=== PATIENT | male | born 1955 | race American Indian/Alaskan Native ===

== ENCOUNTER 2018-10-04 12:24 | Emergency (ER) | payer OTHER, MEDICARE, SELFPAY ==
[2018-10-04 12:30] VITALS: BP 149/91; PULSE 79; RESP 23; TEMP 37.1; O2SAT 98; BMI 22.1
--- NOTE | 2018-10-04 12:32 | DI.RAD.S_ITS ---
PROCEDURE: XR CHEST 1V INDICATIONS: chest pain TECHNIQUE: One view of the chest was acquired. COMPARISON: None. FINDINGS: Surgical changes and devices: None. Lungs and pleura: Increased pulmonary vascularity is present. Areas of somewhat nodular opacity are noted within the upper lobes bilaterally, left greater than right. Mediastinum: Mediastinal contours appear normal. Heart size is normal. Bones and chest wall: No suspicious bony lesions. Overlying soft tissues appear unremarkable. IMPRESSION: Increased vascular suggestive of edema. Somewhat appearance of nodular opacities in the upper lobes could represent focal edema or potentially small areas of superimposed airspace disease. Recommend interval followup to document resolution and exclude presence of underlying mass lesion. Dictated by: Inez Torres M.D. on 10/04/2018 at 13:19 Approved by: Inez Torres M.D. on 10/04/2018 at 13:24
[2018-10-04 12:50] LABS: Add Manual Diff / Slide Review NO; Basophils Absolute Auto 100 /uL (0-100); Basophils Percent Auto 0.8 % (0-2); Eosinophils Absolute Auto 200 /uL (0-450); Eosinophils Percent Auto 2.5 % (2-4); Hematocrit 32.9 % (41-53); Hemoglobin 11.3 g/dL (13.5-17.5); Lymphocytes Absolute Auto 2700 /uL (1100-4500); Lymphocytes Percent Auto 30.3 % (25-40); Mean Corpuscular HGB Conc 34.5 % (30-36); Monocytes Absolute Auto 600 /uL (0-900); Monocytes Percent Auto 6.4 % (3-14); Neutrophils Absolute Auto 5400 /uL (1500-7000); Platelet Count 360 X10^3/uL (150-400); Red Blood Cell Count 3.66 X10^6/uL (4.5-5.9); Red Cell Distribution Width 15.5 % (11.6-14.8)
[2018-10-04 12:59] LABS: INR 1.1 (0.9-1.3); Prothrombin Time 12.5 SECONDS (10.1-12.7)
[2018-10-04 13:00] VITALS: BP 126/85; PULSE 82; RESP 17; O2SAT 99
[2018-10-04 13:01] LABS: PTT Partial Thromboplastin Tim 35 SECONDS (26.4-36.2)
[2018-10-04 13:02] LABS: Alanine Aminotransferase 8 IU/L (21-72); Albumin 3.6 g/dL (3.5-5.0); Albumin Globulin Ratio 0.9 (1.0-2.8); Alkaline Phosphatase 79 U/L (38-126); Aspartate Aminotransferase 23 IU/L (17-59); BUN Creatinine Ratio 11.4 (6-22); Bilirubin Total 0.4 mg/dL (0.2-1.3); Blood Urea Nitrogen 8 mg/dL (9-20); Calcium 8.1 mg/dL (8.4-10.2); Carbon Dioxide 26 mmol/L (22-32); Chloride 104 mmol/L (98-107); Creatine Kinase 79 U/L (55-170); Estimated Glomerular Filt Rate > 60.0 mL/min (>60); Globulin 4.2 g/dL (1.7-4.1); Glucose 115 mg/dL (80-110); HEMOLYSIS < 15 (0-50); Lipase 83 U/L (23-300); Potassium 3.7 mmol/L (3.4-5.1); Sodium 137 mmol/L (137-145); Total Protein 7.8 g/dL (6.3-8.2)
--- NOTE | 2018-10-04 13:04 | ED.CHESTPAIN ---
HPI - Chest Pain General Chief Complaint: Chest Pain Stated Complaint: SOB Time Seen by Provider: 10/04/18 12:54 Source: patient Mode of arrival: ambulatory Limitations: no limitations History of Present Illness HPI narrative: Patient is a 63-year-old male who shortness of breath. He complains of shortness of breath with exertion he says it has been getting worse for the last 6 months. He used to be able walk a mile without any problem now he can only walk half a mi. He says he has noticed increasing shortness of breath with minimal exertion. He has also had some left-sided chest discomfort ongoing for about 4 days. He thought he just slept on it wrong. It does not seem to be worse with movement he has no pain now. He feels that he can get enough air now. He has no prior history of coronary artery disease or COPD. He does state that he smokes marijuana daily but no other medications. MD complaint: chest pain Duration: now resolved Related Data Previous Rx's Medication Instructions Recorded albuterol sulfate 1 puff INHALATION Q4-6H PRN #8.5 10/04/18 gram Allergies Allergy/AdvReac Type Severity Reaction Status Date / Time No Known Drug Allergies Allergy Verified 10/04/18 12:32 Review of Systems Review of Systems ROS Unobtainable: All systems reviewed & are unremarkable except as noted in HPI and below Constitutional Denies chills, Denies fever(s), Denies lethargy and Denies weakness Eyes Denies change in vision, Denies eye discharge, Denies irritation and Denies loss of vision ENT Ears, Nose, Mouth, and Throat: Denies change in voice, Denies neck pain and Denies sore throat Cardiovascular Reports chest pain and Reports dyspnea on exertion Respiratory Reports dyspnea on exertion Gastrointestinal Gastrointestinal: Denies abdominal pain, Denies change in bowel habits, Denies diarrhea, Denies nausea and Denies vomiting Musculoskeletal Denies neck pain Integumentary/Breasts Denies pruritus, Denies erythema, Denies rash and Denies wounds Neurologic Denies confusion, Denies loss of vision and Denies weakness Psychiatric Denies anxiety, Denies confusion, Denies depression, Denies homicidal ideation and Denies suicidal ideation [facility] Medical History Patient denies significant medical history (Acute) Social History Smoking Status: Unknown if ever smoked Social History Smoking Status: Unknown if ever smoked Exam Initial Vital Signs Initial Vital Signs: Vital Signs Temperature 98.7 F 10/04/18 12:30 Pulse Rate 79 10/04/18 12:30 Respiratory Rate 23 10/04/18 12:30 Blood Pressure 149/91 H 10/04/18 12:30 Pulse Oximetry 98 10/04/18 12:30 Scores HEART Score Heart Score history: Slightly Suspicious Heart Score EKG: Normal Heart Score Age: > or = 65 years old Heart Score risk factors: No known risk factors Heart Score troponin: < or = to normal limit Heart Score Total: 2 Course Orders Ordered: ED Orders 10/04/18 12:32 XR chest 1V Stat 10/04/18 12:35 EKG-12 Lead Stat 10/04/18 12:40 B Type Natriuretic Peptide Stat Complete Blood Count AUTO DIFF Stat Comprehensive Metabolic Panel Stat D Dimer Stat Lipase Stat Partial Thromboplastin Time Stat Prothrombin Time INR Stat Troponin & CK Cardiac Panel Stat 10/04/18 15:02 CT angio chest PE protocol Stat Discontinued Medications Albuterol/Ipratropium (Duoneb) 3 ml INH NOW ONE Stop: 10/04/18 13:12 Last Admin: 10/04/18 13:15 Dose: 3 ml Vital Signs - 8 hr 10/04/18 12:30 10/04/18 13:00 10/04/18 13:20 Temperature 98.7 F Pulse Rate 79 82 78 Respiratory Rate 23 17 Blood Pressure 149/91 H Blood Pressure [Right Arm] 126/85 Pulse Oximetry 98 99 98 10/04/18 13:30 10/04/18 16:27 Temperature 98.7 F Pulse Rate 75 64 Respiratory Rate 25 H 18 Blood Pressure Blood Pressure [Right Arm] 134/86 138/76 Pulse Oximetry 99 100 MDM - Chest Pain Lab Data Attestation: I reviewed the patient's lab results. Result diagrams: 10/04/18 12:40 10/04/18 12:40 Lab Results 10/04/18 10/04/18 10/04/18 Range/Units 12:40 12:40 12:40 WBC 9.0 (4.5-11.0) X10^3/uL RBC 3.66 L (4.5-5.9) X10^6/uL Hgb 11.3 L (13.5-17.5) g/dL Hct 32.9 L (41-53) % MCV 90.0 (80-100) fL MCH 31.0 (26-34) PG MCHC 34.5 (30-36) % RDW 15.5 H (11.6-14.8) % Plt Count 360 (150-400) X10^3/uL Neut % (Auto) 60.0 (50-75) % Lymph % (Auto) 30.3 (25-40) % [place] % (Auto) 6.4 (3-14) % Eos % (Auto) 2.5 (2-4) % Baso % (Auto) 0.8 (0-2) % Neut # (Auto) 5400 (6680-1982) /uL Lymph # (Auto) 2700 (9189-2485) /uL [place] # (Auto) 600 (0-900) /uL Eos # (Auto) 200 (0-450) /uL Baso # (Auto) 100 (0-100) /uL PT 12.5 (10.1-12.7) SECONDS INR 1.1 (0.9-1.3) APTT 35 (26.4-36.2) SECONDS D-Dimer (<230) ng/mL Sodium 137 (137-145) mmol/L Potassium 3.7 (3.4-5.1) mmol/L Chloride 104 (98-107) mmol/L Carbon Dioxide 26 (22-32) mmol/L BUN 8 L (9-20) mg/dL Creatinine 0.70 (0.66-1.25) mg/dL Estimated GFR > 60.0 (>60) mL/min BUN/Creatinine Ratio 11.4 (6-22) Glucose 115 H (80-110) mg/dL Calcium 8.1 L (8.4-10.2) mg/dL Total Bilirubin 0.4 (0.2-1.3) mg/dL AST 23 (17-59) IU/L ALT 8 L (21-72) IU/L Alkaline Phosphatase 79 (38-126) U/L Total Creatine Kinase 79 (55-170) U/L CK-MB (CK-2) TNP CK-MB (CK-2) Rel Index TNP Troponin I < 0.012 (0.01-0.034) ng/mL B-Natriuretic Peptide (<100) Total Protein 7.8 (6.3-8.2) g/dL Albumin 3.6 (3.5-5.0) g/dL Globulin 4.2 H (1.7-4.1) g/dL Albumin/Globulin Ratio 0.9 L (1.0-2.8) Lipase 83 (23-300) U/L 10/04/18 10/04/18 Range/Units 12:40 12:40 WBC (4.5-11.0) X10^3/uL RBC (4.5-5.9) X10^6/uL Hgb (13.5-17.5) g/dL Hct (41-53) % MCV (80-100) fL MCH (26-34) PG MCHC (30-36) % RDW (11.6-14.8) % Plt Count (150-400) X10^3/uL Neut % (Auto) (50-75) % Lymph % (Auto) (25-40) % [place] % (Auto) (3-14) % Eos % (Auto) (2-4) % Baso % (Auto) (0-2) % Neut # (Auto) (4076-4789) /uL Lymph # (Auto) (9911-8141) /uL [place] # (Auto) (0-900) /uL Eos # (Auto) (0-450) /uL Baso # (Auto) (0-100) /uL PT (10.1-12.7) SECONDS INR (0.9-1.3) APTT (26.4-36.2) SECONDS D-Dimer 449 H (<230) ng/mL Sodium (137-145) mmol/L Potassium (3.4-5.1) mmol/L Chloride (98-107) mmol/L Carbon Dioxide (22-32) mmol/L BUN (9-20) mg/dL Creatinine (0.66-1.25) mg/dL Estimated GFR (>60) mL/min BUN/Creatinine Ratio (6-22) Glucose (80-110) mg/dL Calcium (8.4-10.2) mg/dL Total Bilirubin (0.2-1.3) mg/dL AST (17-59) IU/L ALT (21-72) IU/L Alkaline Phosphatase (38-126) U/L Total Creatine Kinase (55-170) U/L CK-MB (CK-2) CK-MB (CK-2) Rel Index Troponin I (0.01-0.034) ng/mL B-Natriuretic Peptide < 100 (<100) Total Protein (6.3-8.2) g/dL Albumin (3.5-5.0) g/dL Globulin (1.7-4.1) g/dL Albumin/Globulin Ratio (1.0-2.8) Lipase (23-300) U/L Imaging Data Chest x-ray: Radiologist's impression: PROCEDURE: XR CHEST 1V INDICATIONS: chest pain TECHNIQUE: One view of the chest was acquired. COMPARISON: None. FINDINGS: Surgical changes and devices: None. Lungs and pleura: Increased pulmonary vascularity is present. Areas of somewhat nodular opacity are noted within the upper lobes bilaterally, left greater than right. Mediastinum: Mediastinal contours appear normal. Heart size is normal. Bones and chest wall: No suspicious bony lesions. Overlying soft tissues appear unremarkable. IMPRESSION: Increased vascular suggestive of edema. Somewhat appearance of nodular opacities in the upper lobes could represent focal edema or potentially small areas of superimposed airspace disease. Recommend interval followup to document resolution and exclude presence of underlying mass lesion. Dictated by: Inez Torres M.D. on 10/04/2018 at 13:19 Approved by: Inez Torres M.D. on 10/04/2018 at 13:24 CT scan - chest: Radiologist's impression: PROCEDURE: CT ANGIO CHEST PE PROTOCOL INDICATIONS: short of breath +dimer TECHNIQUE: After the administration of intravenous contrast, 2 mm thick sections acquired from the pulmonary apices to the posterior costophrenic angles. 3-dimensional maximum intensity projection (MIP) coronal and sagittal reformats were then acquired through the thorax. For radiation dose reduction, the following was used: automated exposure control, adjustment of mA and/or kV according to patient size. COMPARISON: None. FINDINGS: Image quality: Excellent. Pulmonary arteries: Pulmonary arteries are normal in size, and demonstrate no intraluminal filling defects to suggest central pulmonary embolism. Lungs and pleura: There are extensive changes of pulmonary fibrosis with a bibasilar predominance and extensive honeycombing. There is extensive predominantly bibasilar groundglass opacity consistent with acute inflammation. No air space consolidation. No pleural effusions or pneumothorax. Central and peripheral airways are patent. Mediastinum: Heart size is normal, without pericardial effusion. Extensive relatively symmetric mediastinal and bilateral shotty adenopathy. No individual lymph nodes are present which are suspicious by size criteria. However, there are numerous lymph nodes present. Thoracic aorta is normal in caliber and enhancement. Esophagus is normal in caliber, without hiatal hernia. Bones and chest wall: No suspicious bony lesions. Ribs and thoracic spine appear intact throughout. Thyroid gland is unremarkable. No axillary or supraclavicular adenopathy. Abdomen: Visualized upper abdominal solid organs appear normal in the early arterial phase of enhancement. IMPRESSION: 1. No pulmonary emboli. 2. Symmetric extensive shotty mediastinal adenopathy. 3. Extensive pulmonary fibrosis with a bibasilar predominance. There is also diffuse groundglass opacity consistent with active inflammation. Comment: The pattern of pulmonary fibrosis would be atypical for sarcoid, which typically has a biapical predominance. However, sarcoid is not excluded. Dictated by: Vicente Pittman M.D. on 10/04/2018 at 15:19 ECG Data Attestation: I personally reviewed and interpreted this ECG as follows: Prior ECG tracings: not available for review Interpretation: Normal sinus rhythm at 75 year interval [address] changes no T-wave inversion MDM Narrative Medical decision making narrative: Patient significant improvement after albuterol. He states that he was around fiberglass a lot in his life. He feels like that may be catching up to him. No pneumonia or PE on CT. He is taught how to use an inhaler and spacer overall feels much better. I did discuss with him he should have further cardiac testing such as a stress test. Discharge Plan Departure Patient Disposition: Home Clinical Impression: RAD (reactive airway disease) Qualifiers: Asthma severity: mild Asthma persistence: intermittent Asthma complication type: uncomplicated Qualified Code(s): J45.20 - Mild intermittent asthma, uncomplicated Instructions: DI for Reactive Airway Disease-Adult Activity Restrictions/Additional Instructions: *You have been diagnosed with reactive airway *What to do: Shortness of breath is likely due to her exposure to fiberglass. You may also require further cardiac testing please discuss this with your PCP. He would need things like a stress test and echocardiogram. *Continue to take medications as directed Albuterol inhaler 1-2 puffs every 4 hours if needed for shortness of breath. Recommend using 30 minutes prior to your daily walk *Follow up with your primary care provider in 2-3 days *Return to ER if you should have increasing shortness of breath, chest or any new, worsening or concerning symptoms Prescriptions: New albuterol sulfate 90 mcg/actuation HFA aerosol inhaler 1 puff INHALATION Q4-6H PRN (Reason: shortness of breath or wheezing) Qty: 8.5 RF: 0 Referrals: [facility] [Outside] Yahaira Walsh MD [Non-Staff] -
[2018-10-04 13:14] LABS: Troponin I < 0.012 ng/mL (0.01-0.034)
[2018-10-04] MEDS: ALBUTEROL/IPRATROPIUM 3 ML AMPUL INH (13:15)
[2018-10-04 13:20] VITALS: PULSE 78; O2SAT 98
[2018-10-04 13:30] VITALS: BP 134/86; PULSE 75; RESP 25; O2SAT 99
[2018-10-04 13:32] LABS: D Dimer 449 ng/mL (<230)
[2018-10-04 14:04] LABS: B Type Natriuretic Peptide < 100 (<100)
--- NOTE | 2018-10-04 15:02 | DI.CT.S_ITS ---
PROCEDURE: CT ANGIO CHEST PE PROTOCOL INDICATIONS: short of breath +dimer TECHNIQUE: After the administration of intravenous contrast, 2 mm thick sections acquired from the pulmonary apices to the posterior costophrenic angles. 3-dimensional maximum intensity projection (MIP) coronal and sagittal reformats were then acquired through the thorax. For radiation dose reduction, the following was used: automated exposure control, adjustment of mA and/or kV according to patient size. COMPARISON: None. FINDINGS: Image quality: Excellent. Pulmonary arteries: Pulmonary arteries are normal in size, and demonstrate no intraluminal filling defects to suggest central pulmonary embolism. Lungs and pleura: There are extensive changes of pulmonary fibrosis with a bibasilar predominance and extensive honeycombing. There is extensive predominantly bibasilar groundglass opacity consistent with acute inflammation. No air space consolidation. No pleural effusions or pneumothorax. Central and peripheral airways are patent. Mediastinum: Heart size is normal, without pericardial effusion. Extensive relatively symmetric mediastinal and bilateral shotty adenopathy. No individual lymph nodes are present which are suspicious by size criteria. However, there are numerous lymph nodes present. Thoracic aorta is normal in caliber and enhancement. Esophagus is normal in caliber, without hiatal hernia. Bones and chest wall: No suspicious bony lesions. Ribs and thoracic spine appear intact throughout. Thyroid gland is unremarkable. No axillary or supraclavicular adenopathy. Abdomen: Visualized upper abdominal solid organs appear normal in the early arterial phase of enhancement. IMPRESSION: 1. No pulmonary emboli. 2. Symmetric extensive shotty mediastinal adenopathy. 3. Extensive pulmonary fibrosis with a bibasilar predominance. There is also diffuse groundglass opacity consistent with active inflammation. Comment: The pattern of pulmonary fibrosis would be atypical for sarcoid, which typically has a biapical predominance. However, sarcoid is not excluded. Dictated by: Vicente Pittman M.D. on 10/04/2018 at 15:19 Approved by: Vicente Pittman M.D. on 10/04/2018 at 15:35
[2018-10-04 16:27] VITALS: BP 138/76; PULSE 64; RESP 18; TEMP 37.1; O2SAT 100
== END 2018-10-04 16:40 | disposition home or self-care (01) ==
PROVIDERS: Emergency Provider Emergency Medicine
DX: J45.909 Unspecified asthma, uncomplicated (principal); J45.20 Mild intermittent asthma, uncomplicated; R07.9 Chest pain, unspecified
CPT/HCPCS: 36591; 71045; 71275; 80053; 82550; 83690; 83880; 84484; 85025; 85379; 85610; 85730; 93005; 93010; 94640; 99283; 99285; Q9967

== ENCOUNTER → 2019-04-20 11:56 | Outpatient (CLI) | payer MEDICARE, OTHER, SELFPAY ==
--- NOTE | 2019-04-20 | DI.RAD.S_ITS ---
PROCEDURE: XR CHEST 2V INDICATIONS: SOB TECHNIQUE: 2 views of the chest were acquired. COMPARISON: [facility], CR, XR CHEST 1V, 10/04/2018, 12:52. FINDINGS: Surgical changes and devices: None. Lungs and pleura: Ill-defined air space opacity throughout bilateral lung lanier are seen particularly in bilateral lower lobes. Chronic increased interstitial lung markings also seen bilaterally. No pleural effusions or pneumothorax. Mediastinum: Mediastinal contours are normal. Heart size is normal. Bones and chest wall: No suspicious bony abnormalities. Soft tissues appear unremarkable. IMPRESSION: Findings suggestive of patchy bilateral lower lobe infiltrates superimposed on chronic interstitial lung disease. No gross pneumothorax. Dictated by: Juan Cast M.D. on 04/20/2019 at 13:25 Approved by: Juan Cast M.D. on 04/20/2019 at 13:26
[2019-04-20 14:08] LABS: Procalcitonin < 0.05 ng/mL (<0.5)
== END ==
PROVIDERS: Visit Provider Physician Assistant
DX: R06.02 Shortness of breath (principal)
CPT/HCPCS: 36415; 71046; 84145

== ENCOUNTER → 2019-06-13 12:18 | Outpatient (CLI) | payer MEDICARE, OTHER, SELFPAY ==
--- NOTE | 2019-06-13 | DI.RAD.S_ITS ---
PROCEDURE: XR CHEST 2V INDICATIONS: SOB/ LAB TECHNIQUE: 2 views of the chest were acquired. COMPARISON: [facility], CT, CT ANGIO CHEST PE PROTOCOL, 10/04/2018, 14:53. [facility], CR, XR CHEST 2V, 04/20/2019, 12:41. [facility], CR, XR CHEST 1V, 10/04/2018, 12:52. FINDINGS: Surgical changes and devices: None. Lungs and pleura: Lungs are abnormal with a chronic interstitial prominence, and pulmonary hyperexpansion to the degree that COPD is presumed. No focal pneumonia seen. Pleural calcifications are noted on the right, and also documented by prior chest CT scanning 10/04/18, mild in severity. No pleural effusions or pneumothorax. Mediastinum: Mediastinal contours are normal. Heart size is normal. Bones and chest wall: No suspicious bony abnormalities. Soft tissues appear unremarkable. IMPRESSION: COPD, chronic interstitial prominence, no pneumonia found are underlying mass lesion identified. 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 Dictated by: Chintan Ortega M.D. on 06/13/2019 at 12:42 Approved by: Chintan Ortega M.D. on 06/13/2019 at 12:46
[2019-06-13 13:08] LABS: Add Manual Diff / Slide Review NO; Basophils Absolute Auto 0 /uL (0-100); Basophils Percent Auto 0.2 % (0-2); Eosinophils Absolute Auto 0 /uL (0-450); Hematocrit 33.6 % (41-53); Hemoglobin 11.2 g/dL (13.5-17.5); Lymphocytes Absolute Auto 900 /uL (1100-4500); Lymphocytes Percent Auto 11.8 % (25-40); Mean Corpuscular HGB Conc 33.4 % (30-36); Mean Corpuscular Hemoglobin 29.2 PG (26-34); Mean Corpuscular Volume 87.5 fL (80-100); Monocytes Absolute Auto 100 /uL (0-900); Monocytes Percent Auto 0.8 % (3-14); Neutrophils Absolute Auto 6600 /uL (1500-7000); Neutrophils Percent Auto 87.2 % (50-75); Platelet Count 442 X10^3/uL (150-400); Red Blood Cell Count 3.84 X10^6/uL (4.5-5.9); Red Cell Distribution Width 15.4 % (11.6-14.8); White Blood Cell Count 7.6 X10^3/uL (4.5-11.0)
[2019-06-13 15:01] LABS: Alanine Aminotransferase 15 IU/L (<50); Albumin 3.8 g/dL (3.5-5.0); Albumin Globulin Ratio 0.7 (1.0-2.8); Alkaline Phosphatase 99 U/L (38-126); Aspartate Aminotransferase 43 IU/L (17-59); Bilirubin Total 0.2 mg/dL (0.2-1.3); Blood Urea Nitrogen 9 mg/dL (9-20); Calcium 8.8 mg/dL (8.4-10.2); Carbon Dioxide 24 mmol/L (22-32); Chloride 103 mmol/L (98-107); Estimated Glomerular Filt Rate > 60.0 mL/min (>60); Globulin 5.1 g/dL (1.7-4.1); Glucose 135 mg/dL (80-110); HEMOLYSIS < 15 (0-50); Potassium 4.2 mmol/L (3.4-5.1); Sodium 137 mmol/L (137-145); Total Protein 8.9 g/dL (6.3-8.2)
[2019-06-13 15:10] LABS: NT-proBNP (BNP-Adult 18+) 366 pg/mL (<125)
== END ==
PROVIDERS: Referring Provider Physician Assistant; Visit Provider Physician Assistant
DX: R06.02 Shortness of breath (principal)
CPT/HCPCS: 36415; 71046; 80053; 83880; 85025

== ENCOUNTER → 2019-06-16 08:28 | Outpatient (CLI) | payer MEDICARE, OTHER, SELFPAY ==
--- NOTE | 2019-06-16 | DI.RAD.S_ITS ---
PROCEDURE: XR LUMBAR SPINE 2-3V INDICATIONS: LOW BACK PAIN TECHNIQUE: 3 views of the lumbar spine were acquired. COMPARISON: None. FINDINGS: Bones: 5 [id number] vertebrae are present. There is normal bony alignment. No vertebral body compression fractures. Mild degenerative endplate changes a mid to lower lumbar spine is seen. No suspicious bony lesions. There is prior fixation of right acetabulum. Soft tissues: Overlying bowel gas pattern is normal. No suspicious soft tissue calcifications. IMPRESSION: Mild degenerative disc disease in lower lumbar spine. No acute fracture or dislocation. Prior fixation of right acetabulum. Dictated by: Juan Cast M.D. on 06/16/2019 at 10:02 Approved by: Juan Cast M.D. on 06/16/2019 at 10:03
[2019-06-16 09:36] LABS: Basophils Absolute Auto 100 /uL (0-100); Basophils Percent Auto 0.7 % (0-2); Eosinophils Absolute Auto 200 /uL (0-450); Eosinophils Percent Auto 1.3 % (2-4); Hematocrit 33.7 % (41-53); Hemoglobin 11.2 g/dL (13.5-17.5); Lymphocytes Absolute Auto 2100 /uL (1100-4500); Lymphocytes Percent Auto 17.6 % (25-40); Mean Corpuscular HGB Conc 33.3 % (30-36); Mean Corpuscular Hemoglobin 29.2 PG (26-34); Mean Corpuscular Volume 87.7 fL (80-100); Monocytes Absolute Auto 800 /uL (0-900); Monocytes Percent Auto 6.3 % (3-14); Neutrophils Absolute Auto 8900 /uL (1500-7000); Neutrophils Percent Auto 74.1 % (50-75); Platelet Count 431 X10^3/uL (150-400); Red Blood Cell Count 3.84 X10^6/uL (4.5-5.9); Red Cell Distribution Width 15.5 % (11.6-14.8)
[2019-06-16 09:45] LABS: Add Manual Diff / Slide Review SLIDE REVIEW
[2019-06-16 09:48] LABS: Hemoglobin A1C% w Est Avg Glu 5.5 % (4.0-6.0)
[2019-06-16 10:07] LABS: RBC Morphology Normal Morphology
[2019-06-16 11:11] LABS: HEMOLYSIS < 15 (0-50); Iron 33 ug/dL (49-181)
[2019-06-16 11:22] LABS: Percent Iron Saturation 14 % (20-50); Total Iron Binding Capacity 239 ug/dL (261-462); Transferrin 178 mg/dL (206-381)
[2019-06-16 15:38] LABS: Ferritin 13 ng/mL (18-464)
[2019-06-18 20:15] LABS: Albumin 2.9 g/dL (3.8-4.8); Alpha 1 Globulin 0.3 g/dL (0.2-0.3); Alpha 2 Globulin 0.8 g/dL (0.5-0.9); Beta 1 Globulin 0.5 g/dL (0.4-0.6); Gamma Globulin 2.3 g/dL (0.8-1.7); Protein, Total 7.2 g/dL (6.1-8.1)
== END ==
PROVIDERS: Referring Provider Physician Assistant; Visit Provider Physician Assistant
DX: Z13.1 Encounter for screening for diabetes mellitus (principal); M54.5 Low back pain; R77.1 Abnormality of globulin; D64.89 Other specified anemias; J84.10 Pulmonary fibrosis, unspecified
CPT/HCPCS: 36415; 72100; 82728; 83036; 83540; 83550; 84155; 84165; 85025

== ENCOUNTER → 2019-06-22 08:56 | Outpatient (CLI) | payer MEDICARE, OTHER, SELFPAY ==
--- NOTE | 2019-06-28 08:26 | PM.PFT.1 ---
Pulmonary Function Test Referral & Results Date Patient Seen: 06/22/19 Requesting provider: Az Salazar Results: The spirometry demonstrates an FVC of 3.28 L which is 74% of predicted. The FEV1 was measured at 2.77 L which is 84% of predicted. The FEV1/FVC ratio was 85 which is 113% of predicted. Following the administration of bronchodilator there was no appreciable change. Lung volumes show an SVC of 3.62 L which is 80% of predicted. The diffusing capacity was measured at 9.65 which is 31% of predicted. No hemoglobin value was provided, so no correction for potential anemia could be made, if appropriate. The maximum voluntary ventilation was normal Interpretation: This study demonstrates probably normal spirometry although there may be very mild obstructive and restrictive lung disease present based on slight reductions in FEV1 and SVC There is much more significant reduction in diffusing capacity suggesting significant disease at the capillary alveolar level, to the point where patient may well be hypoxic at times on room air Clinical correlation suggested
== END ==
PROVIDERS: PCP Physician Assistant; Referring Provider Physician Assistant; Visit Provider Physician Assistant
DX: R06.02 Shortness of breath (principal)
CPT/HCPCS: 94060; 94726; 94729

== ENCOUNTER → 2019-07-20 14:36 | Outpatient (CLI) | payer MEDICARE, OTHER, SELFPAY ==
--- NOTE | 2019-07-20 | DI.ECHO.S_ITS ---
[place] [facility]---------+ [facility] +---------+ : : [address] : : : : [id number] : : : : Phone: [phone]+ Echocardiogram Report + + :Name: SHON GLASER Study Date: 07/20/2019 Height: 69 in : :[facility] Weight: 142 lb : : Gender: Male BSA: 1.8 m2 : :: 1955 Age: 64 yrs BP: 130/80 mmHg: :Reason For Study: SOB : : Performed By: Cheko Jo : :Referring: SHON TERRAZAS : + + Interpretation Summary Normal sinus rhythm. Normal LV size, wall thickness, wall motion and LV systolic function. EF is 55-60%. Mild biatrial enlargement; otherwise normal chamber sizes. No significant valvular abnormalities. No prior study available for ocmparison. Procedure: A two-dimensional transthoracic echocardiogram with color flow and Doppler was performed. The study quality was technically good. There is no prior echocardiogram noted for this patient. The patient was in normal sinus rhythm during the exam. Left Ventricle: The left ventricle is normal in size. There is normal left ventricular wall thickness. The ejection fraction is estimated to be 55-60%. There are no focal wall motion abnormalities. Right Ventricle: The right ventricle is normal in size and function. Atria: Both atria are mildly dilated. The interatrial septum is intact with no evidence for an atrial septal defect. Mitral Valve: The mitral valve is normal in structure and function. There is trace mitral regurgitation. Aortic Valve: The aortic valve is trileaflet. The aortic valve opens well. No aortic regurgitation is present. Tricuspid Valve: The tricuspid valve is normal in structure and function. There is trace tricuspid regurgitation. The right ventricular systolic pressure is estimated to be at least 29 mmHg based on an estimated right atrial pressure of 8 mm Hg. Pulmonic Valve: The pulmonic valve is normal in structure and function. There is no pulmonic valvular regurgitation. Great Vessels: The aortic root is normal size. The ascending aorta is mildly enlarged. The pulmonary artery is normal size. The IVC is of normal diameter and collapses less than 50% with a sniff. This suggests a right atrial pressure of 8 mm Hg. Pericardium/ Pleura There is no pericardial effusion. There is no pleural effusion. MMode/2D Measurements & Calculations LVIDd: 5.1 cm LVOT diam: 2.3 cm LVIDs: 3.7 cm asc Aorta Diam: 3.9 cm FS: 27.6 % Ao Arch Diam (Prox Trans): 2.6 cm EPSS: 0.22 cm IVSd: 0.83 cm LVPWd: 0.79 cm LV murillo. diameter/BSA (cm/m^2): 2.8 LV sys. diameter/BSA (cm/m^2): 2.1 LA dimension: 3.2 cm RA long axis: 5.0 cm LA A2 area: 20.6 cm2 RA area: 19.5 cm2 LA A4 area: 20.3 cm2 RA vol: 64.3 ml LA length (vol): 5.2 cm RA : 36.0 ml/m2 LA vol: 68.5 ml IVC diam: 1.5 cm LA vol index: 38.4 ml/m2 RVD1 (basal): 3.7 cm RVD2 (mid): 4.4 cm TAPSE: 2.5 cm Doppler Measurements & Calculations Ao V2 max: 151.8 cm/sec LVOT Max Dariusz: 103.9 cm/sec Ao V2 mean: 113.9 cm/sec LV V1 max P.3 mmHg Ao max P.2 mmHg LV V1 VTI: 22.4 cm Ao mean P.6 mmHg THAO(I,D): 3.0 cm2 Ao V2 VTI: 31.6 cm THAO(V,D): 2.9 cm2 sev ratio: 0.71 THAO indexed to BSA (cm^2/m^2): 1.7 MV E max dariusz: 48.5 cm/sec TR max dariusz: 231.0 cm/sec MV A max dariusz: 78.9 cm/sec TR max P.3 mmHg MV E/A: 0.61 PA V2 max: 80.1 cm/sec Med Peak E' Dariusz: 5.3 cm/sec PA V2 mean: 58.0 cm/sec E/E' med: 9.2 PA mean P.5 mmHg Lat Peak E' Dariusz: 8.3 cm/sec PA pr(Accel): 43.0 mmHg E/E' lat: 5.8 E/e' average: 7.5 MV dec time: 0.21 sec SV(LVOT): 93.4 ml Electronically signed by: Haylee Vallejo M.D. on Reading Physician:07/21/2019 08:12 AM
== END ==
PROVIDERS: PCP Physician Assistant; Referring Provider Physician Assistant; Visit Provider Physician Assistant
DX: R06.02 Shortness of breath (principal); I77.89 Other specified disorders of arteries and arterioles
CPT/HCPCS: 93306

== ENCOUNTER 2019-10-22 10:22 | Emergency (ER) | payer MEDICARE, OTHER, SELFPAY ==
[2019-10-22] VITALS (14 sets, daily range): BP systolic 146–173; BP diastolic 90–101; PULSE 79–96; RESP 16–38; TEMP 36.5; O2SAT 95–97; BMI 23.6
--- NOTE | 2019-10-22 11:21 | PC.NURSE ---
Reports diagnosis of pulmonary fibrosis in April, followed by pneumonia. Was tapered off of steroids 2 weeks ago and breathing has worsened since.
--- NOTE | 2019-10-22 12:42 | DI.RAD.S_ITS ---
PROCEDURE: XR CHEST 1V INDICATIONS: shortness of breath TECHNIQUE: One view of the chest was acquired. COMPARISON: [facility], CT, CT ANGIO CHEST PE PROTOCOL, 10/04/2018, 14:5 the previous exam3. [facility], CR, XR CHEST 2V, 06/13/2019, 12:20. FINDINGS: Surgical changes and devices: None. Lungs and pleura: Interstitial prominence is identified within the bilateral lung bases, which is similar to the previous examination. No new area of consolidation is appreciated. There is no definite effusion or pneumothorax. Calcification at the right diaphragm is noted. Mediastinum: Mediastinal contours appear normal. Heart size is normal. There is aortic atherosclerosis. Bones and chest wall: No suspicious bony lesions. Overlying soft tissues appear unremarkable. IMPRESSION: Extensive chronic interstitial changes are identified within the lungs, similar to the prior study. Superimposed pneumonia or edema is difficult to exclude. Dictated by: Walker Ny M.D. on 10/22/2019 at 12:15 Approved by: Walker Ny M.D. on 10/22/2019 at 12:23
[2019-10-22] MEDS: ALBUTEROL HFA 60 PUFF/8 GM INH INH (12:51)
[2019-10-22 12:53] LABS: Prothrombin Time 11.8 SECONDS (10.1-12.7)
[2019-10-22 12:56] LABS: Add Manual Diff / Slide Review NO; Basophils Absolute Auto 100 /uL (0-100); Basophils Percent Auto 0.7 % (0-2); Eosinophils Absolute Auto 700 /uL (0-450); Eosinophils Percent Auto 6.3 % (2-4); Hematocrit 32.2 % (41-53); Hemoglobin 10.6 g/dL (13.5-17.5); Lymphocytes Absolute Auto 2300 /uL (1100-4500); Lymphocytes Percent Auto 21.6 % (25-40); Mean Corpuscular HGB Conc 32.8 % (30-36); Mean Corpuscular Hemoglobin 29.6 PG (26-34); Mean Corpuscular Volume 90.1 fL (80-100); Monocytes Absolute Auto 500 /uL (0-900); Monocytes Percent Auto 4.5 % (3-14); Neutrophils Absolute Auto 7200 /uL (1500-7000); Neutrophils Percent Auto 66.9 % (50-75); PTT Partial Thromboplastin Tim 33 SECONDS (26.4-36.2); Platelet Count 483 X10^3/uL (150-400); Red Blood Cell Count 3.58 X10^6/uL (4.5-5.9); Red Cell Distribution Width 17.9 % (11.6-14.8); White Blood Cell Count 10.8 X10^3/uL (4.5-11.0)
[2019-10-22 13:03] LABS: Lactate (Lactic Acid) 0.8 mmol/L (0.7-2.1)
[2019-10-22 13:06] LABS: Alanine Aminotransferase 16 IU/L (<50); Albumin 3.4 g/dL (3.5-5.0); Albumin Globulin Ratio 0.9 (1.0-2.8); Alkaline Phosphatase 94 U/L (38-126); Aspartate Aminotransferase 49 IU/L (17-59); BUN Creatinine Ratio 17.6 (6-22); Bilirubin Total 0.4 mg/dL (0.2-1.3); Blood Urea Nitrogen 12 mg/dL (9-20); Calcium 8.7 mg/dL (8.4-10.2); Carbon Dioxide 27 mmol/L (22-32); Chloride 108 mmol/L (98-107); Creatine Kinase 45 U/L (55-170); Estimated Glomerular Filt Rate > 60.0 mL/min (>60); Globulin 3.9 g/dL (1.7-4.1); Glucose 116 mg/dL (80-110); HEMOLYSIS < 15 (0-50); Magnesium 1.9 mg/dL (1.6-2.3); Potassium 3.9 mmol/L (3.4-5.1); Sodium 138 mmol/L (137-145); Total Protein 7.3 g/dL (6.3-8.2)
[2019-10-22 13:16] LABS: NT-proBNP (BNP-Adult 18+) 736 pg/mL (<125); Troponin I < 0.012 ng/mL (0.01-0.034)
[2019-10-22 13:19] LABS: D Dimer 558 ng/mL (<230); Procalcitonin < 0.05 ng/mL (<0.5)
[2019-10-22 14:39] LABS: Creatine Kinase 42 U/L (55-170)
[2019-10-22 14:50] LABS: Troponin I < 0.012 ng/mL (0.01-0.034)
[2019-10-22] MEDS: predniSONE 20 MG TABLET 40 MG PO (15:07)
--- NOTE | 2019-10-22 19:11 | ED_ITS ---
HPI - SOB/Dyspnea <NELLY Esqueda - Last Filed: 10/22/19 19:16> General Chief Complaint: Shortness of Breath/Dyspnea Stated Complaint: pulmonary fibrosis,shortness of breath Time Seen by Provider: 10/22/19 12:17 Source: patient Mode of arrival: Ambulatory Limitations: no limitations History of Present Illness HPI Narrative: The patient is a 64-year-old male nonsmoker with history of pulmonary fibrosis who presents with a chief complaint of shortness of breath. He states he was recent diagnosed with pulmonary fibrosis after a bout of pneumonia. He denies any fevers, chest pain or productive cough. He states he has an occasional dry cough. He states that he felt much worse after running out of his steroids a few weeks ago. He denies any swelling of his lower extremities. He denies any fevers. He has not taken anything to feel better. He does not use any inhalers at home. Related Data Previous Rx's Medication Instructions Recorded albuterol sulfate 1 puff INHALATION Q4-6H PRN #8.5 10/04/18 gram prednisone 40 mg PO DAILY 5 Days #10 tab 10/22/19 Allergies Allergy/AdvReac Type Severity Reaction Status Date / Time No Known Drug Allergies Allergy Verified 10/04/18 12:32 Review of Systems <NELLY Esqueda - Last Filed: 10/22/19 19:16> Review of Systems Narrative: GENERAL: Denies chills, fatigue, malaise, fever, sweats. HEENT: Denies sinus pain, ear pain, sore throat, difficulty swallowing, dizziness. RESPIRATORY: See HPI CARDIOVASCULAR: Denies chest pain, palpitations, orthopnea, edema, GASTROINTESTINAL: Denies nausea, vomiting, abdominal pain, diarrhea, constipation, melena. : Denies dysuria, frequency, incontinence, hematuria, urinary retention. MUSCULOSKELETAL: denies weakness, joint pain, or bony pain SKIN: Denies rash, skin lesions, or other NEUROLOGIC: Denies weakness, headache, numbness, change in speech, confusion, seizures, incoordination. PSYCHIATRIC: No concerning psychosocial issues. 12 point review of systems is negative except for those stated above Patient History <NELLY Esqueda - Last Filed: 10/22/19 19:16> Medical History Patient denies significant medical history (Acute) Social History Smoking Status: Unknown if ever smoked Smoking Status: Unknown if ever smoked alcohol intake frequency: holidays/special occasions only Substance Use Type: marijuana Exam <NELLY Esqueda - Last Filed: 10/22/19 19:16> Narrative Exam Narrative: GENERAL: This is a well-nourished, well-developed patient, elderly male in no acute distress HEAD: Atraumatic. Normocephalic. No temporal or scalp tenderness. EYES: Pupils equal round and reactive. Extraocular motions intact. No scleral icterus. No injection or drainage. ENT: Nose without bleeding, purulent drainage or septal hematoma.. Airway patent. NECK: Trachea midline. No JVD or lymphadenopathy. Supple, nontender, no meningeal signs. CARDIOVASCULAR: Regular rate and rhythm RESPIRATORY: Coarse bilaterally to auscultation. Breath sounds equal bilaterally. No wheezes, rales, or rhonchi. No cough on exam. GASTROINTESTINAL: Abdomen soft, non-tender, nondistended. No hepato- splenomegaly, or palpable masses. No guarding. EXTREMITIES: No clubbing, cyanosis, or edema. No joint tenderness, effusion, or edema noted. BACK: Nontender without deformity or crepitance. No flank tenderness. NEURO: AOx3. SKIN: No rash or erythema on visible skin Initial Vital Signs Initial Vital Signs: Vital Signs Temperature 97.7 F 10/22/19 10:30 Pulse Rate 96 H 10/22/19 10:30 Respiratory Rate 26 H 10/22/19 10:30 Blood Pressure 169/97 H 10/22/19 10:30 Pulse Oximetry 96 10/22/19 10:30 <Janey Russell DO - Last Filed: 10/26/19 07:03> Initial Vital Signs Initial Vital Signs: Vital Signs Temperature 97.7 F 10/22/19 10:30 Pulse Rate 96 H 10/22/19 10:30 Respiratory Rate 26 H 10/22/19 10:30 Blood Pressure 169/97 H 10/22/19 10:30 Pulse Oximetry 96 10/22/19 10:30 Scores <NELLY Esqueda - Last Filed: 10/22/19 19:16> GCS Erickson coma scale eye opening: Spontaneous Erickson coma scale verbal response: Orientated [place] coma scale motor response: Obey commands [place] coma scale total score: 15 Course <NELLY Esqueda - Last Filed: 10/22/19 19:16> Orders Ordered: Discontinued Medications Albuterol (Ventolin Hfa) 4 puff INH NOW ONE Stop: 10/22/19 12:49 Last Admin: 10/22/19 12:51 Dose: 4 puff Documented by: KARLA Prednisone (Deltasone) 40 mg PO NOW ONE Stop: 10/22/19 14:13 Last Admin: 10/22/19 15:07 Dose: 40 mg Documented by: YORDY Vital Signs Vital signs: Vital Signs - 8 hr 10/22/19 11:30 10/22/19 12:00 10/22/19 12:30 Pulse Rate 91 H 85 Respiratory Rate 27 H 21 Blood Pressure 149/91 H 147/101 H 173/97 H Pulse Oximetry 96 96 10/22/19 12:51 10/22/19 13:00 10/22/19 13:30 Pulse Rate 85 85 83 Respiratory Rate 20 24 22 Blood Pressure 162/90 H 155/95 H Pulse Oximetry 97 96 97 10/22/19 14:00 10/22/19 14:30 10/22/19 15:00 Pulse Rate 89 81 89 Respiratory Rate 24 26 H 19 Blood Pressure 158/94 H 147/95 H Pulse Oximetry 96 97 97 10/22/19 15:30 10/22/19 15:31 10/22/19 16:00 Pulse Rate 79 81 84 Respiratory Rate 31 H 38 H 33 H Blood Pressure 168/99 H 167/90 H Pulse Oximetry 97 95 96 <Janey Russell DO - Last Filed: 10/26/19 07:03> Orders Ordered: Discontinued Medications Albuterol (Ventolin Hfa) 4 puff INH NOW ONE Stop: 10/22/19 12:49 Last Admin: 10/22/19 12:51 Dose: 4 puff Documented by: KARLA Prednisone (Deltasone) 40 mg PO NOW ONE Stop: 10/22/19 14:13 Last Admin: 10/22/19 15:07 Dose: 40 mg Documented by: YORDY Vital Signs Vital signs: Vital Signs - 8 hr 10/22/19 11:30 10/22/19 12:00 10/22/19 12:30 Pulse Rate 91 H 85 Respiratory Rate 27 H 21 Blood Pressure 149/91 H 147/101 H 173/97 H Pulse Oximetry 96 96 10/22/19 12:51 10/22/19 13:00 10/22/19 13:30 Pulse Rate 85 85 83 Respiratory Rate 20 24 22 Blood Pressure 162/90 H 155/95 H Pulse Oximetry 97 96 97 10/22/19 14:00 10/22/19 14:30 10/22/19 15:00 Pulse Rate 89 81 89 Respiratory Rate 24 26 H 19 Blood Pressure 158/94 H 147/95 H Pulse Oximetry 96 97 97 10/22/19 15:30 10/22/19 15:31 10/22/19 16:00 Pulse Rate 79 81 84 Respiratory Rate 31 H 38 H 33 H Blood Pressure 168/99 H 167/90 H Pulse Oximetry 97 95 96 MDM - SOB/Dyspnea <TOYA Esqueda-BC - Last Filed: 10/22/19 19:16> Lab Data Result diagrams: 10/22/19 11:45 10/22/19 11:45 Labs: Lab Results 10/22/19 10/22/19 10/22/19 Range/Units 11:45 11:45 11:45 WBC 10.8 (4.5-11.0) X10^3/uL RBC 3.58 L (4.5-5.9) X10^6/uL Hgb 10.6 L (13.5-17.5) g/dL Hct 32.2 L (41-53) % MCV 90.1 (80-100) fL MCH 29.6 (26-34) PG MCHC 32.8 (30-36) % RDW 17.9 H (11.6-14.8) % Plt Count 483 H (150-400) X10^3/uL Neut % (Auto) 66.9 (50-75) % Lymph % (Auto) 21.6 L (25-40) % [place] % (Auto) 4.5 (3-14) % Eos % (Auto) 6.3 H (2-4) % Baso % (Auto) 0.7 (0-2) % Neut # (Auto) 7200 H (1413-1755) /uL Lymph # (Auto) 2300 (7857-2147) /uL [place] # (Auto) 500 (0-900) /uL Eos # (Auto) 700 H (0-450) /uL Baso # (Auto) 100 (0-100) /uL PT 11.8 (10.1-12.7) SECONDS INR 1.0 (0.9-1.3) APTT 33 D (26.4-36.2) SECONDS D-Dimer 558 H (<230) ng/mL Sodium 138 (137-145) mmol/L Potassium 3.9 (3.4-5.1) mmol/L Chloride 108 H (98-107) mmol/L Carbon Dioxide 27 (22-32) mmol/L BUN 12 (9-20) mg/dL Creatinine 0.68 (0.66-1.25) mg/dL Estimated GFR > 60.0 (>60) mL/min BUN/Creatinine Ratio 17.6 (6-22) Glucose 116 H (80-110) mg/dL Lactate (0.7-2.1) mmol/L Calcium 8.7 (8.4-10.2) mg/dL Magnesium 1.9 (1.6-2.3) mg/dL Total Bilirubin 0.4 (0.2-1.3) mg/dL AST 49 (17-59) IU/L ALT 16 (<50) IU/L Alkaline Phosphatase 94 (38-126) U/L Total Creatine Kinase 45 L (55-170) U/L CK-MB (CK-2) TNP CK-MB (CK-2) Rel Index TNP Troponin I < 0.012 (0.01-0.034) ng/mL NT-Pro-B Natriuret Pep 736 H (<125) pg/mL Total Protein 7.3 (6.3-8.2) g/dL Albumin 3.4 L (3.5-5.0) g/dL Globulin 3.9 (1.7-4.1) g/dL Albumin/Globulin Ratio 0.9 L (1.0-2.8) Procalcitonin (<0.5) ng/mL COVID-19 PCR (Not Detected) 10/22/19 10/22/19 10/22/19 Range/Units 11:45 11:45 12:30 WBC (4.5-11.0) X10^3/uL RBC (4.5-5.9) X10^6/uL Hgb (13.5-17.5) g/dL Hct (41-53) % MCV (80-100) fL MCH (26-34) PG MCHC (30-36) % RDW (11.6-14.8) % Plt Count (150-400) X10^3/uL Neut % (Auto) (50-75) % Lymph % (Auto) (25-40) % [place] % (Auto) (3-14) % Eos % (Auto) (2-4) % Baso % (Auto) (0-2) % Neut # (Auto) (2826-1614) /uL Lymph # (Auto) (5892-3384) /uL [place] # (Auto) (0-900) /uL Eos # (Auto) (0-450) /uL Baso # (Auto) (0-100) /uL PT (10.1-12.7) SECONDS INR (0.9-1.3) APTT (26.4-36.2) SECONDS D-Dimer (<230) ng/mL Sodium (137-145) mmol/L Potassium (3.4-5.1) mmol/L Chloride (98-107) mmol/L Carbon Dioxide (22-32) mmol/L BUN (9-20) mg/dL Creatinine (0.66-1.25) mg/dL Estimated GFR (>60) mL/min BUN/Creatinine Ratio (6-22) Glucose (80-110) mg/dL Lactate 0.8 (0.7-2.1) mmol/L Calcium (8.4-10.2) mg/dL Magnesium (1.6-2.3) mg/dL Total Bilirubin (0.2-1.3) mg/dL AST (17-59) IU/L ALT (<50) IU/L Alkaline Phosphatase (38-126) U/L Total Creatine Kinase (55-170) U/L CK-MB (CK-2) CK-MB (CK-2) Rel Index Troponin I (0.01-0.034) ng/mL NT-Pro-B Natriuret Pep (<125) pg/mL Total Protein (6.3-8.2) g/dL Albumin (3.5-5.0) g/dL Globulin (1.7-4.1) g/dL Albumin/Globulin Ratio (1.0-2.8) Procalcitonin < 0.05 (<0.5) ng/mL COVID-19 PCR Not detected (Not Detected) 10/22/19 Range/Units 14:22 WBC (4.5-11.0) X10^3/uL RBC (4.5-5.9) X10^6/uL Hgb (13.5-17.5) g/dL Hct (41-53) % MCV (80-100) fL MCH (26-34) PG MCHC (30-36) % RDW (11.6-14.8) % Plt Count (150-400) X10^3/uL Neut % (Auto) (50-75) % Lymph % (Auto) (25-40) % [place] % (Auto) (3-14) % Eos % (Auto) (2-4) % Baso % (Auto) (0-2) % Neut # (Auto) (1170-8076) /uL Lymph # (Auto) (8295-2609) /uL [place] # (Auto) (0-900) /uL Eos # (Auto) (0-450) /uL Baso # (Auto) (0-100) /uL PT (10.1-12.7) SECONDS INR (0.9-1.3) APTT (26.4-36.2) SECONDS D-Dimer (<230) ng/mL Sodium (137-145) mmol/L Potassium (3.4-5.1) mmol/L Chloride (98-107) mmol/L Carbon Dioxide (22-32) mmol/L BUN (9-20) mg/dL Creatinine (0.66-1.25) mg/dL Estimated GFR (>60) mL/min BUN/Creatinine Ratio (6-22) Glucose (80-110) mg/dL Lactate (0.7-2.1) mmol/L Calcium (8.4-10.2) mg/dL Magnesium (1.6-2.3) mg/dL Total Bilirubin (0.2-1.3) mg/dL AST (17-59) IU/L ALT (<50) IU/L Alkaline Phosphatase (38-126) U/L Total Creatine Kinase 42 L (55-170) U/L CK-MB (CK-2) TNP CK-MB (CK-2) Rel Index TNP Troponin I < 0.012 (0.01-0.034) ng/mL NT-Pro-B Natriuret Pep (<125) pg/mL Total Protein (6.3-8.2) g/dL Albumin (3.5-5.0) g/dL Globulin (1.7-4.1) g/dL Albumin/Globulin Ratio (1.0-2.8) Procalcitonin (<0.5) ng/mL COVID-19 PCR (Not Detected) Urine Dip Bedside Urine Glucose Negative Urine Specific [place] 1.015 Bedside Urine Occult Blood - Negative Bedside Urine pH 7.0 Bedside Urine Protein +/- 15 Bedside Urine Urobilinogen - Negative Bedside Urine Nitrite - Negative Bedside Urine Leukocytes - Negative Esterase Imaging Data Chest x-ray: Radiologist's Impression: [address] [place] [id number] XRay Report Signed Patient: Az Bowden RMR#: [id number] : [id number]:[id number] Age/Sex: 64 / MDate of Service: 10/22/19 Loc: ED Accession Number: [id number] Procedure: XR chest 1V Ordering Provider: Maureen KabaP- PROCEDURE: XR CHEST 1V INDICATIONS: shortness of breath TECHNIQUE: One view of the chest was acquired. COMPARISON: [facility], CT, CT ANGIO CHEST PE PROTOCOL, 10/04/2018, 14:5 the previous exam3. [facility], CR, XR CHEST 2V, 06/13/2019, 12:20. FINDINGS: Surgical changes and devices: None. Lungs and pleura: Interstitial prominence is identified within the bilateral lung bases, which is similar to the previous examination. No new area of consolidation is appreciated. There is no definite effusion or pneumothorax. Calcification at the right diaphragm is noted. Mediastinum: Mediastinal contours appear normal. Heart size is normal. There is aortic atherosclerosis. Bones and chest wall: No suspicious bony lesions. Overlying soft tissues appear unremarkable. IMPRESSION: Extensive chronic interstitial changes are identified within the lungs, similar to the prior study. Superimposed pneumonia or edema is difficult to exclude. Dictated by: Walker Ny M.D. on 10/22/2019 at 12:15 Approved by: Walker Ny M.D. on 10/22/2019 at 12:23 ECG Data Attestation: I personally reviewed and interpreted this ECG as follows: Interpretation: Sinus rhythm. Ventricular rate 92. P.r. interval 141. QRS 91.viewed by Dr Russell MDM Narrative Medical decision making narrative: The patient is a 64-year-old male who presents with a chief complaint of shortness of breath. He has a history of pulmonary fibrosis. Patient is hemodynamically stable throughout his stay in the emergency department. Given his symptoms, he was swabbed for coronavirus. His initial troponin was negative. She has 3 hour repeat troponin was negative. Is 558, which is negative when corrected for age. The patient has a negative procalcitonin, help rule out any acute bacterial infection. His lactate is negative. The patient feels much improved after a respiratory therapy evaluat ion and inhaler. I did place him on a short burst of steroids. Encouraged follow-up with primary care provider in the next few days. Patient has no questions or concerns upon discharge and states understanding of return precautions as well as follow-up care. <Janey Russell, DO - Last Filed: 10/26/19 07:03> Lab Data Labs: Lab Results 10/22/19 10/22/19 10/22/19 Range/Units 11:45 11:45 11:45 WBC 10.8 (4.5-11.0) X10^3/uL RBC 3.58 L (4.5-5.9) X10^6/uL Hgb 10.6 L (13.5-17.5) g/dL Hct 32.2 L (41-53) % MCV 90.1 (80-100) fL MCH 29.6 (26-34) PG MCHC 32.8 (30-36) % RDW 17.9 H (11.6-14.8) % Plt Count 483 H (150-400) X10^3/uL Neut % (Auto) 66.9 (50-75) % Lymph % (Auto) 21.6 L (25-40) % [place] % (Auto) 4.5 (3-14) % Eos % (Auto) 6.3 H (2-4) % Baso % (Auto) 0.7 (0-2) % Neut # (Auto) 7200 H (1918-8005) /uL Lymph # (Auto) 2300 (4248-2238) /uL [place] # (Auto) 500 (0-900) /uL Eos # (Auto) 700 H (0-450) /uL Baso # (Auto) 100 (0-100) /uL PT 11.8 (10.1-12.7) SECONDS INR 1.0 (0.9-1.3) APTT 33 D (26.4-36.2) SECONDS D-Dimer 558 H (<230) ng/mL Sodium 138 (137-145) mmol/L Potassium 3.9 (3.4-5.1) mmol/L Chloride 108 H (98-107) mmol/L Carbon Dioxide 27 (22-32) mmol/L BUN 12 (9-20) mg/dL Creatinine 0.68 (0.66-1.25) mg/dL Estimated GFR > 60.0 (>60) mL/min BUN/Creatinine Ratio 17.6 (6-22) Glucose 116 H (80-110) mg/dL Lactate (0.7-2.1) mmol/L Calcium 8.7 (8.4-10.2) mg/dL Magnesium 1.9 (1.6-2.3) mg/dL Total Bilirubin 0.4 (0.2-1.3) mg/dL AST 49 (17-59) IU/L ALT 16 (<50) IU/L Alkaline Phosphatase 94 (38-126) U/L Total Creatine Kinase 45 L (55-170) U/L CK-MB (CK-2) TNP CK-MB (CK-2) Rel Index TNP Troponin I < 0.012 (0.01-0.034) ng/mL NT-Pro-B Natriuret Pep 736 H (<125) pg/mL Total Protein 7.3 (6.3-8.2) g/dL Albumin 3.4 L (3.5-5.0) g/dL Globulin 3.9 (1.7-4.1) g/dL Albumin/Globulin Ratio 0.9 L (1.0-2.8) Procalcitonin (<0.5) ng/mL COVID-19 PCR (Not Detected) 10/22/19 10/22/19 10/22/19 Range/Units 11:45 11:45 12:30 WBC (4.5-11.0) X10^3/uL RBC (4.5-5.9) X10^6/uL Hgb (13.5-17.5) g/dL Hct (41-53) % MCV (80-100) fL MCH (26-34) PG MCHC (30-36) % RDW (11.6-14.8) % Plt Count (150-400) X10^3/uL Neut % (Auto) (50-75) % Lymph % (Auto) (25-40) % [place] % (Auto) (3-14) % Eos % (Auto) (2-4) % Baso % (Auto) (0-2) % Neut # (Auto) (5921-6630) /uL Lymph # (Auto) (2422-5614) /uL [place] # (Auto) (0-900) /uL Eos # (Auto) (0-450) /uL Baso # (Auto) (0-100) /uL PT (10.1-12.7) SECONDS INR (0.9-1.3) APTT (26.4-36.2) SECONDS D-Dimer (<230) ng/mL Sodium (137-145) mmol/L Potassium (3.4-5.1) mmol/L Chloride (98-107) mmol/L Carbon Dioxide (22-32) mmol/L BUN (9-20) mg/dL Creatinine (0.66-1.25) mg/dL Estimated GFR (>60) mL/min BUN/Creatinine Ratio (6-22) Glucose (80-110) mg/dL Lactate 0.8 (0.7-2.1) mmol/L Calcium (8.4-10.2) mg/dL Magnesium (1.6-2.3) mg/dL Total Bilirubin (0.2-1.3) mg/dL AST (17-59) IU/L ALT (<50) IU/L Alkaline Phosphatase (38-126) U/L Total Creatine Kinase (55-170) U/L CK-MB (CK-2) CK-MB (CK-2) Rel Index Troponin I (0.01-0.034) ng/mL NT-Pro-B Natriuret Pep (<125) pg/mL Total Protein (6.3-8.2) g/dL Albumin (3.5-5.0) g/dL Globulin (1.7-4.1) g/dL Albumin/Globulin Ratio (1.0-2.8) Procalcitonin < 0.05 (<0.5) ng/mL COVID-19 PCR Not detected (Not Detected) 10/22/19 Range/Units 14:22 WBC (4.5-11.0) X10^3/uL RBC (4.5-5.9) X10^6/uL Hgb (13.5-17.5) g/dL Hct (41-53) % MCV (80-100) fL MCH (26-34) PG MCHC (30-36) % RDW (11.6-14.8) % Plt Count (150-400) X10^3/uL Neut % (Auto) (50-75) % Lymph % (Auto) (25-40) % [place] % (Auto) (3-14) % Eos % (Auto) (2-4) % Baso % (Auto) (0-2) % Neut # (Auto) (8454-0429) /uL Lymph # (Auto) (8112-1922) /uL [place] # (Auto) (0-900) /uL Eos # (Auto) (0-450) /uL Baso # (Auto) (0-100) /uL PT (10.1-12.7) SECONDS INR (0.9-1.3) APTT (26.4-36.2) SECONDS D-Dimer (<230) ng/mL Sodium (137-145) mmol/L Potassium (3.4-5.1) mmol/L Chloride (98-107) mmol/L Carbon Dioxide (22-32) mmol/L BUN (9-20) mg/dL Creatinine (0.66-1.25) mg/dL Estimated GFR (>60) mL/min BUN/Creatinine Ratio (6-22) Glucose (80-110) mg/dL Lactate (0.7-2.1) mmol/L Calcium (8.4-10.2) mg/dL Magnesium (1.6-2.3) mg/dL Total Bilirubin (0.2-1.3) mg/dL AST (17-59) IU/L ALT (<50) IU/L Alkaline Phosphatase (38-126) U/L Total Creatine Kinase 42 L (55-170) U/L CK-MB (CK-2) TNP CK-MB (CK-2) Rel Index TNP Troponin I < 0.012 (0.01-0.034) ng/mL NT-Pro-B Natriuret Pep (<125) pg/mL Total Protein (6.3-8.2) g/dL Albumin (3.5-5.0) g/dL Globulin (1.7-4.1) g/dL Albumin/Globulin Ratio (1.0-2.8) Procalcitonin (<0.5) ng/mL COVID-19 PCR (Not Detected) Urine Dip Bedside Urine Glucose Negative Urine Specific [place] 1.015 Bedside Urine Occult Blood - Negative Bedside Urine pH 7.0 Bedside Urine Protein +/- 15 Bedside Urine Urobilinogen - Negative Bedside Urine Nitrite - Negative Bedside Urine Leukocytes - Negative Esterase Discharge Plan Departure Patient Disposition: Home Clinical Impression: Shortness of Breath, Pulmonary fibrosis Discharge Date/Time: 10/22/19 16:12 Instructions: How to Use a Metered-Dose Inhaler, DI for Shortness of Breath, DI for COVID-19 (Suspected or Confirmed ) Activity Restrictions/Additional Instructions: Thank you for trusting us with your care today. As I discussed, please follow-up with primary care provider in the next few days. Please come back to the emergency department for any acute concerns such as chest pain, shortness of breath etcetera I sent a prescription of prednisone to [facility]. Please start this tomorrow as we gave you your 1st dose today. We also gave you an inhaler to take home. We will call you in 24-48 hours as the covid 19 test results whether it is positive or negative In the meantime, please stay home and self quarantine. Act as though you are sick. Please come back to emergency department for any acute concerns Please follow-up with primary care provider in the next Prescriptions: New prednisone 20 mg tablet 40 mg PO DAILY 5 Days Qty: 10 RF: 0 No Action albuterol sulfate 90 mcg/actuation HFA aerosol inhaler 1 puff INHALATION Q4-6H PRN (Reason: shortness of breath or wheezing) Qty: 8.5 RF: 0 Referrals: Az Saalzar PA-C [Primary Care Provider] - <Janey Russell DO - Last Filed: 10/26/19 07:03> Cosign ED Attending [employer] Attestation: I was immediately available in the department for consultation. Documentation has been reviewed. I agree with assessment and plan.
[2019-10-25 12:36] LABS: COVID19 Sendout Not Detected (Not Detected)
== END 2019-10-22 16:12 | disposition home or self-care (01) ==
PROVIDERS: Emergency Provider Nurse Practitioner Family; PCP Physician Assistant
DX: R06.02 Shortness of breath (principal); J84.10 Pulmonary fibrosis, unspecified; Z03.818 Encounter for observation for suspected exposure to other biological agents ruled out
CPT/HCPCS: 36415; 71045; 80053; 81003; 82550; 83605; 83735; 83880; 84145; 84484; 85025; 85379; 85610; 85730; 87635; 93005; 93010; 94640; 99284

== ENCOUNTER → 2020-05-05 09:30 | Outpatient (CLI) | payer MEDICARE, OTHER, SELFPAY ==
[2020-05-05 10:51] LABS: COVID19 -Nasal RAPID Negative (Negative)
== END ==
PROVIDERS: PCP Physician Assistant; Visit Provider Physician Assistant
DX: Z20.822 Contact with and (suspected) exposure to COVID-19 (principal)
CPT/HCPCS: 87635; C9803

== ENCOUNTER 2020-05-07 09:05 | Day surgery (SDC) | payer MEDICARE, OTHER, SELFPAY ==
--- NOTE | 2020-05-06 17:08 | PM.PREOP ---
Pre-operative Note COVID-19 COVID-19 status: Negative Interval Note History & Physical reviewed/Exam performed by Physician: Yes Changes to H&P: No H&P completed within 30 days and has changed as indicated here:: Breath sounds reduced but lungs clear.
--- NOTE | 2020-05-07 07:33 | P.OP_ITS ---
Procedure & Clinicians Procedure: Preoperative diagnoses: 1. Left complex surgery with use of capsular dye, synechalysis, Maluygin ring and MiLoop. 2. Mature or advanced nuclear sclerotic and cortical cataract with poor visibility of the anterior capsule increasing surgical risks of complications. 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 5. Pulmonary fibrosis on chronic oral prednisone of 20 mg Postoperative diagnoses: 1. Left complex surgery with use of capsular dye, synechalysis , MiLoop , Maluygin ring 2. Placement of a posterior chamber intraocular lens implant. Surgeon: Thu Martinez MD Complications: none Specimen: None Implant: ZCBOO+19.0 Blood loss: None Anesthesia: Retrobulbar with monitored standby. Description of procedure: Dictated by: Thu Martinez MD Copy to: [facility] Post operative diagnoses: 1. Left complex cataract removed with use of capsular dye,synechialysis,Malygin ring and MiLoop with placement of a posterior chamber intraocular lens. Procedure: Phacoemulsification with posterior chamber intraocular lens implant Surgeon: Thu Martinez MD Blood loss: None Anesthesia: Retrobulbar with monitored standby Description of procedure: Patient has presented with decreased vision due to mature cataract which is affecting activities of daily living. 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 This has caused iris adhesions as well as mature cataract. His vision is reduced distance and near. He takes a chronic oral dose of 20 mg of prednisone daily for his pulmonary fibrosis. We will have him take 30 mg orally today. The patient wants surgery to improve vision. He understands the extra risk of surgery during the COVID-19 epidemic and desires to proceed. He has tested negative prior to surgery. The patient was taken to the operating room and given IV sedation. A retrobulbar block consisting of 6 cc of 2% xylocaine without epinephrine mixed half and half with 0.5% Marcaine with 1 cc of hyaluronidase added is placed between the medial and lateral 1/3 of the inferior orbital rim. The eye is manually massaged for 30 sec, prepped using Betadine solution, and draped in the usual sterile fashion. He has restless leg syndrome throughout the procedure. Temporal approach was made, a 1 mm side-port incision was performed 90 degrees from the planned corneal wound. Phenylephrine 1.5% mixed with 1% xylocaine 0.2 cc was placed into the anterior chamber. The pupil had peripheral adhesions and dense arcus senilis. An air bubble was placed and Visudyne dye was placed to improve visibility of the anterior capsule. The dye was irrigated out to reduce bubbles. Viscoat followed by Healon was then placed. A 2.6 mm clear incision with a 2.6 mm blade was placed. A 7.0 Maluygin ring was inspected, open into the anterior chamber and sequentially hooked on each quadrant of the iris. This broke the corneal adhesions and allowed for a 7 mm pupil. A 360 degree capsulorrhexis style capsulotomy was then performed with a cystitome needle on a Healon greatly aided by the capsular dye. Hydrodelineation and hydrodissection were performed. The phacoemulsification unit is introduced, and sculpting used to groove the central lens. A MiLoop was inspected, closed, entered into the anterior chamber with the loop to the right placing it underneath the capsulorrhexis. It was then swept in full open position past midline and then close to hydro dissect the nucleus. It is removed from the eye and the lens him a nuclear I then further emulsified. The nucleus is then removed in chopping mode. Epi nucleus is removed with epinuclear mode and irrigation aspiration was used to remove the peripheral cortex. The posterior capsule is polished. The intraocular lens is selected, inspected, power confirmed, and placed in the posterior chamber. The residual cortex is removed completely removed using the intra-ocular lens as a scaffold. Viscoelastic then again inserted and the Maluygin ring disinserted from each quadrant of the iris. It is then placed back into the folder and removed from the eye. The pupil is left dilated due to his history of uveitis. The wound was stromally hydrated and tested for leaks, there was none and was left sutureless. Vigamox 0.1 cc was placed into the anterior chamber. Kenalog 0.2 cc was placed in the superior subconjunctival space. A drop of antibiotic and was placed and the eye was patched and sh ielded. The patient was stable and returned to the recovery room in excellent condition. Dictated by: Thu Martinez MD Copy to: [facility] Same procedure as scheduled: Yes
[2020-05-07] MEDS: PROPARACAINE 0.5% OPHTH SOL 2 DROPS EYE-OP (09:22)
[2020-05-07 09:23] VITALS: BP 141/88; PULSE 87; RESP 20; TEMP 36.7; O2SAT 98; BMI 24.3
[2020-05-07] MEDS: CATARACT EYE COMPOUND (10 DROPS/SYRINGE) 3 DROPS EYE-OP (09:35)
[2020-05-07] MEDS: LIDOCAINE 2% 4 ML, BUPIVACAINE 0.5% (PF) 4 ML, HYALURONIDASE 150 UNIT INJ (10:03)
[2020-05-07] MEDS: CHONDROIDTIN/SOD HYALURONATE 1.05 ML SYRINGE INTRAOCULA (10:17)
[2020-05-07] MEDS: ERYTHROMYCIN OPHTH 1 GM OINT 1 APPLIC EYE-LEFT (10:17)
[2020-05-07] MEDS: MOXIFLOXACIN INJ 5 MG/ML VIAL EYE-OP (10:18)
[2020-05-07] MEDS: PHENYLEPHRINE/LIDOCAINE VIAL (OR) 0.2 ML EYE-OP (10:18)
[2020-05-07] MEDS: HYALURONATE SODIUM 10 MG/ML SYRINGE INJ (10:18)
[2020-05-07] MEDS: TRYPAN BLUE 0.5 ML SYRINGE INJ (10:19)
[2020-05-07] MEDS: TRIAMCINOLONE 50 MG/5 ML VIAL INJ (10:19)
[2020-05-07] MEDS: BALANCED SALT IRRIG SOLN NO.2 500 ML, EPINEPHrine 1 MG IRR (10:19)
[2020-05-07 11:10] VITALS: BP 153/92; PULSE 77; RESP 12; TEMP 36.3; O2SAT 96
== END 2020-05-07 11:15 | disposition home or self-care (01) ==
LOC: OR 09:09
PROVIDERS: PCP Physician Assistant; Referring Provider Ophthalmology; Visit Provider Ophthalmology
PROC: (CPT 66982; principal; 2020-05-07 09:45)
DX: H25.812 Combined forms of age-related cataract, left eye (principal); H04.123 Dry eye syndrome of bilateral lacrimal glands; J84.10 Pulmonary fibrosis, unspecified; Z79.52 Long term (current) use of systemic steroids; M02.30 Reiter's disease, unspecified site
CPT/HCPCS: 66982; J0171; J3010; J3301; J3470

== ENCOUNTER 2020-06-25 10:17 | Day surgery (SDC) | payer MEDICARE, OTHER, SELFPAY ==
--- NOTE | 2020-06-24 18:31 | PM.PREOP ---
Pre-operative Note COVID-19 COVID-19 status: Negative Interval Note History & Physical reviewed/Exam performed by Physician: Yes Changes to H&P: No
--- NOTE | 2020-06-25 08:15 | PM.OP.1 ---
Operative Date/Time/Diagnoses Date of procedure: 06/25/20 Time of procedure: 11:45 Procedure & Clinicians Procedure: Preoperative diagnoses: 1. Right complex surgery with use of capsular dye and synechialysis. Use of Malyugin ring. 2. Mature or advanced nuclear sclerotic and cortical cataract with poor visibility of the anterior capsule increasing surgical risks of complications. 3. 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 4. History of Yony's syndrome. 5. Long-term prednisone use 20 mg a day for pulmonary fibrosis. Postoperative diagnoses: 1. Complex surgery with use of capsular dye, 2. Placement of a posterior chamber intraocular lens implant. Surgeon: Thu Martinez MD Complications: none Specimen: None Implant: ZCBOO+20.0 Blood loss: None Anesthesia: Retrobulbar with monitored standby. Description of procedure: Dictated by: Thu Martinez MD Post operative diagnoses: 1. Complex Right cataract removed with use of capsular dye, Maluygin ring, synechialysis . 2. Placement of a posterior chamber intraocular lens. Procedure: Phacoemulsification with posterior chamber intraocular lens implant Surgeon: Thu Martinez MD Blood loss: None Anesthesia: Retrobulbar with monitored standby Description of procedure: Patient has presented with decreased vision due to cataract which is affecting activities of daily living. Due to a history of Yony syndrome he has had multiple episodes of anterior uveitis currently quiescent. This is due to his and now chronic 20 mg a day prednisone use for pulmonary fibrosis. This however has caused rapid progression of cataract which is affecting both his distance and near vision. 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 He is successfully pass cataract surgery in his left eye. He has been vaccinated for COVID-19 is tested negative prior to surgery. The patient wants surgery to improve vision. The patient was taken to the operating room and given IV sedation. Due to his prednisone depending and the fact he has not yet taken today 100 milligrams of solumedrol was given IV. A retrobulbar block consisting of 6 cc of 2% xylocaine without epinephrine mixed half and half with 0.5% Marcaine with 1 cc of hyaluronidase added is placed between the medial and lateral 1/3 of the inferior orbital rim. The eye is manually massaged for 30 sec, prepped using Betadine solution, and draped in the usual sterile fashion. He has restless leg syndrome. Temporal approach was made, a 1 mm side-port incision was performed 90 degrees from the planned corneal wound. There was no red reflex. Phenylephrine 1.5% mixed with 1% xylocaine 0.2 cc was placed into the anterior chamber. An air bubble was placed and Visudyne dye was placed to improve visibility of the anterior capsule. The dye was irrigated out to reduce bubbles. Viscoat followed by Healon was then placed. A 2.6 mm clear incision with a 2.6 mm blade was placed. A blunt spatula was use to break synechaie of the pupil. A 7.0 mm Maluygin ring is inspected and then open into the anterior chamber. Is sequentially head on the iris and further synechialysis is performed. A 360 degree capsulorrhexis style capsulotomy was then performed with a cystitome needle on a Healon added by a Utrada forcep. Hydrodelineation and hydrodissection were performed. The phacoemulsification unit is introduced, and sculpting used to groove the central lens. It is then removed in chopping mode. Epi nucleus is removed with epinuclear mode and irrigation aspiration was used to remove the peripheral cortex. The posterior capsule is not polished but is clear. The intraocular lens is selected, inspected, power confirmed, and placed in the posterior chamber.Residual subincisional vortex is removed.The Maluygin ring was disinserted from the iris on all quadrants and remove in its inserting device.The viscoelastic was then removed. The wound was stromally hydrated and tested for leaks, there was none and was left sutureless. Vigamox 0.1 cc was placed into the anterior chamber. Kenalog 0.2 cc was placed in the superior subconjunctival space. A drop of antibiotic and was placed and the eye was patched and shielded. The patient was stable and returned to the recovery room in excellent condition. Dictated by: Thu Martinez MD Copy to: [facility] Same procedure as scheduled: Yes
[2020-06-25 10:56] VITALS: BP 143/95; PULSE 96; RESP 28; TEMP 36.3; O2SAT 97; BMI 22.9
[2020-06-25] MEDS: PROPARACAINE 0.5% OPHTH SOL 2 DROPS EYE-OP (11:12)
[2020-06-25 11:15] LABS: COVID19 -Nasal RAPID Negative (Negative)
[2020-06-25] MEDS: CATARACT EYE COMPOUND (10 DROPS/SYRINGE) 3 DROPS EYE-OP (11:16)
[2020-06-25] MEDS: BALANCED SALT IRRIG SOLN NO.2 500 ML, EPINEPHrine 1 MG IRR (12:21)
[2020-06-25] MEDS: TRIAMCINOLONE 50 MG/5 ML VIAL INJ (12:22)
[2020-06-25] MEDS: TRYPAN BLUE 0.5 ML SYRINGE INJ (12:22)
[2020-06-25] MEDS: CHONDROIDTIN/SOD HYALURONATE 1.05 ML SYRINGE INTRAOCULA (12:22)
[2020-06-25] MEDS: MOXIFLOXACIN INJ 5 MG/ML VIAL EYE-OP (12:23)
[2020-06-25] MEDS: ERYTHROMYCIN OPHTH 1 GM OINT 1 APPLIC EYE-RIGHT (12:23)
[2020-06-25] MEDS: HYALURONATE SODIUM 10 MG/ML SYRINGE INJ ×2 (12:23→12:37)
[2020-06-25] MEDS: LIDOCAINE 2% 4 ML, BUPIVACAINE 0.5% (PF) 4 ML, HYALURONIDASE 150 UNIT INJ (12:25)
[2020-06-25] MEDS: PHENYLEPHRINE/LIDOCAINE VIAL (OR) 0.2 ML EYE-OP (12:25)
[2020-06-25 13:05] VITALS: BP 149/98; PULSE 86; RESP 16; TEMP 36.4; O2SAT 99
== END 2020-06-25 13:17 | disposition home or self-care (01) ==
LOC: OR 10:21
PROVIDERS: PCP Physician Assistant; Referring Provider Ophthalmology; Visit Provider Ophthalmology
PROC: (CPT 66982; principal; 2020-06-25 11:45)
DX: H25.811 Combined forms of age-related cataract, right eye (principal); Z20.822 Contact with and (suspected) exposure to COVID-19; J84.10 Pulmonary fibrosis, unspecified
CPT/HCPCS: 66982; 87635; J0171; J2250; J2704; J3010; J3301; J3470

== ENCOUNTER 2020-09-26 13:50 | Emergency (ER) | payer MEDICARE, OTHER, SELFPAY ==
[2020-09-26] VITALS (8 sets, daily range): BP systolic 131–153; BP diastolic 92–94; PULSE 91–132; RESP 18–24; TEMP 37.1; O2SAT 97–99; BMI 25.1
--- NOTE | 2020-09-26 13:50 | ED_ITS ---
HPI - SOB/Dyspnea General Chief Complaint: Shortness of Breath/Dyspnea Stated Complaint: shortness of breath, now resolved. Time Seen by Provider: 09/26/20 13:50 Source: patient and EMS Mode of arrival: EMS Limitations: no limitations History of Present Illness HPI Narrative: This is a 65-year-old male comes emergency department with complaint of shortness of breath which is now. Patient states this morning at about 5-530 a.m. he was taking a shower which seem to trigger his episode of shortness of breath. He states the last about 5 minutes. He used inhaler which improved his symptoms. Patient states he has noted that had increasing exertional dyspnea. He states he had been walking across living or will make him feel short of breath. He denies any fevers or chills. He states that he has not had any chest pain or pressure. He did note a week ago he had some mid back pain which lasted several days and was difficult to get out of bed. He used some topical CBD which was helpful and resolved those symptoms. Patient has not appreciated any cough. Patient denies any nausea or vomiting. He denies any diaphoresis. He denies any issues with urination such as frequency, dysuria or difficulty urinating. He did note he had for a bowel movements today although he states they were regular, soft and normal colored. Patient denies any blood or melena. He also denies any swelling in his extremities. He states he uses an albuterol inhaler, he takes prednisone daily they have been weaning him down initially from 60 mg he states he is currently at 30 mg. He states he has been taking this for close to a year. He states he does have a history of pulmonary fibrosis. He has also been told he has lupus. He has also been told that he had multiple spots on his stomach and liver on a prior CT scan about 2 weeks ago. Patient states he also had his blood drawn and he may have had a low hemoglobin as well. He denies any hypertension, dyslipidemia cardiac disease. He denies any chronic kidney disease. Related Data Home Medications Medication Instructions Recorded Confirmed [id number]-FA-vit K 1 tab PO DAILY 09/27/20 09/27/20 [Adults Multivitamin] prednisone 10 mg PO DAILY 09/27/20 09/27/20 Previous Rx's Medication Instructions Recorded albuterol sulfate 1 puff INHALATION Q4-6H PRN #8.5 10/04/18 gram Allergies Allergy/AdvReac Type Severity Reaction Status Date / Time No Known Drug Allergies Allergy Verified 09/27/20 09:04 Review of Systems Review of Systems ROS Unobtainable: All systems reviewed & are unremarkable except as noted in HPI and below Patient History Medical History (Updated 09/27/20 @ 12:23 by Flaquita Caceres RN) Anemia CHF (congestive heart failure) Chronic interstitial lung disease Compression fracture Lupus Surgical History (Updated 09/27/20 @ 11:21 by Alonzo Barnes MD) H/O pelvic surgery Family History (Updated 09/27/20 @ 11:21 by Alonzo Barnes MD) Father Alcohol abuse Mother Alcohol abuse Social History household members: spouse Smoking Status: Never smoker alcohol intake: never Smoking Status: Never smoker alcohol intake frequency: holidays/special occasions only Substance Use Type: marijuana Exam Narrative Exam Narrative: GEN: well nourished male, alert and oriented x 3, patient appears to be in mild distress. HEENT: Atraumatic, pupils are equal round reactive to light, extraocular movements are intact, nares are clear, there is no conjunctival pallor. Throat is clear without any exudates, erythema, tonsillar enlargement or uvular deviation HEART: Regular rate and rhythm without murmur, clicks, rubs. Pulses are equal in upper extremities. No JVD bilaterally. No swelling bilateral lower extremities. LUNGS:Lungs clear to auscultation, no wheezes, rales, crackles, chest moves symmetrically, patient is mildly tachypneic when he sits forward to remove his shirt. ABD:bowel sounds normal, soft, non-tender, no guarding, rebound, rigidity, no masses noted, no hepatosplenomegaly, non-distended. :No CVA tenderness MSCL: Non-tender, no muscle atrophy, full range of motion NEURO:CN 2-12 intact, sensation normal SKIN: Rash, erythema skin changes noted Initial Vital Signs Initial Vital Signs: Vital Signs Temperature 98.7 F 09/26/20 14:20 Pulse Rate 100 H 09/26/20 14:20 Respiratory Rate 18 09/26/20 14:20 Blood Pressure 152/92 H 09/26/20 14:20 Pulse Oximetry 99 09/26/20 14:20 Course Orders Ordered: Discontinued Medications Albuterol/Ipratropium (Albuterol/Ipratropium 3 Ml Ampul) 3 ml INH NOW ONE Stop: 09/26/20 14:02 Doxycycline Hyclate (Doxycycline Hyclate 100 Mg Tablet) 100 mg PO NOW ONE Stop: 09/26/20 16:52 Last Admin: 09/26/20 17:04 Dose: 100 mg Documented by: CVANCE Furosemide (Furosemide 40 Mg/4 Ml Vial) 40 mg IV NOW ONE Stop: 09/26/20 15:02 Last Admin: 09/26/20 15:35 Dose: 40 mg Documented by: CVANCE Methylprednisolone (Methylprednisolone 125 Mg/2 Ml Vial) 125 mg IV NOW ONE Stop: 09/26/20 14:02 Last Admin: 09/26/20 14:51 Dose: 125 mg Documented by: CVANCE Vital Signs Vital signs: Vital Signs - 8 hr 09/26/20 14:20 09/26/20 15:03 09/26/20 15:29 Temperature 98.7 F Pulse Rate 100 H 93 H 101 H Respiratory Rate 18 Blood Pressure 152/92 H 147/94 H 151/94 H Pulse Oximetry 99 99 98 09/26/20 15:30 09/26/20 15:44 09/26/20 16:00 Temperature Pulse Rate 96 H 91 H 95 H Respiratory Rate 22 Blood Pressure 153/93 H 153/93 H 151/92 H Pulse Oximetry 99 99 99 09/26/20 16:17 Temperature Pulse Rate 132 H Respiratory Rate 24 Blood Pressure Pulse Oximetry 97 MDM - SOB/Dyspnea Lab Data Attestation: I reviewed the patient's lab results. Result diagrams: 09/26/20 14:03 09/26/20 14:03 Labs: Lab Results 09/26/20 09/26/20 09/26/20 Range/Units 14:03 14:03 14:03 WBC 13.6 H (4.5-11.0) X10^3/uL RBC 4.35 L (4.5-5.9) X10^6/uL Hgb 10.0 L (13.5-17.5) g/dL Hct 33.6 L (41-53) % MCV 77.3 L (80-100) fL MCH 23.0 L (26-34) PG MCHC 29.8 L (30-36) % RDW 18.4 H (11.6-14.8) % Plt Count 803 H (150-400) X10^3/uL Neut % (Auto) Not Reportable Lymph % (Auto) Not Reportable [place] % (Auto) Not Reportable Eos % (Auto) Not Reportable Baso % (Auto) Not Reportable Lymph # (Auto) Not Reportable [place] # (Auto) Not Reportable Baso # (Auto) Not Reportable Total Counted 100 Seg Neutrophils % 71.0 H (38-70) % Lymphocytes % (Manual) 23.0 L (25-45) % Monocytes % (Manual) 4.0 (2-11) % Eosinophils % (Manual) 1.0 L (2-4) % Basophils % (Manual) 1.0 (0-1) % Neutrophils # (Manual) 9656 H (8946-6215) /uL RBC Morphology Not Reportable Anisocytosis 1+ H D-Dimer (<230) ng/mL Sodium 136 L (137-145) mmol/L Potassium 3.7 (3.4-5.1) mmol/L Chloride 105 (98-107) mmol/L Carbon Dioxide 24 (22-32) mmol/L BUN 12 (9-20) mg/dL Creatinine 0.84 (0.66-1.25) mg/dL Estimated GFR > 60.0 (>60) mL/min BUN/Creatinine Ratio 14.3 (6-22) Glucose 120 H (80-110) mg/dL Lactate 1.7 (0.7-2.1) mmol/L Calcium 9.0 (8.4-10.2) mg/dL Magnesium 2.1 (1.6-2.3) mg/dL Total Bilirubin 0.4 (0.2-1.3) mg/dL AST 32 (17-59) IU/L ALT 16 (<50) IU/L Alkaline Phosphatase 93 (38-126) U/L Total Creatine Kinase 25 L (55-170) U/L CK-MB (CK-2) TNP CK-MB (CK-2) Rel Index TNP Troponin I < 0.012 (0.01-0.034) ng/mL NT-Pro-B Natriuret Pep 7610 H (<125) pg/mL Total Protein 7.8 (6.3-8.2) g/dL Albumin 4.1 (3.5-5.0) g/dL Globulin 3.7 (1.7-4.1) g/dL Albumin/Globulin Ratio 1.1 (1.0-2.8) Procalcitonin 0.08 (<0.5) ng/mL SARS-CoV-2 (PCR) (Negative) 09/26/20 09/26/20 Range/Units 14:16 14:27 WBC (4.5-11.0) X10^3/uL RBC (4.5-5.9) X10^6/uL Hgb (13.5-17.5) g/dL Hct (41-53) % MCV (80-100) fL MCH (26-34) PG MCHC (30-36) % RDW (11.6-14.8) % Plt Count (150-400) X10^3/uL Neut % (Auto) Lymph % (Auto) [place] % (Auto) Eos % (Auto) Baso % (Auto) Lymph # (Auto) [place] # (Auto) Baso # (Auto) Total Counted Seg Neutrophils % (38-70) % Lymphocytes % (Manual) (25-45) % Monocytes % (Manual) (2-11) % Eosinophils % (Manual) (2-4) % Basophils % (Manual) (0-1) % Neutrophils # (Manual) (5545-5295) /uL RBC Morphology Anisocytosis D-Dimer 435 H (<230) ng/mL Sodium (137-145) mmol/L Potassium (3.4-5.1) mmol/L Chloride (98-107) mmol/L Carbon Dioxide (22-32) mmol/L BUN (9-20) mg/dL Creatinine (0.66-1.25) mg/dL Estimated GFR (>60) mL/min BUN/Creatinine Ratio (6-22) Glucose (80-110) mg/dL Lactate (0.7-2.1) mmol/L Calcium (8.4-10.2) mg/dL Magnesium (1.6-2.3) mg/dL Total Bilirubin (0.2-1.3) mg/dL AST (17-59) IU/L ALT (<50) IU/L Alkaline Phosphatase (38-126) U/L Total Creatine Kinase (55-170) U/L CK-MB (CK-2) CK-MB (CK-2) Rel Index Troponin I (0.01-0.034) ng/mL NT-Pro-B Natriuret Pep (<125) pg/mL Total Protein (6.3-8.2) g/dL Albumin (3.5-5.0) g/dL Globulin (1.7-4.1) g/dL Albumin/Globulin Ratio (1.0-2.8) Procalcitonin (<0.5) ng/mL SARS-CoV-2 (PCR) Negative (Negative) Imaging Data Chest x-ray: Radiologist's Impression: Az Bowden 65 M [address] [id number] ReportSigned Patient: Az Bowden RMR#: [id number]: 1955cct:[id number]/Sex: 65 / MDate of Service: 09/26/20Loc: EDAccession Number: [id number] Procedure: XR chest 1V Ordering Provider: Maureen Monsivais D.O. PROCEDURE: XR CHEST 1V INDICATIONS: sob, hx pulm fibrosis, sob w/ exertion, new TECHNIQUE: One view of the chest was acquired. COMPARISON: [facility], CR, XR CHEST 1V, 10/22/2019, 12:55. [facility], CR, XR CHEST 2V, 06/13/2019, 12:20. FINDINGS: Surgical changes and devices: None. Lungs and pleura: Lungs are mildly abnormal with a small degree of chronic interstitial prominence. No pleural effusions or pneumothorax. Mediastinum: Mediastinal contours appear normal. Heart size is normal. Bones and chest wall: No suspicious bony lesions. Overlying soft tissues appear unremarkable. IMPRESSION: Mild chronic interstitial prominence may reflect a prior smoking history. No definite acute disease is found in the heart size is not enlarged. Dictated by: Chintan Ortega M.D. on 09/26/2020 at 14:59 Approved by: Chintan Ortega M.D. on 09/26/2020 at 14:59 ECG Data Attestation: I personally reviewed and interpreted this ECG as follows: Prior ECG tracings: available for review Interpretation: Rate of 102, pr of 146, qrs 84, qtc 440, No acute ST elevation or depression. Appears similar to prior EKG from 10/22/19. MDM Narrative Medical decision making narrative: Male with a history of pulmonary from physis, possibly lupus and has been on prednisone continuously for at least several months. Patient had an echo 07/20/19 which showed EF 50%, PFT that shows possible interstitial changes. Patient also notes he had spots on his stomach and liver on recent CT at outside facility. Patient's does have a mild leukocytosis with elevated neutrophil count, he also has chronic anemia which appears to be at baseline as well as a continuing elevation in his platelets. Unclear if this is secondary infectious process, myeloproliferative or other process. Patient's creatinine and electrolytes appear stable. His troponin is negative but his BNP is significantly elevated and his procalcitonin is 0.08 making respiratory bacterial infection or alternative bacterial infection unlikely. Patient was not wheezing initially on exam but his family states he was not had albuterol or nebulizer treatment prior to being seen. Was given a dose of steroids here in the department. Patient has been tachycardic, he was also mildly tachypneic even with minimal exertion. His O2 sats have been appropriate on room air. Patient's D-dimer is elevated today this could be secondary to age but is outside age adjusted range. CT angiography is negative but shows significant interstitial changes possibility of an atypical pneumonia patient also has lymphadenopathy which are concerning for metastatic disease. Patient has already had a CT of his abdomen including the spots on his liver and is currently in process of having this worked up. On re-evaluation Lasix. He is still tachycardic and becomes tachypneic with ambulation the heart rate up to 130. Patient was offered observation but defers and like to return home. Again a prescription for Lasix, my suspicion is more CHF but with his possible atypical pneumonia changes was also given a prescription for antibiotics. Patient is on daily prednisone this was not increased. Questions were answered. Discharge Plan Departure Patient Disposition: Home Clinical Impression: Chronic interstitial lung disease, CHF (congestive heart failure) Instructions: Interstitial Lung Disease Activity Restrictions/Additional Instructions: Follow up with your physician. As you have decided not to be kept for observation please return if you are feeling worse. I would recommend referral to a psych tech or lung specialist for your lung disease. Your imaging and labs today reflect interstitial fibrosis of your lungs which is a chronic condition, follow-up with your physician about options to help manage this disease. you also appear to have some extra fluid and this is likely also in conjunction with her chronic lung issues making it harder for you to breath. Take lasix once daily until gone. Continue your albuterol as needed along with your prednisone. My suspicion for infection is not as high today but I would recommend taking oral antibiotics. Prescriptions to [facility]. Prescriptions: No Action albuterol sulfate 90 mcg/actuation HFA aerosol inhaler 1 puff INHALATION Q4-6H PRN (Reason: shortness of breath or wheezing) Qty: 8.5 RF: 0 prednisone 10 mg Tablet 10 mg PO DAILY RF: 0 Adults Multivitamin 18 mg iron-400 mcg-25 mcg Tablet 1 tab PO DAILY RF: 0 Referrals: Az Salazar PA-C [Primary Care Provider] - Luis Jarvis MD [Non-Staff] -
--- NOTE | 2020-09-26 14:02 | DI.RAD.S_ITS ---
PROCEDURE: XR CHEST 1V INDICATIONS: sob, hx pulm fibrosis, sob w/ exertion, new TECHNIQUE: One view of the chest was acquired. COMPARISON: [facility], CR, XR CHEST 1V, 10/22/2019, 12:55. [facility], CR, XR CHEST 2V, 06/13/2019, 12:20. FINDINGS: Surgical changes and devices: None. Lungs and pleura: Lungs are mildly abnormal with a small degree of chronic interstitial prominence. No pleural effusions or pneumothorax. Mediastinum: Mediastinal contours appear normal. Heart size is normal. Bones and chest wall: No suspicious bony lesions. Overlying soft tissues appear unremarkable. IMPRESSION: Mild chronic interstitial prominence may reflect a prior smoking history. No definite acute disease is found in the heart size is not enlarged. Dictated by: Chintan Ortega M.D. on 09/26/2020 at 14:59 Approved by: Chintan Ortega M.D. on 09/26/2020 at 14:59
[2020-09-26 14:16] LABS: Add Manual Diff / Slide Review YES; Hematocrit 33.6 % (41-53); Mean Corpuscular HGB Conc 29.8 % (30-36); Mean Corpuscular Volume 77.3 fL (80-100); Platelet Count 803 X10^3/uL (150-400); Red Blood Cell Count 4.35 X10^6/uL (4.5-5.9); Red Cell Distribution Width 18.4 % (11.6-14.8); White Blood Cell Count 13.6 X10^3/uL (4.5-11.0)
[2020-09-26 14:30] LABS: Neutrophils Absolute Manual 9656 /uL (3000-5900); Total Cells Counted 100
[2020-09-26 14:31] LABS: Anisocytosis 1+
[2020-09-26 14:34] LABS: Alanine Aminotransferase 16 IU/L (<50); Albumin 4.1 g/dL (3.5-5.0); Albumin Globulin Ratio 1.1 (1.0-2.8); Alkaline Phosphatase 93 U/L (38-126); Aspartate Aminotransferase 32 IU/L (17-59); BUN Creatinine Ratio 14.3 (6-22); Bilirubin Total 0.4 mg/dL (0.2-1.3); Blood Urea Nitrogen 12 mg/dL (9-20); Carbon Dioxide 24 mmol/L (22-32); Chloride 105 mmol/L (98-107); Creatine Kinase 25 U/L (55-170); Estimated Glomerular Filt Rate > 60.0 mL/min (>60); Globulin 3.7 g/dL (1.7-4.1); Glucose 120 mg/dL (80-110); HEMOLYSIS 19 (0-50); Lactate (Lactic Acid) 1.7 mmol/L (0.7-2.1); Magnesium 2.1 mg/dL (1.6-2.3); Potassium 3.7 mmol/L (3.4-5.1); Sodium 136 mmol/L (137-145); Total Protein 7.8 g/dL (6.3-8.2)
[2020-09-26 14:46] LABS: NT-proBNP (BNP-Adult 18+) 7610 pg/mL (<125); Troponin I < 0.012 ng/mL (0.01-0.034)
[2020-09-26 14:50] LABS: Procalcitonin 0.08 ng/mL (<0.5)
[2020-09-26] MEDS: methylPREDNISolone 125 MG/2 ML VIAL IV (14:51)
[2020-09-26 14:53] LABS: D Dimer 435 ng/mL (<230)
--- NOTE | 2020-09-26 15:10 | DI.CT.S_ITS ---
PROCEDURE: CT ANGIO CHEST PE PROTOCOL INDICATIONS: sob, ? pulm fibrosis, spots on liver/stomach TECHNIQUE: After the administration of intravenous contrast, 2 mm thick sections acquired from the pulmonary apices to the posterior costophrenic angles. 3-dimensional maximum intensity projection (MIP) coronal and sagittal reformats were then acquired through the thorax. For radiation dose reduction, the following was used: automated exposure control, adjustment of mA and/or kV according to patient size. COMPARISON: [facility], CT, CT ABDOMEN WITH CONTRAST, 10/04/2019, 14:59. [facility], CT, CT ANGIO CHEST PE PROTOCOL, 10/04/2018, 14:53. FINDINGS: Image quality: Excellent. Pulmonary arteries: Pulmonary arteries demonstrate no intraluminal filling defects to suggest central pulmonary embolism. There is enlargement of the pulmonary arteries suggestive of pulmonary arterial hypertension. Lungs and pleura: There are new clustered peribronchial irregular ground-glass opacities within the right upper lobe. Findings are suggestive of an infectious or inflammatory process. Chronic interstitial lung disease is also redemonstrated with septal thickening, traction bronchiectasis, and honeycombing. There is no clear basilar predominance. There is also a suspected component of emphysematous changes. In the left lingula, there is a small peripheral 0.7 cm nodule on series 5, image 205 which appears decreased in size from the 10/04/2018 study. A subpleural nodule posteriorly in the left lower lobe measuring up to 0.4 cm on series 5, image 214 is new compared to the prior studies. No pleural effusions or pneumothorax. There are calcified pleural plaques along the right hemidiaphragm. The trachea and central airways are patent. Mediastinum: Heart size is normal, without pericardial effusion. There is mild coronary arterial vascular calcification. Thoracic aorta is normal in caliber and enhancement. Multiple enlarged mediastinal lymph nodes are slightly increased in size from the prior study including a registration representative right paratracheal node measuring up to 1.7 cm on series 4 image 54, increased in size from 1.3 cm on the prior CT. There is interval decrease in size of enlarged hilar lymph nodes identified on the prior study. Esophagus is normal in caliber, with a small hiatal hernia. Bones and chest wall: No suspicious bony lesions. Ribs and thoracic spine appear intact throughout. Thyroid gland demonstrates no discrete nodules. No axillary or supraclavicular adenopathy. Abdomen: Visualized upper abdomen demonstrates multiple hypoattenuating masses within the visualized liver which appear new compared to the prior studies. These include a mass lesion segment 4A of the left hepatic lobe measuring 3.0 x 2.9 cm on series 4, image 128. In segment 2, there is a ill-defined lesion measuring 2.8 x 2.6 cm on series 4, image 126. Posteriorly within segment 7, there is a 2.9 x 2.8 cm mass on image 128. The findings are incompletely characterized on the current arterial phase study. The visualized stomach demonstrates no discrete mass. IMPRESSION: 1. No evidence of pulmonary embolism. 2. Clustered irregular peribronchial ground-glass opacities in the right upper lobe are suggestive of an infectious or inflammatory process such as atypical pneumonia. 3. Chronic interstitial lung disease redemonstrated with mild traction bronchiectasis, honeycombing, and mild septal thickening. The findings are not typical of a typical UIP pattern and may reflect an NSIP pattern. There are decreased ground-glass opacities compared to the prior studies. 4. New left lower lobe 0.4 cm nodule. Recommend short-term follow-up to demonstrate resolution or stability. 5. Multiple new hypoattenuating mass lesions within the visualized liver. The findings are nonspecific and are incompletely characterized on the current study. However, the differential includes metastatic disease. Recommend correlation clinically and dedicated imaging of the abdomen if indicated. 6. Increase in size of enlarged mediastinal lymph nodes with decrease in size of previously visualized enlarged hilar nodes. The findings are also nonspecific and the differential includes metastatic disease as well as infectious or inflammatory processes. Dictated by: Chente Espitia M.D. on 09/26/2020 at 15:36 Approved by: Chente Espitia M.D. on 09/26/2020 at 16:07
[2020-09-26] MEDS: FUROSEMIDE 40 MG/4 ML VIAL IV (15:35)
[2020-09-26 16:03] LABS: COVID19 - ADMIT (NP swab/PCR) Negative (Negative)
[2020-09-26] MEDS: DOXYCYCLINE HYCLATE 100 MG TABLET PO (17:04)
== END 2020-09-26 17:16 | disposition home or self-care (01) ==
PROVIDERS: Emergency Provider Emergency Medicine; PCP Physician Assistant
DX: J84.9 Interstitial pulmonary disease, unspecified (principal); I50.9 Heart failure, unspecified; Z20.822 Contact with and (suspected) exposure to COVID-19
CPT/HCPCS: 71045; 71275; 80053; 82550; 83605; 83735; 83880; 84145; 84484; 85007; 85025; 85379; 87635; 93005; 96374; 96375; 99284; C9803; J1940; J2930; Q9967

== ENCOUNTER 2020-09-27 08:39 | Inpatient (IN) | payer MEDICARE, OTHER, SELFPAY ==
[2020-09-27] VITALS (9 sets, daily range): BP systolic 118–140; BP diastolic 77–94; PULSE 79–102; RESP 13–29; TEMP 36.4–36.9; O2SAT 96–100; BMI 23.8
--- NOTE | 2020-09-27 08:44 | ED_ITS ---
HPI - General Adult General Chief complaint: Shortness of Breath/Dyspnea Stated complaint: congestive heart failure, back from yesterday. Time Seen by Provider: 09/27/20 08:40 History of Present Illness HPI narrative: 65-year-old gentleman with a history of steroid dependent pulmonary fibrosis currently on 30 mg of prednisone, congestive heart failure is seen for the 2nd time in 24 hours with complaints of exertional dyspnea. Patient started he had 5 minutes of acute shortness of breath this morning in the shower and has had more exertional dyspnea over the course of the day. Work up yesterday a suggested congestive heart failure with an elevated BNP no evidence of COVID or active infection with negative troponins. Chest x-ray with significant only for mild chronic interstitial prominence. Notes that he felt better after the Lasix, steroids and nebulizer that was used yesterday but over the evening returned to the same level of dyspnea and it persists this morning. He reports bandlike pain across his mid back/lower lung lanier bilaterally. No anterior chest pain no palpitations. He does not have complaints of orthopnea, confusion, mild global weakness but no localizing neurologic complaints. No vomiting, abdominal pain, diarrhea or constipation. He has been voiding normally without complaints. He notes he did take Lasix this morning and has not yet voided Related Data Home Medications Medication Instructions Recorded Confirmed ferrous sulfate 325 mg PO DAILY 05/07/20 06/25/20 pantoprazole 40 mg PO DAILY 05/07/20 06/25/20 prednisone 40 mg PO DAILY 05/07/20 06/25/20 Previous Rx's Medication Instructions Recorded albuterol sulfate 1 puff INHALATION Q4-6H PRN #8.5 10/04/18 gram doxycycline hyclate 100 mg PO BID #20 tab 09/26/20 furosemide [Lasix] 40 mg PO DAILY #5 tab 09/26/20 Allergies Allergy/AdvReac Type Severity Reaction Status Date / Time No Known Drug Allergies Allergy Verified 09/27/20 09:04 Review of Systems Review of Systems Narrative: Remainder of complete review of systems is otherwise unremarkable except for that included in the HPI. Patient History Medical History CHF (congestive heart failure) Chronic interstitial lung disease Lupus Social History household members: spouse Smoking Status: Never smoker alcohol intake: never Smoking Status: Never smoker alcohol intake frequency: holidays/special occasions only Substance Use Type: marijuana Exam Narrative Exam Narrative: General: Healthy appearing, in no acute distress. Able to give a complete and coherent history. Well-nourished well-developed HEENT: Moist mucous membranes, normal sclera with reactive pupils, Neck: No JVD, supple Respiratory: Lungs with bibasilar crackles but no specific rhonchi. Minimal wheezing is appreciated. Full and symmetrical air movement, able to speak in complete sentences Cardiac: Regular rate and rhythm no murmurs no bruits Abdomen: Soft, nontender, good bowel tones, no flank pain Skin: Warm and dry, no rashes Neurologic: Grossly neurologically intact with no obvious asymmetries or abnormalities Extremities: No trauma, well perfused, no lower extremity edema Psych: Cooperative, appropriate insight and affect Initial Vital Signs Initial Vital Signs: Vital Signs Temperature 98.3 F 09/27/20 09:05 Pulse Rate 93 H 09/27/20 09:05 Respiratory Rate 18 09/27/20 09:05 Blood Pressure 140/90 09/27/20 09:05 Pulse Oximetry 98 09/27/20 09:05 Course Orders Ordered: ED Orders 09/27/20 08:47 EKG-12 Lead Stat Measure peak expiratory flow ONCE RT Consult Eval and Treat Now 09/27/20 09:04 CT angio chest PE protocol Stat Urinalysis and Microscopic Stat 09/27/20 09:10 Complete Blood Count AUTO DIFF Stat Comprehensive Metabolic Panel Stat Lactate (Lactic Acid) Stat Procalcitonin Stat Troponin I Stat 09/27/20 09:40 Blood Culture Stat 09/27/20 09:54 Respiratory Panel (Film Array) Stat 09/27/20 10:13 Legionella pneumo Antigen Stat Sodium Chloride (Normal Saline 0.9%) 1,000 mls @ 100 mls/hr IV BOLUS ONE Stop: 09/27/20 20:37 Last Admin: 09/27/20 10:42 Dose: 100 mls/hr Documented by: Discontinued Medications Albuterol/Ipratropium (Albuterol/Ipratropium 3 Ml Ampul) 3 ml INH NOW ONE Stop: 09/27/20 09:21 Hydrocortisone (Hydrocortisone 100 Mg/2 Ml Vial) 100 mg IV NOW ONE Stop: 09/27/20 10:14 Last Admin: 09/27/20 10:36 Dose: 100 mg Documented by: Ceftriaxone Sodium 2,000 mg/ (Sodium Chloride) 100 mls @ 200 mls/hr IV NOW ONE Stop: 09/27/20 10:14 Last Admin: 09/27/20 10:36 Dose: 200 mls/hr Documented by: Azithromycin 500 mg/ Dextrose 250 mls @ 250 mls/hr IV NOW ONE Stop: 09/27/20 10:14 Methylprednisolone (Methylprednisolone 125 Mg/2 Ml Vial) 60 mg IV NOW ONE Stop: 09/27/20 10:14 Last Admin: 09/27/20 10:36 Dose: 60 mg Documented by: Vancomycin HCl (Vancomycin Per Pharmacy) 1 request MISC NOW ONE Stop: 09/27/20 10:14 Vital Signs Vital signs: Vital Signs - 8 hr 09/27/20 09:05 09/27/20 09:56 Temperature 98.3 F Pulse Rate 93 H 93 H Respiratory Rate 18 29 H Blood Pressure 140/90 133/78 Pulse Oximetry 98 100 Medical Decision Making Medical Records Medical records reviewed: Yes I reviewed the patient's medical records. Medical records narrative: Most recent echocardiogram was July of 2019 with an ejection fraction at 55-60% with mild biatrial enlargement. Lab Data Result diagrams: 09/27/20 09:10 09/27/20 09:10 Labs: Lab Results 09/27/20 09/27/20 09/27/20 Range/Units 09:10 09:10 09:10 WBC 15.7 H (4.5-11.0) X10^3/uL RBC 4.19 L (4.5-5.9) X10^6/uL Hgb 9.7 L (13.5-17.5) g/dL Hct 32.3 L (41-53) % MCV 77.0 L (80-100) fL MCH 23.2 L (26-34) PG MCHC 30.1 (30-36) % RDW 18.6 H (11.6-14.8) % Plt Count 753 H (150-400) X10^3/uL Neut % (Auto) 82.2 H (50-75) % Lymph % (Auto) 11.2 L (25-40) % [place] % (Auto) 6.2 (3-14) % Eos % (Auto) 0.0 L (2-4) % Baso % (Auto) 0.4 (0-2) % Neut # (Auto) 49124 H (2443-6182) /uL Lymph # (Auto) 1800 (6745-5310) /uL [place] # (Auto) 1000 H (0-900) /uL Eos # (Auto) 0 (0-450) /uL Baso # (Auto) 100 (0-100) /uL Nucleated RBCs Cancelled Hypersegmented Neuts Cancelled Hypogranular Neuts Cancelled Reactive Lymphocytes Cancelled Smudge Cells Cancelled Other Cell Type Cancelled Toxic Granulation Cancelled Toxic Vacuolation Cancelled Dohle Bodies Cancelled Ria Rods Cancelled WBC Morphology Comment Cancelled Platelet Estimate Cancelled Clumped Platelets Cancelled Plt Morphology Comment Cancelled RBC Morphology Cancelled Dimorphic RBCs Cancelled Polychromasia Cancelled Hypochromasia Cancelled Poikilocytosis Cancelled Basophilic Stippling Cancelled Anisocytosis Cancelled Microcytosis Cancelled Macrocytosis Cancelled Spherocytes Cancelled Pappenheimer Bodies Cancelled Sickle Cells Cancelled Target Cells Cancelled Tear Drop Cells Cancelled Ovalocytes Cancelled Stomatocytes Cancelled Helmet Cells Cancelled [place] Bodies Cancelled [place] Rings Cancelled [place] Cells Cancelled Acanthocytes (Spur) Cancelled Rouleaux Cancelled Schistocytes Cancelled Sodium 136 L (137-145) mmol/L Potassium 3.6 (3.4-5.1) mmol/L Chloride 103 (98-107) mmol/L Carbon Dioxide 23 (22-32) mmol/L BUN 16 (9-20) mg/dL Creatinine 1.09 (0.66-1.25) mg/dL Estimated GFR > 60.0 (>60) mL/min BUN/Creatinine Ratio 14.7 (6-22) Glucose 152 H (80-110) mg/dL Lactate 1.5 (0.7-2.1) mmol/L Calcium 9.3 (8.4-10.2) mg/dL Total Bilirubin 0.4 (0.2-1.3) mg/dL AST 31 (17-59) IU/L ALT 16 (<50) IU/L Alkaline Phosphatase 90 (38-126) U/L Troponin I < 0.012 (0.01-0.034) ng/mL Total Protein 7.6 (6.3-8.2) g/dL Albumin 4.1 (3.5-5.0) g/dL Globulin 3.5 (1.7-4.1) g/dL Albumin/Globulin Ratio 1.2 (1.0-2.8) Procalcitonin (<0.5) ng/mL 09/27/20 Range/Units 09:10 WBC (4.5-11.0) X10^3/uL RBC (4.5-5.9) X10^6/uL Hgb (13.5-17.5) g/dL Hct (41-53) % MCV (80-100) fL MCH (26-34) PG MCHC (30-36) % RDW (11.6-14.8) % Plt Count (150-400) X10^3/uL Neut % (Auto) (50-75) % Lymph % (Auto) (25-40) % [place] % (Auto) (3-14) % Eos % (Auto) (2-4) % Baso % (Auto) (0-2) % Neut # (Auto) (8525-8611) /uL Lymph # (Auto) (4810-2596) /uL [place] # (Auto) (0-900) /uL Eos # (Auto) (0-450) /uL Baso # (Auto) (0-100) /uL Nucleated RBCs Hypersegmented Neuts Hypogranular Neuts Reactive Lymphocytes Smudge Cells Other Cell Type Toxic Granulation Toxic Vacuolation Dohle Bodies Ria Rods WBC Morphology Comment Platelet Estimate Clumped Platelets Plt Morphology Comment RBC Morphology Dimorphic RBCs Polychromasia Hypochromasia Poikilocytosis Basophilic Stippling Anisocytosis Microcytosis Macrocytosis Spherocytes Pappenheimer Bodies Sickle Cells Target Cells Tear Drop Cells Ovalocytes Stomatocytes Helmet Cells [place] Bodies [place] Rings Stefanie Cells Acanthocytes (Spur) Rouleaux Schistocytes Sodium (137-145) mmol/L Potassium (3.4-5.1) mmol/L Chloride (98-107) mmol/L Carbon Dioxide (22-32) mmol/L BUN (9-20) mg/dL Creatinine (0.66-1.25) mg/dL Estimated GFR (>60) mL/min BUN/Creatinine Ratio (6-22) Glucose (80-110) mg/dL Lactate (0.7-2.1) mmol/L Calcium (8.4-10.2) mg/dL Total Bilirubin (0.2-1.3) mg/dL AST (17-59) IU/L ALT (<50) IU/L Alkaline Phosphatase (38-126) U/L Troponin I (0.01-0.034) ng/mL Total Protein (6.3-8.2) g/dL Albumin (3.5-5.0) g/dL Globulin (1.7-4.1) g/dL Albumin/Globulin Ratio (1.0-2.8) Procalcitonin 0.09 (<0.5) ng/mL Imaging Data CT scan chest: Radiologist's Impression: FINDINGS: Image quality: Excellent. Pulmonary arteries: Pulmonary arteries are normal in size, and demonstrate no intraluminal filling defects to suggest central pulmonary embolism. Lungs and pleura: Diffuse changes of pulmonary fibrosis are again noted, with septal thickening and traction bronchiectasis and honeycombing. When comparing to 2019, ground-glass opacities have significantly improved. Focal patchy density in the posterior segment of the right upper lobe is again noted, as was present on yesterday's study. This has the appearance of a probable acute superimposed infectious or inflammatory process. Consider atypical pneumonia. Mediastinum: Heart size is normal, without pericardial effusion. Again noted is a prominent right paratracheal lymph which measures 2.3 x 1.7 cm on image 52/4.4 to Thoracic aorta is normal in caliber and enhancement. Esophagus is normal in caliber, without hiatal hernia. Bones and chest wall: Mild chronic T8 compression fracture. No suspicious bony lesions. Ribs and thoracic spine appear intact throughout. Thyroid gland is unrema rkable as visualized. No axillary or supraclavicular adenopathy. Abdomen: There are 2 low-density left lobe liver lesions, measuring 3.2 cm and 2.5 cm respectively in diameter. Reference image 125/4. These were not present the previous CT abdomen and pelvis dated 10/04/2019. They are suspicious for metastatic disease. IMPRESSION: 1. No evidence of acute pulmonary emboli. 2. Chronic interstitial pulmonary fibrosis. 3. Focal process in the posterior segment of right upper lobe may represent a superimposed infectious or inflammatory process. Consider atypical pneumonia. Findings are unchanged from yesterday's study. 4. Prominent right paratracheal lymph node. 5. Findings highly suspicious for hepatic metastatic disease. Dictated by: Vicente Pittman M.D. on 09/27/2020 at 8:29 ECG Data Attestation: I personally reviewed and interpreted this ECG as follows: Interpretation: Sinus rhythm at a rate of 99 Normal axis, normal interval No acute ischemic changes MDM Narrative Medical decision making narrative: 65-year-old gentleman with multiple chronic pulmonary issues with increased dyspnea acutely yesterday. Treated for congestive heart failure and started on doxycycline but symptoms are worse toda y. Slightly elevated D-dimer yesterday and in light of multiple questions regarding his pulmonary status a CT scan to rule out pulmonary embolism and more fully evaluate pulmonary lanier is ordered today. Will expand workup to include respiratory virus panel and will again look for acute coronary syndrome as well as congestive heart failure findings. On clinical exam with no S3, lower extremity, orthopnea and no jugular venous distension he is not having clinical findings of significant heart failure today. Labs do not suggest acute coronary syndrome or sepsis. His white blood cell count has increased slightly with an increase in neutrophils as well this may be related to infection may also be related to steroids given yesterday. As he is chronically immunocompromised with oral steroids will add stress dose hydrocortisone as well as continuing 60 mg of Solu-Medrol. CT scan continues to suggest possible infectious etiology in posterior lung base. Regarding the pain that he is having across his upper back the chronic T8 compression fracture could certainly be an explanation for this the lesions appreciated in his liver representing possible metastatic disease could be causing this but less likely. Yesterday with his trial of outpatient care including steroids doxycycline and inhalers has failed, will expand antibiotic coverage for the possibility of developing atypical pneumonia to include ceftriaxone, azithromycin and vancomycin. Will recommend hospitalization for additional workup. Will need further evaluation given the possibility of metastatic lesions appreciated in the liver. At this time, there is no concern for pulmonary embolism, pneumothorax, acute coronary syndrome and IA continued to believe that congestive heart failure as far less likely. Care is reviewed with patient who agrees with hospital admission. Reviewed with Admitting hospitalist, Dr. Barnes, care is excepted. Discharge Plan Departure Patient Disposition: Admitted as Observation Clinical Impression: Atypical pneumonia, Lupus, Chronic interstitial lung disease, Acute dyspnea, Lesion of liver greater than 1 cm in diameter
--- NOTE | 2020-09-27 09:04 | DI.CT.S_ITS ---
PROCEDURE: CT ANGIO CHEST PE PROTOCOL INDICATIONS: worsening dyspnea TECHNIQUE: After the administration of intravenous contrast, 2 mm thick sections acquired from the pulmonary apices to the posterior costophrenic angles. 3-dimensional maximum intensity projection (MIP) coronal and sagittal reformats were then acquired through the thorax. For radiation dose reduction, the following was used: automated exposure control, adjustment of mA and/or kV according to patient size. COMPARISON: [facility], CT, CT ANGIO CHEST PE PROTOCOL, 10/04/2018, 14:53. [facility], CT, CT ABDOMEN WITH CONTRAST, 10/04/2019, 14:59. [facility], CT, CT ANGIO CHEST PE PROTOCOL, 09/26/2020, 15:26. FINDINGS: Image quality: Excellent. Pulmonary arteries: Pulmonary arteries are normal in size, and demonstrate no intraluminal filling defects to suggest central pulmonary embolism. Lungs and pleura: Diffuse changes of pulmonary fibrosis are again noted, with septal thickening and traction bronchiectasis and honeycombing. When comparing to 2019, ground-glass opacities have significantly improved. Focal patchy density in the posterior segment of the right upper lobe is again noted, as was present on yesterday's study. This has the appearance of a probable acute superimposed infectious or inflammatory process. Consider atypical pneumonia. Mediastinum: Heart size is normal, without pericardial effusion. Again noted is a prominent right paratracheal lymph which measures 2.3 x 1.7 cm on image 52/4.4 to Thoracic aorta is normal in caliber and enhancement. Esophagus is normal in caliber, without hiatal hernia. Bones and chest wall: Mild chronic T8 compression fracture. No suspicious bony lesions. Ribs and thoracic spine appear intact throughout. Thyroid gland is unremarkable as visualized. No axillary or supraclavicular adenopathy. Abdomen: There are 2 low-density left lobe liver lesions, measuring 3.2 cm and 2.5 cm respectively in diameter. Reference image 125/4. These were not present the previous CT abdomen and pelvis dated 10/04/2019. They are suspicious for metastatic disease. IMPRESSION: 1. No evidence of acute pulmonary emboli. 2. Chronic interstitial pulmonary fibrosis. 3. Focal process in the posterior segment of right upper lobe may represent a superimposed infectious or inflammatory process. Consider atypical pneumonia. Findings are unchanged from yesterday's study. 4. Prominent right paratracheal lymph node. 5. Findings highly suspicious for hepatic metastatic disease. Dictated by: Vicente Pittman M.D. on 09/27/2020 at 8:29 Approved by: Vicente Pittman M.D. on 09/27/2020 at 8:42
[2020-09-27 09:21] LABS: Add Manual Diff / Slide Review NO; Basophils Absolute Auto 100 /uL (0-100); Basophils Percent Auto 0.4 % (0-2); Eosinophils Absolute Auto 0 /uL (0-450); Hematocrit 32.3 % (41-53); Hemoglobin 9.7 g/dL (13.5-17.5); Lymphocytes Absolute Auto 1800 /uL (1100-4500); Lymphocytes Percent Auto 11.2 % (25-40); Mean Corpuscular HGB Conc 30.1 % (30-36); Mean Corpuscular Hemoglobin 23.2 PG (26-34); Monocytes Absolute Auto 1000 /uL (0-900); Monocytes Percent Auto 6.2 % (3-14); Neutrophils Absolute Auto 12900 /uL (1500-7000); Neutrophils Percent Auto 82.2 % (50-75); Platelet Count 753 X10^3/uL (150-400); Red Blood Cell Count 4.19 X10^6/uL (4.5-5.9); Red Cell Distribution Width 18.6 % (11.6-14.8); White Blood Cell Count 15.7 X10^3/uL (4.5-11.0)
[2020-09-27 09:32] LABS: Lactate (Lactic Acid) 1.5 mmol/L (0.7-2.1)
[2020-09-27 09:33] LABS: Alanine Aminotransferase 16 IU/L (<50); Albumin 4.1 g/dL (3.5-5.0); Albumin Globulin Ratio 1.2 (1.0-2.8); Alkaline Phosphatase 90 U/L (38-126); Aspartate Aminotransferase 31 IU/L (17-59); BUN Creatinine Ratio 14.7 (6-22); Bilirubin Total 0.4 mg/dL (0.2-1.3); Blood Urea Nitrogen 16 mg/dL (9-20); Calcium 9.3 mg/dL (8.4-10.2); Carbon Dioxide 23 mmol/L (22-32); Chloride 103 mmol/L (98-107); Estimated Glomerular Filt Rate > 60.0 mL/min (>60); Globulin 3.5 g/dL (1.7-4.1); Glucose 152 mg/dL (80-110); HEMOLYSIS < 15 (0-50); Potassium 3.6 mmol/L (3.4-5.1); Sodium 136 mmol/L (137-145); Total Protein 7.6 g/dL (6.3-8.2)
[2020-09-27 09:44] LABS: Troponin I < 0.012 ng/mL (0.01-0.034)
[2020-09-27 09:49] LABS: Procalcitonin 0.09 ng/mL (<0.5)
[2020-09-27] MEDS: HYDROCORTISONE 100 MG/2 ML VIAL IV (10:36)
[2020-09-27] MEDS: methylPREDNISolone 125 MG/2 ML VIAL 60 MG IV (10:36)
[2020-09-27] MEDS: cefTRIAXone 2,000 MG in SODIUM CHLORIDE 0.9% 100 ML 200 ML IV (10:36)
[2020-09-27] MEDS: SODIUM CHLORIDE 0.9% 1,000 ML 100 ML IV (10:42)
[2020-09-27 11:09] LABS: Adenovirus Not Detected (Not Detect); Coronavirus 229E Not Detected (Not Detect); Coronavirus HKU1 Not Detected (Not Detect); Coronavirus NL 63 Not Detected (Not Detect); Coronavirus OC43 Not Detected (Not Detect); Human Metapneumovirus Not Detected (Not Detect); Human Rhinovirus/Enterovirus Not Detected (Not Detect); Influenza A Not Detected (Not Detect); Influenza B Not Detected (Not Detect); Parainfluenza Virus 1 Not Detected (Not Detect); Parainfluenza Virus 2 Not Detected (Not Detect); Parainfluenza Virus 3 Not Detected (Not Detect); Parainfluenza Virus 4 Not Detected (Not Detect); Respiratory Syncytial Virus Not Detected (Not Detect); SARS- CoV-2 Not Detected (Not Detecte)
[2020-09-27 11:10] LABS: B. parapertussis Not Detected (Not Detecte); Bordetella pertussis Not Detected (Not Detecte); Chlamydophila pneumoniae Not Detected (Not Detect); Mycoplasma pneumoniae Not Detected (Not Detect)
[2020-09-27] MEDS: AZITHROMYCIN 500 MG in DEXTROSE 5% IN WATER 250 ML IV (11:17)
--- NOTE | 2020-09-27 11:20 | P.HP_ITS ---
History of Present Illness History of Present Illness Date Patient Seen: 09/27/20 Time Patient Seen: 11:29 Chief complaint: congestive heart failure, back from yesterday. Narrative: This is a 65-year-old male with anemia, interstitial lung disease and congestive heart failure who presents with 2 days of shortness of breath. He had been on 60 mg of prednisone since his ILD diagnosis last year, which has been weaned down to 20 mg. He follows with Dr. Moore a senior data scientist from [facility]. Yesterday he presented to the emergency department with increasing shortnes of breath. His chest CT showed a right upper lobe posterior infiltrate. He had no fevers, coughing, chills, sweats or chest pain but his white blood count is elevated at 15.7 (up from 13.6 yesterday) with a hemoglobin of 9.7(down from 10.0 yesterday). The BNP was 7610 and the D-dimer was 435. He declined hospitalization and went home feeling better. Today while in the shower he became acutely dyspneic and so came back to the emergency department where the chest CT was repeated and again showed the posterior pneumonia. He will be treated with ceftriaxone, vancomycin and Azithromycin along with a steroid stress dose. Incidentally found on the CT scan are 2 liver lesions(highly chris picious for metastases), a mediastinal lymph node and a T8 compression fracture, all of which are new to him. He does have a history of anemia without clear etiology and has been on iron. 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 He has never smoked cigarettes. Patient History Medical History (Updated 09/27/20 @ 12:23 by Flaquita Caceres RN) Anemia CHF (congestive heart failure) Chronic interstitial lung disease Compression fracture Lupus Surgical History (Updated 09/27/20 @ 11:21 by Alonzo Barnes MD) H/O pelvic surgery Family & Social History Family History (Updated 09/27/20 @ 11:21 by Alonzo Barnes MD) Father Alcohol abuse Mother Alcohol abuse Social History: household members spouse Safety & Behavioral: Feels Safe in Current Yes Environment Been Physically Hurt or No Threatened By a Person Tobacco & Substance use: Smoking Status Never smoker alcohol intake never alcohol intake frequency holiday/special occasion Substance Use Type marijuana Comment: His backup decision maker is his Nia Bowden. His senior data scientist is Dr. Moore at [facility]. Meds Home Medications and Allergies Home Medications Medication Instructions Recorded Confirmed Type albuterol sulfate 1 puff INHALATION Q4-6H PRN #8.5 10/04/18 09/27/20 Rx gram [id number]-vit K 1 tab PO DAILY 09/27/20 09/27/20 History [Adults Multivitamin] prednisone 10 mg PO DAILY 09/27/20 09/27/20 History Allergies Allergy/AdvReac Type Severity Reaction Status Date / Time No Known Drug Allergies Allergy Verified 09/27/20 09:04 Review of Systems Review of Systems Narrative: Positive for shortness of breath Negative for fevers, chills, sweats, chest pain, nausea, vomiting, diarrhea, bleeding, rashes, seizures, difficulty talking, new allergies. ROS: Yes All systems reviewed with the patient and are negative except as otherwise documented Exam Vital Signs (past 8 hours): - 09/27/20 09:05 09/27/20 09:56 09/27/20 10:00 Temperature 98.3 F Pulse Rate 93 H 93 H 102 H Respiratory Rate 18 29 H 13 Blood Pressure 140/90 133/78 123/78 Pulse Oximetry 98 100 100 09/27/20 10:30 Temperature Pulse Rate 99 H Respiratory Rate Blood Pressure 125/82 Pulse Oximetry 99 Oxygen Delivery Method Room Air Narrative Exam Narrative: He is alert and oriented x3. He is in no apparent distress. His is sitting quietly by the bed participating in the interaction appropriately. Pupils are equally round and reactive to light and accommodation. Extraocular muscles are intact. Sclerae are pink and nonicteric. No lymph nodes are felt head, neck, supraclavicular area. Lungs are clear to auscultation bilaterally. Heart is regular rate and rhythm without murmur. Abdomen is soft, bowel sounds positive, nontender, no organomegaly. Extremities have no ankle edema. Neurological exam. Cranial nerves 2-12 test intact. Motor function is 5/5 throughout. Deep tender reflexes are symmetric and normal. There is no tremor Skin exam is normal without jaundice or rashes. Objective Labs Result Diagrams: 09/27/20 09:10 09/27/20 09:10 Labs: Laboratory Results - last 24 hr 09/27/20 09/27/20 09/27/20 09:10 09:10 09:10 WBC 15.7 H RBC 4.19 L Hgb 9.7 L Hct 32.3 L MCV 77.0 L MCH 23.2 L MCHC 30.1 RDW 18.6 H Plt Count 753 H Neut % (Auto) 82.2 H Lymph % (Auto) 11.2 L [place] % (Auto) 6.2 Eos % (Auto) 0.0 L Baso % (Auto) 0.4 Neut # (Auto) 27828 H Lymph # (Auto) 1800 [place] # (Auto) 1000 H Eos # (Auto) 0 Baso # (Auto) 100 Nucleated RBCs Cancelled Hypersegmented Neuts Cancelled Hypogranular Neuts Cancelled Reactive Lymphocytes Cancelled Smudge Cells Cancelled Other Cell Type Cancelled Toxic Granulation Cancelled Toxic Vacuolation Cancelled Dohle Bodies Cancelled Ria Rods Cancelled WBC Morphology Comment Cancelled Platelet Estimate Cancelled Clumped Platelets Cancelled Plt Morphology Comment Cancelled RBC Morphology Cancelled Dimorphic RBCs Cancelled Polychromasia Cancelled Hypochromasia Cancelled Poikilocytosis Cancelled Basophilic Stippling Cancelled Anisocytosis Cancelled Microcytosis Cancelled Macrocytosis Cancelled Spherocytes Cancelled Pappenheimer Bodies Cancelled Sickle Cells Cancelled Target Cells Cancelled Tear Drop Cells Cancelled Ovalocytes Cancelled Stomatocytes Cancelled Helmet Cells Cancelled [place] Bodies Cancelled [place] Rings Cancelled [place] Cells Cancelled Acanthocytes (Spur) Cancelled Rouleaux Cancelled Schistocytes Cancelled Sodium 136 L Potassium 3.6 Chloride 103 Carbon Dioxide 23 BUN 16 Creatinine 1.09 Estimated GFR > 60.0 BUN/Creatinine Ratio 14.7 Glucose 152 H Lactate 1.5 Calcium 9.3 Total Bilirubin 0.4 AST 31 ALT 16 Alkaline Phosphatase 90 Troponin I < 0.012 Total Protein 7.6 Albumin 4.1 Globulin 3.5 Albumin/Globulin Ratio 1.2 Procalcitonin Chlamy pneumoniae PCR Adenovirus (PCR) B. pertussis DNA (PCR) B.parapertussis DNA PCR Coronavirus OC43 (PCR) Coronavirus HKU1 (PCR) Coronavirus 229E (PCR) SARS-CoV-2 (PCR) Coronavirus NL63 (PCR) Human Metapneumovir PCR Influenza Type A (PCR) Influenza Type B (PCR) M. pneumoniae (PCR) Parainfluenza 1 (PCR) Parainfluenza 2 (PCR) Parainfluenza 3 (PCR) Parainfluenza 4 (PCR) RSV (PCR) Entero/Rhino (PCR) 09/27/20 09/27/20 09:10 09:54 WBC RBC Hgb Hct MCV MCH MCHC RDW Plt Count Neut % (Auto) Lymph % (Auto) [place] % (Auto) Eos % (Auto) Baso % (Auto) Neut # (Auto) Lymph # (Auto) [place] # (Auto) Eos # (Auto) Baso # (Auto) Nucleated RBCs Hypersegmented Neuts Hypogranular Neuts Reactive Lymphocytes Smudge Cells Other Cell Type Toxic Granulation Toxic Vacuolation Dohle Bodies Ria Rods WBC Morphology Comment Platelet Estimate Clumped Platelets Plt Morphology Comment RBC Morphology Dimorphic RBCs Polychromasia Hypochromasia Poikilocytosis Basophilic Stippling Anisocytosis Microcytosis Macrocytosis Spherocytes Pappenheimer Bodies Sickle Cells Target Cells Tear Drop Cells Ovalocytes Stomatocytes Helmet Cells [place] Bodies [place] Rings Stefanie Cells Acanthocytes (Spur) Rouleaux Schistocytes Sodium Potassium Chloride Carbon Dioxide BUN Creatinine Estimated GFR BUN/Creatinine Ratio Glucose Lactate Calcium Total Bilirubin AST ALT Alkaline Phosphatase Troponin I Total Protein Albumin Globulin Albumin/Globulin Ratio Procalcitonin 0.09 Chlamy pneumoniae PCR Not detected Adenovirus (PCR) Not detected B. pertussis DNA (PCR) Not detected B.parapertussis DNA PCR Not detected Coronavirus OC43 (PCR) Not detected Coronavirus HKU1 (PCR) Not detected Coronavirus 229E (PCR) Not detected SARS-CoV-2 (PCR) Not detected Coronavirus NL63 (PCR) Not detected Human Metapneumovir PCR Not detected Influenza Type A (PCR) Not detected Influenza Type B (PCR) Not detected M. pneumoniae (PCR) Not detected Parainfluenza 1 (PCR) Not detected Parainfluenza 2 (PCR) Not detected Parainfluenza 3 (PCR) Not detected Parainfluenza 4 (PCR) Not detected RSV (PCR) Not detected Entero/Rhino (PCR) Not detected Assessment & Plan Assessment & Plan narrative: This is a 65-year-old male with anemia, interstitial lung disease and congestive heart failure who presents with 2 days of shortness of breath. His lung CT reveals a right sided posterior infiltrate. Pneumonia, present on admission. Active. -Focal process in the posterior segment of right upper lobe may represent a superimposed infectious or inflammatory process. Consider atypical pneumonia. Findings are unchanged from yesterday's study. -Azithromycin, Ceftriaxone and Vancomycin IV Interstitial lung disease, steroid dependent, present on admission. Active. -Managed by pulmonology - Dr. Moore -Continue Prednisone 20 mg daily Normocytic anemia, present on admission. Active. -likely related to unknown primary neoplastic process (Liver mets noted on CT) -Rec. outpatient GI referral for EGD and Colonoscopy -Continue Iron daily and recheck CBC on 09/28 Liver Metastatic Lesions, present on admission. Active. -Abdominal CT elsewhere 2 weeks ago found this abnormality -[facility] physicians are apparently working on this -Consider Liver CT biopsy and/or Oncology referral Congestive heart failure, present on admission. Active. -55-60% EF on previous Echo from 07/29/20 -BNP 7610 on 09/26, repeat 09/28 and consider repeat Echo
[2020-09-27 12:08] LABS: Bacteria Urine None Seen
[2020-09-27 12:09] LABS: Appearance Urine UA CLEAR; Bilirubin Urine UA NEGATIVE (NEGATIVE); Color Urine UA YELLOW; Glucose Urine UA NEGATIVE (Negative); Ketones Urine UA NEGATIVE (NEGATIVE); Leukocyte Esterase Urine UA NEGATIVE (NEGATIVE); Nitrite Urine UA NEGATIVE (Negative); Occult Blood Urine UA NEGATIVE (Negative); Protein Urine UA NEGATIVE (Negative); Urobilinogen Urine UA 0.2 E.U./dL (0.2)
[2020-09-27 12:21] LABS: Culture Indicated Urine Cult Not Indicated; Hyaline Casts Urine 0-1/LPF; Mucus Urine 1+ (Negative); RBC Urine 0-1/HPF (0-5/HPF); WBC Urine 1-5/HPF (0-5/HPF)
[2020-09-27] MEDS: DEXTROSE 5%-0.9% NS 1,000 ML 60 ML IV (12:22)
[2020-09-27] MEDS: ONDANSETRON 4 MG ODT PO (12:27)
[2020-09-27] MEDS: VANCOMYCIN 1,250 MG/250 ML PIGGYBACK 250 MG IV ×2 (12:44→22:24)
--- NOTE | 2020-09-27 13:19 | PC.NURSE ---
Patient transferred to Acute Care on stretcher. IV antibiotics infusing, patient A/O x 3. bedside. Patient able to stand and go to bed independently. Denies chest pain, endorses SOB with activity and increased WOB. Patient on RA, 100%, lungs clear, diminished in R base. C/O intermittent dry cough that started a month ago. Pulses equal, VSS. Call light in reach. Explained to patient to call before getting OOB. Patient verbalized understanding.
[2020-09-28] VITALS (7 sets, daily range): BP systolic 110–147; BP diastolic 72–92; PULSE 63–92; RESP 14–24; TEMP 36.3–36.9; O2SAT 96–99
[2020-09-28] MEDS: ONDANSETRON 4 MG/2 ML INJ IV (00:14)
--- NOTE | 2020-09-28 00:29 | DI.RAD.S_ITS ---
PROCEDURE: XR CHEST 1V INDICATIONS: Aspiration risk TECHNIQUE: One view of the chest was acquired. COMPARISON: [facility], CT, CT ANGIO CHEST PE PROTOCOL, 10/04/2018, 14:53. [facility], CR, XR CHEST 1V, 10/04/2018, 12:52. [facility], CR, XR CHEST 1V, 09/26/2020, 14:32. FINDINGS: Surgical changes and devices: None. Lungs and pleura: Again noted is chronic interstitial pulmonary fibrosis. Findings are grossly unchanged over time. No pleural effusions or pneumothorax. Mediastinum: Mediastinal contours appear normal. Heart size is normal. Bones and chest wall: No suspicious bony lesions. Overlying soft tissues appear unremarkable. IMPRESSION: 1. There are changes of chronic interstitial pulmonary fibrosis. Findings are grossly unchanged. If there is clinical suspicion of focal pneumonia, consider noncontrast CT of the chest, which could then be directly compared to previous chest CT. Comment: Final report is concordant with preliminary interpretation provided by [facility]. Dictated by: Vicente Pittman M.D. on 09/28/2020 at 6:19 Approved by: Vicente Pittman M.D. on 09/28/2020 at 6:22
[2020-09-28 00:33] LABS: Hematocrit 29.8 % (41-53)
--- NOTE | 2020-09-28 00:46 | PC.NURSE ---
@[id number] pt alerted staff to acute onset of dizziness w/ n/v and sweating perfusely. [employer] writing this called RN immediately. Pt VS at 00:01 were BP of 147/92, HR 92, 96% on RA, RR 22-26, temp not taken until 00:35 orally 97.5 and axillary 96.8. Pt vomited in emesis bag approximately 100mL, but was found with soiled gown, presumably vomit on chest. No obvious blood in emesis. Pt also requested use of bedpan after nausea and dizziness improved for a BM, bedpan used without any problems and hemo-occult performed which was negative. No obvious blood seen in stool.
--- NOTE | 2020-09-28 01:00 | PC.NURSE ---
0000 ASHLEY Gray called me to the room. Checked patient he C/O dizziness, diaphoretic & vomiting. Checked CBG 151, denies any chest pain, no C/O dyspnea RA SPO2 95-98%. Medicated with 4 mg. of Zofran IVP & instructed patient to stay in bed & use his urinal. CXR X1 view & stat H&H done. Will cont. POC & monitor.
--- NOTE | 2020-09-28 05:16 | PC.NURSE ---
Pt. slept for few hours, roused easily. Denies any dizziness , pain or discomfort. No C/O nausea states I feel better this morning. Will continue POC & monitor.
--- NOTE | 2020-09-28 07:41 | P.PN_ITS ---
Subjective Subjective Date Patient Seen: 09/28/20 Interval history: He is seen today to follow-up his pneumonia. He vomited once overnight so had a chest x-ray done which showed his interstitial pulmonary disease and was negative for worsening pneumonia. He says that he feels much better today. He clarifies for me that it was his rectifying attendant, Dr. Moore who was referring him to for the liver evaluation. His hemoglobin has dropped from 9.7 to 9.0 and then to 8.2 today and his white blood count has improved from 15.7 down to 13.9 today. The platelets have also dropped from 753 down to 617. The glucose was high at 152 yesterday and is 109 today. The A1c was only 5.9. Exam Vital Signs (past 8 hours): - 09/28/20 00:00 09/28/20 00:35 09/28/20 05:24 Temperature 97.5 F L 97.5 F L Pulse Rate 92 H 63 69 Respiratory Rate 24 22 14 Blood Pressure 147/92 H 141/72 H 130/79 Pulse Oximetry 96 98 99 Oxygen Delivery Method Room Air Oxygen Flow Rate 0 Narrative Exam Narrative: He is alert and oriented x3. He is in no apparent distress Heart is regular rate and rhythm without murmur Lungs are clear to auscultation bilaterally Extremities have no ankle edema Objective Labs Result Diagrams: 09/28/20 08:00 09/28/20 08:00 Labs: Laboratory Results - last 24 hr 09/27/20 09/27/20 09/27/20 09:10 09:10 09:10 WBC 15.7 H RBC 4.19 L Hgb 9.7 L Hct 32.3 L MCV 77.0 L MCH 23.2 L MCHC 30.1 RDW 18.6 H Plt Count 753 H Neut % (Auto) 82.2 H Lymph % (Auto) 11.2 L [place] % (Auto) 6.2 Eos % (Auto) 0.0 L Baso % (Auto) 0.4 Neut # (Auto) 97964 H Lymph # (Auto) 1800 [place] # (Auto) 1000 H Eos # (Auto) 0 Baso # (Auto) 100 Nucleated RBCs Cancelled Hypersegmented Neuts Cancelled Hypogranular Neuts Cancelled Reactive Lymphocytes Cancelled Smudge Cells Cancelled Other Cell Type Cancelled Toxic Granulation Cancelled Toxic Vacuolation Cancelled Dohle Bodies Cancelled Ria Rods Cancelled WBC Morphology Comment Cancelled Platelet Estimate Cancelled Clumped Platelets Cancelled Plt Morphology Comment Cancelled RBC Morphology Cancelled Dimorphic RBCs Cancelled Polychromasia Cancelled Hypochromasia Cancelled Poikilocytosis Cancelled Basophilic Stippling Cancelled Anisocytosis Cancelled Microcytosis Cancelled Macrocytosis Cancelled Spherocytes Cancelled Pappenheimer Bodies Cancelled Sickle Cells Cancelled Target Cells Cancelled Tear Drop Cells Cancelled Ovalocytes Cancelled Stomatocytes Cancelled Helmet Cells Cancelled [place] Bodies Cancelled [place] Rings Cancelled Stefanie Cells Cancelled Acanthocytes (Spur) Cancelled Rouleaux Cancelled Schistocytes Cancelled Sodium 136 L Potassium 3.6 Chloride 103 Carbon Dioxide 23 BUN 16 Creatinine 1.09 Estimated GFR > 60.0 BUN/Creatinine Ratio 14.7 Glucose 152 H Lactate 1.5 Calcium 9.3 Total Bilirubin 0.4 AST 31 ALT 16 Alkaline Phosphatase 90 Troponin I < 0.012 Total Protein 7.6 Albumin 4.1 Globulin 3.5 Albumin/Globulin Ratio 1.2 Procalcitonin Urine Color Urine Appearance Urine pH Ur Specific [place] Urine Protein Urine Glucose (UA) Urine Ketones Urine Occult Blood Urine Nitrate Urine Bilirubin Urine Urobilinogen Ur Leukocyte Esterase Urine RBC Urine WBC Urine Bacteria Hyaline Casts Urine Mucus Ur Culture Indicated? Chlamy pneumoniae PCR Adenovirus (PCR) B. pertussis DNA (PCR) B.parapertussis DNA PCR Coronavirus OC43 (PCR) Coronavirus HKU1 (PCR) Coronavirus 229E (PCR) SARS-CoV-2 (PCR) Coronavirus NL63 (PCR) Human Metapneumovir PCR Influenza Type A (PCR) Influenza Type B (PCR) M. pneumoniae (PCR) Parainfluenza 1 (PCR) Parainfluenza 2 (PCR) Parainfluenza 3 (PCR) Parainfluenza 4 (PCR) RSV (PCR) Entero/Rhino (PCR) 09/27/20 09/27/20 09/27/20 09:10 09:54 12:05 WBC RBC Hgb Hct MCV MCH MCHC RDW Plt Count Neut % (Auto) Lymph % (Auto) [place] % (Auto) Eos % (Auto) Baso % (Auto) Neut # (Auto) Lymph # (Auto) [place] # (Auto) Eos # (Auto) Baso # (Auto) Nucleated RBCs Hypersegmented Neuts Hypogranular Neuts Reactive Lymphocytes Smudge Cells Other Cell Type Toxic Granulation Toxic Vacuolation Dohle Bodies Ria Rods WBC Morphology Comment Platelet Estimate Clumped Platelets Plt Morphology Comment RBC Morphology Dimorphic RBCs Polychromasia Hypochromasia Poikilocytosis Basophilic Stippling Anisocytosis Microcytosis Macrocytosis Spherocytes Pappenheimer Bodies Sickle Cells Target Cells Tear Drop Cells Ovalocytes Stomatocytes Helmet Cells [place] Bodies [place] Rings [employer] Cells Acanthocytes (Spur) Rouleaux Schistocytes Sodium Potassium Chloride Carbon Dioxide BUN Creatinine Estimated GFR BUN/Creatinine Ratio Glucose Lactate Calcium Total Bilirubin AST ALT Alkaline Phosphatase Troponin I Total Protein Albumin Globulin Albumin/Globulin Ratio Procalcitonin 0.09 Urine Color Yellow Urine Appearance Clear Urine pH 5.0 Ur Specific [place] 1.010 Urine Protein Negative Urine Glucose (UA) Negative Urine Ketones Negative Urine Occult Blood Negative Urine Nitrate Negative Urine Bilirubin Negative Urine Urobilinogen 0.2 Ur Leukocyte Esterase Negative Urine RBC 0-1/hpf Urine WBC 1-5/hpf Urine Bacteria None seen Hyaline Casts 0-1/lpf Urine Mucus 1+ H Ur Culture Indicated? Cult not indicated Chlamy pneumoniae PCR Not detected Adenovirus (PCR) Not detected B. pertussis DNA (PCR) Not detected B.parapertussis DNA PCR Not detected Coronavirus OC43 (PCR) Not detected Coronavirus HKU1 (PCR) Not detected Coronavirus 229E (PCR) Not detected SARS-CoV-2 (PCR) Not detected Coronavirus NL63 (PCR) Not detected Human Metapneumovir PCR Not detected Influenza Type A (PCR) Not detected Influenza Type B (PCR) Not detected M. pneumoniae (PCR) Not detected Parainfluenza 1 (PCR) Not detected Parainfluenza 2 (PCR) Not detected Parainfluenza 3 (PCR) Not detected Parainfluenza 4 (PCR) Not detected RSV (PCR) Not detected Entero/Rhino (PCR) Not detected 09/28/20 00:25 WBC RBC Hgb 9.0 L Hct 29.8 L MCV MCH MCHC RDW Plt Count Neut % (Auto) Lymph % (Auto) [place] % (Auto) Eos % (Auto) Baso % (Auto) Neut # (Auto) Lymph # (Auto) [place] # (Auto) Eos # (Auto) Baso # (Auto) Nucleated RBCs Hypersegmented Neuts Hypogranular Neuts Reactive Lymphocytes Smudge Cells Other Cell Type Toxic Granulation Toxic Vacuolation Dohle Bodies Ria Rods WBC Morphology Comment Platelet Estimate Clumped Platelets Plt Morphology Comment RBC Morphology Dimorphic RBCs Polychromasia Hypochromasia Poikilocytosis Basophilic Stippling Anisocytosis Microcytosis Macrocytosis Spherocytes Pappenheimer Bodies Sickle Cells Target Cells Tear Drop Cells Ovalocytes Stomatocytes Helmet Cells [place] Bodies [place] Rings Stefanie Cells Acanthocytes (Spur) Rouleaux Schistocytes Sodium Potassium Chloride Carbon Dioxide BUN Creatinine Estimated GFR BUN/Creatinine Ratio Glucose Lactate Calcium Total Bilirubin AST ALT Alkaline Phosphatase Troponin I Total Protein Albumin Globulin Albumin/Globulin Ratio Procalcitonin Urine Color Urine Appearance Urine pH Ur Specific [place] Urine Protein Urine Glucose (UA) Urine Ketones Urine Occult Blood Urine Nitrate Urine Bilirubin Urine Urobilinogen Ur Leukocyte Esterase Urine RBC Urine WBC Urine Bacteria Hyaline Casts Urine Mucus Ur Culture Indicated? Chlamy pneumoniae PCR Adenovirus (PCR) B. pertussis DNA (PCR) B.parapertussis DNA PCR Coronavirus OC43 (PCR) Coronavirus HKU1 (PCR) Coronavirus 229E (PCR) SARS-CoV-2 (PCR) Coronavirus NL63 (PCR) Human Metapneumovir PCR Influenza Type A (PCR) Influenza Type B (PCR) M. pneumoniae (PCR) Parainfluenza 1 (PCR) Parainfluenza 2 (PCR) Parainfluenza 3 (PCR) Parainfluenza 4 (PCR) RSV (PCR) Entero/Rhino (PCR) [facility] Medical History (Updated 09/27/20 @ 12:23 by Flaquita Caceres RN) Anemia CHF (congestive heart failure) Chronic interstitial lung disease Compression fracture Lupus Surgical History (Updated 09/27/20 @ 11:21 by Alonzo Barnes MD) H/O pelvic surgery Family History (Updated 09/27/20 @ 11:21 by Alonzo Barnes MD) Father Alcohol abuse Mother Alcohol abuse Social History household members: spouse Smoking Status: Never smoker alcohol intake: never Assessment & Plan Assessment & Plan narrative: This is a 65-year-old male with anemia, interstitial lung disease and congestive heart failure who presents with 2 days of shortness of breath. His lung CT reveals a right sided posterior infiltrate. Pneumonia, present on admission. Active. -Focal process in the posterior segment of right upper lobe may represent a superimposed infectious or inflammatory process. Consider atypical pneumonia. Findings are unchanged from yesterday's study. -not visible on CXR -WBC 15.7 on admission, down to 13.9 on 09/28 -continue Azithromycin, Ceftriaxone and Vancomycin IV Interstitial lung disease, steroid dependent, present on admission. Active. -Managed by pulmonology - Dr. Moore -Continue Prednisone 20 mg daily Normocytic anemia, present on admission. Active. -likely related to his unknown primary neoplastic process (Liver mets noted on CT) -pending outpatient GI referral (being arranged by pulmonology - Dr. Moore) for EGD and Colonoscopy -Continue Iron daily and recheck CBC on 09/29 Thrombocytosis, present on admission. Active. -platelets of 753 on admission, dropping to 617, continue to follow, likely a reactive process. Liver Metastatic Lesions, present on admission. Active. -Abdominal CT elsewhere 2 weeks ago found this abnormality -[employer] Dr. Moore is apparently working on this referral to GI -Consider Liver CT biopsy and/or Oncology referral Congestive heart failure, present on admission. Active. -55-60% EF on previous Echo from 07/29/20 -BNP 7610 on 09/26, repeat 09/28 and consider repeat Echo Quality VTE Deep Vein Thrombosis/Pulmonary Embolism Present on Admission: No
[2020-09-28 08:15] LABS: Add Manual Diff / Slide Review NO; Basophils Absolute Auto 100 /uL (0-100); Basophils Percent Auto 0.5 % (0-2); Eosinophils Absolute Auto 0 /uL (0-450); Hematocrit 27.3 % (41-53); Hemoglobin 8.2 g/dL (13.5-17.5); Lymphocytes Absolute Auto 2000 /uL (1100-4500); Lymphocytes Percent Auto 14.1 % (25-40); Mean Corpuscular HGB Conc 30.1 % (30-36); Mean Corpuscular Hemoglobin 23.4 PG (26-34); Mean Corpuscular Volume 77.7 fL (80-100); Monocytes Absolute Auto 600 /uL (0-900); Monocytes Percent Auto 4.6 % (3-14); Neutrophils Absolute Auto 11200 /uL (1500-7000); Neutrophils Percent Auto 80.8 % (50-75); Platelet Count 617 X10^3/uL (150-400); Red Blood Cell Count 3.52 X10^6/uL (4.5-5.9); Red Cell Distribution Width 18.6 % (11.6-14.8); White Blood Cell Count 13.9 X10^3/uL (4.5-11.0)
[2020-09-28 08:25] LABS: BUN Creatinine Ratio 21.6 (6-22); Blood Urea Nitrogen 16 mg/dL (9-20); Calcium 8.2 mg/dL (8.4-10.2); Carbon Dioxide 27 mmol/L (22-32); Chloride 105 mmol/L (98-107); Estimated Glomerular Filt Rate > 60.0 mL/min (>60); Glucose 109 mg/dL (80-110); HEMOLYSIS < 15 (0-50); Potassium 3.6 mmol/L (3.4-5.1); Sodium 135 mmol/L (137-145)
[2020-09-28 08:29] LABS: Hemoglobin A1C% w Est Avg Glu 5.9 % (4.0-6.0)
[2020-09-28] MEDS: ENOXAPARIN 40 MG/0.4 ML SYRINGE SUBCUT (09:40)
[2020-09-28] MEDS: predniSONE 20 MG TABLET 40 MG PO (09:40)
[2020-09-28] MEDS: PANTOPRAZOLE DR 40 MG TABLET PO (09:40)
[2020-09-28] MEDS: FERROUS SULFATE 325 MG TABLET PO (09:40)
[2020-09-28] MEDS: VANCOMYCIN 1,250 MG/250 ML PIGGYBACK 250 MG IV ×2 (10:47→23:55)
[2020-09-28] MEDS: AZITHROMYCIN 500 MG in DEXTROSE 5% IN WATER 250 ML IV (12:24)
[2020-09-28 13:57] LABS: NT-proBNP (BNP-Adult 18+) 3290 pg/mL (<125)
[2020-09-28] MEDS: cefTRIAXone 1,000 MG in SODIUM CHLORIDE 0.9% 100 ML 200 ML IV (14:29)
--- NOTE | 2020-09-28 14:57 | CM.DANOTE ---
Patient is a 65 year old male who was admitted on 09/27/20 for CHF. Pt has [facility] and [facility] for insurance and his PCP is Dr. Az Salazar. EMR was reviewed. Per MD, pt with hx of interstitial lung disease and CHF and previous imaging showed 2 lesions on his liver and compression fx that will be followed outpt. Pt admitted with pneumonia and given IV-Abx. Per MD, pt likely will be stable for d/c by tomorrow. SW met briefly bedside with pt as he was doing own hygiene care at the sink and standing independently and he confirms that he lives at home with his spouse in [facility] and is active and independent at baseline. Pt has a facility maintenance manager at [facility] Dr. Moore who is following with him for the liver lesions as outpt and may be malignant but unknown at this time. Pt does not anticipate any needs at d/c and states his family can provide transport at d/c. Pt's spouse is his informal DPOA and he denies any hx of SNF or HH. Plan: SW to follow for likely plan of d/c home with spouse and outpt follow up and any further identified needs. JUAN DIEGO Cardoso Discharge Planning/Care Management CM Discharge Assessment Start: 09/28/20 14:55 Freq: Status: Active Protocol: Document 09/28/20 14:55 BF (Rec: 09/28/20 14:57 BF [id number]) Discharge Planning Assessment Assigned Coverstitch Binder JUAN DIEGO Sesay DPOA/Assigned Designee Name informally spouse Nia Contact Information [phone] Advance Directives? No Advance Directives on File No History Provided By Patient,Medical Record Has Patient been admitted in last 30 No days? Prior Living Arrangements House Household Members spouse Type of transporation used prior to Drives own vehicle admit Independent with ADL's Yes Is patient alert and oriented? Yes Caregiver for Another No Barriers to Discharge No Discharge Plan Home Transportation Arrangement family to transport Referrals Initiated None needed Whiteboard Updated in Patient Room with Yes name and ext. # of Coverstitch Binder Review Status In Process Please Provide Date Initial DC 09/29/20 Assessment Was Performed Next Review Type Continued Stay Review
[2020-09-28 23:20] LABS: Vancomycin Trough 12.4 ug/mL (10-20)
[2020-09-29] VITALS: BP 129/90; PULSE 67; RESP 16; TEMP 36.4; O2SAT 93
[2020-09-29 04:00] VITALS: BP 126/90; PULSE 71; RESP 16; TEMP 36.7; O2SAT 98
[2020-09-29 04:36] LABS: Add Manual Diff / Slide Review NO; Basophils Absolute Auto 0 /uL (0-100); Basophils Percent Auto 0.2 % (0-2); Eosinophils Absolute Auto 0 /uL (0-450); Eosinophils Percent Auto 0.2 % (2-4); Hematocrit 27.3 % (41-53); Hemoglobin 8.3 g/dL (13.5-17.5); Lymphocytes Absolute Auto 3400 /uL (1100-4500); Lymphocytes Percent Auto 31.7 % (25-40); Mean Corpuscular HGB Conc 30.5 % (30-36); Mean Corpuscular Hemoglobin 23.6 PG (26-34); Mean Corpuscular Volume 77.4 fL (80-100); Monocytes Absolute Auto 700 /uL (0-900); Monocytes Percent Auto 6.3 % (3-14); Neutrophils Absolute Auto 6600 /uL (1500-7000); Neutrophils Percent Auto 61.6 % (50-75); Platelet Count 609 X10^3/uL (150-400); Red Blood Cell Count 3.53 X10^6/uL (4.5-5.9); Red Cell Distribution Width 18.1 % (11.6-14.8); White Blood Cell Count 10.7 X10^3/uL (4.5-11.0)
[2020-09-29 04:45] LABS: BUN Creatinine Ratio 19.1 (6-22); Blood Urea Nitrogen 13 mg/dL (9-20); Calcium 7.8 mg/dL (8.4-10.2); Carbon Dioxide 27 mmol/L (22-32); Chloride 105 mmol/L (98-107); Estimated Glomerular Filt Rate > 60.0 mL/min (>60); Glucose 87 mg/dL (80-110); HEMOLYSIS < 15 (0-50); Potassium 3.6 mmol/L (3.4-5.1); Sodium 135 mmol/L (137-145)
[2020-09-29 07:55] VITALS: BP 145/83; PULSE 71; RESP 18; TEMP 36.6; O2SAT 96
[2020-09-29] MEDS: PANTOPRAZOLE DR 40 MG TABLET PO (09:44)
[2020-09-29] MEDS: predniSONE 20 MG TABLET 40 MG PO (09:44)
[2020-09-29] MEDS: SODIUM CHLORIDE 0.9% FLUSH 10 ML IV (09:44)
[2020-09-29] MEDS: ENOXAPARIN 40 MG/0.4 ML SYRINGE SUBCUT (09:44)
[2020-09-29] MEDS: FERROUS SULFATE 325 MG TABLET PO (09:44)
[2020-09-29] MEDS: ACETAMINOPHEN 325 MG TABLET 650 MG PO (09:54)
[2020-09-29 10:52] VITALS: PULSE 82; RESP 18
--- NOTE | 2020-09-29 11:27 | PM.DS.1 ---
History of Present Illness History of Present Illness Date Patient Seen: 09/29/20 Chief complaint: congestive heart failure, back from yesterday. Narrative: This is a 65-year-old male with anemia, interstitial lung disease and congestive heart failure who presents with 2 days of shortness of breath. He had been on 60 mg of prednisone since his ILD diagnosis last year, which has been weaned down to 20 mg. He follows with Dr. Moore a repairing calibrator from [facility]. Yesterday he presented to the emergency department with increasing shortnes of breath. His chest CT showed a right upper lobe posterior infiltrate. He had no fevers, coughing, chills, sweats or chest pain but his white blood count is elevated at 15.7 (up from 13.6 yesterday) with a hemoglobin of 9.7(down from 10.0 yesterday). The BNP was 7610 and the D-dimer was 435. He declined hospitalization and went home feeling better. Today while in the shower he became acutely dyspneic and so came back to the emergency department where the chest CT was repeated and again showed the posterior pneumonia. He will be treated with ceftriaxone, vancomycin and Azithromycin along with a steroid stress dose. Incidentally found on the CT scan are 2 liver lesions(highly suspicious for metastases), a mediastinal lymph node and a T8 compression fracture, all of which are new to him. He does have a history of anemia without clear etiology and has been on iron. 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 He has never smoked cigarettes. Discharge Providers Provider Date of admission: 09/27/20 11:34 Discharge Date: 09/29/20 Primary care physician: Az Salazar PA-C Consults: 09/27/20 12:34 Consult to Dietitian, Adult Routine Comment: Reason For Exam: Bed bound and >6lb weightloss in the last 3 months Discharge provider: Jill Nguyen MD Summary Hospital Course Discharge Diagnosis: 1. Right upper lobe pneumonia, suspect community-acquired, doubt Gram-negative, 2. Interstitial lung disease 3. Normocytic anemia 4. Liver mets, currently undergoing workup as an outpatient 5. Congestive heart failure with preserved ejection fraction Hospital Course: Patient was admitted to the hospital for abrupt onset shortness of breath. He was placed on antibiotics to include ceftriaxone vancomycin and azithromycin. The patient was afebrile, had no hypoxemia, and had improvement of his shortness of breath. Patient was continued on his usual prednisone at 20 mg per day. Patient's breathing improved significantly. He had no fever. Was not hypoxic. Patient was felt to be back to his baseline. Deemed appropriate for discharge and arrangements were made for him to discharge home. Status at Discharge Cognitive/behavioral status at discharge: oriented Functional status at discharge: independent ambulation Overall status at discharge: patient is back to baseline Time Spent with Patient Time spent: Less than 30 minutes Exam Vital Signs (past 8 hours): - 09/29/20 04:00 09/29/20 07:55 09/29/20 10:52 Temperature 98.0 F 97.9 F Pulse Rate 71 71 82 Respiratory Rate 16 18 18 Blood Pressure 126/90 145/83 H Pulse Oximetry 98 96 Oxygen Delivery Method Room Air Oxygen Flow Rate 0 Narrative Exam Narrative: Pleasant gentleman lying in bed in no obvious distress Lungs: Decreased breath sounds with scattered rhonchi at the bases bilaterally Cardiac exam: Regular rate and rhythm normal S1-S2 with a 2/6 systolic ejection murmur Abdomen: Soft nontender nondistended Extremities: No edema Objective Labs Result Diagrams: 09/29/20 04:10 09/29/20 04:10 Labs: Laboratory Results - last 24 hr 09/28/20 09/28/20 09/29/20 08:00 22:40 04:10 WBC 10.7 RBC 3.53 L Hgb 8.3 L Hct 27.3 L MCV 77.4 L MCH 23.6 L MCHC 30.5 RDW 18.1 H Plt Count 609 H Neut % (Auto) 61.6 Lymph % (Auto) 31.7 [place] % (Auto) 6.3 Eos % (Auto) 0.2 L Baso % (Auto) 0.2 Neut # (Auto) 6600 Lymph # (Auto) 3400 [place] # (Auto) 700 Eos # (Auto) 0 Baso # (Auto) 0 Sodium Potassium Chloride Carbon Dioxide BUN Creatinine Estimated GFR BUN/Creatinine Ratio Glucose Calcium NT-Pro-B Natriuret Pep 3290 H Vancomycin Trough 12.4 09/29/20 04:10 WBC RBC Hgb Hct MCV MCH MCHC RDW Plt Count Neut % (Auto) Lymph % (Auto) [place] % (Auto) Eos % (Auto) Baso % (Auto) Neut # (Auto) Lymph # (Auto) [place] # (Auto) Eos # (Auto) Baso # (Auto) Sodium 135 L Potassium 3.6 Chloride 105 Carbon Dioxide 27 BUN 13 Creatinine 0.68 Estimated GFR > 60.0 BUN/Creatinine Ratio 19.1 Glucose 87 Calcium 7.8 L NT-Pro-B Natriuret Pep Vancomycin Trough PFSH Medical History (Updated 09/27/20 @ 12:23 by Flaquita Caceres RN) Anemia CHF (congestive heart failure) Chronic interstitial lung disease Compression fracture Lupus Surgical History (Updated 09/27/20 @ 11:21 by Alonzo Barnes MD) H/O pelvic surgery Family History (Updated 09/27/20 @ 11:21 by Alonzo Barnes MD) Father Alcohol abuse Mother Alcohol abuse Social History household members: spouse Smoking Status: Never smoker alcohol intake: never Discharge Assessment & Plan Assessment and Plan Assessment: 1. Community-acquired pneumonia 2. Interstitial lung disease 3. Normocytic anemia 4. liver Mets 5. Congestive heart failure with preserved ejection fraction Plan of Treatment: Discharge home today on oral antibiotics Follow-up with the [facility] in [place] for referral to GI and continued workup Discharge Plan Discharge Plan Patient Disposition: Home Discharge orders & Medications Prescriptions: New pantoprazole 40 mg Tablet,Delayed Release (Dr/Ec) 40 mg PO DAILY Qty: 30 RF: 0 ferrous sulfate 325 mg (65 mg iron) Tablet 325 mg PO DAILY Qty: 30 RF: 0 doxycycline hyclate 100 mg capsule 100 mg PO BID Qty: 10 RF: 0 prednisone 20 mg tablet 40 mg PO DAILY 3 Days Qty: 6 RF: 0 Continued albuterol sulfate 90 mcg/actuation HFA aerosol inhaler 1 puff INHALATION Q4-6H PRN (Reason: shortness of breath or wheezing) Qty: 8.5 RF: 0 Adults Multivitamin 18 mg iron-400 mcg-25 mcg Tablet 1 tab PO DAILY RF: 0 Discontinued prednisone 10 mg Tablet 10 mg PO DAILY RF: 0 Follow up/Referrals: Az Salazar PA-C [Primary Care Provider] - Discharge Health Status Multidrug resistant organism: No MDRO Diet/Activity/Treatments Diet: Diet as Tolerated Skin/Wound/Dressing Care Report to your healthcare provider any signs of infection, such as:: chills, fever Discharge Data Primary Care Provider: Az Salazar Quality VTE Deep Vein Thrombosis/Pulmonary Embolism Present on Admission: No
--- NOTE | 2020-09-29 14:13 | PC.NURSE ---
Discharge order received, patient states he is feeling better than he has in a long time. Up in room without difficulty. Denies shortness of breath or other complaint. Tolerating diet and fluids, voiding without difficulty. Follow up appointment scheduled with Martin at [facility] for Tuesday10/06/20 at 10am. IV dc'd intact. Patient escorted out via wheelchair to home with his .
--- NOTE | 2020-09-29 15:54 | CM.DPC ---
DCP Discharge Home SW met bedside with pt, spouse, RN, MD during rounds and pt medically stable now to d/c home on oral abx and outpt follow up with [facility] referral for colonoscopy and liver lesions. Pt is hopeful to get his Surgeon needs done here at [facility] and will talk to his referring physician in [place] requesting [facility] outpt services. Pt and spouse are agreeable with d/c home today and no concerns at this time. Spouse to provide transport. JUAN DIEGO Cardoso
[2020-09-30 13:44] LABS: Legionella pneumo Antigen Negative (Negative)
== END 2020-09-29 13:15 | disposition home or self-care (01) | DRG 194 ==
LOC: ED 10:29 → AC 09-28 08:15
PROVIDERS: Nurse Practitioner Family; Admitting Provider Family Medicine; Emergency Provider Emergency Medicine; PCP Physician Assistant; Referring Provider Emergency Medicine; Visit Provider Family Medicine
DX: J18.9 Pneumonia, unspecified organism (principal); C78.7 Secondary malignant neoplasm of liver and intrahepatic bile duct; J84.9 Interstitial pulmonary disease, unspecified; I50.32 Chronic diastolic (congestive) heart failure; C80.1 Malignant (primary) neoplasm, unspecified; Z77.090 Contact with and (suspected) exposure to asbestos; D63.0 Anemia in neoplastic disease; Z20.822 Contact with and (suspected) exposure to COVID-19; I50.9 Heart failure, unspecified
CPT/HCPCS: 36415; 71045; 71275; 80048; 80053; 80202; 81001; 82550; 82962; 83036; 83605; 83735; 83880; 84145; 84484; 85007; 85014; 85018; 85025; 85379; 87040; 87449; 87633; 87635; 93005; 96365; 96367; 96374; 96375; 99284; C9803; J0696; J1650; J1720; J1940; J2405; J2930; Q9967

== ENCOUNTER 2020-12-02 01:03 | Inpatient (IN) | payer MEDICARE, OTHER, SELFPAY ==
[2020-09-27 12:19] VITALS: BMI 23.8
[2020-12-02] VITALS (13 sets, daily range): BP systolic 128–150; BP diastolic 77–88; PULSE 80–109; RESP 13–26; TEMP 36.7–37.1; O2SAT 95–100; BMI 24.5; BMI 23.6
--- NOTE | 2020-12-02 | DI.MRI.S_ITS ---
PROCEDURE: MR ANGIO HEAD WO CON INDICATIONS: CVA TECHNIQUE: Noncontrast axial 3-D [id number] MR angiogram, with 3-dimensional maximum intensity projection (MIP) reformats of the internal carotid arteries and posterior circulation then performed. COMPARISON: None. FINDINGS: Image quality: Excellent. Anterior circulation: Intracranial internal carotid arteries demonstrate normal size and intraluminal flow signal. The flow within the paired anterior cerebral arteries is normal and symmetric. The flow within the middle cerebral arteries is normal and symmetric. The anterior communicating artery is seen. No stenoses, occlusions, or aneurysms. Posterior circulation: Visualized portions of the vertebral arteries demonstrate normal caliber, and join to form a normal appearing basilar artery. The flow within the posterior cerebral arteries is normal and symmetric. No stenoses, occlusions, or aneurysms. IMPRESSION: No intracranial focal stenosis or occlusion. Dictated by: Velasquez Caballero M.D. on 12/02/2020 at 9:22 Approved by: Velasquez Caballero M.D. on 12/02/2020 at 9:24
--- NOTE | 2020-12-02 01:02 | DI.CT.S_ITS ---
CORRECTION Corrected on: 12/02/2020; PROCEDURE: CT ANGIO HEAD AND NECK INDICATIONS: stroke, weakness TECHNIQUE: After the administration of intravenous contrast, 1 mm thick sections acquired from the aortic arch through the [place]. Post-contrast 4.5 mm thick sections then re-acquired from the foramen magnum to the vertex. 3-dimensional [id number]-bvwkyehnhh (MIP) and/or volume rendering reformats were acquired of the central intracranial vasculature and neck separately. COMPARISON: [facility], CT, CT STROKE, 12/02/2020, 1:07. FINDINGS: Image quality: Excellent. BRAIN: CSF spaces: Ventricles are normal in size and shape. Basal cisterns are patent. No extra-axial fluid collections. Brain: No midline shift. No intracranial bleeds or masses. Prince-white matter interface appears intact. Chronic right cerebellar hemisphere infarct is stable compared to prior exams. Skull and face: Calvarium and facial bones appear intact, without suspicious lesions. Orbits appear normal. Sinuses: Sinuses and mastoids are clear. HEAD CT ANGIOGRAPHY: Anterior circulation: Intracranial internal carotid arteries are normal in flow. Atherosclerotic calcifications noted in the cavernous and clinoid segments of the internal carotid arteries bilaterally which causes mild stenosis of the vessels. The flow within the paired anterior cerebral arteries is normal and symmetric. The flow within the middle cerebral arteries is normal and symmetric. The anterior communicating artery is seen. No aneurysms are seen. Posterior circulation: Visualized portions of the vertebral arteries demonstrate normal caliber, and join to form a normal appearing basilar artery. Flow within the posterior cerebral arteries is normal and symmetric. No aneurysms are seen. Dural sinuses demonstrate normal postcontrast enhancement. NECK CT ANGIOGRAPHY: Carotid system: The great vessels demonstrate a conventional anatomy as they arise from the aortic arch. The origins of the common carotid arteries appear patent. The common carotid arteries demonstrate normal caliber and courses. Mild atherosclerotic plaque noted in the origins of the internal carotid arteries bilaterally which causes less than 50% stenosis of the vessels. Posterior circulation: The origins of the vertebral arteries both appear widely patent. The more superior extracranial portions of both vertebral arteries also demonstrate normal courses and calibers. They join to form a normal appearing basilar artery. Soft tissues: Visualized neck soft tissues demonstrate no suspicious abnormalities. 1.1 and 1.5 centimeter right paratracheal mediastinal lymphadenopathy. Scattered interstitial thickening noted in the peripheral lungs bilaterally suggesting UIP. Bones: No suspicious bony lesions. Spine degenerative disc disease and facet arthropathy. Visualized cervical spine appears normally aligned. IMPRESSION: 1. No acute intracranial disease process. 2. No large vessel occlusion, hemodynamically significant vascular stenosis, vascular dissection or aneurysm. 3. Mediastinal lymphadenopathy which could be reactive or neoplastic. Any quantitative measurements of stenosis were performed using NASCET criteria. Dictated by: Justyna Becerril MD, PhD on 12/02/2020 at 8:16 Approved by: Justyna Becerril MD, PhD on 12/02/2020 at 8:23 We strive to produce accurate, complete, and clear reports of imaging services. To assist us in improving patient care, this report was composed using standard report templates and voice recognition software. Therefore, it may contain abnormal punctuation, misrecognitions, insertions and/or omissions. Occasional wrong-word or sound-alike substitutions may occur. Though we review the report and make efforts to correct it, we do recommend that the report be read carefully in proper context to recognize any text inaccuracies. Dictated by: Justyna Becerril MD, PhD on 12/02/2020 at 8:56 Approved by: Justyna Becerril MD, PhD on 12/02/2020 at 8:56
--- NOTE | 2020-12-02 01:02 | DI.CT.S_ITS ---
PROCEDURE: CT STROKE INDICATIONS: weakness, stroke TECHNIQUE: Noncontrast 4.5 mm thick angled axial sections acquired from the foramen magnum to the vertex, with coronal reformats. For radiation dose reduction, the following was used: automated exposure control, adjustment of mA and/or kV according to patient size. COMPARISON: None. FINDINGS: Image quality: Excellent. CSF spaces: Basal cisterns are patent. No extra-axial fluid collections. The ventricles are symmetric in size and shape. Brain: No intracranial bleeds or masses. Small chronic right cerebellar hemisphere infarct. There is cerebral volume loss for age, with resultant ventricular and sulcal prominence. There are periventricular and deep white matter chronic small vessel ischemic changes. There is intracranial internal carotid artery and vertebral artery atherosclerosis. Skull and face: Chronic right lamina papyracea fracture noted. Calvarium appears intact, without suspicious lesions. Sinuses: Small mucous retention cyst noted in the visualized maxillary sinuses. The mastoids are clear. IMPRESSION: No acute intracranial disease process. This study fulfills neurological imaging criteria for inclusion or exclusion of acute stroke therapies based on available published neurological guidelines. Dictated by: Justyna Becerril MD, PhD on 12/02/2020 at 7:32 Approved by: Justyna Becerril MD, PhD on 12/02/2020 at 7:35
[2020-12-02 01:20] LABS: INR 1.1 (0.9-1.3); Prothrombin Time 11.8 SECONDS (10.1-12.7)
--- NOTE | 2020-12-02 01:24 | ED_ITS ---
HPI - Neuro Symptoms/Deficit General Chief Complaint: Neuro Symptoms/Deficit Stated Complaint: stroke Time Seen by Provider: 12/02/20 01:10 History of Present Illness HPI Narrative: Patient brought here from home for stroke symptoms. Complains of left-sided weakness slurred speech and facial droop. Last well known a 15 tonight going to bed. Per patient and . Awoke around midnight to go the bathroom and got out of bed but immediately fell down. Has flaccid left arm with slurred speech and left facial droop and numbness to the left leg. Has history of stomach cancer with metastatic disease to the liver. None to the brain. Recent had chemotherapy 5 days ago. On no blood thinners. Code stroke at 1:05 a.m.. Related Data Home Medications Medication Instructions Recorded Confirmed multivit with minerals-iron 18 1 tab PO DAILY 09/27/20 12/02/20 mg-folic ac 400 mcg-vit K 25 mcg tablet (Adults Multivitamin) prednisone 10 mg tablet 10 mg PO DAILY 12/02/20 12/02/20 Previous Rx's Medication Instructions Recorded albuterol sulfate 90 mcg/actuation 1 puff INHALATION Q4-6H PRN #8.5 10/04/18 aerosol inhaler gram ferrous sulfate 325 mg (65 mg 325 mg PO DAILY #30 tab 09/29/20 iron) tablet Allergies Allergy/AdvReac Type Severity Reaction Status Date / Time No Known Drug Allergies Allergy Verified 09/27/20 09:04 Review of Systems Review of Systems Narrative: GENERAL: Denies chills, fatigue, malaise, fever, sweats. HEENT: Denies sinus pain, ear pain, sore throat RESPIRATORY: Denies dyspnea, cough CARDIOVASCULAR: Denies chest pain, palpitations GASTROINTESTINAL: Denies nausea, vomiting, abdominal pain : Denies dysuria, frequency, hematuria MUSCULOSKELETAL: denies muscle or bony pain SKIN: Denies rash, skin lesions NEUROLOGIC: Complains of weakness, numbness ROS Unobtainable: All systems reviewed & are unremarkable except as noted in HPI and below Patient History Medical History Anemia CHF (congestive heart failure) Chronic interstitial lung disease Compression fracture Essential hypertension History of stroke involving cerebellum Lupus Pelvic fracture Surgical History H/O pelvic surgery Family History Father Alcohol abuse Mother Alcohol abuse Brother CVA (cerebral vascular accident) Social History household members: spouse Smoking Status: Never smoker alcohol intake: former Smoking Status: Never smoker alcohol intake frequency: holidays/special occasions only Substance Use Type: marijuana Exam Narrative Exam Narrative: GENERAL: in no distress, not toxic not dyspneic HEAD: Normocephalic. EYES: Pupils equal round No scleral icterus. No injection no discharge ENT: Mucous membranes moist. NECK: Trachea midline. CARDIOVASCULAR: Regular rate and rhythm without murmurs RESPIRATORY: Clear to auscultation. Breath sounds equal bilaterally. No wheezes, rales, or rhonchi. GASTROINTESTINAL: Abdomen soft, non-tender EXTREMITIES: No gross deformities. BACK: No flank tenderness. NEURO: AOx4. There is left facial droop with slurred speech. Flaccid left arm without any active movement. Patient states cannot feel light touch on the left arm and hand and left leg. Strong bilateral leg elevations. SKIN: Warm and dry PSYCH: Not anxious, is cooperative Initial Vital Signs Initial Vital Signs: Vital Signs Temperature 98.1 F 12/02/20 01:21 Pulse Rate 106 H 12/02/20 01:21 Respiratory Rate 25 H 12/02/20 01:21 Blood Pressure 150/85 H 12/02/20 01:21 Pulse Oximetry 97 12/02/20 01:21 Scores NIH Stroke Scale Level of Conciousness: Alert, keenly responsive Ask month/age: Answers both questions correctly. Open/close eyes, close hand: Performs both tasks correctly Best gaze horizontal: Normal Visual lanier: No visual loss Facial palsy: Complete paralysis, absence of movement in the upper and lower face Left arm drift: No movement Right arm drift: No drift for full 10 sec Left leg drift: No drift for full 5 sec Right leg drift: No drift for full 5 sec Limb ataxia: Present in one limb Sensory on face/arms/legs: Mild to moderate sensory loss, can tell touch Best language: Mild to moderate, slurs some words Dysarthria: Mild to mod,some slurring Extinction or inattention: Visual, tactile, auditory, spacial or personal inattention to stimuli Total NIH Stroke scale score: 12 Course Course Course Narrative: 1:[address] head results from Radiology, CT head without contrast no acute process Orders Ordered: ED Orders 12/02/20 01:00 Complete Blood Count AUTO DIFF Stat Comprehensive Metabolic Panel Stat Prothrombin Time INR Stat Troponin & CK Cardiac Panel Stat 12/02/20 01:[address] angio head and neck Stat 12/02/20 01:35 COVID19 -Nasal swab/Pre-Proc Stat Acetaminophen (Acetaminophen 325 Mg Tablet) 650 mg PO Q6HR PRN PRN Reason: Fever/Mild Pain (1-3) Atorvastatin Calcium (Atorvastatin 20 Mg Tablet) 80 mg PO BEDTIME NIK Labetalol HCl (Labetalol 20 Mg/4 Ml Syringe) 5 mg IV Q4HR PRN PRN Reason: Hypertensive Emergency Levothyroxine Sodium (Levothyroxine 25 Mcg Tablet) 25 mcg PO DAILY@0600 NIK Naloxone HCl (Naloxone 0.4 Mg/Ml Vial) 0.2 mg IV Q2MIN PRN PRN Reason: Opiate Reversal Ondansetron HCl (Ondansetron 4 Mg/2 Ml Inj) 4 mg IV Q8HR PRN PRN Reason: Nausea And Vomiting Discontinued Medications Aspirin (Aspirin 300 Mg Supp) 300 mg KS NOW ONE Stop: 12/02/20 01:47 Last Admin: 12/02/20 02:15 Dose: 300 mg Documented by: ELLIOTT Aspirin (Aspirin Ec 81 Mg Tablet) 81 mg PO DAILY [facility] Clopidogrel Bisulfate (Clopidogrel 75 Mg Tablet) 75 mg PO DAILY [facility] Enoxaparin Sodium (Enoxaparin 40 Mg/0.4 Ml Syringe) 40 mg SUBCUT DAILY [facility] Sodium Chloride (Normal Saline 0.9%) 500 mls @ 1,000 mls/hr IV BOLUS ONE Stop: 12/02/20 01:52 Last Infusion: 12/02/20 03:02 Dose: 0 mls/hr Documented by: Admin: 12/02/20 02:15 Dose: 1,000 mls/hr Documented by: ELLIOTT Reevaluation(s) Reevaluation #1: Updated patient and results. They understand patient is beyond the window for tPA. However will keep here for balance a workup for stroke Time: 02:37 Consultations Consultation #1: Spoke with tele stroke, Dr Noguera, patient is not candidate for tPA as last well-known 8:00 p.m.. Arrive 5 hours later. Give rectal aspirin. She will review the CT angiogram. And will call back Time: 01:57 Consultation #2: Spoke with hospitalist, Jessica, will admit patient Time: 03:02 Vital Signs Vital signs: Vital Signs - 8 hr 12/02/20 01:21 12/02/20 01:30 12/02/20 02:00 Temperature 98.1 F Pulse Rate 106 H 103 H 103 H Respiratory Rate 25 H 20 17 Blood Pressure 150/85 H 128/79 140/85 Pulse Oximetry 97 95 96 12/02/20 02:30 12/02/20 03:00 Temperature Pulse Rate 101 H 109 H Respiratory Rate 17 26 H Blood Pressure 132/84 145/85 H Pulse Oximetry 97 100 MDM - Neuro Symptoms/Deficit Differential Diagnosis Differential diagnosis: Likely cerebrovascular accident and transient cerebral ischemia Lab Data Result diagrams: 12/02/20 04:45 12/02/20 04:45 Labs: Lab Results 12/02/20 12/02/20 12/02/20 Range/Units 01:00 01:00 01:00 WBC 6.6 (4.5-11.0) X10^3/uL RBC 3.75 L (4.5-5.9) X10^6/uL Hgb 8.9 L (13.5-17.5) g/dL Hct 29.6 L (41-53) % MCV 79.0 L (80-100) fL MCH 23.7 L (26-34) PG MCHC 30.0 (30-36) % RDW 19.6 H (11.6-14.8) % Plt Count 315 (150-400) X10^3/uL Neut % (Auto) 41.8 L (50-75) % Lymph % (Auto) 50.8 H (25-40) % Rooks % (Auto) 4.8 (3-14) % Eos % (Auto) 2.0 (2-4) % Baso % (Auto) 0.6 (0-2) % Neut # (Auto) 2800 (5156-8763) /uL Lymph # (Auto) 3400 (4718-3459) /uL Rooks # (Auto) 300 (0-900) /uL Eos # (Auto) 100 (0-450) /uL Baso # (Auto) 0 (0-100) /uL PT 11.8 (10.1-12.7) SECONDS INR 1.1 (0.9-1.3) Sodium 139 (137-145) mmol/L Potassium 3.7 (3.4-5.1) mmol/L Chloride 109 H (98-107) mmol/L Carbon Dioxide 24 (22-32) mmol/L BUN 8 L (9-20) mg/dL Creatinine 0.62 L (0.66-1.25) mg/dL Estimated GFR > 60.0 (>60) mL/min BUN/Creatinine Ratio 12.9 (6-22) Glucose 88 (80-110) mg/dL Hemoglobin A1c (4.0-6.0) % Calcium 7.9 L (8.4-10.2) mg/dL Total Bilirubin 0.2 (0.2-1.3) mg/dL AST 30 (17-59) IU/L ALT 16 (<50) IU/L Alkaline Phosphatase 58 (38-126) U/L Total Creatine Kinase 29 L (55-170) U/L CK-MB (CK-2) TNP CK-MB (CK-2) Rel Index TNP Troponin I 0.012 (0.01-0.034) ng/mL Total Protein 5.9 L (6.3-8.2) g/dL Albumin 3.3 L (3.5-5.0) g/dL Globulin 2.6 (1.7-4.1) g/dL Albumin/Globulin Ratio 1.3 (1.0-2.8) TSH (0.47-4.68) uIU/mL SARS-CoV-2 (PCR) (Negative) 12/02/20 12/02/20 12/02/20 Range/Units 01:00 01:00 01:35 WBC (4.5-11.0) X10^3/uL RBC (4.5-5.9) X10^6/uL Hgb (13.5-17.5) g/dL Hct (41-53) % MCV (80-100) fL MCH (26-34) PG MCHC (30-36) % RDW (11.6-14.8) % Plt Count (150-400) X10^3/uL Neut % (Auto) (50-75) % Lymph % (Auto) (25-40) % Rooks % (Auto) (3-14) % Eos % (Auto) (2-4) % Baso % (Auto) (0-2) % Neut # (Auto) (4450-8904) /uL Lymph # (Auto) (0968-0309) /uL Rooks # (Auto) (0-900) /uL Eos # (Auto) (0-450) /uL Baso # (Auto) (0-100) /uL PT (10.1-12.7) SECONDS INR (0.9-1.3) Sodium (137-145) mmol/L Potassium (3.4-5.1) mmol/L Chloride (98-107) mmol/L Carbon Dioxide (22-32) mmol/L BUN (9-20) mg/dL Creatinine (0.66-1.25) mg/dL Estimated GFR (>60) mL/min BUN/Creatinine Ratio (6-22) Glucose (80-110) mg/dL Hemoglobin A1c 5.4 (4.0-6.0) % Calcium (8.4-10.2) mg/dL Total Bilirubin (0.2-1.3) mg/dL AST (17-59) IU/L ALT (<50) IU/L Alkaline Phosphatase (38-126) U/L Total Creatine Kinase (55-170) U/L CK-MB (CK-2) CK-MB (CK-2) Rel Index Troponin I (0.01-0.034) ng/mL Total Protein (6.3-8.2) g/dL Albumin (3.5-5.0) g/dL Globulin (1.7-4.1) g/dL Albumin/Globulin Ratio (1.0-2.8) TSH 17.6 H (0.47-4.68) uIU/mL SARS-CoV-2 (PCR) Negative (Negative) Point of Care Testing Glucose POC [address] scan - head: Radiologist's Impression: No acute process CTA - brain/neck: Radiologist's Impression: No large vessel occlusion. No stenosis and no dissection ECG Data Interpretation: Sinus tachycardia rate [address] elevation or depression MDM Narrative Medical decision making narrative: Appropriate for admission for balance of stroke workup. Patient is beyond tPA window. and patient understands. I did review with tele stroke, Dr. Noguera Stroke Core Measures Exclusion Criteria TPA in CVA: Symptom Onset >3 or 4.5 Hours Discharge Plan Departure Patient Disposition: Admitted as Observation Clinical Impression: Acute stroke due to ischemia Admit Date/Time: 12/02/20 03:05 Admit Provider: Tesha Caballero
[2020-12-02 01:25] LABS: Alanine Aminotransferase 16 IU/L (<50); Albumin 3.3 g/dL (3.5-5.0); Albumin Globulin Ratio 1.3 (1.0-2.8); Alkaline Phosphatase 58 U/L (38-126); Aspartate Aminotransferase 30 IU/L (17-59); BUN Creatinine Ratio 12.9 (6-22); Bilirubin Total 0.2 mg/dL (0.2-1.3); Blood Urea Nitrogen 8 mg/dL (9-20); Calcium 7.9 mg/dL (8.4-10.2); Carbon Dioxide 24 mmol/L (22-32); Chloride 109 mmol/L (98-107); Creatine Kinase 29 U/L (55-170); Estimated Glomerular Filt Rate > 60.0 mL/min (>60); Globulin 2.6 g/dL (1.7-4.1); Glucose 88 mg/dL (80-110); HEMOLYSIS 20 (0-50); Potassium 3.7 mmol/L (3.4-5.1); Sodium 139 mmol/L (137-145); Total Protein 5.9 g/dL (6.3-8.2)
[2020-12-02 01:29] LABS: Add Manual Diff / Slide Review NO; Basophils Absolute Auto 0 /uL (0-100); Basophils Percent Auto 0.6 % (0-2); Eosinophils Absolute Auto 100 /uL (0-450); Hematocrit 29.6 % (41-53); Hemoglobin 8.9 g/dL (13.5-17.5); Lymphocytes Absolute Auto 3400 /uL (1100-4500); Lymphocytes Percent Auto 50.8 % (25-40); Mean Corpuscular Hemoglobin 23.7 PG (26-34); Monocytes Absolute Auto 300 /uL (0-900); Monocytes Percent Auto 4.8 % (3-14); Neutrophils Absolute Auto 2800 /uL (1500-7000); Neutrophils Percent Auto 41.8 % (50-75); Platelet Count 315 X10^3/uL (150-400); Red Blood Cell Count 3.75 X10^6/uL (4.5-5.9); Red Cell Distribution Width 19.6 % (11.6-14.8); White Blood Cell Count 6.6 X10^3/uL (4.5-11.0)
[2020-12-02 01:37] LABS: Troponin I 0.012 ng/mL (0.01-0.034)
[2020-12-02 01:52] LABS: COVID19 -Nasal RAPID Negative (Negative)
[2020-12-02] MEDS: ASPIRIN 300 MG SUPP PR (02:15)
[2020-12-02] MEDS: SODIUM CHLORIDE 0.9% 500 ML 1000 ML IV (02:15)
--- NOTE | 2020-12-02 03:18 | DI.MRI.S_ITS ---
PROCEDURE: MR HEAD/BRAIN WO CON INDICATIONS: CVA TECHNIQUE: Non-contrast axial T2 weighted, FLAIR, T1 weighted, sagittal FLAIR, coronal T2 weighted pulse sequences were obtained through the brain however the remainder of the examination including diffusion-weighted pulse sequences were not obtained as the patient developed shortness of breath during the study COMPARISON: None. FINDINGS: Image quality: Suboptimal secondary to incomplete protocol. There is motion artifact, severe. CSF spaces: Ventricles appear symmetric in size and shape. Basal cisterns are patent. No extra-axial fluid collections. Brain: No intracranial bleeds or mass effects. There is prominent right frontal parenchymal signal changes, with extension to the cortex and loss of the normal brown-white differentiation suggestive of acute ischemia however this cannot be confirmed given the absence of diffusion weighted pulse sequences. Posteromedial right cerebellar hemisphere signal changes also present and which are indeterminate although could represent acute ischemia. There is cerebral volume loss for age. There are periventricular and deep white matter chronic small vessel ischemic changes. Brainstem appears normal. Normal intravascular flow voids are present. Skull and face: Calvarial bone marrow is normal in signal. Orbits are normal. Sinuses: Sinuses and mastoids are clear. IMPRESSION: Prominent right frontal (and right posterior cerebellar hemisphere) signal changes suspicious for acute ischemia as above however limited assessment given incomplete exam protocol. Specifically, no diffusion weighted imaging was obtained. Dictated by: Velasquez Caballero M.D. on 12/02/2020 at 9:15 Approved by: Velasquez Caballero M.D. on 12/02/2020 at 9:21
--- NOTE | 2020-12-02 03:27 | DI.ECHO.S_ITS ---
[facility] +---------+ [facility] +---------+ : : [address] : : : : [id number] : : : : Phone: [phone]+ Echocardiogram Report + + :Name: SHON GLASER Study Date: 12/02/2020 Height: 69 in : :[facility] ReadingLocation: Weight: 166 lb : : Gender: Male BSA: 1.9 m2 : :: 1955 Age: 65 yrs BP: 139/88 mmHg: :Reason For Study: CVA : :Ordering Physician: Velasquez HOWEformed By: Shilpa Loya : :Referring: ASIYA HOWE : + + Interpretation Summary The left ventricle is moderate-severely dilated. The ejection fraction is estimated to be 25-30%. Grade III diastolic dysfunction. The right ventricle is moderately dilated with preserved systolic function. Mild biatrial enlargement. There is mild mitral regurgitation. Unable to estimate PASP. Injection of contrast documented no interatrial shunt. Compared to the prior study dated 07/20/2019, the LV has dilated and EF decreased. Procedure: A two-dimensional transthoracic echocardiogram with color flow and Doppler was performed. The study quality was technically adequate. The injection was performed through an intravenous line in the right arm. A saline contrast injection was performed to assess for cardiac shunting. Comparison is made with the echocardiogram of 07/20/2019. The heart rate ranged between 73- 119 bpm during the study. Left Ventricle: The estimated left ventricular end diastolic volume is 192 ml. The left ventricle is moderate-severely dilated. The ejection fraction is estimated to be 25-30%. There is severe global hypokinesis of the left ventricle. Diastolic parameters suggest a restrictive filling pattern consistent with probable significantly elevated filling pressures. Right Ventricle: The right ventricle is moderately dilated. The right ventricular systolic function is normal. Atria: The left atrium is mildly dilated. The right atrium is mildly dilated. There is no Doppler evidence for an interatrial shunt. Injection of contrast documented no interatrial shunt. Mitral Valve: The mitral valve leaflets appear mildly thickened, but open well. There is mild mitral annular calcification. There is mild mitral regurgitation. Aortic Valve: The aortic valve is trileaflet. The aortic valve opens well. There is no aortic valve stenosis. No aortic regurgitation is present. Tricuspid Valve: The tricuspid valve is normal in structure and function. There is trace tricuspid regurgitation. Pulmonary artery pressures cannot be estimated because of the lack of a measurable TR jet velocity but the IVC suggests a CVP of around 3 mmHg. Pulmonic Valve: The pulmonic valve leaflets are thin and pliable; valve motion is normal. There is trace pulmonic regurgitation. Great Vessels: The aortic root is normal size. The ascending aorta is mildly enlarged. The IVC is of normal diameter and collapses greater than 50% with a sniff. This suggests a low right atrial pressure of 3 mm Hg. Pericardium/ Pleura There is no pericardial effusion. There is no pleural effusion. MMode/2D Measurements & Calculations LVIDd: 6.5 cm LVOT diam: 2.2 cm LVIDs: 5.5 cm Ao root diam: 3.7 cm FS: 15.6 % asc Aorta Diam: 3.8 cm IVSd: 1.1 cm LVPWd: 0.63 cm LV murillo. diameter/BSA (cm/m^2): 3.4 LV sys. diameter/BSA (cm/m^2): 2.9 LA A2 area: 25.8 cm2 RA long axis: 6.5 cm LA A4 area: 19.0 cm2 RA area: 19.4 cm2 LA length (vol): 5.6 cm RA vol: 49.6 ml LA vol: 74.2 ml RA : 26.0 ml/m2 LA vol index: 38.9 ml/m2 IVC diam: 1.3 cm RVD1 (basal): 4.9 cm TAPSE: 2.1 cm Doppler Measurements & Calculations Ao V2 max: 146.7 cm/sec LVOT Max Dariusz: 88.0 cm/sec Ao V2 mean: 102.8 cm/sec LV V1 max P.1 mmHg Ao max P.6 mmHg LV V1 VTI: 17.2 cm Ao mean P.8 mmHg THAO(I,D): 2.5 cm2 Ao V2 VTI: 26.1 cm THAO(V,D): 2.3 cm2 sev ratio: 0.66 THAO indexed to BSA (cm^2/m^2): 1.3 MV E max dariusz: 132.9 cm/sec PA V2 max: 109.5 cm/sec MV A max dariusz: 20.1 cm/sec PA V2 mean: 73.2 cm/sec MV E/A: 6.6 PA mean P.5 mmHg Med Peak E' Dariusz: 9.9 cm/sec PA pr(Accel): 60.2 mmHg E/E' med: 13.4 Lat Peak E' Dariusz: 18.4 cm/sec E/E' lat: 7.2 E/e' average: 10.3 MV dec time: 0.14 sec SV([facility]): 65.2 ml Reading Physician:09:51 AM
[2020-12-02 04:18] LABS: Hemoglobin A1C% w Est Avg Glu 5.4 % (4.0-6.0)
--- NOTE | 2020-12-02 04:21 | P.HP_ITS ---
History of Present Illness History of Present Illness Date Patient Seen: 12/02/20 Time Patient Seen: 04:21 Chief complaint: stroke Narrative: Az Bowden is a very pleasant 65-year-old gentleman who got up in the middle of night to go to the bathroom, fell down and was unable to get. He states that he fell twice once in the bedroom and once in the bathroom and could not use his left arm. He denies chest pain, headaches, nausea or vomiting, abdominal pain, does state he has slow urination which has been getting worse over time, he did have diarrhea yesterday from the chemotherapy treatments he has been taking for stomach cancer, he currently endorses inability to use his left arm and weakness in his left leg. He states that he had a stroke prior to and I am not sure that he was treated here or presented at a different facility. During his last admission for congestive heart failure he was noted to have metastatic lesions in his liver. Further workup identified the primary cancer is coming from his stomach. He states he has completed 2 chemotherapy treatments and that he believes they are working. He sees Dr. Figueroa, oncologist at [facility]. In the ED the head CT and the CTA were negative for an acute process. There was indication of an old right cerebellar hemispheres infarct. The ED NIH score was 12. Patient is afebrile, blood pressure 138/88, heart rate 105, respiratory rate 18, oxygen saturation of 99% on room air, he weighs 72.5 kg with a BMI of 23.6. Patient's WBC is normal, RBC 3.53, hemoglobin 8.5, hematocrit 27.4, platelet count 302, he is lymphopenic, chloride is 109, BUN 7, creatinine 0.51, with a GFR of greater than 60, calcium 7.8, magnesium 2.0, liver enzymes are within normal limits, albumin is 3.1, cholesterol is 121, LDL 42, HDL 53, and TSH is markedly elevated 17.6, and COVID-19 PCR is negative. Patient History Medical History Anemia CHF (congestive heart failure) Chronic interstitial lung disease Compression fracture Essential hypertension History of stroke involving cerebellum Lupus Pelvic fracture Surgical History H/O pelvic surgery Family & Social History Family History Father Alcohol abuse Mother Alcohol abuse Brother CVA (cerebral vascular accident) Social History: household members spouse Prior Living Arrangements House Safety & Behavioral: Feels Safe in Current Yes Environment Been Physically Hurt or No Threatened By a Person Suicidal Ideation Description None Tobacco & Substance use: Smoking Status Never smoker alcohol intake former alcohol intake frequency holiday/special occasion Substance Use Type marijuana Meds Home Medications and Allergies Home Medications Medication Instructions Recorded Confirmed Type albuterol sulfate 90 mcg/actuation 1 puff INHALATION Q4-6H PRN #8.5 10/04/18 12/02/20 Rx aerosol inhaler gram multivit with minerals-iron 18 1 tab PO DAILY 09/27/20 12/02/20 History mg-folic ac 400 mcg-vit K 25 mcg tablet (Adults Multivitamin) ferrous sulfate 325 mg (65 mg 325 mg PO DAILY #30 tab 09/29/20 12/02/20 Rx iron) tablet prednisone 10 mg tablet 10 mg PO DAILY 12/02/20 12/02/20 History Allergies Allergy/AdvReac Type Severity Reaction Status Date / Time No Known Drug Allergies Allergy Verified 09/27/20 09:04 Review of Systems Review of Systems ROS: Yes All systems reviewed with the patient and are negative except as otherwise documented Exam Vital Signs (past 8 hours): - 12/02/20 01:21 12/02/20 01:30 12/02/20 02:00 Temperature 98.1 F Pulse Rate 106 H 103 H 103 H Respiratory Rate 25 H 20 17 Blood Pressure 150/85 H 128/79 140/85 Pulse Oximetry 97 95 96 12/02/20 02:30 12/02/20 03:00 12/02/20 03:30 Temperature Pulse Rate 101 H 109 H 104 H Respiratory Rate 17 26 H 13 Blood Pressure 132/84 145/85 H 133/85 Pulse Oximetry 97 100 97 12/02/20 03:45 Temperature 98.4 F Pulse Rate 105 H Respiratory Rate 18 Blood Pressure 139/88 Pulse Oximetry 99 Oxygen Delivery Method Room Air Oxygen Flow Rate 0 Narrative Exam Narrative: Gen: Alert, oriented, well-developed 65 y.o. male, NAD HEENT: normocephalic, atraumatic, conjunctiva clear, sclera non-icteric, oral mucosa pink and moist Neck: supple, full ROM, no JVD, trachea is midline Resp: Lungs CTA, non-labored breathing CV: RRR, no murmur or rubs Abd: soft, non-tender, normoactive BTs Skin: no lesions or rashes, dry and intact Neuro: NIH score: 12 Significant left sided facial assymetry, unable to [place] own secretions Alert and oriented X 4. Speech is mildly garbled and coherant. Extremities: right upper and lower extremities, is not ambulatory currently, negative Kemal?s sign Psyche: normal mood and affect. Objective ECG Impression: Sinus tachycardia Labs Result Diagrams: 12/02/20 04:45 12/02/20 04:45 Labs: Laboratory Results - last 24 hr 12/02/20 12/02/20 12/02/20 01:00 01:00 01:00 WBC 6.6 RBC 3.75 L Hgb 8.9 L Hct 29.6 L MCV 79.0 L MCH 23.7 L MCHC 30.0 RDW 19.6 H Plt Count 315 Neut % (Auto) 41.8 L Lymph % (Auto) 50.8 H Phelps % (Auto) 4.8 Eos % (Auto) 2.0 Baso % (Auto) 0.6 Neut # (Auto) 2800 Lymph # (Auto) 3400 Phelps # (Auto) 300 Eos # (Auto) 100 Baso # (Auto) 0 PT 11.8 INR 1.1 Sodium 139 Potassium 3.7 Chloride 109 H Carbon Dioxide 24 BUN 8 L Creatinine 0.62 L Estimated GFR > 60.0 BUN/Creatinine Ratio 12.9 Glucose 88 Calcium 7.9 L Total Bilirubin 0.2 AST 30 ALT 16 Alkaline Phosphatase 58 Total Creatine Kinase 29 L CK-MB (CK-2) TNP CK-MB (CK-2) Rel Index TNP Troponin I 0.012 Total Protein 5.9 L Albumin 3.3 L Globulin 2.6 Albumin/Globulin Ratio 1.3 SARS-CoV-2 (PCR) 12/02/20 01:35 WBC RBC Hgb Hct MCV MCH MCHC RDW Plt Count Neut % (Auto) Lymph % (Auto) Phelps % (Auto) Eos % (Auto) Baso % (Auto) Neut # (Auto) Lymph # (Auto) Phelps # (Auto) Eos # (Auto) Baso # (Auto) PT INR Sodium Potassium Chloride Carbon Dioxide BUN Creatinine Estimated GFR BUN/Creatinine Ratio Glucose Calcium Total Bilirubin AST ALT Alkaline Phosphatase Total Creatine Kinase CK-MB (CK-2) CK-MB (CK-2) Rel Index Troponin I Total Protein Albumin Globulin Albumin/Globulin Ratio SARS-CoV-2 (PCR) Negative Assessment & Plan Assessment & Plan narrative: Az Bowden is being admitted for further evaluation and management of an acute right-sided CVA. 1. Right-sided CVA, acute, present on admission * Cardiac telemetry * NIH score greater than 5 [X]yes NIH scoring and neuro checks per protocol * Dual antiplatelet therapy: No until after MRI/MRA * MR stroke scheduled for today * Complete Echo with bubble study for today * PT/OT/ST evaluation, he will likely require acute stroke rehab * Hold DVT prophylaxis and dual anti-platelet therapy until after the patient has undergone MRA to rule out any bleeding. 2. Hypertension, acute with an admission bp of 150/85, present on admission * Allow for permissive hypertension of 220/110 HR 60 to allow for brain perfusion * IV labetolol if his systolic exceeds 220 or diastolic greater than 105. * Start beta ninfa 24-48 hours 3. Risk stratification * Fasting lipid panel, pending for 0500 labs * Atorvastatin 40 mg po at bedtime * Fasting lipid panel pending for the morning * A1c is [5.4] % [X] not diabetic VTE Prophylaxis: Wells risk score 2.5 [X] Bilateral SCDs may need to initiate Apixaban 2.5 mg po bid if no risk of bleeding as his malignancy increases his risk Patient is admitted to the inpatient service due to the severity of disease, risks of further disease progression and this stay is expected to exceed 2 midnights. FEN: IV fluids: saline lock, diet: NPO until speech therapy clears him, labs: CBC, C/BMP, liver enzymes, Mag, Consultants: None Dispo: Probable acute rehab Code status: Full code as discussed with the patient who identifies Nia Bowden as his surrogate and POA. I confirmed that the patient's advanced care plan is present, code status is determined, or surrogate decision maker is listed on the patient's medical record. [X] I have utilized all available immediate resources to obtain, update, or review of the patient's current medications [X] The patient has current or prior documentation of the left ventricular ejection fraction (LEVF) less than 40% or moderate or severely depressed left ventricular systolic function. [X] No COVID-19 COVID-19 status: Negative Result date/Date tested (Pos, Neg/Pending): 12/02/20 Scores GCS Erickson coma scale eye opening: Spontaneous [place] coma scale verbal response: Orientated [place] coma scale motor response: Obey commands [place] coma scale total score: 15 NIHSS Level of Conciousness: Alert, keenly responsive Ask month/age: Answers both questions correctly. Open/close eyes, close hand: Performs both tasks correctly Best gaze horizontal: Normal Visual lanier: No visual loss Facial palsy: Partial paralysis, total or near total paralysis of lower face Left arm drift: No movement Right arm drift: No drift for full 10 sec Left leg drift: Some effort against gravity, cannot maintain, drifts down to bed Right leg drift: No drift for full 5 sec Limb ataxia: Present in one limb Sensory on face/arms/legs: Normal, no sensory loss Best language: Mild to moderate, slurs some words Dysarthria: Mild to mod,some slurring Extinction or inattention: Visual, tactile, auditory, spacial or personal inattention to stimuli Total NIH Stroke scale score: 12 CHADS-VASc Congestive heart failure: yes Hypertension: yes Age 75 years or older: no Diabetes mellitus: no Vascular disease: yes Age 65 to 74 years: yes Sex category (female): Male Wells' Criteria for PE Clinical signs and symptoms of DVT: No PE is #1 Dx or equally likely: No Heart rate > 100: Yes Immobilization at least 3 days or surg in previous 4 weeks: No History of PE or DVT: No Hemoptysis: No Malignancy w/Treatment within 6 months or palliative: Yes Wells' PE Score total: 2.5 Quality Stroke Contraindication Not Initiating IV-Tpa: Contraindicated Onset of Symptoms Date: 12/01/20 Onset of Symptoms Time: 04:30 Symptom Onset Unknown: Yes Contraindication Antithromb by Day Two: Contraindicated Rehab Services Assessed: Rehabilitation therapy VTE Deep Vein Thrombosis/Pulmonary Embolism Present on Admission: No
[2020-12-02 04:51] LABS: Thyroid Stimulating Hormone 17.6 uIU/mL (0.47-4.68)
[2020-12-02 05:09] LABS: Add Manual Diff / Slide Review NO; Basophils Absolute Auto 0 /uL (0-100); Basophils Percent Auto 0.3 % (0-2); Eosinophils Absolute Auto 100 /uL (0-450); Eosinophils Percent Auto 2.1 % (2-4); Hematocrit 27.4 % (41-53); Hemoglobin 8.5 g/dL (13.5-17.5); Lymphocytes Absolute Auto 900 /uL (1100-4500); Lymphocytes Percent Auto 19.9 % (25-40); Mean Corpuscular HGB Conc 30.9 % (30-36); Mean Corpuscular Volume 77.6 fL (80-100); Monocytes Absolute Auto 300 /uL (0-900); Monocytes Percent Auto 7.3 % (3-14); Neutrophils Absolute Auto 3300 /uL (1500-7000); Neutrophils Percent Auto 70.4 % (50-75); Platelet Count 302 X10^3/uL (150-400); Red Blood Cell Count 3.53 X10^6/uL (4.5-5.9); Red Cell Distribution Width 19.6 % (11.6-14.8); White Blood Cell Count 4.7 X10^3/uL (4.5-11.0)
[2020-12-02 05:14] LABS: Alanine Aminotransferase 14 IU/L (<50); Albumin 3.1 g/dL (3.5-5.0); Albumin Globulin Ratio 1.2 (1.0-2.8); Alkaline Phosphatase 60 U/L (38-126); Aspartate Aminotransferase 28 IU/L (17-59); Bilirubin Total 0.2 mg/dL (0.2-1.3); Bilirubin Unconjugated 0.1 mg/dL (0.0-1.1); Globulin 2.6 g/dL (1.7-4.1); HEMOLYSIS < 15 (0-50); Total Protein 5.7 g/dL (6.3-8.2)
[2020-12-02 05:15] LABS: BUN Creatinine Ratio 13.7 (6-22); Blood Urea Nitrogen 7 mg/dL (9-20); Calcium 7.8 mg/dL (8.4-10.2); Carbon Dioxide 27 mmol/L (22-32); Chloride 109 mmol/L (98-107); Cholesterol 121 mg/dL (140-199); Estimated Glomerular Filt Rate > 60.0 mL/min (>60); Glucose 99 mg/dL (80-110); HDL Cholesterol 53 mg/dL (40-60); HEMOLYSIS < 15 (0-50); LDL Cholesterol Calculated 42 mg/dL (<100); Potassium 3.5 mmol/L (3.4-5.1); Sodium 137 mmol/L (137-145); Triglycerides 130 mg/dL (35-150)
--- NOTE | 2020-12-02 05:57 | PC.ADMIT ---
Patient admitted to room 226 from ER per stretcher due to CVA. Is alert and oriented but with slurred speech. Has left facial droop and flaccid left arm. Left leg is weak. Is unable to tell touch on left side of body. NIH was 14. Breath sounds CTA with RA sat of 99%. HRR but tachy at 105 and tele[address] reading was ST. Unable to swallow saliva so made NPO until seen by speech. Reports he has stomach cancer with mets to liver. Lluvia cath in left chest not accessed at this time. Denies nausea. BT present and abdomen is soft. Denies dysuria, frequency or urgency with urination; assisting to use urinal. Is able to turn with assistance; will have staff help him to reposition q2h. Gait not assessed at this time. Denies pain. Bilateral calf SCD's applied. Oriented to call light and bed controls. Reports having fallen twice just prior to coming to ER so fall risk score is high and bed alarm is activated. [id number] Admission Note: The patient,Az Bowden,65 y/o, was given written information regarding hospital policies, unit procedures and contact persons. Patient's smoking status: Never smoker. Vital Signs - 8 hr 12/02/20 01:21 12/02/20 01:30 12/02/20 02:00 Temperature 98.1 F Pulse Rate 106 H 103 H 103 H Respiratory Rate 25 H 20 17 Blood Pressure 150/85 H 128/79 140/85 Pulse Oximetry 97 95 96 12/02/20 02:30 12/02/20 03:00 12/02/20 03:30 Temperature Pulse Rate 101 H 109 H 104 H Respiratory Rate 17 26 H 13 Blood Pressure 132/84 145/85 H 133/85 Pulse Oximetry 97 100 97 12/02/20 03:45 Temperature 98.4 F Pulse Rate 105 H Respiratory Rate 18 Blood Pressure 139/88 Pulse Oximetry 99
[2020-12-02 06:30] LABS: Free T4, Direct Thyroxine 0.96 ng/dL (0.78-2.19)
--- NOTE | 2020-12-02 10:11 | DI.RAD.S_ITS ---
PROCEDURE: FL BARIUM SWALLOW W SPEECH INDICATIONS: dysphagia COMPARISON: None. TECHNIQUE: Examination was conducted in conjunction with speech pathology per standard protocol. In the lateral projection, filming was performed of the patient swallowing. AP projection filming may also be performed with patient swallowing. COMPARISON: FINDINGS: Function: The oral preparatory phase appears normal, with proper containment. Both laryngotracheal penetration or aspiration of liquids noted during the study. There is pathologic vallecular pooling which is not cleared with repeat swallows.. Morphology: No cricopharyngeal bar is identified. No cervical esophageal webs. No Zenker's diverticulum. No strictures. IMPRESSION: Abnormal study demonstrating laryngotracheal penetration, laryngotracheal aspiration and pathologic vallecular pooling. Dictated by: Justyna Becerril MD, PhD on 12/02/2020 at 13:38 Approved by: Justyna Becerril MD, PhD on 12/02/2020 at 13:40
--- NOTE | 2020-12-02 10:20 | ST.IPCSEOM ---
Visit Care Team Role Provider Type Az Salazar PA-C Primary Care Provider Non-Staff Specialty: Medical Address: [address] [place] [address], [id number] Email: Az Moran MD Emergency Provider Physician Specialty: Emergency Medicine Address: [address] [place] [address], [id number] Email: [email or web address] Saleh Admit Provider Physician Attending Provider Specialty: Internal Medicine Address: [address] [place] [address], [id number] Email: [email or web address] Diagnoses Cerebral infarction, unspecified (12/02/20) Past Medical History (Last Reviewed 12/02/20 @ 06:09 by RITIKA Saleh) Anemia (Medical) CHF (congestive heart failure) (Medical) Chronic interstitial lung disease (Medical) Compression fracture (Medical) Essential hypertension (Medical) H/O pelvic surgery (Medical) History of stroke involving cerebellum (Medical) Lupus (Medical) Pelvic fracture (Medical) Speech-Language Pathology Swallow Evaluation [employer] Clinical Swallow Evaluation Start: 12/02/20 09:50 Freq: Status: Active Protocol: Document 12/02/20 09:51 LNK (Rec: 12/02/20 10:20 LNK [id number]) Clinical Swallow Evaluation Session Time Visit Start Time 08:45 Visit Stop Time 09:10 Total Visit Minutes 25 Referral Reason for Referral CVA Setting Assessment Location Acute Care Visit Type Note Type Initial evaluation Next Note Type Next Note Type Re-evaluation Patient Information Identification Type Name,Wristband History Az Bowden is a very pleasant 65-year-old gentleman who got up in the middle of night to go to the bathroom, fell down and was unable to get. He states that he fell twice once in the bedroom and once in the bathroom and could not use his left arm. He denies chest pain, headaches, nausea or vomiting, abdominal pain, does state he has slow urination which has been getting worse over time, he did have diarrhea yesterday from the chemotherapy treatments he has been taking for stomach cancer, he currently endorses inability to use his left arm and weakness in his left leg. He states that he had a stroke prior to and I am not sure that he was treated here or presented at a different facility. Current CT was negative for an acute process. Pt went for MRI this morning. Subjective Observations pt is a very pleasant man in bed in his room. Introduced self and purpose. Pt agreed to evaluation. Pt repositioned upright in bed as he initially presented with very wet voicing and frequent throat clearing. Reported by Patient Other Symptoms Coughing,Difficulty swallowing liquids,Difficulty swallowing solids,Drooling Comment Pt reported that he had been having difficulty swallowing prior to this admission. He reported he was eating foods like oatmeal. Current Diet Nothing by mouth Baseline Feeding Method Independent in self-feeding Objective Assessment Mental Status Alert,Responsive,Cooperative Oral Integrity Excessive saliva/Drooling Dentition Missing teeth Lip Function Severe impairment Observation of Lips at Rest Left sided weakness/Drooping Pucker Reduced range of motion, Reduced strength,Left sided weakness/drooping Lip Retraction Reduced range of motion,Left sided weakness/Drooping Alternating Pucker/Lip Retraction Incoordination Tongue Function Mild impairment Tongue Protrusion Deviates to the left Food and Liquid Trials Liquids Trialed Ice chips Administration Type Tea spoon Oral Impairment Moderately impaired Oral Phase Comments Pt presented with significant left facial weakness with droop. Pt unable to handle secretions with drooling observed. Pt has 5 teeth in his mouth, 2 upper and 3 ower teeth. Decreased ROM, strength and coordination noted. Pharyngeal Impairment Moderately impaired Pharyngeal Phase Comments Pt presented with delayed swallow onset >5 seconds. Hyolaryngeal elevation was adequate per palpation. Voicing was very wet with frequent throat clearing. Pt had difficulty with handling secretions. MBSS recommended to determine pt aspiration risk and to guide POC. Findings Swallowing Function Oropharyngeal phase dysphagia Severity of Swallow Impairment Moderately-severely impaired Contributing Factors to Swallow Reduced oral strength/ Impairment coordination/sensation, Impaired velopharyngeal closure/coordination,Delayed swallow initiation,Excessive oral residue,Excessive pharyngeal residue Prognosis Fair Based on Comorbidities Recommendations Instrumental Assessment Yes Swallowing Treatment Yes Frequency Pending MBS results Recommended Solids Nothing by Mouth Recommended Liquids Nothing by Mouth Medication Recommendations Not Recommended by Mouth Education Patient/Caregiver Education Described results of evaluation,Patient expressed understanding of evaluation, Patient expressed agreement with goals & treatment plans
--- NOTE | 2020-12-02 11:24 | PT.IIE ---
Current Diagnoses Cerebral infarction, unspecified (12/02/20) Medical History (Last Reviewed 12/02/20 @ 06:09 by RITIKA Saleh) Anemia CHF (congestive heart failure) Chronic interstitial lung disease Compression fracture Essential hypertension History of stroke involving cerebellum Lupus Pelvic fracture Physical Therapy Inpatient Evaluation/Re-Eval M1 PT/OT-IP Prior Functional Status Start: 12/02/20 09:02 Freq: NEEDED Status: Active Protocol: Document 12/02/20 11:24 AW (Rec: 12/02/20 12:36 AW [id number]) Medical Review Prior Functional Status Medical History Reviewed Yes Communication Pt is able to make his needs known. Mobility and Gait Pt reports independent ambulation up to about 1/2 block. He is limited primarily by SOB with history of interstitial lung disease and CHF. Activities of Daily Living and IADL's Pt reports he is independent for ADL's at baseline. 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 He does not drive. His manages finances and pt' s medications. Prior Functional Level (Other details) Pt reports history of CVA but no records are available related to this event. Pt and his state CVA was earlier this year but pt had no chronic deficits. Pt is undergoing chemotherapy currently for gastric cancer with metastases to liver. Social History Household Members spouse Living Arrangements House Number of Floors (Floors) One Floor Number of Stairs To Enter/Railing? No stairs. 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 He lives with his , Nia, in [place]. 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 M2 PT-IP Current Condition Start: 12/02/20 09:02 Freq: NEEDED Status: Active Protocol: Document 12/02/20 11:24 AW (Rec: 12/02/20 12:36 AW [id number]) Physical Therapy Current Condition Current Condition Evaluation Date 12/02/20 Treatment Diagnosis R frontal and cerebellar CVA; impaired mobility and gait Onset Date 12/01/20 Precautions Other Precautions falls M3 PT-IP Subjective Start: 12/02/20 09:02 Freq: NEEDED Status: Active Protocol: Document 12/02/20 11:24 AW (Rec: 12/02/20 12:36 AW [id number]) Subjective Physical Therapy Visit Type Type Initial Evaluation Visit Start Time 11:04 Visit Stop Time 11:24 Total Visit Minutes 20 Notes Co-eval with OT Number of FIRE PROTECTION ENGINEER Visits 0 Physical Therapy Visit Comments Patient Comments Pt is willing to participate with PT/OT. Patient Goals Improve function to be able to work around the house and to continue chemotherapy. Therapy Pain Assessment Pain When Pain Assessed During Mobility Pain Present Pain Present Denied Pain M4 PT-IP Mobility and Gait Start: 12/02/20 09:02 Freq: NEEDED Status: Active Protocol: Document 12/02/20 11:24 AW (Rec: 12/02/20 12:53 AW [id number]) PT-Bed Mobility Assessment Supine to Sit Supine to Sit Minimal Assistance,Moderate Assistance,2 Person Assistance ,Head of Bed Elevated Scooting Scooting to Edge of Bed Moderate Assistance PT-Transfer Assessment Sit to and From Stand Sit to and from Stand Moderate Assistance,2 Person Assistance,Use of Upper Extremities Equipment Transfer Assistive Device None,Gait Belt Orthotic/Prosthetic Devices or Brace: No Transfers Transfer Destination Wheelchair Transfer Technique Stand Step Pivot Transfer Ability Level of Assist Moderate Assistance,2 Person Assistance,Use of Upper Extremities Comments Mobility Comments Pt was sitting up in bed. He participated in sensation and strength screening in supine. [place] [facility] With HOB ~75 degrees elevated, pt required min-mod 2-person assist to turn toward left EOB. Pt required max cues to attend to and protect LUE during movement. He stood from the bed mod A x 2 with some unsteadiness and transferred [place] [facility] [place] up on his right side with mod 2-person assist. Pt leaned to the right in standing and sitting. He was able to scoot himself back on the chair using right hand on the chair arm an pushing with BLE. Pt was positioned with pillows under left arm. Transport left with pt [place] [facility] Gait Assessment Gait Gait Assistance Required: Moderate Assistance,2 Person Assist Distance (Feet) 2 Assistive Devices Assistive Device None,Gait Belt Orthotic/Prosthetic Devices or Brace: No Gait Deviations General Gait Pattern Ataxic,Lateral Trunk Lean Factors Limiting Gait Function Factors Limiting Gait Function Decreased Sensation,Decreased Strength,Incoordination,Poor Balance Comments Gait Comments Steps taken during transfer only. See mobility comments for details. Stair Climbing Assessment Comments Stair Climbing Comments Not assessed. PT-Balance Assessment Sitting Balance and Reactions Static Sitting Balance Ability Fair Dynamic Sitting Balance Ability Poor Standing Balance and Reactions Static Standing Balance Ability Poor Dynamic Standing Balance Ability Poor Device Used no AD M5 PT-IP Objective Assessments Start: 12/02/20 09:02 Freq: NEEDED Status: Active Protocol: Document 12/02/20 11:24 AW (Rec: 12/02/20 12:53 AW [id number]) Orientation Orientation/Cognition Level of Alertness Alert Orientation Name,Month,Place,Situation Language Function Ability Garbled Speech Comments Unable to assess safety awareness or memory at this encounter. Speech is garbled but content is appropriate and pt is able to communicate his needs. Gross Range of Motion Lower Extremity ROM Assessment Within Functional Limits Strength Lower Extremity Strength Assessment Bilaterally Impaired Hip R 4/5; L 4-/5 Knee R 4/5; L 4-/5 Ankle R 4+/5; L 4-/5 Comments Strength Comments LLE globally 1/2 grade less than RLE except ankle one whole grade less. Coordination Assessment Assessment Coordination Comments Not tested. Deferred to PM session. Sensation Assessment Sensation Gross Sensation Left UE Impaired,Left LE Impaired Light Touch Absent Proprioception (Position) Impaired Sensation Description Numbness Comments Sensation Comments Pt discerns no light touch on his left side. Deep pressure mildly discernable in distal LLE. Temperature sensation not discernable on left side. Other Assessments Other Other Assessments LUE has some activation with AAROM. Not flaccid on evaluation but with extremely low tone. M6 PT-IP Treatment Start: 12/02/20 09:02 Freq: NEEDED Status: Active Protocol: Document 12/02/20 11:24 AW (Rec: 12/02/20 12:53 AW [id number]) Physical Therapy Treatment Education Education Provided Precautions,Safety Other Treatments Other Treatment Performed Educated pt and his on need for attention to LUE in particicular for joint protection. M7 PT-IP Assessment and Plan Start: 12/02/20 09:02 Freq: NEEDED Status: Active Protocol: Document 12/02/20 11:24 AW (Rec: 12/02/20 13:12 AW [id number]) PT Summary Assessment and Plan Potential Rehabilitation Potential Good Status of Condition at Evaluation Evolving Summary Impairments Strength,Balance,Coordination, Sensation,Tone,Bed Mobility, Transfers,Gait,Activity Tolerance Assessment Summary Az is a 65 yo man with history of CHF, interstitial lung disease, and gastric cancer who was seen for PT evaluation under stroke protocol. MRI finds evidence of right fontal lobe and right posterior cerebellar acute ischemia. Pt is independent at baseline but with ambulation limited to ~1/2 block secondary to shortness of breath. On evaluation, pt has left facial droop and no awareness of drooling, is unable to discern light touch on his entire left side, has decreased strength on the left with upper extremity more severely affected than lower extremity. Evaluation was limited as pt needed to be escorted to modified barium swallow but at this time pt appears to be an excellent candidate for acute rehab due to high motivation, good rehab potential, and needing multiple rehab disciplines. If pt is unable to go to acute inpatient rehab, SNF rehab would be indicated to improve pt's mobility independence. Goals Bed Mobility Goal Standby Assistance Transfer Goal Contact Guard Assistance Gait Goal Contact Guard Assistance,[place] Walker Gait Distance 75 Other Goals - improve ambulation to 75 feet with LRAD or no AD Days to Meet Goals 10 Frequency of Treatment Frequency Of Treatment Twice a Day Treatment Plan Physical Therapy Treatment Plan Bed Mobility Training,Transfer Training,Gait Training, Therapeutic Exercise,Balance Retraining,Discharge Planning, Neuromuscular Re-ed, Coordination Retraining Other Recommendations and Next Treatment assess coordination, gait Focus Precautions Other Precautions falls Recommendations To Nursing Amount of Assist Needed 2 Person Assist Discharge Recommendations PT Discharge Recommendations SNF vs Acute Rehab Equipment Needed for Home Before defer to rehab setting Discharge Transportation Needs at Discharge Wheelchair/Cabulance
--- NOTE | 2020-12-02 11:30 | OT.IP.EVAL ---
Current Diagnoses Cerebral infarction, unspecified (12/02/20) Past Medical History (Last Reviewed 12/02/20 @ 06:09 by RITIKA Saleh) Anemia CHF (congestive heart failure) Chronic interstitial lung disease Compression fracture Essential hypertension H/O pelvic surgery History of stroke involving cerebellum Lupus Pelvic fracture Surgical History (Last Reviewed 12/02/20 @ 06:09 by RITIKA Saleh) H/O pelvic surgery Occupational Therapy Inpatient Evaluation/Re-Eval M1 PT/OT-IP Prior Functional Status Start: 12/02/20 09:02 Freq: NEEDED Status: Active Protocol: Document 12/02/20 11:24 AW (Rec: 12/02/20 12:36 AW [id number]) Medical Review Prior Functional Status Medical History Reviewed Yes Communication Pt is able to make his needs known. Mobility and Gait Pt reports independent ambulation up to about 1/2 block. He is limited primarily by SOB with history of interstitial lung disease and CHF. Activities of Daily Living and IADL's Pt reports he is independent for ADL's at baseline. 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 He does not drive. His manages finances and pt' s medications. Prior Functional Level (Other details) Pt reports history of CVA but no records are available related to this event. Pt and his state CVA was earlier this year but pt had no chronic deficits. Pt is undergoing chemotherapy currently for gastric cancer with metastases to liver. Social History Household Members spouse Living Arrangements House Number of Floors (Floors) One Floor Number of Stairs To Enter/Railing? No stairs. 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 He lives with his , Nia, in [place]. 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 M2 OT-IP Current Condition Start: 12/02/20 14:27 Freq: Status: Active Protocol: Document 12/02/20 11:00 [facility] (Rec: 12/02/20 14:49 [facility] [id number]) Occupational Therapy Current Condition Current Condition Evaluation Date 12/02/20 Treatment Diagnosis CVA, decreased mobility and coordination Diagnosis Onset Date 12/02/20 M3 OT- IP Subjective and Pain Start: 12/02/20 14:27 Freq: Status: Active Protocol: Document 12/02/20 11:00 [facility] (Rec: 12/02/20 14:49 [facility] [id number]) OT- Subjective Occupational Therapy Visit Type Type Initial Evaluation Visit Start Time 11:00 Visit Stop Time 11:30 Total Visit Minutes 30 Occupational Therapy Visit Comments Patient Comments Pt's and PT present for OT eval. Pt having to go down for swallow study. Patient/Caregiver Goals To get better. OT Pain Assessment Pain When Pain Assessed At Rest Pain Present Pain Present Denied Pain M4 OT- IP ADL's Start: 12/02/20 14:27 Freq: Status: Active Protocol: Document 12/02/20 11:00 [facility] (Rec: 12/02/20 14:49 [facility] [id number]) OT [id number] Comments OT Self-Feeding Comments Pt is strict NPO at this time. Pt has a left facial droop. OT ADL-Grooming Comments OT Grooming Comments Pt able to wash off his face with left hand. OT ADL-Oral Care Comments Oral Care Comments Not performed, pt is NPO. OT ADL-Dressing General Eval Lower Body Dressing Ability Maximum Assistance Areas Needing Assistance Socks OT ADL-Toileting Comments OT Toileting Comments NOt performed. OT ADL-Bathing Comments OT Bathing Comments Not performed. M5 OT- IP IADL's Start: 12/02/20 14:27 Freq: Status: Active Protocol: Document 12/02/20 11:00 [facility] (Rec: 12/02/20 14:49 [facility] [id number]) OT-Instrumental Activities of Daily Living Home Safety Awareness Home Safety Comments Prior pt was completely independent for needs however due to his CVA and now decreased balance, coordination, and now NPO, pt would benefit from assist from his . M6 OT- IP Functional Cognition Start: 12/02/20 14:27 Freq: Status: Active Protocol: Document 12/02/20 11:00 [facility] (Rec: 12/02/20 14:49 [facility] [id number]) Cognitive Factors Limiting Selfcare Function Cognitive Ability Level of Alertness Alert Patient Orientation Name,Place,Situation Attention Span Ability Capable of Focused Attention, Capable of Sustained Attention Ability to Follow Commands Able to Follow One Step Commands Cognitive Comments Cognitive Assessment Comments Pt able to follow commands appropriately for bed mobility needs. To continue to assess pt's cognitive needs. OT- Vision and Hearing OT- Hearing Assessment OT- Hearing Assessment WFL OT- Vision Assessment Visual Acuity WFL Vision Assessment Comments Not able to formally assess as pt going to get swallow study . M7 OT- IP Mobility and Balance Start: 12/02/20 14:27 Freq: Status: Active Protocol: Document 12/02/20 11:00 [facility] (Rec: 12/02/20 14:49 [facility] [id number]) OT- Bed Mobility Assessment Supine to Sit Supine to Sit Assist Minimal Assistance,Moderate Assistance,Head of Bed Elevated OT-Transfer Assessment Sit to and From Stand Sit to and from Stand Minimal Assistance,Moderate Assistance,2 Person Assistance Transfers Transfer Ability Moderate Assistance,2 Person Assistance Technique Transfer Destination Bed,Chair Transfer Technique Stand Step Pivot Devices Transfer Assistive Devices None,Gait Belt Comments Mobility Comments Assist to help hold his LUE and assist for his balance while transferring to the right . OT- Balance Assessment Sitting Balance and Reactions Static Sitting Balance Ability Fair Dynamic Sitting Balance Ability Poor Standing Balance and Reactions Static Standing Balance Ability Poor Comments Other Balance Tests/Deviations/Treatment Pt tends to lean to the left : during static sitting at the edge of the bed. M8 OT- IP Objective Assessments Start: 12/02/20 14:27 Freq: Status: Active Protocol: Document 12/02/20 11:00 [facility] (Rec: 12/02/20 14:49 [facility] [id number]) OT Gross Range of Motion Upper Extremity Range of Motion Assessment Left Impaired OT Strength Upper Extremity Strength Assessment Left Impaired Shoulder 2- Elbow 2 Forearm 0 Wrist 0 Hand 0 Comments Strength Comments Pt able to move into shoulder elevation and retraction trace movements. Pt able to raise his LUE up into partial scaption. NO movement at forearm and distally. OT- Coordination Assessment Upper Extremity Finger to Nose Test Left UE Impaired OT-Muscle Tone Assessment Muscle Tone WNL No Comments Muscle Tone Comments Hypotonicity in left arm. OT Sensation Assessment Comments Summary Comments NO sensation felt for LUE. M9 OT- IP Assessment and Plan Start: 12/02/20 14:27 Freq: Status: Active Protocol: Document 12/02/20 11:00 [facility] (Rec: 12/02/20 14:49 [facility] [id number]) OT Summary Assessment and Plan Potential Rehabilitation Potential Good Analytic Complexity at Evaluation High Summary OT Impairments Range of Motion,Balance, Coordination,Sensation,Tone, Functional Mobility,Self- Feeding,Grooming,Dressing, Toileting,Bathing,Toilet Transfers,Shower Transfers, Activity Tolerance Progress Towards Goals Slow Progress due to Medical Issues Assessment Summary Pt is high complexity and here for CVA and now decreased functional movement of LUE and decreased sensation for left side of his body including his face and strict NPO at this time. Pt would benefit from acute rehab versus SNF. Pt is very motivated to get better. To see pt twice tomorrow as pt very tired today as just coming into the hospital this morning. Pt was asleep when checking on his for possible PM treat. Nursing just prior placed NG tubing in. Goals Self-Feeding Goal Independent Grooming Goal Independent Dressing Goal Independent Toileting Goal Independent Bathing Goal Independent Toilet Transfer Goal Independent Shower Transfer Goal Independent Days to Meet Goals 30 Frequency of Treatment Frequency Of Treatment Once a Day Treatment Plan OT Treatment Plan ADL Training,Functional Cognition Training,Functional Mobility,Neuromuscular Re- education,Patient/Family Education,Discharge Planning Discharge Recommendations OT Discharge Recommendations SNF vs Acute Rehab Other Discharge Recommendations Acute rehab pending activity tolerance and progress, possible SNF. Transportation Needs at Discharge Private Vehicle,Wheelchair/ Cabulance
--- NOTE | 2020-12-02 13:52 | DI.RAD.S_ITS ---
PROCEDURE: XR CHEST 1V INDICATIONS: verify NG tube placement TECHNIQUE: One view of the chest was acquired. COMPARISON: [facility], , XR CHEST 1V, 09/28/2020, 0:32. FINDINGS: Surgical changes and devices: NG tube projects across the GE junction with distal tip and side port projecting over the proximal stomach. Lungs and pleura: There is interval increased interstitial prominence in the lung bases bilaterally concerning for pulmonary edema versus atypical pneumonia. No pleural effusions or pneumothorax. Mediastinum: Mediastinal contours appear normal. Heart is enlarged.. Bones and chest wall: No suspicious bony lesions. Overlying soft tissues appear unremarkable. IMPRESSION: NG tube projects across the GE junction with tip and side port projecting over the proximal stomach. Dictated by: Justyna Becerril MD, PhD on 12/02/2020 at 14:21 Approved by: Justyna Becerril MD, PhD on 12/02/2020 at 14:22
--- NOTE | 2020-12-02 15:21 | DIET.PN ---
Addendum entered by Fatou Siddiqui 12/02/20 15:42: Recc NG feeding continuous Jevity 1.2 starting at 35mL/h titrating up by 15mL q6h as tolerated until reaching goal rate of 65mL/h. Recc 150mL free water flushes q4h. Original Note: 65y M currently undergoing chemotherapy for stomach cancer c mets to liver admitted after stroke referred to nutrition for enteral nutrition recommendations. Pt has L sided facial droop and L sided upper and lower extremity weakness. Per MBSS and SLT pt not safe for PO intake secondary to laryngotracheal penetration, laryngotracheal aspiration and pathologic vallecular pooling. Pt has NG placed and in good position. Pt was tolerating normal diet up until yesterday with some reported difficulty swallowing resulting in softer texture, yet adequate dietary intake. Pt appears weight stable per chart review with renal and BG labs WNL. Pt has several A1c draws on record indicating non-diabetic. Pt strict NPO with all fluids to be provided via NG tube. NG can remain in place x6w, unclear plan for long-term feeding as pt currently undergoing tx for stomach cancer. Diet 12/02/20 05:43 NPO Diet Diet Modifications: NPO Type: Strict Labs RBC 3.53 X10^6/uL (4.5-5.9) L 12/02/20 04:45 Hgb 8.5 g/dL (13.5-17.5) L 12/02/20 04:45 Hct 27.4 % (41-53) L 12/02/20 04:45 Creatinine 0.51 mg/dL (0.66-1.25) L 12/02/20 04:45 Hemoglobin A1c 5.4 % (4.0-6.0) 12/02/20 01:00 Nutrition Dx: swallowing difficulty r/t acute stroke aeb MBSS showing pt unsafe for PO intake, pt has NG in place awaiting TF reccs. Interventions: 1. Recc NG feeding continuous Jevity 1.2 starting at 35mL/h titrating up by 15mL q6h as tolerated until reaching goal rate of 65mL/h. Recc 150mL free water flushes q4h. Feed plus formula provide 100% kcals, PRO, and fluids. 2. HOB elevated at least 30 degrees at all time to reduce risk of aspiration. 3. Daily weights. EER: 2,200 mL fluids (30mL/kg per average adult), 1800kcals (25kcal/kg per average adult), 85g PRO (1.1g/kg per elder) Monitoring/Evaluations: feed tolerance, rate advancement, daily weights, associated labs. Awaiting POC for long-term feeding secondary to gastric cancer.
--- NOTE | 2020-12-02 17:12 | PT-IP ANOTE ---
Attempted to work with pt twice this PM. First attempt, RN was placing NG tube and needed DI to confirm placement. Second attempt, pt was sleeping soundly. Pt was admitted overnight and this PT decided to allow pt to sleep.
--- NOTE | 2020-12-02 17:18 | ST.SWALLOW ---
Visit Care Team Role Provider Type Az Salazar PA-C Primary Care Provider Non-Staff Specialty: Medical Address: [address] [place] [address], [id number] Email: Az Moran MD Emergency Provider Physician Specialty: Emergency Medicine Address: [address] [place] [address], [id number] Email: [email or web address] Admit Provider Physician Attending Provider Specialty: Internal Medicine Address: [address] [place] [address], [id number] Email: [email or web address] Modified Barium Swallow Study RN LONG TERM CARE Modified Barium Swallow Study Start: 12/02/20 09:50 Freq: Status: Active Protocol: Document 12/02/20 13:21 LNK (Rec: 12/02/20 13:27 LNK [id number]) Modified Barium Swallow Study Total Time Visit Start Time 11:30 Visit Stop Time 12:15 Total Visit Minutes [address] Knapp Reason for Referral CVA Setting Setting Acute Care Patient Information Identification Type Name,Date of Patient History Az Bowden is a very pleasant 65-year-old gentleman who got up in the middle of night to go to the bathroom, fell down and was unable to get. He states that he fell twice once in the bedroom and once in the bathroom and could not use his left arm. He denies chest pain, headaches, nausea or vomiting, abdominal pain, does state he has slow urination which has been getting worse over time, he did have diarrhea yesterday from the chemotherapy treatments he has been taking for stomach cancer, he currently endorses inability to use his left arm and weakness in his left leg. He states that he had a stroke prior to and I am not sure that he was treated here or presented at a different facility. Current CT was negative for an acute process. MRI indicated a Prominent right frontal (and right posterior cerebellar hemisphere) signal changes suspicious for acute ischemia as above however limited assessment given incomplete exam protocol. Specifically, no diffusion weighted imaging was obtained. Subjective Observations Pt was seated upright in the fluoroscopy chair. Procedures and instructions were described to the pt. he indicated he understood and agreed to proceed. Patient Positioning Position View Lateral Imaging Lateral View Textures Administered Trials Presented Thin Liquid via Spoon,Thin Liquid via Cup,Thin Liquid via Straw,[place] Liquid via Spoon ,[place] Liquid via Cup,Pudding Thick Liquid via Spoon Oral Phase Source: MBSIMP (TM) (C) Bolus Specific Scoring Grid Lip Closure Moderate Impairment Tongue Control During Bolus Hold Severe Impairment Bolus Transport/Lingual Motion Severe Impairment A/P Lingual Propulsion Delay Unable to move bolus A-P. For liquids, pt tipped head backwards Oral Residue Severe Impairment Residue Clearing Severe Impairment Nasal Regurgitation No Additional Oral Phase Observations The pt has left side facial droop and diminished strength and sensation. Pt is drooling, unable to handle secretions. Pt unable to control the bolus in the mouth. Lingual and velar asymmetry observed with a reduction in ROM and strength. Pt has 5 teeth. Pt was noted to tip head back in order to move liquids A-P. For the pudding thick liquid trial, the pt was unable to move the bolus, which needed to be removed from his mouth with a cloth and suction. Left side of face was flaccid.Pt's cough was weak and nonproductive. Pharyngeal Phase Source: MBSIMP (TM) (C) Bolus Specific Scoring Grid Delayed Initiation of Pharyngeal Swallow Yes: Pt unable to produce dry swallow Number of Seconds Delayed (seconds) premature spillage to the pyriform sinuses with minimal bolus control Soft Palate Elevation WFL Tongue Base Strength/Range of Motion Moderate Impairment Residue Along the Tongue Base Yes Clearance of Residue Along Tongue Base Moderate Impairment Laryngeal Elevation Mild Impairment Anterior Hyoid Movement Mild Impairment Epiglottic Range of Motion Moderate Impairment Vallecular Residue Yes Clearance of Vallecular Residue Severe Impairment Laryngeal Vestibular Closure Moderate Impairment Pharyngeal Stripping Wave Moderate Impairment Posterior Pharyngeal Wall Residue Yes Clearance of Posterior Pharyngeal Wall Moderate Impairment Residue Upper Esophageal Sphincter Opening Mild Impairment Residue in the Pyriform Sinuses Yes Clearance of Residue in the Pyriform Moderate Impairment Sinuses Esophageal Clearance Upright Position Mild Impairment Pharyngoesophageal Backflow Observed No Additional Pharyngeal Phase Observations Hyolaryngeal elevation was mildly diminished with more restriction of hyoid movement. Base of tongue was weak with limited strength for bolus movement as well as poor control of the bolus into the pharynx. Premature spillage of contrast was noted to flow past an open airway to the pyriform sinuses. The epiglottis did not invert for small teaspoons of contrast or for any attempt at subsequent swallow attempts. For larger bolus sizes epiglottal inversion was observed. However, significant valecullar and pyriform sinus residue remained. The laryngeal seal was weak. Penetration was observed into the laryngeal vestibule x5 with ryan aspiration x1. There was contrast within the larynx observed on the anterior wall of the thyroid cartilage and the arytenoids. This contrast eventually flowed to and below the vocal folds. Pt was unable to produce a volitional swallow when cued, contributing to the pharyngeal pooling. Pt was unable to control pharyngeal pooling. Weak, nonproductive cough response. A/P View Esophageal Observations Esophageal Function Residue was pooled at the UES, suggesting restricted opening of the UES Clinical Impressions Dysphagia Type severe oropharyngeal dysphagia Rehabilitation Potential Good Patient Appropriate for Therapy Yes Recommendations Diet Liquids Order Nothing by Mouth Diet Order NPO/Alternative Means of Nutrition/Hydration Medication Recommendation Not Recommended by Mouth Aspiration Precautions Recommended Precautions Upright at 90 Degrees Treatment Plan Therapy Recommendations Inpatient Speech Therapy Compensatory Strategies Recommendations Reclined Position,Sitting Upright (90 deg) Short Term Goals pt will perform oral motor exercises ti increase strength and ROM Placement Recommendation After Discharge Detention Facility, Inpatient Rehab Facility,Home with Home Health
[2020-12-02] MEDS: METOPROLOL ER 25 MG TABLET 12.5 MG PO (21:00)
[2020-12-02] MEDS: ATORVASTATIN 20 MG TABLET 80 MG PO (21:00)
[2020-12-03 00:44] VITALS: BP 136/82; PULSE 92; RESP 27; TEMP 36.6; O2SAT 97
[2020-12-03 03:42] VITALS: BP 126/80; PULSE 95; RESP 14; TEMP 37.1; O2SAT 97
[2020-12-03 05:06] LABS: Alanine Aminotransferase 13 IU/L (<50); Albumin 3.3 g/dL (3.5-5.0); Albumin Globulin Ratio 1.2 (1.0-2.8); Alkaline Phosphatase 67 U/L (38-126); Aspartate Aminotransferase 29 IU/L (17-59); Bilirubin Total 0.3 mg/dL (0.2-1.3); Bilirubin Unconjugated 0.2 mg/dL (0.0-1.1); Globulin 2.8 g/dL (1.7-4.1); HEMOLYSIS < 15 (0-50); Total Protein 6.1 g/dL (6.3-8.2)
[2020-12-03 05:08] LABS: BUN Creatinine Ratio 15.8 (6-22); Blood Urea Nitrogen 9 mg/dL (9-20); Carbon Dioxide 25 mmol/L (22-32); Chloride 107 mmol/L (98-107); Estimated Glomerular Filt Rate > 60.0 mL/min (>60); Glucose 129 mg/dL (80-110); HEMOLYSIS < 15 (0-50); Potassium 3.9 mmol/L (3.4-5.1); Sodium 137 mmol/L (137-145)
[2020-12-03 05:09] LABS: Add Manual Diff / Slide Review NO; Basophils Absolute Auto 0 /uL (0-100); Basophils Percent Auto 0.2 % (0-2); Eosinophils Absolute Auto 300 /uL (0-450); Eosinophils Percent Auto 3.6 % (2-4); Hematocrit 28.7 % (41-53); Hemoglobin 8.8 g/dL (13.5-17.5); Lymphocytes Absolute Auto 1700 /uL (1100-4500); Lymphocytes Percent Auto 24.6 % (25-40); Mean Corpuscular HGB Conc 30.7 % (30-36); Mean Corpuscular Hemoglobin 23.8 PG (26-34); Mean Corpuscular Volume 77.6 fL (80-100); Monocytes Absolute Auto 500 /uL (0-900); Monocytes Percent Auto 6.7 % (3-14); Neutrophils Absolute Auto 4500 /uL (1500-7000); Neutrophils Percent Auto 64.9 % (50-75); Platelet Count 337 X10^3/uL (150-400); Red Blood Cell Count 3.69 X10^6/uL (4.5-5.9); Red Cell Distribution Width 20.1 % (11.6-14.8)
[2020-12-03] MEDS: LEVOTHYROXINE 25 MCG TABLET PO (05:53)
[2020-12-03 06:01] LABS: Anisocytosis 1+
[2020-12-03 06:03] LABS: Hypochromasia 1+
[2020-12-03 07:00] VITALS: BP 125/79; PULSE 104; RESP 25; TEMP 36.6; O2SAT 97
[2020-12-03] MEDS: lisinopriL 5 MG TABLET PO (08:47)
[2020-12-03] MEDS: carvediloL 3.125 MG TABLET PO ×2 (08:47→20:59)
[2020-12-03] MEDS: ASPIRIN EC 81 MG TABLET PO (08:47)
[2020-12-03] MEDS: SODIUM CHLORIDE 0.9% FLUSH 10 ML IV ×2 (08:49→21:00)
--- NOTE | 2020-12-03 09:20 | OT.IP.TRT ---
Current Diagnoses Cerebral infarction, unspecified (12/02/20) Occupational Therapy Treatment Note M2 OT-IP Current Condition Start: 12/02/20 14:27 Freq: Status: Active Protocol: Document 12/02/20 11:00 [facility] (Rec: 12/02/20 14:49 [facility] [id number]) Occupational Therapy Current Condition Current Condition Evaluation Date 12/02/20 Treatment Diagnosis CVA, decreased mobility and coordination Diagnosis Onset Date 12/02/20 M3 OT- IP Subjective and Pain Start: 12/02/20 14:27 Freq: Status: Active Protocol: Document 12/03/20 13:03 [facility] (Rec: 12/03/20 13:11 [facility] [id number]) OT- Subjective Occupational Therapy Visit Type Type Treatment Note Visit Start Time 09:20 Visit Stop Time 09:35 Occupational Therapy Visit Comments Patient Comments Pt agreed to work with OT. Patient/Caregiver Goals To get better. OT Pain Assessment Pain When Pain Assessed At Rest Pain Present Pain Present Denied Pain M M6 OT- IP Functional Cognition Start: 12/02/20 14:27 Freq: Status: Active Protocol: Document 12/03/20 13:03 [facility] (Rec: 12/03/20 13:11 [facility] [id number]) Cognitive Factors Limiting Selfcare Function Cognitive Ability Level of Alertness Alert Patient Orientation Name,Place,Situation Attention Span Ability Capable of Focused Attention, Capable of Sustained Attention Ability to Follow Commands Able to Follow One Step Commands Cognitive Comments Cognitive Assessment Comments Pt states feels better due to having slept well. Pt able to follow commands and good insight to his needs at this time. M7 OT- IP Mobility and Balance Start: 12/02/20 14:27 Freq: Status: Active Protocol: Document 12/02/20 11:00 [facility] (Rec: 12/02/20 14:49 [facility] [id number]) OT- Bed Mobility Assessment Supine to Sit Supine to Sit Assist Minimal Assistance,Moderate Assistance,Head of Bed Elevated OT-Transfer Assessment Sit to and From Stand Sit to and from Stand Minimal Assistance,Moderate Assistance,2 Person Assistance Transfers Transfer Ability Moderate Assistance,2 Person Assistance Technique Transfer Destination Bed,Chair Transfer Technique Stand Step Pivot Devices Transfer Assistive Devices None,Gait Belt Comments Mobility Comments Assist to help hold his LUE and assist for his balance while transfering to the right . OT- Balance Assessment Sitting Balance and Reactions Static Sitting Balance Ability Fair Dynamic Sitting Balance Ability Poor Standing Balance and Reactions Static Standing Balance Ability Poor Comments Other Balance Tests/Deviations/Treatment Pt tends to lean to the left : during static sitting at the edge of the bed. M8 OT- IP Objective Assessments Start: 12/02/20 14:27 Freq: Status: Active Protocol: Document 12/03/20 13:03 [facility] (Rec: 12/03/20 13:11 [facility] [id number]) OT Gross Range of Motion Upper Extremity Range of Motion Assessment Left Impaired OT Strength Upper Extremity Strength Assessment Left Impaired Shoulder 3- Elbow 2 Forearm 2 Wrist 0 Hand 0 Comments Strength Comments Pt able to move his LUE better today, noted increased movement at elbow and forearm. OT Sensation Assessment Comments Summary Comments Pt able to feel heavy pressure at his left hand and shoulder today. M9 OT- IP Assessment and Plan Start: 12/02/20 14:27 Freq: Status: Active Protocol: Document 12/03/20 13:03 [facility] (Rec: 12/03/20 13:11 [facility] [id number]) OT Summary Assessment and Plan Potential Rehabilitation Potential Good Analytic Complexity at Evaluation High Summary OT Impairments Range of Motion,Balance, Coordination,Sensation,Tone, Functional Mobility,Self- Feeding,Grooming,Dressing, Toileting,Bathing,Toilet Transfers,Shower Transfers, Activity Tolerance Progress Towards Goals Progressing Toward Goals Assessment Summary Pt having increased movement and sensation for LUE. Pt able to do self suctioning on his own after education. Pt would greatly benefit from acute rehab as pt is very motivated and making good gain with LUE needs. Goals Self-Feeding Goal Independent Grooming Goal Independent Dressing Goal Independent Toileting Goal Independent Bathing Goal Independent Toilet Transfer Goal Independent Shower Transfer Goal Independent Days to Meet Goals 15 Frequency of Treatment Frequency Of Treatment Twice a Day Treatment Plan OT Treatment Plan ADL Training,Functional Cognition Training,Functional Mobility,Neuromuscular Re- education,Patient/Family Education,Discharge Planning Discharge Recommendations OT Discharge Recommendations Acute Rehab Transportation Needs at Discharge Private Vehicle
[2020-12-03 11:00] VITALS: BP 120/78; PULSE 91; RESP 28; TEMP 36.6; O2SAT 99
--- NOTE | 2020-12-03 11:28 | PT.IPTN ---
Current Diagnoses Cerebral infarction, unspecified (12/02/20) Physical Therapy Treatment Note M2 PT-IP Current Condition Start: 12/02/20 09:02 Freq: NEEDED Status: Active Protocol: Document 12/02/20 11:24 AW (Rec: 12/02/20 12:36 AW [id number]) Physical Therapy Current Condition Current Condition Evaluation Date 12/02/20 Treatment Diagnosis R frontal and cerebellar CVA; impaired mobility and gait Onset Date 12/01/20 Precautions Other Precautions falls M3 PT-IP Subjective Start: 12/02/20 09:02 Freq: NEEDED Status: Active Protocol: Document 12/03/20 10:54 SP (Rec: 12/03/20 18:45 SP [id number]) Subjective Physical Therapy Visit Type Type Treatment Note Visit Start Time 10:54 Visit Stop Time 11:28 Total Visit Minutes 34 Notes Co-eval with OT Number of DIESEL DINKEY OPERATOR Visits 1 Physical Therapy Visit Comments Patient Comments Pt is willing to participate with PT/OT. Patient Goals Improve mobility to get stronger. Therapy Pain Assessment Pain When Pain Assessed During Mobility Pain Present Pain Present Denied Pain M4 PT-IP Mobility and Gait Start: 12/02/20 09:02 Freq: NEEDED Status: Active Protocol: Document 12/03/20 10:54 SP (Rec: 12/03/20 18:45 SP [id number]) PT-Bed Mobility Assessment Supine to Sit Supine to Sit Minimal Assistance,Moderate Assistance,2 Person Assistance ,Head of Bed Elevated Scooting Scooting to Edge of Bed Minimal Assistance PT-Transfer Assessment Sit to and From Stand Sit to and from Stand Moderate Assistance,2 Person Assistance,Use of Upper Extremities Equipment Transfer Assistive Device Gait Belt,Small Based Quad Cane,[place] Walker Orthotic/Prosthetic Devices or Brace: No Transfers Transfer Destination Chair Transfer Technique Stand Step Pivot Transfer Ability Level of Assist Minimal Assistance,Moderate Assistance,2 Person Assistance Comments Mobility Comments Pt able to lift BLE for removal of pillow under BLE supine in bed and light support LUE. Inclined supine> sit Min- Mod A x2 for trunk righting, self BLE repositions to EOB, RUE on bed then bed handle and OT LUE positioning and support to allow WB to scoot to EOB. Sitting unsupported using BUE as needed, Min A. Sit>stand from EOB Mod A x2 cued to push from bed handle LUE and bed RUE. Standing support of HW RUE Min -Mod A x2, instructed to wt shift side toside, stable then forward step taps alternating BLE, stable. SPT bed to L using HW with max cuing for sequencing Min- Mod A x2 ( trunk and LUE suppport with cues for upright posture). Stand>sit cues for reaching back [place] with LUE, Mod A x2 for slow descent into chair. Seated rest 3 min. Sit>stand Min- Mod A x1-2 for trunk by DIESEL DINKEY OPERATOR and LUE support (OT assisted positioning LUE to allow pt to push from chair), forward gait to door chair follow then sit on R EOB. Sit> stand Mod A x1 from EOB gait using QC max cues for sequencing 3pt gait back to chair Mod A x1 for trunk stability. SPT in front chair w/QC stand>sit with [place] reaching LUE back in chair Mod A. Pt was reclined in chair when done. Pt had chair alarm donned, call light and all needs in reach before left. in room, observed full tx . Gait Assessment Gait Gait Assistance Required: Moderate Assistance,2 Person Assist Distance (Feet) 15 Assistive Devices Assistive Device Gait Belt,Small Based Quad Cane,[place] Walker Orthotic/Prosthetic Devices or Brace: No Factors Limiting Gait Function Factors Limiting Gait Function Decreased Activity Tolerance, Decreased Sensation,Decreased Strength,Incoordination,Poor Balance,Poor Safety Awareness Comments Gait Comments Pt able to progress gait across room 3pt gait max cues for sequencing HW then SBQC Mod A x1 and chair follow for safety. Stair Climbing Assessment Comments Stair Climbing Comments Not assessed. PT-Balance Assessment Sitting Balance and Reactions Static Sitting Balance Ability Fair Dynamic Sitting Balance Ability Poor Standing Balance and Reactions Static Standing Balance Ability Poor Dynamic Standing Balance Ability Poor Device Used HW, SBQC M5 PT-IP Objective Assessments Start: 12/02/20 09:02 Freq: NEEDED Status: Active Protocol: Document 12/02/20 11:24 AW (Rec: 12/02/20 12:53 AW [id number]) Orientation Orientation/Cognition Level of Alertness Alert Orientation Name,Month,Place,Situation Language Function Ability Garbled Speech Comments Unable to assess safety awareness or memory at this encounter. Speech is garbled but content is appropriate and pt is able to communicate his needs. Gross Range of Motion Lower Extremity ROM Assessment Within Functional Limits Strength Lower Extremity Strength Assessment Bilaterally Impaired Hip R 4/5; L 4-/5 Knee R 4/5; L 4-/5 Ankle R 4+/5; L 4-/5 Comments Strength Comments LLE globally 1/2 grade less than RLE except ankle one whole grade less. Coordination Assessment Assessment Coordination Comments Not tested. Deferred to PM session. Sensation Assessment Sensation Gross Sensation Left UE Impaired,Left LE Impaired Light Touch Absent Proprioception (Position) Impaired Sensation Description Numbness Comments Sensation Comments Pt discerns no light touch on his left side. Deep pressure mildly discernable in distal LLE. Temperature sensation not discernable on left side. Other Assessments Other Other Assessments LUE has some activation with AAROM. Not flaccid on evaluation but with extremely low tone. M6 PT-IP Treatment Start: 12/02/20 09:02 Freq: NEEDED Status: Active Protocol: Document 12/03/20 10:54 SP (Rec: 12/03/20 18:45 SP [id number]) Physical Therapy Treatment Exercises Exercises Ankle Pumps,Quad Sets,Heel Slides,Shoulder Flexion Knee ROM Measurement 90 deg BLE knee flexion AROM Education Education Provided Precautions,Safety Other Treatments Other Treatment Performed Educated pt and his on need for attention to LUE in particicular for joint protection. Pt assists LUE with RUE when needed, needs support [place] at times during transfers. Pt has increased feeling sensation to LUE this tx. M7 PT-IP Assessment and Plan Start: 12/02/20 09:02 Freq: NEEDED Status: Active Protocol: Document 12/03/20 10:54 SP (Rec: 12/03/20 18:45 SP [id number]) PT Summary Assessment and Plan Potential Rehabilitation Potential Good Status of Condition at Evaluation Evolving Summary Impairments Strength,Balance,Coordination, Sensation,Tone,Bed Mobility, Transfers,Gait,Activity Tolerance Progress Towards Goals Progressing Toward Goals,Slow Progress due to Medical Issues ,Slow Progress due to Activity Tolerance Assessment Summary Mod A x2 using HW progressed to SBQC for tranfers and assessment short distance gait across room Mod A x1 and chair follow. Pt would be good candidate for acute rehab, very motivated to mobilize. Recommending 2 person transfers only with nursing, will reassess progress pm tx. Goals Bed Mobility Goal Standby Assistance Transfer Goal Contact Guard Assistance Gait Goal Contact Guard Assistance,[place] Walker Gait Distance 75 Other Goals - improve ambulation to 75 feet with LRAD or no AD Days to Meet Goals 10 Frequency of Treatment Frequency Of Treatment Twice a Day Treatment Plan Physical Therapy Treatment Plan Bed Mobility Training,Transfer Training,Gait Training, Therapeutic Exercise,Balance Retraining,Discharge Planning, Neuromuscular Re-ed, Coordination Retraining Other Recommendations and Next Treatment bed mobility, transfers, Focus assess coordination, gait w/ SBQC 3pt gait> 2 pt gait. Precautions Other Precautions falls Recommendations To Nursing Amount of Assist Needed 2 Person Assist Discharge Recommendations PT Discharge Recommendations Acute Rehab,SNF vs Acute Rehab Equipment Needed for Home Before defer to rehab setting Discharge Transportation Needs at Discharge Wheelchair/Cabulance
--- NOTE | 2020-12-03 11:32 | OT.IP.TRT ---
Current Diagnoses Cerebral infarction, unspecified (12/02/20) Occupational Therapy Treatment Note M2 OT-IP Current Condition Start: 12/02/20 14:27 Freq: Status: Active Protocol: Document 12/02/20 11:00 [facility] (Rec: 12/02/20 14:49 [facility] [id number]) Occupational Therapy Current Condition Current Condition Evaluation Date 12/02/20 Treatment Diagnosis CVA, decreased mobility and coordination Diagnosis Onset Date 12/02/20 M3 OT- IP Subjective and Pain Start: 12/02/20 14:27 Freq: Status: Active Protocol: Document 12/03/20 13:13 [facility] (Rec: 12/03/20 13:24 [facility] [id number]) OT- Subjective Occupational Therapy Visit Type Type Treatment Note Visit Start Time 10:53 Visit Stop Time 11:32 Total Visit Minutes 39 Notes Cotxt with LOAD TEST MECHANIC for part of the session. Occupational Therapy Visit Comments Patient Comments Pt agreed to get up. Patient/Caregiver Goals TO get better. OT Pain Assessment Pain When Pain Assessed At Rest Pain Present Pain Present Denied Pain M6 OT- IP Functional Cognition Start: 12/02/20 14:27 Freq: Status: Active Protocol: Document 12/03/20 13:13 [facility] (Rec: 12/03/20 13:24 [facility] [id number]) Cognitive Factors Limiting Selfcare Function Cognitive Comments Cognitive Assessment Comments Pt apprears intact. OT- Vision and Hearing OT- Vision Assessment Visual Attentiveness WFL Occular Pursuits WFL Visual Convergence WFL Visual Morris WFL M7 OT- IP Mobility and Balance Start: 12/02/20 14:27 Freq: Status: Active Protocol: Document 12/03/20 13:13 [facility] (Rec: 12/03/20 13:24 [facility] [id number]) OT- Bed Mobility Assessment Rolling Level of Assistance Head of Bed Elevated Supine to Sit Supine to Sit Assist Minimal Assistance Sit to Supine Sit to Supine Assist Moderate Assistance,1 Person Assistance OT-Transfer Assessment Sit to and From Stand Sit to and from Stand Minimal Assistance,Maximum Assistance,2 Person Assistance Transfers Transfer Ability Minimal Assistance,Moderate Assistance,2 Person Assistance Technique Transfer Destination Bed,Chair Transfer Technique Stand Step Pivot Devices Transfer Assistive Devices Gait Belt,Small Based Quad Cane,[place] Walker Comments Mobility Comments Pt MOD-MAXA to help incorporate his LUE to help keep flat on the bed and stabilize at his elbow so able to assist to push up with LUE . Assist to help hold left hand on the armrest fo the recliner so able to ease himself down symmetrically. OT- Gait Assessment Comments Gait Ability Comments Pt able to walk with [place]-walker with MOD A overall assist to balance and for LUE management. Pt tends to lean over with left shoulder protracted and slightly internal rotation. Pt needing cues to stand upright. Placed along to nursing if transferring pt to help hold his LUE. Next time to try having his hand held in place by gait belt after standing up . Also to modify strapping to help pt hold his LUE up for support versus just hanging down. OT- Balance Assessment Sitting Balance and Reactions Static Sitting Balance Ability Fair Dynamic Sitting Balance Ability Poor Standing Balance and Reactions Static Standing Balance Ability Poor Comments Other Balance Tests/Deviations/Treatment Balance score mindful of : incorporation of LUE for needs . M8 OT- IP Objective Assessments Start: 12/02/20 14:27 Freq: Status: Active Protocol: Document 12/03/20 13:03 [facility] (Rec: 12/03/20 13:11 [facility] [id number]) OT Gross Range of Motion Upper Extremity Range of Motion Assessment Left Impaired OT Strength Upper Extremity Strength Assessment Left Impaired Shoulder 3- Elbow 2 Forearm 2 Wrist 0 Hand 0 Comments Strength Comments Pt able to move his LUE better today, noted increased movement at elbow and forearm. OT Sensation Assessment Comments Summary Comments Pt able to feel heavy pressure at his left hand and shoulder today. M9 OT- IP Assessment and Plan Start: 12/02/20 14:27 Freq: Status: Active Protocol: Document 12/03/20 13:13 [facility] (Rec: 12/03/20 13:24 [facility] [id number]) OT Summary Assessment and Plan Potential Rehabilitation Potential Good Analytic Complexity at Evaluation High Summary OT Impairments Range of Motion,Balance, Coordination,Sensation,Tone, Functional Mobility,Self- Feeding,Grooming,Dressing, Toileting,Bathing,Toilet Transfers,Shower Transfers, Activity Tolerance Progress Towards Goals Progressing Toward Goals Assessment Summary Pt doing well and actively trying to move his LUE for his needs. Pt able to tolerate 2 OT session of OT today and feels that he would be able to tolerate acute rehab at this time to work on regaining his LUE function, swallowing needs, and dynamic balance. Goals Self-Feeding Goal Independent Grooming Goal Independent Dressing Goal Independent Toileting Goal Independent Bathing Goal Independent Toilet Transfer Goal Independent Shower Transfer Goal Independent Days to Meet Goals 28 Frequency of Treatment Frequency Of Treatment Twice a Day Treatment Plan OT Treatment Plan ADL Training,Functional Cognition Training,Functional Mobility,Neuromuscular Re- education,Patient/Family Education,Discharge Planning Other Treatment Recommendations and Next Educated of LUE exercises and Treatment Focus positioning needs. Discharge Recommendations OT Discharge Recommendations Acute Rehab Transportation Needs at Discharge Private Vehicle
--- NOTE | 2020-12-03 14:13 | CM.DPNOTE ---
Faxed referral packet to [facility] per Shama and received fax conf. Fany Irving CM Asst.
--- NOTE | 2020-12-03 14:32 | PM.PN.1 ---
Subjective Subjective Date Patient Seen: 12/03/20 Time Patient Seen: 14:32 Interval history: This is a 65 year old male with PMH of gastric cancer (pending records), anemia, interstitial lung disease and congestive heart failure (EF 25%) who presented with left sided weakness. Admitted with an acute CVA. He does not have any pain. Yesterday was recommended for NPO diet, NG tube was placed and started on tube feedings. Pending records from his outpatient oncologist re: gastric cancer for possible PEG placement. Exam Vital Signs (past 8 hours): - 12/03/20 07:00 12/03/20 11:00 Temperature 97.8 F 97.9 F Pulse Rate 104 H 91 H Respiratory Rate 25 H 28 H Blood Pressure 125/79 120/78 Pulse Oximetry 97 99 Oxygen Delivery Method Room Air Oxygen Flow Rate 0 Narrative Exam Narrative: Gen: Alert, oriented, well-developed 65 y.o. male, NAD HEENT: normocephalic, atraumatic, conjunctiva clear, sclera non-icteric, oral mucosa pink and moist Neck: supple, full ROM, no JVD, trachea is midline Resp: Lungs CTA, non-labored breathing CV: RRR, no murmur or rubs Abd: soft, non-tender, normoactive BTs Skin: no lesions or rashes, dry and intact Neuro:12 Significant left sided facial assymetry, facial numbness, Alert and oriented X 4. Speech is mildly slurred but predominantly coherant. Left upper extremity weakness and numbness, LLE numbness without gross weakness on exam. Extremities: no edema or joint effusions. Psyche: normal mood and affect. Objective Labs Result Diagrams: 12/03/20 04:14 12/03/20 04:14 Labs: Laboratory Results - last 24 hr 12/03/20 12/03/20 12/03/20 04:14 04:14 04:14 WBC 7.0 RBC 3.69 L Hgb 8.8 L Hct 28.7 L MCV 77.6 L MCH 23.8 L MCHC 30.7 RDW 20.1 H Plt Count 337 Neut % (Auto) 64.9 Lymph % (Auto) 24.6 L [place] % (Auto) 6.7 Eos % (Auto) 3.6 Baso % (Auto) 0.2 Neut # (Auto) 4500 Lymph # (Auto) 1700 [place] # (Auto) 500 Eos # (Auto) 300 Baso # (Auto) 0 RBC Morphology See below Hypochromasia 1+ H Anisocytosis 1+ H Sodium 137 Potassium 3.9 Chloride 107 Carbon Dioxide 25 BUN 9 Creatinine 0.57 L Estimated GFR > 60.0 BUN/Creatinine Ratio 15.8 Glucose 129 H Calcium 8.0 L Magnesium 2.0 Total Bilirubin 0.3 Conjugated Bilirubin 0.0 Unconjugated Bilirubin 0.2 AST 29 ALT 13 Alkaline Phosphatase 67 Total Protein 6.1 L Albumin 3.3 L Globulin 2.8 Albumin/Globulin Ratio 1.2 [facility] Medical History Anemia CHF (congestive heart failure) Chronic interstitial lung disease Compression fracture Essential hypertension History of stroke involving cerebellum Lupus Pelvic fracture Surgical History H/O pelvic surgery Family History Father Alcohol abuse Mother Alcohol abuse Brother CVA (cerebral vascular accident) Social History household members: spouse and family Smoking Status: Never smoker alcohol intake: former Assessment & Plan Assessment & Plan narrative: 1. Acute CVA, acute, present on admission continue asa and statin therapy. NIH 12 on admission. Unable to swallow currently safely, NG placed, pending records re: stomach cancer prior to PEG placement. Complete Echo with bubble study showing newly reduced EF of 25% compared to previously known normal EF. No evidence of atrial shunt, no afib on tele thus far. continue PT/OT/speech. continue tele 2. Hypertension, - patient mildly hypertensive on admission. - given EF of 25%, started on tae-i and beta ninfa, low dose. - BP controlled on low dose medications. 3. gastric cancer with metastases to liver. - pending records from oncology ([facility], Dr. Figueroa) - may interfere with need for PEG placement. Surgery requests records prior to consideration of PEG. - has completed 2 rounds of chemotherapy per patient. 4. chronic anemia - seen as an outpatient by heme/onc whom stated mix of anemia of chronic inflammation and iron deficiency anemia. H/h stable thus far here. no signs of active bleeding. 5. Chronic systolic and diastolic heart failure, present on admission - no evidence for volume overload on admission. Prior EF was normal per records, EF this admission showing 25% which is new. Patient has been started on low dose carvedilol and lisinopril. Increase as tolerated during his admission. - continue coreg 3.125 BID, lisinopril 5 mg daily. 6. Interstitial lung disease, chronic - continue home medications, prednisone 10 mg daily and albuterol nebulizers ordered as needed. Code status: Full code as discussed with the patient who identifies Nia Bowden as his surrogate and POA. I confirmed that the patient's advanced care plan is present, code status is determined, or surrogate decision maker is listed on the patient's medical record. I have utilized all available immediate resources to obtain, update, or review of the patient's current medications Quality Stroke Contraindication Not Initiating IV-Tpa: Contraindicated Onset of Symptoms Date: 12/01/20 Onset of Symptoms Time: 04:30 Symptom Onset Unknown: Yes Contraindication Antithromb by Day Two: Contraindicated Rehab Services Assessed: Rehabilitation therapy VTE Deep Vein Thrombosis/Pulmonary Embolism Present on Admission: No
--- NOTE | 2020-12-03 15:08 | CM.DANOTE ---
Patient is a 65 yo male who was admitted on 12/02/20 for Stroke. Pt has [facility] and [facility] for insurance and his PCP is Az Salazar at the [facility] in [facility]. EMR was reviewed. Per MD, pt with possible new heart failure, stomach cancer at baseline and stroke. Per PT/OT/ST, recommending Acute Inpt Rehab. Per ST, pt with NG currently and will be a while that pt will need artificial nutrition as pt cannot swallow at this time and recommendation would be PEG tube due to length of need likely but MD to consult with pt's Oncology Team at [facility] to determine if PEG is possible. SW met bedside with pt, who promptly fell asleep, pt's spouse and pt's Dtr and explained role. They confirm that pt and spouse live in [place] [facility] and pt is typically mostly independent at baseline but has needed some increased assist during cancer tx. SW discussed recommendation of Acute Rehab vs SNF and preference is Acute Inpt Rehab and at [facility] as pt has physician's there already. SW also discussed [facility] and provided the SNF Choice list. Family agreeable to referral to [facility] Acute [facility]. SW called Juliane at [facility] [place] Acute rehab and confirmed that NG or PEG tube would not be a barrier to acceptance and willing to review and JOSIANE Soares kindly faxed referral packet to review. Plan: SW to follow closely for [facility] Acute Rehab review and ongoing discussion with spouse and Dtr regarding discharge planning. Additional referrals may need to be made to [facility] or SNF if [facility] cannot accept. JUAN DIEGO Cardoso Discharge Planning/Care Management CM Discharge Assessment Start: 12/03/20 14:17 Freq: Status: Active Protocol: Document 12/03/20 14:17 BF (Rec: 12/03/20 15:08 [id number]) Discharge Planning Assessment Assigned Account Development Specialist JUAN DIEGO Sesay DPOA/Assigned Designee Name spouse Nia Contact Information [phone] Advance Directives? No Advance Directives on File No History Provided By Patient,Family Member, Significant Other,Medical Record Has Patient been admitted in last 30 No days? Prior Living Arrangements House Household Members spouse,family Type of transporation used prior to Relies on Others admit Independent with ADL's Yes: mostly, cancer tx at baseline Is patient alert and oriented? Yes Needs Assistance With Managing Medications Caregiver for Another No Comment Acute Rehab Barriers to Discharge No Discharge Plan Inpatient Rehab Unit Community Services Physical Therapy,Occupational Therapy Transportation Arrangement family to transport pending progress with PT Referrals Initiated Other Additional Comment Acute Inpt Rehab Whiteboard Updated in Patient Room with Yes name and ext. # of Account Development Specialist Review Status In Process Please Provide Date Initial DC 12/03/20 Assessment Was Performed Next Review Type Continued Stay Review
--- NOTE | 2020-12-03 16:12 | PT.IPTN ---
Current Diagnoses Cerebral infarction, unspecified (12/02/20) Physical Therapy Treatment Note M2 PT-IP Current Condition Start: 12/02/20 09:02 Freq: NEEDED Status: Active Protocol: Document 12/02/20 11:24 AW (Rec: 12/02/20 12:36 AW [id number]) Physical Therapy Current Condition Current Condition Evaluation Date 12/02/20 Treatment Diagnosis R frontal and cerebellar CVA; impaired mobility and gait Onset Date 12/01/20 Precautions Other Precautions falls M3 PT-IP Subjective Start: 12/02/20 09:02 Freq: NEEDED Status: Active Protocol: Document 12/03/20 15:55 SP (Rec: 12/03/20 19:15 SP [id number]) Subjective Physical Therapy Visit Type Type Treatment Note Visit Start Time 15:55 Visit Stop Time 16:12 Total Visit Minutes 17 Notes Vitals taken during tx: post supine>sitting: BP 112/ 77 HR 91 SaO2 98% on RA. sitting in chair post mobility : BP 115/82 Number of RECYCLE DRIVER Visits 2 Physical Therapy Visit Comments Patient Comments Pt is willing to work with RECYCLE DRIVER . Patient Goals Improve mobility to get around better. Therapy Pain Assessment Pain When Pain Assessed At Rest Pain Present Pain Present Denied Pain M4 PT-IP Mobility and Gait Start: 12/02/20 09:02 Freq: NEEDED Status: Active Protocol: Document 12/03/20 15:55 SP (Rec: 12/03/20 19:15 SP [id number]) PT-Bed Mobility Assessment Supine to Sit Supine to Sit Minimal Assistance,Moderate Assistance,1 Person Assistance ,Head of Bed Elevated Scooting Scooting to Edge of Bed Minimal Assistance PT-Transfer Assessment Sit to and From Stand Sit to and from Stand Minimal Assistance,Moderate Assistance,1 Person Assistance ,Use of Upper Extremities Equipment Transfer Assistive Device Gait Belt,Small Based Quad Cane Orthotic/Prosthetic Devices or Brace: No Transfers Transfer Destination Chair Transfer Technique pt ambulated using SBQC Transfer Ability Level of Assist Minimal Assistance,Moderate Assistance,1 Person Assistance ,Use of Upper Extremities Comments Mobility Comments Nursing stopped tube feeding and placed on portable monitor worker for mobility. Elevated supine>sit Min- Mod A x1 with support for trunk righting and VIEJAS assist for stabilizing LUE hand flat on bed for locomotion. Scoot to EOB BUE Min A. RECYCLE DRIVER donned gait belt and OT's LUE sling support to LUE when in standing. Sit>stand Min- Mod A x1 with cues and assist for LUE hand placement flat on bed with improved active push into elbow extension and RUE on bed handle then transition to SBQC once in standing x 5 reps to allow progressed strengthening. Pt able to walk further across room>door> across room to window bench the second lap Min- Mod A for trunk stability and mod- max cuing for sequencing BLE and SBQC 3 pt gait, LUE better supported on sling handle attached to gait belt with noted pressure input during gait. Pt returned to bed after total 60 ft, occasional cues for body and SBQC positioning spacial awareness, VIEJAS assist for reaching back LUE then self RUE Min A for slow descend onto EOB. Sit>supine CGA with cues for centering self and used bed rails for RUE support. Pt had call light and all needs in reach w/ bed alarm armed. RECYCLE DRIVER updated communication board to 1 person able to transfer and short distance gait in room with nursing using SBQC Mod A. Notified nursing and care mgt progress in mobility and able to restart tube feeding and monitor worker off portable. Gait Assessment Gait Gait Assistance Required: Moderate Assistance,1 Person Assist Distance (Feet) 60 Able to Maintain Weight Bearing Status Yes During Gait Assistive Devices Assistive Device Gait Belt,Small Based Quad Cane Orthotic/Prosthetic Devices or Brace: No Gait Deviations General Gait Pattern Antalgic,Decreased Stride Length,Decreased Feet Clearance,Lateral Trunk Lean, Narrow Based Gait,Step-to Gait Factors Limiting Gait Function Factors Limiting Gait Function Decreased Activity Tolerance, Decreased Strength, Incoordination,Poor Balance, Poor Safety Awareness Comments Gait Comments see mobility comments. Stair Climbing Assessment Comments Stair Climbing Comments Not assessed. PT-Balance Assessment Sitting Balance and Reactions Static Sitting Balance Ability Good Dynamic Sitting Balance Ability Fair Standing Balance and Reactions Static Standing Balance Ability Poor Dynamic Standing Balance Ability Poor Device Used SBQC Functional Assessments Functional Tests 5 Times Sit to Stand 5 x STS from EOB Min A M5 PT-IP Objective Assessments Start: 12/02/20 09:02 Freq: NEEDED Status: Active Protocol: Document 12/02/20 11:24 AW (Rec: 12/02/20 12:53 AW [id number]) Orientation Orientation/Cognition Level of Alertness Alert Orientation Name,Month,Place,Situation Language Function Ability Garbled Speech Comments Unable to assess safety awareness or memory at this encounter. Speech is garbled but content is appropriate and pt is able to communicate his needs. Gross Range of Motion Lower Extremity ROM Assessment Within Functional Limits Strength Lower Extremity Strength Assessment Bilaterally Impaired Hip R 4/5; L 4-/5 Knee R 4/5; L 4-/5 Ankle R 4+/5; L 4-/5 Comments Strength Comments LLE globally 1/2 grade less than RLE except ankle one whole grade less. Coordination Assessment Assessment Coordination Comments Not tested. Deferred to PM session. Sensation Assessment Sensation Gross Sensation Left UE Impaired,Left LE Impaired Light Touch Absent Proprioception (Position) Impaired Sensation Description Numbness Comments Sensation Comments Pt discerns no light touch on his left side. Deep pressure mildly discernable in distal LLE. Temperature sensation not discernable on left side. Other Assessments Other Other Assessments LUE has some activation with AAROM. Not flaccid on evaluation but with extremely low tone. M6 PT-IP Treatment Start: 12/02/20 09:02 Freq: NEEDED Status: Active Protocol: Document 12/03/20 15:55 SP (Rec: 12/03/20 19:15 SP [id number]) Physical Therapy Treatment Exercises Exercises Shoulder Flexion Education Education Provided Precautions,Safety Other Treatments Other Treatment Performed Educated pt LUE in particicular for joint protection. Pt assists LUE with RUE when needed, needs support VIEJAS at times during transfers. Pt has increased feeling sensation to LUE this tx and able to lift to approx 45 deg shld flexion. M7 PT-IP Assessment and Plan Start: 12/02/20 09:02 Freq: NEEDED Status: Active Protocol: Document 12/03/20 15:55 SP (Rec: 12/03/20 19:15 SP [id number]) PT Summary Assessment and Plan Potential Rehabilitation Potential Good Status of Condition at Evaluation Evolving Summary Impairments Strength,Balance,Coordination, Sensation,Tone,Bed Mobility, Transfers,Gait,Activity Tolerance Progress Towards Goals Progressing Toward Goals,Slow Progress due to Activity Tolerance Assessment Summary Pt required Min- Mod A x1 using SBQC, small sling handle attached to gait belt for LUE support in standing assist improved upright trunk posture this tx. Gait 60 ft 2 laps in room using sBQC 3 pts gait Mod A x1. Pt improved using LUE to push from seated position with VIEJAS support for hand placement. Pt would be good candidate for acute rehab , very motivated to mobilize. Goals Bed Mobility Goal Standby Assistance Transfer Goal Contact Guard Assistance Gait Goal Contact Guard Assistance,[place] Walker Gait Distance 75 Other Goals - improve ambulation to 75 feet with LRAD or no AD Days to Meet Goals 10 Frequency of Treatment Frequency Of Treatment Twice a Day Treatment Plan Physical Therapy Treatment Plan Bed Mobility Training,Transfer Training,Gait Training, Therapeutic Exercise,Balance Retraining,Discharge Planning, Neuromuscular Re-ed, Coordination Retraining Other Recommendations and Next Treatment bed mobility, transfers, gait Focus w/ SBQC 3pt gait> 2 pt gait. Precautions Other Precautions falls Recommendations To Nursing Amount of Assist Needed 1 Person Assist Discharge Recommendations PT Discharge Recommendations Acute Rehab,SNF vs Acute Rehab Equipment Needed for Home Before defer to rehab setting Discharge Transportation Needs at Discharge Wheelchair/Cabulance
[2020-12-03 16:30] VITALS: BP 122/82; PULSE 93; RESP 20; TEMP 36.6; O2SAT 99
--- NOTE | 2020-12-03 16:37 | ST.IPDYTX ---
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 Dysphagia Treatment Start: 12/02/20 09:50 Freq: Status: Active Protocol: Document 12/03/20 12:21 ZS (Rec: 12/03/20 12:40 ZS [id number]) Dysphagia Treatment Session Time Visit Start Time 11:35 Visit Stop Time 12:05 Total Visit Minutes 30 Visit Information Visit Number 1 Setting Assessment Location Acute Care Visit Type Note Type Treatment Note Next Note Type Next Note Type Treatment Note Patient Information Identification Type Name,ID Wristband Treatment Oral Strategies Upright at 90 degrees, Toothette,Other Additional Dysphagia Treatment Use of cold glycerin swab on Strategies back of tongue to prompt volitional swallow. Treatment Activities Completed oral mechanism exam to assess for any improvements since initial evaluation yesterday. Az demonstrated difficulty isolating his tongue movement when moving his tongue laterally and had low strength on the right. He was unable to direct tongue movement to a specific location on the left. Az demonstrated moderately reduced tongue elevation. Strength of jaw appeared within functional limits, though he was unable to isolate jaw movement when moving his jaw laterally, instead he moved his whole head from left to right. Az was unable to maintain lip closure when asked to hold air in his cheeks, though was able to hold a lip seal without air for a sustained period. Velum elevation was within functional limits. Overall, Az demonstrated increased strength and ROM since yesterday's assessment and his speech was clearer. Az reported more energy, limited sensation in his left arm, and an increased ability to move his left arm. Following assessment, clinician trialed glycerin swab for volitional swallow practice to increase ability to manage secretions. Az demonstrated increased laryngeal elevation and swallowed volitionally in 1/5 trials. Provided instruction on lip closure (to aid in secretion management) activity to practice and discussed options following discharge ( inpatient rehab vs. residential facility) with family. Assessment Patient Response to Treatment Fair Rehab Potential Fair Diet Recommendations Recommendations Continue Current Diet Liquids Order Nothing by Mouth Diet Order NPO Medication Recommendations Not Recommended by Mouth Treatment Plan Placement Recommendation after Discharge Correction Facility, Inpatient Rehab Facility Appropriate for Continued Therapy Yes Therapy Recommendations Target oral motor strength for purposes of speech and swallowing, specifically, volitional swallow and lip closure for secretion management, tongue strength and ROM for posterior lingual propulsion (moving food from the front of his mouth to the back for swallowing). Dysphagia Goals 1. Az will demonstrate a volitional swallow when prompted and provided with pressure from a cold glycerin or toothette on the back of his tongue. 2. Az will maintain lip closure for secretion management independent of clinician support.
[2020-12-03 20:59] VITALS: BP 116/81; PULSE 94; RESP 21; TEMP 36.3; O2SAT 98
[2020-12-03] MEDS: ATORVASTATIN 20 MG TABLET 80 MG PO (20:59)
--- NOTE | 2020-12-03 22:25 | PC.NURSE ---
Addendum entered by Maria E Arce R.N. 12/03/20 23:18: tube feed back to 65cc/hr. Original Note: 2200: increased pt's tube feed from 65cc/hr to 80cc/hr. residual was 30cc. HOB 35 degrees.
[2020-12-04 00:18] VITALS: BP 116/81; PULSE 88; RESP 20; TEMP 36.8; O2SAT 97
[2020-12-04 04:20] VITALS: BP 121/84; PULSE 90; RESP 22; TEMP 36.9; O2SAT 92
[2020-12-04 05:20] LABS: Add Manual Diff / Slide Review NO; Basophils Absolute Auto 0 /uL (0-100); Basophils Percent Auto 0.1 % (0-2); Eosinophils Absolute Auto 200 /uL (0-450); Eosinophils Percent Auto 3.2 % (2-4); Hematocrit 28.7 % (41-53); Lymphocytes Absolute Auto 1600 /uL (1100-4500); Lymphocytes Percent Auto 21.4 % (25-40); Mean Corpuscular HGB Conc 31.2 % (30-36); Mean Corpuscular Hemoglobin 24.1 PG (26-34); Mean Corpuscular Volume 77.3 fL (80-100); Monocytes Absolute Auto 700 /uL (0-900); Monocytes Percent Auto 9.1 % (3-14); Neutrophils Absolute Auto 4900 /uL (1500-7000); Neutrophils Percent Auto 66.2 % (50-75); Platelet Count 337 X10^3/uL (150-400); Red Blood Cell Count 3.71 X10^6/uL (4.5-5.9); Red Cell Distribution Width 19.8 % (11.6-14.8); White Blood Cell Count 7.3 X10^3/uL (4.5-11.0)
[2020-12-04 05:26] LABS: BUN Creatinine Ratio 21.4 (6-22); Blood Urea Nitrogen 12 mg/dL (9-20); Carbon Dioxide 25 mmol/L (22-32); Chloride 108 mmol/L (98-107); Estimated Glomerular Filt Rate > 60.0 mL/min (>60); Glucose 142 mg/dL (80-110); HEMOLYSIS < 15 (0-50); Magnesium 2.1 mg/dL (1.6-2.3); Potassium 3.7 mmol/L (3.4-5.1); Sodium 136 mmol/L (137-145)
[2020-12-04 05:27] LABS: Alanine Aminotransferase 12 IU/L (<50); Albumin 3.2 g/dL (3.5-5.0); Albumin Globulin Ratio 1.1 (1.0-2.8); Alkaline Phosphatase 58 U/L (38-126); Aspartate Aminotransferase 25 IU/L (17-59); Bilirubin Total 0.2 mg/dL (0.2-1.3); Bilirubin Unconjugated 0.2 mg/dL (0.0-1.1); Globulin 2.8 g/dL (1.7-4.1); HEMOLYSIS < 15 (0-50)
[2020-12-04 08:00] VITALS: BP 117/73; PULSE 90; RESP 22; TEMP 36.2; O2SAT 98
--- NOTE | 2020-12-04 09:01 | PT.IPTN ---
Current Diagnoses Cerebral infarction, unspecified (12/02/20) Physical Therapy Treatment Note M2 PT-IP Current Condition Start: 12/02/20 09:02 Freq: NEEDED Status: Active Protocol: Document 12/02/20 11:24 AW (Rec: 12/02/20 12:36 AW [id number]) Physical Therapy Current Condition Current Condition Evaluation Date 12/02/20 Treatment Diagnosis R frontal and cerebellar CVA; impaired mobility and gait Onset Date 12/01/20 Precautions Other Precautions falls M3 PT-IP Subjective Start: 12/02/20 09:02 Freq: NEEDED Status: Active Protocol: Document 12/04/20 08:37 SP (Rec: 12/04/20 12:16 SP [id number]) Subjective Physical Therapy Visit Type Type Treatment Note Visit Start Time 08:37 Visit Stop Time 09:01 Total Visit Minutes 24 Notes vitals taken: seated EOB: BP 126/90, HR 103 bpm, SaO2 96% on RA Number of PEACE OFFICER Visits 3 Physical Therapy Visit Comments Patient Comments Pt is willing to work with PEACE OFFICER . Patient Goals Improve mobility to get around better. Therapy Pain Assessment Pain When Pain Assessed During Mobility Pain Present Pain Present Denied Pain M4 PT-IP Mobility and Gait Start: 12/02/20 09:02 Freq: NEEDED Status: Active Protocol: Document 12/04/20 08:37 SP (Rec: 12/04/20 12:16 SP [id number]) PT-Bed Mobility Assessment Supine to Sit Supine to Sit Contact Guard Assistance,1 Person Assistance,Head of Bed Elevated,Bedrails Scooting Scooting to Edge of Bed Contact Guard Assistance PT-Transfer Assessment Sit to and From Stand Sit to and from Stand Minimal Assistance,1 Person Assistance,Use of Upper Extremities Equipment Transfer Assistive Device Gait Belt,Small Based Quad Cane Orthotic/Prosthetic Devices or Brace: No Transfers Transfer Destination Chair Transfer Technique pt ambulated using SBQC Transfer Ability Level of Assist Minimal Assistance,1 Person Assistance,Use of Upper Extremities Comments Mobility Comments Nursing capped of peg tube feeding and changed pt to portable cardiac catheterization technician for mobility. Elevated supine (20 deg)>sitting CGA with RUE onbed rail and LLE contact - Min A for WB feedback and self mobility. Scoot to EOB CGA using BUE, LUE [place] contact on bed. Pt ableto sit at EOB unsupported, cued tall posture . Sit>stand Min A cued for pushing from bed BUE, suport for LLE placement and postioning and trunk stability then contued ambulation 3<>2 pt gait using SBQC bed to bathroom 10 ft with occasional cues for patterning, pivot infront toilet Min A for trunk stability, CG- Min A for stability and Min A for undergarment mgt while pt used RUE self mgt, Min A for slow descent to toilet use of RUE on toilet. Pt stable trunk on toilet no UE support. PEACE OFFICER positioned BSC arm rest at side R side toilet for safety grab bar assimulation. Pt was able to urinate and self pericare in sitting, Sit> stand pt usuing RUE on BSC arm rest to stand then Mod A for undergarment assist while providing Min Afor balance. Pt progressed gait 2-3 pt gait to sink 15 ft CG- Min A for balance support, cued tall posture. Pt able to stand at sink CG- Min A x1 while pt washed R hand, assist as needed to dry hand, WBOS stance. Pt walked 2 laps across/ back in room 60 ft using SBQC 2-3pt gait CG- Min A for balance support. Pt returned to chair Min Afor slow descent and [place] support to LUE for placement/ maintain positioning. Pt states has even more feeling in LUE and able to lift hand closer to mouth, lacking wrist extension. Pt had L hand in sling handle for support during gait with wrist in neutral. Pt had call light and all needs in reach seated in chair, reclined and donned chair alarm before left. Pt's and daughter arrived as PEACE OFFICER was leaving, gave them verbal progression performed during tx. Gait Assessment Gait Gait Assistance Required: Moderate Assistance,1 Person Assist Distance (Feet) 60 Able to Maintain Weight Bearing Status Yes During Gait Assistive Devices Assistive Device Gait Belt,Small Based Quad Cane Orthotic/Prosthetic Devices or Brace: No Gait Deviations General Gait Pattern Antalgic,Decreased Stride Length,Decreased Feet Clearance,Lateral Trunk Lean, Narrow Based Gait,Step-to Gait Factors Limiting Gait Function Factors Limiting Gait Function Decreased Activity Tolerance, Decreased Strength, Incoordination,Poor Balance, Poor Safety Awareness Comments Gait Comments See mobilitiy comments Stair Climbing Assessment Comments Stair Climbing Comments Not assessed. PT-Balance Assessment Sitting Balance and Reactions Static Sitting Balance Ability Good Dynamic Sitting Balance Ability Fair Standing Balance and Reactions Static Standing Balance Ability Fair Dynamic Standing Balance Ability Poor Device Used SBQC M5 PT-IP Objective Assessments Start: 12/02/20 09:02 Freq: NEEDED Status: Active Protocol: Document 12/02/20 11:24 AW (Rec: 12/02/20 12:53 AW [id number]) Orientation Orientation/Cognition Level of Alertness Alert Orientation Name,Month,Place,Situation Language Function Ability Garbled Speech Comments Unable to assess safety awareness or memory at this encounter. Speech is garbled but content is appropriate and pt is able to communicate his needs. Gross Range of Motion Lower Extremity ROM Assessment Within Functional Limits Strength Lower Extremity Strength Assessment Bilaterally Impaired Hip R 4/5; L 4-/5 Knee R 4/5; L 4-/5 Ankle R 4+/5; L 4-/5 Comments Strength Comments LLE globally 1/2 grade less than RLE except ankle one whole grade less. Coordination Assessment Assessment Coordination Comments Not tested. Deferred to PM session. Sensation Assessment Sensation Gross Sensation Left UE Impaired,Left LE Impaired Light Touch Absent Proprioception (Position) Impaired Sensation Description Numbness Comments Sensation Comments Pt discerns no light touch on his left side. Deep pressure mildly discernable in distal LLE. Temperature sensation not discernable on left side. Other Assessments Other Other Assessments LUE has some activation with AAROM. Not flaccid on evaluation but with extremely low tone. M6 PT-IP Treatment Start: 12/02/20 09:02 Freq: NEEDED Status: Active Protocol: Document 12/04/20 08:37 SP (Rec: 12/04/20 12:16 SP [id number]) Physical Therapy Treatment Education Education Provided Precautions,Safety M7 PT-IP Assessment and Plan Start: 12/02/20 09:02 Freq: NEEDED Status: Active Protocol: Document 12/04/20 08:37 SP (Rec: 12/04/20 12:16 SP [id number]) PT Summary Assessment and Plan Potential Rehabilitation Potential Good Status of Condition at Evaluation Evolving Summary Impairments Strength,Balance,Coordination, Sensation,Tone,Bed Mobility, Transfers,Gait,Activity Tolerance Progress Towards Goals Progressing Toward Goals,Slow Progress due to Activity Tolerance Assessment Summary Pt requires CGA during bed mob using bed rail, transfers Min A, gait CG- Min using SBQC 2- 3 pt gait with sling handle attached to gait belt for L UE alignment and scapular muscular alignment feedback facilitaiton. Continuing to recommend Pt would be good candidate for acute rehab, very motivated to mobilize. Goals Bed Mobility Goal Standby Assistance Transfer Goal Contact Guard Assistance Gait Goal Contact Guard Assistance,[place] Walker Gait Distance 75 Other Goals - improve ambulation to 75 feet with LRAD or no AD Days to Meet Goals 10 Frequency of Treatment Frequency Of Treatment Twice a Day Treatment Plan Physical Therapy Treatment Plan Bed Mobility Training,Transfer Training,Gait Training, Therapeutic Exercise,Balance Retraining,Discharge Planning, Neuromuscular Re-ed, Coordination Retraining Other Recommendations and Next Treatment transfers, gait w/ SBQC 3pt Focus gait> 2 pt gait. Balance activitites Precautions Other Precautions falls Recommendations To Nursing Amount of Assist Needed 1 Person Assist Discharge Recommendations PT Discharge Recommendations Acute Rehab,SNF vs Acute Rehab Equipment Needed for Home Before defer to rehab setting Discharge Transportation Needs at Discharge Wheelchair/Cabulance
--- NOTE | 2020-12-04 09:29 | ST.IPDYTX ---
Visit Care Team Role Provider Type Az Salazar PA-C Primary Care Provider Non-Staff Specialty: Medical Address: [address] [place] [address], [id number] Email: Az Moran MD Emergency Provider Physician Specialty: Emergency Medicine Address: [address] [place] [address], [address] Email: [email or web address] Saleh Admit Provider Physician Attending Provider Specialty: Internal Medicine Address: [address] [place] [address], [id number] Email: [email or web address] HELPER Dysphagia Treatment HAMMERSMITH HELPER Dysphagia Treatment Start: 12/02/20 09:50 Freq: Status: Active Protocol: Document 12/04/20 09:26 ZS (Rec: 12/04/20 09:29 ZS [id number]) Dysphagia Treatment Session Time Visit Start Time 09:00 Visit Stop Time 09:15 Total Visit Minutes 15 Visit Information Visit Number 2 Setting Assessment Location Acute Care Visit Type Note Type Treatment Note Next Note Type Next Note Type Treatment Note Patient Information Identification Type Name,ID Wristband Treatment Oral Strategies Upright at 90 degrees, Toothette Treatment Activities Practiced base of tongue exercise for home program. Az achieved good base of tongue elevation and was able to hold the position. Check-in regarding improvements and progress/questions about home program. Az reported doing his lip closure exercises and stated it is easy for him. He reported more sensation in his left arm, but he is still unable to move his fingers. Assessment Patient Response to Treatment Fair Rehab Potential Fair Diet Recommendations Recommendations Continue Current Diet Liquids Order Nothing by Mouth Diet Order NPO Medication Recommendations Not Recommended by Mouth Treatment Plan Placement Recommendation after Discharge Long Term Facility, Inpatient Rehab Facility Appropriate for Continued Therapy Yes Therapy Recommendations Target oral motor strength for purposes of speech and swallowing, specifically, volitional swallow and lip closure for secretion management, tongue strength and ROM for posterior lingual propulsion (moving food from the front of his mouth to the back for swallowing). Dysphagia Goals 1. Az will demonstrate a volitional swallow when prompted and provided with pressure from a cold glycerin or toothette on the back of his tongue. 2. Az will maintain lip closure for secretion management independent of clinician support.
[2020-12-04] MEDS: lisinopriL 5 MG TABLET PO (10:09)
[2020-12-04] MEDS: predniSONE 5 MG TABLET 10 MG PO (10:10)
[2020-12-04] MEDS: LEVOTHYROXINE 25 MCG TABLET PO (10:10)
[2020-12-04] MEDS: carvediloL 3.125 MG TABLET PO ×2 (10:11→20:14)
[2020-12-04] MEDS: ENOXAPARIN 40 MG/0.4 ML SYRINGE SUBCUT (10:11)
--- NOTE | 2020-12-04 11:43 | OT.IP.TRT ---
Current Diagnoses Cerebral infarction, unspecified (12/02/20) Occupational Therapy Treatment Note M2 OT-IP Current Condition Start: 12/02/20 14:27 Freq: Status: Active Protocol: Document 12/02/20 11:00 [facility] (Rec: 12/02/20 14:49 [facility] [id number]) Occupational Therapy Current Condition Current Condition Evaluation Date 12/02/20 Treatment Diagnosis CVA, decreased mobility and coordination Diagnosis Onset Date 12/02/20 M3 OT- IP Subjective and Pain Start: 12/02/20 14:27 Freq: Status: Active Protocol: Document 12/04/20 12:23 [facility] (Rec: 12/04/20 12:37 [facility] [id number]) OT- Subjective Occupational Therapy Visit Type Visit Start Time 11:43 Visit Stop Time 12:22 Total Visit Minutes 39 Occupational Therapy Visit Comments Patient Comments Pt agreed to get up for OT treatment. Patient/Caregiver Goals Pt would like to go home but realizes would be best to go to rehab initially. OT Pain Assessment Pain When Pain Assessed At Rest Pain Present Pain Present Denied Pain M4 OT- IP ADL's Start: 12/02/20 14:27 Freq: Status: Active Protocol: Document 12/04/20 12:23 [facility] (Rec: 12/04/20 12:37 [facility] [id number]) OT [id number] Comments OT Self-Feeding Comments Pt is strict NPO at this time. Pt has a left facial droop. OT ADL-Grooming Comments OT Grooming Comments Pt able to use right hand to assist to wash his right hand with wash cloth and therapist assist for left hand MAX A . M5 OT- IP IADL's Start: 12/02/20 14:27 Freq: Status: Active Protocol: Document 12/02/20 11:00 [facility] (Rec: 12/02/20 14:49 [facility] [id number]) OT-Instrumental Activities of Daily Living Home Safety Awareness Home Safety Comments Prior pt was completely independent for needs however due to his CVA and now decreased balance, coordination, and now NPO, pt would benefit from assist from his . M6 OT- IP Functional Cognition Start: 12/02/20 14:27 Freq: Status: Active Protocol: Document 12/03/20 13:13 [facility] (Rec: 12/03/20 13:24 [facility] [id number]) Cognitive Factors Limiting Selfcare Function Cognitive Comments Cognitive Assessment Comments Pt appears intact. OT- Vision and Hearing OT- Vision Assessment Visual Attentiveness WFL Occular Pursuits WFL Visual Convergence WFL Visual Morris WFL M7 OT- IP Mobility and Balance Start: 12/02/20 14:27 Freq: Status: Active Protocol: Document 12/04/20 12:23 [facility] (Rec: 12/04/20 12:37 [facility] [id number]) OT- Bed Mobility Assessment Rolling Level of Assistance Head of Bed Elevated Supine to Sit Supine to Sit Assist Minimal Assistance OT-Transfer Assessment Sit to and From Stand Sit to and from Stand Moderate Assistance,1 Person Assistance Transfers Transfer Ability Moderate Assistance,1 Person Assistance Technique Transfer Destination Bed,Chair Transfer Technique Stand Step Pivot Devices Transfer Assistive Devices Gait Belt,Small Based Quad Cane Comments Mobility Comments Pt able to move left arm into shoulder extension and needing assist to put his left palm down on the bed as initially weight on his left wrist and hand flexed over. Once his left hand placed and supported able to assist to get up with his LUE to sitting. YANNICK to help hold LUE and able to come to stand with CGA/YANNICK. Pt tends to slightly rotate his left hip back and drop his left shoulder while standing. Worked on sit to stands with incorporation of LUE on the armrest of the recliner, in addition worked on weight shifting /weight bearing from side to side while half squatting with weight on his arms on the recliner armrest. OT- Gait Assessment Comments Gait Ability Comments MODA with hemiwalker and to help use Left hand sling to keep his left arm from hanging down. OT- Balance Assessment Sitting Balance and Reactions Static Sitting Balance Ability Good Dynamic Sitting Balance Ability Fair Standing Balance and Reactions Static Standing Balance Ability Poor Comments Other Balance Tests/Deviations/Treatment Pt tends to hand his left : shoulder down and able to retract and elevate his left shoulder so that his LUE does not hang down. However when use of hemiwalker hard for pt to maintain good posture of his shoulder and ends up needing more assist for his walking. M8 OT- IP Objective Assessments Start: 12/02/20 14:27 Freq: Status: Active Protocol: Document 12/04/20 12:23 [facility] (Rec: 12/04/20 12:37 [facility] [id number]) OT Gross Range of Motion Upper Extremity Range of Motion Assessment Left Impaired OT Strength Upper Extremity Strength Assessment Left Impaired Shoulder 3- Elbow 2+ Forearm 2 Wrist 0 Hand 0 OT Sensation Assessment Comments Summary Comments Pt now has sensation throughout his LUE. M9 OT- IP Assessment and Plan Start: 12/02/20 14:27 Freq: Status: Active Protocol: Document 12/04/20 12:23 [facility] (Rec: 12/04/20 12:37 [facility] [id number]) OT Summary Assessment and Plan Potential Rehabilitation Potential Good Analytic Complexity at Evaluation High Summary OT Impairments Range of Motion,Balance, Coordination,Sensation,Tone, Functional Mobility,Self- Feeding,Grooming,Dressing, Toileting,Bathing,Toilet Transfers,Shower Transfers, Activity Tolerance Progress Towards Goals Progressing Toward Goals Assessment Summary Pt now has sensation throughout his LUE at this time. Pt while standing with quad cane able to keep his left shoulder from hanging while indu his left shoulder muscles. Pt very motivated to get better. Goals Self-Feeding Goal Independent Grooming Goal Independent Dressing Goal Independent Toileting Goal Independent Bathing Goal Independent Toilet Transfer Goal Independent Shower Transfer Goal Independent Days to Meet Goals 27 Frequency of Treatment Frequency Of Treatment Twice a Day Treatment Plan OT Treatment Plan ADL Training,Functional Cognition Training,Functional Mobility,Neuromuscular Re- education,Patient/Family Education,Discharge Planning Discharge Recommendations OT Discharge Recommendations Acute Rehab Transportation Needs at Discharge Private Vehicle
[2020-12-04 12:00] VITALS: BP 126/90; PULSE 68; RESP 15; O2SAT 99
[2020-12-04] MEDS: SODIUM CHLORIDE 0.9% FLUSH 10 ML IV ×2 (12:37→20:15)
--- NOTE | 2020-12-04 13:26 | PC.NURSE ---
report received from RHONDA Cowart. Patient transported from room 26 to room 9 with belongings and family members. Continuous tube feedings in place, suction in room. Pt and family oriented to the room. Call light and chair alarm in place.
--- NOTE | 2020-12-04 15:37 | PT.IPTN ---
Current Diagnoses Cerebral infarction, unspecified (12/02/20) Physical Therapy Treatment Note M2 PT-IP Current Condition Start: 12/02/20 09:02 Freq: NEEDED Status: Active Protocol: Document 12/02/20 11:24 AW (Rec: 12/02/20 12:36 AW [id number]) Physical Therapy Current Condition Current Condition Evaluation Date 12/02/20 Treatment Diagnosis R frontal and cerebellar CVA; impaired mobility and gait Onset Date 12/01/20 Precautions Other Precautions falls M3 PT-IP Subjective Start: 12/02/20 09:02 Freq: NEEDED Status: Active Protocol: Document 12/04/20 15:07 SP (Rec: 12/04/20 16:31 SP [id number]) Subjective Physical Therapy Visit Type Type Treatment Note Visit Start Time 15:07 Visit Stop Time 15:37 Total Visit Minutes 30 Number of [employer] Visits 4 Physical Therapy Visit Comments Patient Comments Pt is willing to work with [employer] . Patient Goals Pt states would like to go home but realizes he is making gains with therapy and willing to go to rehab facility to get around better before returning home. Therapy Pain Assessment Pain When Pain Assessed At Rest Pain Present Pain Present Denied Pain M4 PT-IP Mobility and Gait Start: 12/02/20 09:02 Freq: NEEDED Status: Active Protocol: Document 12/04/20 15:07 SP (Rec: 12/04/20 16:31 SP [id number]) PT-Bed Mobility Assessment Supine to Sit Supine to Sit Contact Guard Assistance, Minimal Assistance,1 Person Assistance,Head of Bed Elevated,Bedrails Scooting Scooting to Edge of Bed Contact Guard Assistance PT-Transfer Assessment Sit to and From Stand Sit to and from Stand Minimal Assistance,Moderate Assistance,1 Person Assistance ,Use of Upper Extremities Equipment Transfer Assistive Device Gait Belt,Small Based Quad Cane Orthotic/Prosthetic Devices or Brace: No Transfers Transfer Destination Bed Transfer Technique pt ambulated using SBQC Transfer Ability Level of Assist Moderate Assistance,1 Person Assistance Comments Mobility Comments Nursing capped peg tube feeding, pt on portable bus monitor, when tx ended communicated with nursing for restarting tube feeding. [employer] instructed BLE warm up exercises pre mobility, AROM BLE. Elevated supine>sitting and scoot to R (past tx's to L ) use of bed rail CGA for trunk righting w/ Min A for LUE hand/ wrist stability into extension w/palm flat to allow WB without wrist roll into flexion. [employer] donned gait belt over navel level and max A to position L UE into hand sling handle knot over dorsal wrist lateral L iliac crest to allow scapular stabilization and WB feedback for trunk posture with gait. Sit<>stand with LUE [place] positional support to push from bed to stand, cued RUE reminders push from bed then transition to SBQC Min A. [employer] assessed stationary standing balance at EOB: NBOS, modified stagger stance EO/ EC pt sways CG- 5%A for recovery RUE hover over QC. Pt ambulated around end of bed into hallway, masked donned, noted increase breath rate but stated felt ok. Intermittent cues for tall posture, QC, LLE, RLE for 3pt gait Min A, he tries perform 2 pt gait with noted increased support Mod A x1 approx same 60 ft but able to get out into hallway. Pt returned to R side bed, cues for spacial awareness sitting toward HOB then reaching back CG A with Min A for L wrist extension palm flat to support trunk balance descent. Sit>Supine with CGA and noted ability to reposition LUE into wrist extension WB reaching back for scooting mobility. Pt had call light and all needs in reach before left, bed alarmed . Gait Assessment Gait Gait Assistance Required: Moderate Assistance,1 Person Assist Distance (Feet) 60 Able to Maintain Weight Bearing Status Yes During Gait Assistive Devices Assistive Device Gait Belt,Small Based Quad Cane Orthotic/Prosthetic Devices or Brace: No Gait Deviations General Gait Pattern Antalgic,Decreased Stride Length,Decreased Feet Clearance,Lateral Trunk Lean, Narrow Based Gait,Step-to Gait Factors Limiting Gait Function Factors Limiting Gait Function Decreased Activity Tolerance, Decreased Strength, Incoordination,Poor Balance, Poor Safety Awareness, Respiratory Distress Comments Gait Comments See mobility comments PT-Balance Assessment Sitting Balance and Reactions Static Sitting Balance Ability Good Dynamic Sitting Balance Ability Fair Standing Balance and Reactions Static Standing Balance Ability Fair Dynamic Standing Balance Ability Poor Device Used SBQC Functional Assessments Other Functional Tests Performed standing balance: NBOS w/ head turns/ vertical EO CGA no LOB, EC 30 CGA minor sways but self recovery, stagger each foot positioning head turns EO , EC 30 sways but self recovery. M5 PT-IP Objective Assessments Start: 12/02/20 09:02 Freq: NEEDED Status: Active Protocol: Document 12/02/20 11:24 AW (Rec: 12/02/20 12:53 AW [id number]) Orientation Orientation/Cognition Level of Alertness Alert Orientation Name,Month,Place,Situation Language Function Ability Garbled Speech Comments Unable to assess safety awareness or memory at this encounter. Speech is garbled but content is appropriate and pt is able to communicate his needs. Gross Range of Motion Lower Extremity ROM Assessment Within Functional Limits Strength Lower Extremity Strength Assessment Bilaterally Impaired Hip R 4/5; L 4-/5 Knee R 4/5; L 4-/5 Ankle R 4+/5; L 4-/5 Comments Strength Comments LLE globally 1/2 grade less than RLE except ankle one whole grade less. Coordination Assessment Assessment Coordination Comments Not tested. Deferred to PM session. Sensation Assessment Sensation Gross Sensation Left UE Impaired,Left LE Impaired Light Touch Absent Proprioception (Position) Impaired Sensation Description Numbness Comments Sensation Comments Pt discerns no light touch on his left side. Deep pressure mildly discernable in distal LLE. Temperature sensation not discernable on left side. Other Assessments Other Other Assessments LUE has some activation with AAROM. Not flaccid on evaluation but with extremely low tone. M6 PT-IP Treatment Start: 12/02/20 09:02 Freq: NEEDED Status: Active Protocol: Document 12/04/20 15:07 SP (Rec: 12/04/20 16:31 SP [id number]) Physical Therapy Treatment Exercises Exercises Ankle Pumps,Heel Slides, Straight Leg Raises,Supine Hip Abduction,Seated Knee Flexion /Extension Knee ROM Measurement 100 deg knee flexion pre mobility Education Education Provided Precautions,Safety Other Treatments Other Treatment Performed Education on LUE hand positioning and scapular alignment to allow trunk balance support during transfers and gait. M7 PT-IP Assessment and Plan Start: 12/02/20 09:02 Freq: NEEDED Status: Active Protocol: Document 12/04/20 15:07 SP (Rec: 12/04/20 16:31 SP [id number]) PT Summary Assessment and Plan Potential Rehabilitation Potential Good Status of Condition at Evaluation Evolving Summary Impairments Strength,Balance,Coordination, Sensation,Tone,Bed Mobility, Transfers,Gait,Activity Tolerance Progress Towards Goals Progressing Toward Goals,Slow Progress due to Activity Tolerance Assessment Summary Pt requires CGA for trunk stabilitiy and Min assist for L hand positioning to assist mobility during bed mob while RUE uses bed rail, sit<>stand [place] and gait Min - Mod A using SBQC 2 pt >3 pt gait as distance progressed. Continuing to recommend pt would be good candidate for acute rehab, very motivated to mobilize. Goals Bed Mobility Goal Standby Assistance Transfer Goal Contact Guard Assistance Gait Goal Contact Guard Assistance,[place] Walker Gait Distance 75 Other Goals - improve ambulation to 75 feet with LRAD or no AD Days to Meet Goals 10 Frequency of Treatment Frequency Of Treatment Twice a Day Treatment Plan Physical Therapy Treatment Plan Bed Mobility Training,Transfer Training,Gait Training, Therapeutic Exercise,Balance Retraining,Discharge Planning, Neuromuscular Re-ed, Coordination Retraining Other Recommendations and Next Treatment transfers, gait w/ SBQC 3pt Focus gait> 2 pt gait. Balance activitites Precautions Other Precautions falls Recommendations To Nursing Amount of Assist Needed 1 Person Assist Discharge Recommendations PT Discharge Recommendations Acute Rehab Equipment Needed for Home Before defer to rehab setting Discharge Transportation Needs at Discharge Wheelchair/Cabulance
--- NOTE | 2020-12-04 15:54 | CM.DPNOTE ---
Addendum entered by JUAN DIEGO Mercer 12/05/20 09:42: According to Andreas at [facility]; they cannot accept this patient w/an NG tube, stating this patient cannot return home on an NG tube so we cannot take this patient. We can accept w/PEG Original Note: DCP Note Reviewed chart. Dr Knapp requesting DCP efforts be on securing acute rehab that can manage patient's NG Tube, according to Dr Knapp's prog note 8.25.21: 3. gastric cancer with metastases to liver. - pending records from oncology ([facility], Dr. Figueroa) - may interfere with need for PEG placement. Surgery requests records prior to consideration of PEG. - has completed 2 rounds of chemotherapy per patient. Spoke w/Gayle at [facility]; she explained patient will need to improve functionally for their staff to be able to accommodate- faxed updated YARD ATTENDANT note. In addition, Gayle needs additional information re: plan for chemo. [facility] to consider management of NG tube, Gayle suggests they usually only manage PEGs Sent referral to [facility] as well, Andreas at [facility] now reviewing, also concerned about management of NG tube. Discussed referral w/September at [facility]; they will not be able to manage the NG tube, can manage a PEG not an NG Updated Dr Knapp and continue to follow closely for DC planning JW
--- NOTE | 2020-12-04 16:12 | ST.IPDYTX ---
Visit Care Team Role Provider Type Az Salazar PA-C Primary Care Provider Non-Staff Specialty: Medical Address: [address] [place] [address], [id number] Email: Az Moran MD Emergency Provider Physician Specialty: Emergency Medicine Address: [address] [place] [address], [id number] Email: [email or web address] Saleh Admit Provider Physician Attending Provider Specialty: Internal Medicine Address: [address] [place] [address], [id number] Email: [email or web address] Dysphagia Treatment [employer] Dys[facility]agia Treatment Start: 12/02/20 09:50 Freq: Status: Active Protocol: Document 12/04/20 16:09 JARRETT (Rec: 12/04/20 16:12 ZS [id number]) Dysphagia Treatment Session Time Visit Start Time 16:40 Visit Stop Time 17:00 Total Visit Minutes 20 Visit Information Visit Number 3 Setting Assessment Location Acute Care Visit Type Note Type Treatment Note Next Note Type Next Note Type Treatment Note Patient Information Identification Type Name,ID Wristband Treatment Oral Strategies Toothette Treatment Activities Practiced home practice exercises and had Az complete one set of each with clinician supervision. Az was able to maintain lip closure for 1+ minute across multiple trials. He had difficulty keeping track of how many repetitions he had done, discussed moving objects or making tally rust to help keep track. Az self- corrected his position during base of tongue exercise to open his mouth rather than keeping it closed. Good base of tongue elevation, though Az reports this exercise is more challenging than the lip closure one. Assessment Patient Response to Treatment Fair Rehab Potential Fair Diet Recommendations Recommendations Continue Current Diet Liquids Order Nothing by Mouth Diet Order NPO Medication Recommendations Not Recommended by Mouth Treatment Plan Placement Recommendation after Discharge Group Home Facility, Inpatient Rehab Facility Appropriate for Continued Therapy Yes Therapy Recommendations Target oral motor strength for purposes of speech and swallowing, specifically, volitional swallow and lip closure for secretion management, tongue strength and ROM for posterior lingual propulsion (moving food from the front of his mouth to the back for swallowing). Dysphagia Goals 1. Az will demonstrate a volitional swallow when prompted and provided with pressure from a cold glycerin or toothette on the back of his tongue. 2. Az will maintain lip closure for secretion management independent of clinician support.
[2020-12-04 16:21] VITALS: BP 117/87; PULSE 96; RESP 24; TEMP 36.6; O2SAT 95
--- NOTE | 2020-12-04 16:35 | OT.IP.TRT ---
Current Diagnoses Cerebral infarction, unspecified (12/02/20) Occupational Therapy Treatment Note M2 OT-IP Current Condition Start: 12/02/20 14:27 Freq: Status: Active Protocol: Document 12/02/20 11:00 [facility] (Rec: 12/02/20 14:49 [facility] [id number]) Occupational Therapy Current Condition Current Condition Evaluation Date 12/02/20 Treatment Diagnosis CVA, decreased mobility and coordination Diagnosis Onset Date 12/02/20 M3 OT- IP Subjective and Pain Start: 12/02/20 14:27 Freq: Status: Active Protocol: Document 12/04/20 16:47 [facility] (Rec: 12/04/20 16:56 [facility] [id number]) OT- Subjective Occupational Therapy Visit Type Type Treatment Note Visit Start Time 16:20 Visit Stop Time 16:35 Occupational Therapy Visit Comments Patient Comments Pt willing to do AAROM for his LUE while in bed. Patient/Caregiver Goals Pt would like to go home but realizes would be best to go to rehab initially. OT Pain Assessment Pain When Pain Assessed At Rest Pain Present Pain Present Denied Pain M6 OT- IP Functional Cognition Start: 12/02/20 14:27 Freq: Status: Active Protocol: Document 12/03/20 13:13 [facility] (Rec: 12/03/20 13:24 [facility] [id number]) Cognitive Factors Limiting Selfcare Function Cognitive Comments Cognitive Assessment Comments Pt apprears intact. OT- Vision and Hearing OT- Vision Assessment Visual Attentiveness WFL Occular Pursuits WFL Visual Convergence WFL Visual [place] WFL OT- Gait Assessment Comments Gait Ability Comments MODA with hemiwalker and to help use Left hand sling to keep his left arm from hanging down. OT- Balance Assessment Sitting Balance and Reactions Static Sitting Balance Ability Good Dynamic Sitting Balance Ability Fair Standing Balance and Reactions Static Standing Balance Ability Poor Comments Other Balance Tests/Deviations/Treatment Pt tends to hand his left : shoulder down and able to retract and elevate his left shoulder so that his LUE does not hang down. However when use of hemiwalker hard for pt to maintain good postur of his shoulder and ends up needign more assist for his walking. M8 OT- IP Objective Assessments Start: 12/02/20 14:27 Freq: Status: Active Protocol: Document 12/04/20 16:47 [facility] (Rec: 12/04/20 16:56 [facility] [id number]) OT Gross Range of Motion Upper Extremity Range of Motion Assessment Left Impaired OT Strength Upper Extremity Strength Assessment Left Impaired Shoulder 3- Elbow 2+ Forearm 2 Wrist 0 Hand 0 Comments Strength Comments ABle to work on left AAROM for elbow extension and flexion, shoulder flexion, and movements of shoulder retraction and protraction. Pt having improvement of trying to control his LUE movements. OT- Coordination Assessment Comments Coordination Comments Pt able to do self stretching to his left hand for fingers. M9 OT- IP Assessment and Plan Start: 12/02/20 14:27 Freq: Status: Active Protocol: Document 12/04/20 16:47 [facility] (Rec: 12/04/20 16:56 [facility] [id number]) OT Summary Assessment and Plan Potential Rehabilitation Potential Good Analytic Complexity at Evaluation High Summary OT Impairments Range of Motion,Balance, Coordination,Sensation,Tone, Functional Mobility,Self- Feeding,Grooming,Dressing, Toileting,Bathing,Toilet Transfers,Shower Transfers, Activity Tolerance Progress Towards Goals Progressing Toward Goals Assessment Summary Pt is highly motivated and able to do 2 PT, 2 OT and 2 NUCLEAR CARDIOLOGY TECHNOLOGIST sessions with good toleration and able to recall activities completed. Pt is highly motivated to get better . Pt would benefit from acute rehab his LUE function, swallowing needs, and for dynamic balance to be able to get back to his ultimate goal on getting on a boat and go fishing. Goals Self-Feeding Goal Independent Grooming Goal Independent Dressing Goal Independent Toileting Goal Independent Bathing Goal Independent Toilet Transfer Goal Independent Shower Transfer Goal Independent Days to Meet Goals 26 Frequency of Treatment Frequency Of Treatment Twice a Day Treatment Plan OT Treatment Plan ADL Training,Functional Cognition Training,Functional Mobility,Neuromuscular Re- education,Patient/Family Education,Discharge Planning Discharge Recommendations OT Discharge Recommendations Acute Rehab Transportation Needs at Discharge Private Vehicle
--- NOTE | 2020-12-04 17:10 | PC.NURSE ---
1649 tube feeding resumed post activity with physical therapy.
--- NOTE | 2020-12-04 19:49 | P.PN_ITS ---
Subjective Subjective Date Patient Seen: 12/04/20 Time Patient Seen: 13:30 Interval history: This is a 65 year old male with PMH of gastric cancer, anemia, interstitial lung disease and congestive heart failure (EF 25% new systolic dysfunction noted this admission) who presented with left sided weakness. Admitted with an acute CVA. He does not have any pain. Surgery currently recommends against feed tube given gastric antral mass and chemo, new EF of 25%. patient wishes to continue nutrition. working on possibly acute rehab, may need to have PEG placement prior, discussions on-going. Exam Vital Signs (past 8 hours): - 12/04/20 12:00 12/04/20 16:21 Temperature 97.8 F Pulse Rate 68 96 H Respiratory Rate 15 24 Blood Pressure 126/90 117/87 Pulse Oximetry 99 95 Oxygen Delivery Method Room Air Oxygen Flow Rate 0 Narrative Exam Narrative: Gen: Alert, oriented, well-developed 65 y.o. male, NAD HEENT: normocephalic, atraumatic, conjunctiva clear, sclera non-icteric, oral mucosa pink and moist Neck: supple, full ROM, no JVD, trachea is midline Resp: Lungs CTA, non-labored breathing CV: RRR, no murmur or rubs Abd: soft, non-tender, normoactive BTs Skin: no lesions or rashes, dry and intact Neuro:12 Significant left sided facial assymetry, facial numbness, Alert and oriented X 4. Speech is mildly slurred but predominantly coherant. Left upper extremity weakness and numbness, LLE numbness without gross weakness on exam. Extremities: no edema or joint effusions. Psyche: normal mood and affect. Objective Labs Result Diagrams: 12/04/20 04:54 12/04/20 04:54 Labs: Laboratory Results - last 24 hr 12/04/20 12/04/20 12/04/20 04:54 04:54 04:54 WBC 7.3 RBC 3.71 L Hgb 9.0 L Hct 28.7 L MCV 77.3 L MCH 24.1 L MCHC 31.2 RDW 19.8 H Plt Count 337 Neut % (Auto) 66.2 Lymph % (Auto) 21.4 L [place] % (Auto) 9.1 Eos % (Auto) 3.2 Baso % (Auto) 0.1 Neut # (Auto) 4900 Lymph # (Auto) 1600 [place] # (Auto) 700 Eos # (Auto) 200 Baso # (Auto) 0 Sodium 136 L Potassium 3.7 Chloride 108 H Carbon Dioxide 25 BUN 12 Creatinine 0.56 L Estimated GFR > 60.0 BUN/Creatinine Ratio 21.4 Glucose 142 H Calcium 8.0 L Magnesium 2.1 Total Bilirubin 0.2 Conjugated Bilirubin 0.0 Unconjugated Bilirubin 0.2 AST 25 ALT 12 Alkaline Phosphatase 58 Total Protein 6.0 L Albumin 3.2 L Globulin 2.8 Albumin/Globulin Ratio 1.1 [facility] Medical History Anemia CHF (congestive heart failure) Chronic interstitial lung disease Compression fracture Essential hypertension History of stroke involving cerebellum Lupus Pelvic fracture Surgical History H/O pelvic surgery Family History Father Alcohol abuse Mother Alcohol abuse Brother CVA (cerebral vascular accident) Social History household members: spouse and family Smoking Status: Never smoker alcohol intake: former Assessment & Plan Assessment & Plan narrative: 1. Acute CVA, acute, present on admission continue asa and statin therapy. NIH 12 on admission. Unable to swallow currently safely, NG placed, patient has a gastric antral mass along the greater curvature per records. Unknown diagnosis based on records thus far as not stated in his progress note. There are multiple liver mets on PET CT> Complete Echo with bubble study showing newly reduced EF of 25% compared to previously known normal EF. No evidence of atrial shunt, no afib on tele thus far. continue PT/OT/speech. continue tele ideally acute rehab, ideally would go with NG tube feeding and then would recommend outpatient PEG placement at an institution with additional specialty assistance given patient's oncologic and new cardiac issues. Patient is adamant about continue feeding a wishes to persue PEG. If unable to place with NG tube, may need to consider re-discussion with surgery or possible transfer. 2. Hypertension, - patient mildly hypertensive on admission. - given EF of 25%, started on tae-i and beta ninfa, low dose. - BP controlled on low dose medications. 3. gastric cancer with metastases to liver. - gastric cancer, unknown type based on records, with gastric mass and multiple liver mets on PET CT. - has completed 2 rounds of chemotherapy per patient. 4. chronic anemia - seen as an outpatient by heme/onc whom stated mix of anemia of chronic inflammation and iron deficiency anemia. H/h stable thus far here. no signs of active bleeding. 5. Chronic systolic and diastolic heart failure, present on admission - no evidence for volume overload on admission. Prior EF was normal per records, EF this admission showing 25% which is new. Patient has been started on low dose carvedilol and lisinopril. Increase as tolerated during his admission. - continue coreg 3.125 BID, lisinopril 5 mg daily. 6. Interstitial lung disease, chronic - continue home medications, prednisone 10 mg daily and albuterol nebulizers ordered as needed. Code status: Full code as discussed with the patient who identifies Nia Bowden as his surrogate and POA. I confirmed that the patient's advanced care plan is present, code status is determined, or surrogate decision maker is listed on the patient's medical record. I have utilized all available immediate resources to obtain, update, or review of the patient's current medications Quality Stroke Contraindication Not Initiating IV-Tpa: Contraindicated Onset of Symptoms Date: 12/01/20 Onset of Symptoms Time: 04:30 Symptom Onset Unknown: Yes Contraindication Antithromb by Day Two: Contraindicated Rehab Services Assessed: Rehabilitation therapy VTE Deep Vein Thrombosis/Pulmonary Embolism Present on Admission: No
[2020-12-04 20:12] VITALS: BP 117/77; PULSE 95; RESP 20; TEMP 35.6; O2SAT 96
[2020-12-04] MEDS: ATORVASTATIN 20 MG TABLET 80 MG PO (20:14)
[2020-12-05] VITALS (7 sets, daily range): BP systolic 106–155; BP diastolic 68–84; PULSE 72–91; RESP 16–22; TEMP 36.5–37.4; O2SAT 95–99
--- NOTE | 2020-12-05 08:00 | PT.IPTN ---
Current Diagnoses Cerebral infarction, unspecified (12/02/20) Physical Therapy Treatment Note M2 PT-IP Current Condition Start: 12/02/20 09:02 Freq: NEEDED Status: Active Protocol: Document 12/02/20 11:24 AW (Rec: 12/02/20 12:36 AW [id number]) Physical Therapy Current Condition Current Condition Evaluation Date 12/02/20 Treatment Diagnosis R frontal and cerebellar CVA; impaired mobility and gait Onset Date 12/01/20 Precautions Other Precautions falls M3 PT-IP Subjective Start: 12/02/20 09:02 Freq: NEEDED Status: Active Protocol: Document 12/05/20 07:33 SP (Rec: 12/05/20 12:46 SP [id number]) Subjective Physical Therapy Visit Type Type Treatment Note Visit Start Time 07:33 Visit Stop Time 08:00 Total Visit Minutes 27 Notes Vitals taken during tx: supine: PB 124/75 HR 87 SaO2 98% on RA Seated at EOB: BP 131/86 HR 97 Standing at EOB: 90/36 HR 107 nonsymptomatic standing post 2 min: 129/97 HR 108 Post activity seated in chair: BP 125/66 HR 94 Nursing capped peg tube feeding, pt on portable teletypesetter monitor, when tx ended communicated with nursing for restarting tube feeding. Number of TWILL CUTTER Visits 5 Physical Therapy Visit Comments Patient Comments Pt is willing to work with TWILL CUTTER . Patient Goals Pt states would like to go to rehab center to get stronger, pleased with how better he's getting. Therapy Pain Assessment Pain When Pain Assessed During Mobility Pain Present Pain Present Denied Pain M4 PT-IP Mobility and Gait Start: 12/02/20 09:02 Freq: NEEDED Status: Active Protocol: Document 12/05/20 07:33 SP (Rec: 12/05/20 12:46 SP [id number]) PT-Bed Mobility Assessment Supine to Sit Supine to Sit Contact Guard Assistance, Minimal Assistance,1 Person Assistance,Head of Bed Elevated,Bedrails Scooting Scooting to Edge of Bed Standby Assistance,Contact Guard Assistance PT-Transfer Assessment Sit to and From Stand Sit to and from Stand Minimal Assistance,1 Person Assistance,Use of Upper Extremities Equipment Transfer Assistive Device Gait Belt,Small Based Quad Cane Orthotic/Prosthetic Devices or Brace: No Transfers Transfer Destination Chair Transfer Technique pt ambulated using SBQC Transfer Ability Level of Assist Contact Guard Assistance, Minimal Assistance,1 Person Assistance,Use of Upper Extremities Comments Mobility Comments Pt performed UE and LE exercises pre mobility. Pt able to life LUE over head approx 120deg, noted lacking wrist extension. Elevated supine>sit and scoot to EOB using RUE on bed rail CGA- 5%A for stationary stability hand flat LUE placement on bed for self balance and locomotion, not need trunk assist, improved LUE control. Sit> stand 5% A initally with improved occasional cues for push from bed. Static balance WBOS contact SBQC as needed during BP vital assessment on RUE and assist placing LUE into hand handle sling, slight sway but self corrections, CGA. Pt progressed in gait into hallway using SBQC 75 ft total with step to 3 pt gait with occasional cuing, as distance progressed improved to 2 pt gait, CG-5%A for trunk stability. Pt returned to chair CGA and 5%A for LUE placement on chair arm for self control into chair. Pt is making gains in trunk stability requiring decreased assist and LUE noteable instinctive reaching and WB with very minimal contact- 5%A for stability flat to allow self mobility through arm and trunk stability. Noted pt does have increase breath rate with mask donned in hallway, improves with breath education . Pt relcined in chair with call light,chair alarm donned and all needs in reach including suction. Gait Assessment Gait Gait Assistance Required: Contact Guard Assist,Minimum Assistance,1 Person Assist Distance (Feet) 75 Able to Maintain Weight Bearing Status Yes During Gait Assistive Devices Assistive Device Gait Belt,Small Based Quad Cane Orthotic/Prosthetic Devices or Brace: No Gait Deviations General Gait Pattern Antalgic,Decreased Stride Length,Decreased Feet Clearance,Lateral Trunk Lean, Narrow Based Gait,Step-to Gait Factors Limiting Gait Function Factors Limiting Gait Function Decreased Activity Tolerance, Decreased Strength, Incoordination,Poor Balance, Poor Safety Awareness, Respiratory Distress Comments Gait Comments See mobility comments Stair Climbing Assessment Comments Stair Climbing Comments Not assessed. PT-Balance Assessment Sitting Balance and Reactions Static Sitting Balance Ability Good Dynamic Sitting Balance Ability Fair Standing Balance and Reactions Static Standing Balance Ability Good Dynamic Standing Balance Ability Fair Device Used SBQC Functional Assessments Other Functional Tests Performed standing balance: vital assessment no Ue support sBA- CGA, no LOB. Wt shift deviation to L during gait due to head turn R 5-10%A for recovery. M5 PT-IP Objective Assessments Start: 12/02/20 09:02 Freq: NEEDED Status: Active Protocol: Document 12/02/20 11:24 AW (Rec: 12/02/20 12:53 AW [id number]) Orientation Orientation/Cognition Level of Alertness Alert Orientation Name,Month,Place,Situation Language Function Ability Garbled Speech Comments Unable to assess safety awareness or memory at this encounter. Speech is garbled but content is appropriate and pt is able to communicate his needs. Gross Range of Motion Lower Extremity ROM Assessment Within Functional Limits Strength Lower Extremity Strength Assessment Bilaterally Impaired Hip R 4/5; L 4-/5 Knee R 4/5; L 4-/5 Ankle R 4+/5; L 4-/5 Comments Strength Comments LLE globally 1/2 grade less than RLE except ankle one whole grade less. Coordination Assessment Assessment Coordination Comments Not tested. Deferred to PM session. Sensation Assessment Sensation Gross Sensation Left UE Impaired,Left LE Impaired Light Touch Absent Proprioception (Position) Impaired Sensation Description Numbness Comments Sensation Comments Pt discerns no light touch on his left side. Deep pressure mildly discernable in distal LLE. Temperature sensation not discernable on left side. Other Assessments Other Other Assessments LUE has some activation with AAROM. Not flaccid on evaluation but with extremely low tone. M6 PT-IP Treatment Start: 12/02/20 09:02 Freq: NEEDED Status: Active Protocol: Document 12/05/20 07:33 SP (Rec: 12/05/20 12:46 SP [id number]) Physical Therapy Treatment Exercises Exercises Ankle Pumps,Straight Leg Raises,Shoulder Flexion Knee ROM Measurement 120 deg BUE shld flexion AROM separate Education Education Provided Precautions,Safety M7 PT-IP Assessment and Plan Start: 12/02/20 09:02 Freq: NEEDED Status: Active Protocol: Document 12/05/20 07:33 SP (Rec: 12/05/20 12:46 SP [id number]) PT Summary Assessment and Plan Potential Rehabilitation Potential Good Status of Condition at Evaluation Evolving Summary Impairments Strength,Balance,Coordination, Sensation,Tone,Bed Mobility, Transfers,Gait,Activity Tolerance Progress Towards Goals Progressing Toward Goals,Slow Progress due to Activity Tolerance Assessment Summary Pt requires SBA supine> sit 5% for L hand stability on bed to assist self mobility, sit<> stand 5%A and gait CG- Min A using SBQC 2 pt <>3 pt gait as distance progressed. Continuing to recommend pt would be good candidate for acute rehab, very motivated to mobilize. Goals Bed Mobility Goal Standby Assistance Transfer Goal Contact Guard Assistance Gait Goal Contact Guard Assistance,[place] Walker Gait Distance 75 Other Goals - improve ambulation to 75 feet with LRAD or no AD Days to Meet Goals 10 Frequency of Treatment Frequency Of Treatment Twice a Day Treatment Plan Physical Therapy Treatment Plan Bed Mobility Training,Transfer Training,Gait Training, Therapeutic Exercise,Balance Retraining,Discharge Planning, Neuromuscular Re-ed, Coordination Retraining Other Recommendations and Next Treatment transfers, gait w/ SBQC 3pt Focus gait> 2 pt gait. Balance activitites Precautions Other Precautions falls Recommendations To Nursing Amount of Assist Needed 1 Person Assist Discharge Recommendations PT Discharge Recommendations Acute Rehab Equipment Needed for Home Before defer to rehab setting Discharge Transportation Needs at Discharge Wheelchair/Cabulance
[2020-12-05] MEDS: ENOXAPARIN 40 MG/0.4 ML SYRINGE SUBCUT (10:27)
[2020-12-05] MEDS: ASPIRIN 81 MG CHEW TAB PO (10:27)
[2020-12-05] MEDS: predniSONE 5 MG TABLET 10 MG PO (10:27)
[2020-12-05] MEDS: LEVOTHYROXINE 25 MCG TABLET TUBE (10:28)
[2020-12-05] MEDS: lisinopriL 5 MG TABLET PO (10:29)
[2020-12-05] MEDS: carvediloL 3.125 MG TABLET PO ×2 (10:29→21:10)
[2020-12-05] MEDS: SODIUM CHLORIDE 0.9% FLUSH 10 ML IV (10:30)
--- NOTE | 2020-12-05 13:26 | ST.IPDYTX ---
Visit Care Team Role Provider Type Az Salazar PA-C Primary Care Provider Non-Staff Specialty: Medical Address: [address] [place] [address], [id number] Email: Az Moran MD Emergency Provider Physician Specialty: Emergency Medicine Address: [address] [place] [address], [id number] Email: [email or web address] Admit Provider Physician Attending Provider Specialty: Internal Medicine Address: [address] [place] [address], [id number] Email: [email or web address] PROCESSOR Dysphagia Treatment SEAFOOD PROCESSOR Dysphagia Treatment Start: 12/02/20 09:50 Freq: Status: Active Protocol: Document 12/05/20 12:20 ZS (Rec: 12/05/20 12:28 ZS [id number]) Dysphagia Treatment Session Time Visit Start Time 11:40 Visit Stop Time 12:10 Total Visit Minutes 30 Visit Information Visit Number 4 Setting Assessment Location Acute Care Visit Type Note Type Treatment Note Next Note Type Next Note Type Treatment Note Patient Information Identification Type Name,ID Wristband Treatment Oral Strategies Upright at 90 degrees, Toothette,Other Additional Dysphagia Treatment Use of cold glycerine swab Strategies Treatment Activities Practiced home practice exercises and extended time for each exercise. Az was able to hold his lips closed for 1.25 minutes x2 and 1.5 minutes x3. Increased home practice to 3-5 repetitions of 1.5 minute holds for lip closure. Lateral lip movement is limited, Az demonstrates mostly head and jaw movement to get his lips to move side to side. However, he is showing an increased ability to isolate lip and jaw movements when compared to previous sessions. When completing base of tongue exercise, Az demonstrated increased strength and endurance. Throughout base of tongue exercise, Az benefitted from reminders to keep his lips open and keep pressure with the back of his tongue. Targeted volitional swallow with cold glycerin swab. Az was prompted to swallow 5 times and successfully swallowed 3 times. 15+ instances of moderate tongue pumping noted between swallow attempts. Az demonstrates improvement in strength and range of motion each day, with visible gains in therapy activities. Assessment Patient Response to Treatment Fair Rehab Potential Fair Diet Recommendations Recommendations Continue Current Diet Liquids Order Nothing by Mouth Diet Order NPO Medication Recommendations Not Recommended by Mouth Treatment Plan Placement Recommendation after Discharge Snf Facility, Inpatient Rehab Facility Appropriate for Continued Therapy Yes Therapy Recommendations Target oral motor strength for purposes of speech and swallowing, specifically, volitional swallow and lip closure for secretion management, tongue strength and ROM for posterior lingual propulsion (moving food from the front of his mouth to the back for swallowing). Dysphagia Goals 1. Az will demonstrate a volitional swallow when prompted and provided with pressure from a cold glycerin or toothette on the back of his tongue. 2. Az will maintain lip closure for secretion management independent of clinician support.
--- NOTE | 2020-12-05 13:33 | PT.IPTN ---
Current Diagnoses Cerebral infarction, unspecified (12/02/20) Physical Therapy Treatment Note M2 PT-IP Current Condition Start: 12/02/20 09:02 Freq: NEEDED Status: Active Protocol: Document 12/02/20 11:24 AW (Rec: 12/02/20 12:36 AW [id number]) Physical Therapy Current Condition Current Condition Evaluation Date 12/02/20 Treatment Diagnosis R frontal and cerebellar CVA; impaired mobility and gait Onset Date 12/01/20 Precautions Other Precautions falls M3 PT-IP Subjective Start: 12/02/20 09:02 Freq: NEEDED Status: Active Protocol: Document 12/05/20 12:55 SP (Rec: 12/05/20 16:54 SP [id number]) Subjective Physical Therapy Visit Type Type Treatment Note Visit Start Time 12:55 Visit Stop Time 13:33 Total Visit Minutes 38 Notes in room, initiated caregiver training with assistance for transfers, gait during tx CG- 10% A. Vitals taken during tx: seated at EOB: BP 139/113, standing forgot exact figure 120s/70s and pt felt fine. Nursing capped peg tube feeding, pt on portable equipment monitor phototypesetting, when tx ended communicated with nursing for restarting tube feeding. Number of VARIETY SAW OPERATOR Visits 6 Physical Therapy Visit Comments Patient Comments Pt is willing to work with VARIETY SAW OPERATOR . Patient Goals Pt states would like to go to rehab center to get stronger, pleased with how better he's getting. Therapy Pain Assessment Pain Present Pain Present Denied Pain M4 PT-IP Mobility and Gait Start: 12/02/20 09:02 Freq: NEEDED Status: Active Protocol: Document 12/05/20 12:55 SP (Rec: 12/05/20 16:54 SP [id number]) PT-Bed Mobility Assessment Supine to Sit Supine to Sit Contact Guard Assistance, Minimal Assistance,1 Person Assistance,Head of Bed Elevated,Bedrails Sit to Supine Sit to Supine Standby Assistance,Head of Bed Elevated,Bedrails Scooting Scooting to Edge of Bed Standby Assistance,Contact Guard Assistance PT-Transfer Assessment Sit to and From Stand Sit to and from Stand Contact Guard Assistance, Minimal Assistance,1 Person Assistance,Use of Upper Extremities Equipment Transfer Assistive Device Gait Belt,Small Based Quad Cane Orthotic/Prosthetic Devices or Brace: No Transfers Transfer Destination Bed Transfer Technique pt ambulated using SBQC Transfer Ability Level of Assist Contact Guard Assistance, Minimal Assistance,1 Person Assistance,Use of Upper Extremities Comments Mobility Comments Elevated supine>sitting w/ R bed rail and cues for repositioning L hand/ arm forward on bed with hand flat assist as needed with LUE, contact hand for support for stability. Pt's hand tends to roll into flexion during forward mobility. Trunk scoot to EOB SBA. Sitting unsupported SBA. Sit>stand CGA with cues for pushing from bed, contact for L hand on bed for tricep ext WB. Pt able to stand unsupported for BP assessment on RUE, QC on R for support as needed. Cues for tall posture, slight wt shift sways for self recovery, no LE contact on bed noted. VARIETY SAW OPERATOR noted gown soiled, pt returned to sitting reaching back with cues SBA, VARIETY SAW OPERATOR assisted remove gown due to tubing mgt in pocket. Pt able to lift LUE out/ in, assist for hand/wrist postioning. Stand>sit from EOB, distance gait into hallway 75 ft, CG- 5%A 2-3 pt gait using sBQC with occasional cues for tall posture improved balance with 2pt gait. Note pt scapular stabilization WB on L WB on handle sling attached to gait belt. Pt returned to bed CGA stand>sit cued reach back with contact cues onL and 5%A maintain positioning. Sit> supine SBA with R bed rail and good self repositioning and flat hand placement itself on L. Pt had call light on R and all needs in reach before left , in room. Gait Assessment Gait Gait Assistance Required: Contact Guard Assist,Minimum Assistance,1 Person Assist Distance (Feet) 75 Able to Maintain Weight Bearing Status Yes During Gait Assistive Devices Assistive Device Gait Belt,Small Based Quad Cane Orthotic/Prosthetic Devices or Brace: No Gait Deviations General Gait Pattern Antalgic,Decreased Stride Length,Decreased Feet Clearance,Lateral Trunk Lean, Narrow Based Gait,Step-to Gait Factors Limiting Gait Function Factors Limiting Gait Function Decreased Activity Tolerance, Decreased Strength, Incoordination,Poor Balance, Poor Safety Awareness Comments Gait Comments See mobility comments Stair Climbing Assessment Comments Stair Climbing Comments Not assessed. PT-Balance Assessment Sitting Balance and Reactions Static Sitting Balance Ability Good Dynamic Sitting Balance Ability Fair Standing Balance and Reactions Static Standing Balance Ability Good Dynamic Standing Balance Ability Fair Device Used SBQC Functional Assessments Other Functional Tests Performed standing balance: vital assessment no Ue support sBA- CGA, no LOB. Wt shift deviation to L during gait during turns 5-10%A for recovery. M5 PT-IP Objective Assessments Start: 12/02/20 09:02 Freq: NEEDED Status: Active Protocol: Document 12/02/20 11:24 AW (Rec: 12/02/20 12:53 AW [id number]) Orientation Orientation/Cognition Level of Alertness Alert Orientation Name,Month,Place,Situation Language Function Ability Garbled Speech Comments Unable to assess safety awareness or memory at this encounter. Speech is garbled but content is appropriate and pt is able to communicate his needs. Gross Range of Motion Lower Extremity ROM Assessment Within Functional Limits Strength Lower Extremity Strength Assessment Bilaterally Impaired Hip R 4/5; L 4-/5 Knee R 4/5; L 4-/5 Ankle R 4+/5; L 4-/5 Comments Strength Comments LLE globally 1/2 grade less than RLE except ankle one whole grade less. Coordination Assessment Assessment Coordination Comments Not tested. Deferred to PM session. Sensation Assessment Sensation Gross Sensation Left UE Impaired,Left LE Impaired Light Touch Absent Proprioception (Position) Impaired Sensation Description Numbness Comments Sensation Comments Pt discerns no light touch on his left side. Deep pressure mildly discernable in distal LLE. Temperature sensation not discernable on left side. Other Assessments Other Other Assessments LUE has some activation with AAROM. Not flaccid on evaluation but with extremely low tone. M6 PT-IP Treatment Start: 12/02/20 09:02 Freq: NEEDED Status: Active Protocol: Document 12/05/20 12:55 SP (Rec: 12/05/20 16:54 SP [id number]) Physical Therapy Treatment Education Education Provided Precautions,Safety M7 PT-IP Assessment and Plan Start: 12/02/20 09:02 Freq: NEEDED Status: Active Protocol: Document 12/05/20 12:55 SP (Rec: 12/05/20 16:54 SP [id number]) PT Summary Assessment and Plan Potential Rehabilitation Potential Good Status of Condition at Evaluation Evolving Summary Impairments Strength,Balance,Coordination, Sensation,Tone,Bed Mobility, Transfers,Gait,Activity Tolerance Progress Towards Goals Progressing Toward Goals,Slow Progress due to Activity Tolerance Assessment Summary Pt requires SBA supine> sit cues for L hand positioning and contact for stability on bed to assist self mobility, sit<>stand CGA and gait CG- Min A using SBQC 2 pt <>3 pt gait as distance 75 ft. Continuing to recommend pt would be good candidate for acute rehab, very motivated to mobilize. Goals Bed Mobility Goal Standby Assistance Transfer Goal Contact Guard Assistance Gait Goal Contact Guard Assistance,[place] Walker Gait Distance 75 Other Goals - improve ambulation to 75 feet with LRAD or no AD Days to Meet Goals 10 Frequency of Treatment Frequency Of Treatment Twice a Day Treatment Plan Physical Therapy Treatment Plan Bed Mobility Training,Transfer Training,Gait Training, Therapeutic Exercise,Balance Retraining,Discharge Planning, Neuromuscular Re-ed, Coordination Retraining Other Recommendations and Next Treatment transfers with family if in Focus room, gait w/ SBQC 3pt gait> 2 pt gait. Balance activitites Precautions Other Precautions falls Recommendations To Nursing Amount of Assist Needed 1 Person Assist Discharge Recommendations PT Discharge Recommendations Acute Rehab Equipment Needed for Home Before defer to rehab setting Discharge Transportation Needs at Discharge Wheelchair/Cabulance
--- NOTE | 2020-12-05 13:39 | CM.DPNOTE ---
Faxed med list to [facility] at his request at [facility] and received fax conf. Fany Irving CM Asst.
--- NOTE | 2020-12-05 14:54 | P.PN_ITS ---
Subjective Subjective Date Patient Seen: 12/05/20 Time Patient Seen: 14:54 Interval history: This is a 65 year old male with PMH of gastric cancer, anemia, interstitial lung disease and congestive heart failure (EF 25% new systolic dysfunction noted this admission) who presented with left sided weakness. Admitted with an acute CVA. He does not have any pain. Continues to have improving facial and LUE strength day by day. Repeated goals of care discussions and patient wants PEG placement if possible, agreeable to continued feeding tube. Discussed with acute rehab at [facility], would recommend dobhoff tube preferentially but still in discussions if they would be agreeable. Waiting on this decision prior to placement. May ultimately need surgical re- consultation for PEG or possible transfer to higher level facility for PEG placement. Exam Vital Signs (past 8 hours): - 12/05/20 07:37 12/05/20 10:29 12/05/20 11:27 Temperature 98.3 F 99.3 F Pulse Rate 73 73 90 Respiratory Rate 16 20 Blood Pressure 155/84 H 155/84 H 111/81 Pulse Oximetry 95 97 Oxygen Delivery Method Room Air Oxygen Flow Rate 0 Narrative Exam Narrative: Gen: Alert, oriented, well-developed 65 y.o. male, NAD HEENT: normocephalic, atraumatic, conjunctiva clear, sclera non-icteric, oral mucosa pink and moist Neck: supple, full ROM, no JVD, trachea is midline Resp: Lungs CTA, non-labored breathing CV: RRR, no murmur or rubs Abd: soft, non-tender, normoactive BTs Skin: no lesions or rashes, dry and intact Neuro:12 Significant left sided facial assymetry, facial numbness, Alert and oriented X 4. Speech is mildly slurred but predominantly coherant. Left upper extremity weakness and numbness, LLE numbness without gross weakness on exam. Extremities: no edema or joint effusions. Psyche: normal mood and affect. Objective Labs Result Diagrams: 12/04/20 04:54 12/04/20 04:54 [facility] Medical History Anemia CHF (congestive heart failure) Chronic interstitial lung disease Compression fracture Essential hypertension History of stroke involving cerebellum Lupus Pelvic fracture Surgical History H/O pelvic surgery Family History Father Alcohol abuse Mother Alcohol abuse Brother CVA (cerebral vascular accident) Social History household members: spouse and family Smoking Status: Never smoker alcohol intake: former Assessment & Plan Assessment & Plan narrative: 1. Acute CVA, acute, present on admission continue asa and statin therapy. NIH 12 on admission. Unable to swallow currently safely, NG placed, patient has a gastric antral mass along the greater curvature per records. Unknown diagnosis based on records thus far as not stated in his progress note from oncologist. There are multiple liver mets on PET CT> Complete Echo with bubble study showing newly reduced EF of 25% compared to p reviously known normal EF. No evidence of atrial shunt, no afib on tele thus far. continue PT/OT/speech. continue tele ideally acute rehab, ideally would go with NG tube feeding (per [facility] they may be amenable to a dobhoff tube) and then would recommend outpatient either PEG placement at an institution with additional specialty assistance given patient's oncologic and new cardiac issues or he may potentially regain the ability to swallow in the next few weeks depending on progress. Patient is adamant about continue feeding a wishes to persue PEG. If unable to go to acute rehab with NG tube, re-discussion with surgery needed or possible transfer. 2. Hypertension, - patient mildly hypertensive on admission. - given EF of 25%, started on tae-i and beta ninfa, low dose. - BP controlled on low dose medications. 3. gastric cancer with metastases to liver. - gastric cancer, unknown type based on records, with gastric mass and multiple liver mets on PET CT. - has completed 2 rounds of chemotherapy per patient which he tolerated well. 4. chronic anemia - seen as an outpatient by heme/onc whom stated mix of anemia of chronic inflammation and iron deficiency anemia. H/h stable thus far here. no signs of active bleeding. 5. Chronic systolic and diastolic heart failure, present on admission - no evidence for volume overload on admission. Prior EF was normal per records, EF this admission showing 25% which is new. Patient has been started on low dose carvedilol and lisinopril. Increase as tolerated during his admission. - continue coreg 3.125 BID, lisinopril 5 mg daily. 6. Interstitial lung disease, chronic - continue home medications, prednisone 10 mg daily and albuterol nebulizers ordered as needed. Code status: Full code as discussed with the patient who identifies Nia Bowden as his surrogate and POA. I confirmed that the patient's advanced care plan is present, code status is determined, or surrogate decision maker is listed on the patient's medical record. I have utilized all available immediate resources to obtain, update, or review of the patient's current medications COVID-19 COVID-19 status: Negative Quality Stroke Contraindication Not Initiating IV-Tpa: Contraindicated Onset of Symptoms Date: 12/01/20 Onset of Symptoms Time: 04:30 Symptom Onset Unknown: Yes Contraindication Antithromb by Day Two: Contraindicated Rehab Services Assessed: Rehabilitation therapy VTE Deep Vein Thrombosis/Pulmonary Embolism Present on Admission: No
--- NOTE | 2020-12-05 15:15 | CM.DPNOTE ---
DCP Note Speaking w/ Chintan at [facility] [place]hab today; multiple concerns voiced re: medical POC and DCP. Suggested doc to doc between Dr Barnes ([facility]) and Dr Knapp, . Also suggested Chintan connect w/spouse Nia to discuss the support she has arranged to assist her when patient returns home. Still awaiting determination from [facility] re: acceptance of this patient for acute rehab? Updated spouse re DCP efforts. Dr Knapp has connected with Dr Barnes and they are reviewing feeding options ie dobhoff tube? Will follow closely in efforts to coordinate the safest DCP available to patient. ROSSY
--- NOTE | 2020-12-05 15:40 | OT.IP.TRT ---
Current Diagnoses Cerebral infarction, unspecified (12/02/20) Occupational Therapy Treatment Note M2 OT-IP Current Condition Start: 12/02/20 14:27 Freq: Status: Active Protocol: Document 12/02/20 11:00 [facility] (Rec: 12/02/20 14:49 [facility] [id number]) Occupational Therapy Current Condition Current Condition Evaluation Date 12/02/20 Treatment Diagnosis CVA, decreased mobility and coordination Diagnosis Onset Date 12/02/20 M3 OT- IP Subjective and Pain Start: 12/02/20 14:27 Freq: Status: Active Protocol: Document 12/05/20 15:39 [facility] (Rec: 12/05/20 15:52 [facility] [id number]) OT- Subjective Occupational Therapy Visit Type Type Treatment Note Visit Start Time 14:45 Visit Stop Time 15:40 Total Visit Minutes 55 Occupational Therapy Visit Comments Patient Comments Due to OT schedule not able to get in to see pt twice today, therefore able to see pt for one long session today. Dr. Knapp able to give verbal for left wrist brace. Patient/Caregiver Goals Pt would like to go home but realizes would be best to go to rehab initially. OT Pain Assessment Pain When Pain Assessed At Rest Pain Present Pain Present Denied Pain M8 OT- IP Objective Assessments Start: 12/02/20 14:27 Freq: Status: Active Protocol: Document 12/05/20 15:39 [facility] (Rec: 12/05/20 15:52 [facility] [id number]) OT Gross Range of Motion Upper Extremity Range of Motion Assessment Left Impaired OT Strength Upper Extremity Strength Assessment Left Impaired Shoulder 3 Elbow 3- Forearm 2 Wrist 0 Hand 0 Comments Strength Comments Noted pt's not able to move his left wrist and his left wrist droops/flexes down as he is able to lift his left arm up. Able to consult Dr. Knapp to see about getting a left wrist brace for positioning for pt to be worn as needed. Dr. Knapp able to give a verbal for left wrist brace. In addition hospitalist able to order for IV to come out as IV located as his left lower forearm. Educated pt to take the brace off daily with assist fro hygiene needs. M9 OT- IP Assessment and Plan Start: 12/02/20 14:27 Freq: Status: Active Protocol: Document 12/05/20 15:39 [facility] (Rec: 12/05/20 15:52 [facility] [id number]) OT Summary Assessment and Plan Potential Rehabilitation Potential Good Analytic Complexity at Evaluation High Summary OT Impairments Range of Motion,Balance, Coordination,Sensation,Tone, Functional Mobility,Self- Feeding,Grooming,Dressing, Toileting,Bathing,Toilet Transfers,Shower Transfers, Activity Tolerance Progress Towards Goals Progressing Toward Goals Assessment Summary Pt noted increased isolated movements for his LUE today and now able to activate left triceps and inconsistently for left biceps for elbow flexion with facilitation. Able to use PVC frame to assist to work on overall strengthening for his LUE especially for his left shoulder-and overall control of LUE muscles. Pt very motivated, pleasant, and wanting to get better. OT to look at doing a shower with pt tomorrow. Enough though pt has other medical issues, he is determined to keep living and hopefully one day be able to get back on the boat. Acute Rehab still strongly suggested . Goals Self-Feeding Goal Independent Grooming Goal Independent Dressing Goal Independent Toileting Goal Independent Bathing Goal Independent Toilet Transfer Goal Independent Shower Transfer Goal Independent Days to Meet Goals 25 Frequency of Treatment Frequency Of Treatment Twice a Day Treatment Plan OT Treatment Plan ADL Training,Functional Mobility,Neuromuscular Re- education,Patient/Family Education,Discharge Planning Discharge Recommendations OT Discharge Recommendations Acute Rehab Transportation Needs at Discharge Private Vehicle
[2020-12-05] MEDS: ATORVASTATIN 20 MG TABLET 80 MG PO (21:10)
[2020-12-06] VITALS (7 sets, daily range): BP systolic 114–140; BP diastolic 76–88; PULSE 80–93; RESP 16–18; TEMP 36.4–36.8; O2SAT 95–96
--- NOTE | 2020-12-06 | DI.RAD.S_ITS ---
PROCEDURE: FL FLUOROSCOPY >1HR COMPARISON: [facility], RF, [place] BARIUM SWALLOW W SPEECH, 12/02/2020, 11:26. [facility], CR, XR CHEST 1V, 12/02/2020, 13:56. INDICATIONS: Feeding tube replacement FINDINGS: A Dobbhoff catheter feeding was placed under fluoroscopy. The tip of the catheter is in the 1st portion of the duodenum just beyond the gastroduodenal junction. A left IJ central line tip is noted at the level of the right atrium. IMPRESSION: Successful placement of Dobbhoff feeding catheter. The tip of the catheter is in the 1st just beyond the gastroduodenal junction. Dictated by: Zafar Beltran M.D. on 12/06/2020 at 12:21 Approved by: Zafar Beltran M.D. on 12/06/2020 at 12:25
[2020-12-06] MEDS: LEVOTHYROXINE 25 MCG TABLET TUBE (05:38)
[2020-12-06 06:38] LABS: Alanine Aminotransferase 18 IU/L (<50); Albumin 3.3 g/dL (3.5-5.0); Albumin Globulin Ratio 1.1 (1.0-2.8); Alkaline Phosphatase 56 U/L (38-126); Aspartate Aminotransferase 29 IU/L (17-59); BUN Creatinine Ratio 26.8 (6-22); Bilirubin Total 0.2 mg/dL (0.2-1.3); Blood Urea Nitrogen 15 mg/dL (9-20); Calcium 8.3 mg/dL (8.4-10.2); Carbon Dioxide 27 mmol/L (22-32); Chloride 107 mmol/L (98-107); Estimated Glomerular Filt Rate > 60.0 mL/min (>60); Globulin 2.9 g/dL (1.7-4.1); Glucose 142 mg/dL (80-110); HEMOLYSIS < 15 (0-50); Sodium 139 mmol/L (137-145); Total Protein 6.2 g/dL (6.3-8.2)
--- NOTE | 2020-12-06 07:35 | P.PN_ITS ---
Subjective Subjective Date Patient Seen: 12/06/20 Interval history: He is seen today to follow-up his stroke, feeding tube, gastric cancer and protein calorie malnutrition. He immediately remembers me from our brief interaction 2 weeks ago here. His CMP is normal with a glucose of 142 and albumin 3.3. The hemoglobin on 12/04 is 9.0. He continues to tolerate the tube feeding in the right nostril without complaint. Exam Vital Signs (past 8 hours): - 12/06/20 00:03 12/06/20 04:07 12/06/20 04:24 Temperature 97.9 F 97.5 F L Pulse Rate 84 84 Respiratory Rate 16 16 Blood Pressure 114/77 126/86 Pulse Oximetry 95 Oxygen Delivery Method Room Air Oxygen Flow Rate 0 Narrative Exam Narrative: He is alert and oriented x3. He recognizes me immediately despite our interactions in the past having been quite brief. Heart is regular rate and rhythm without murmur Lungs are clear to auscultation bilaterally Abdomen is soft, bowel sounds positive, nontender, no organomegaly Extremities have no ankle edema Neuro left leg only vaguely weaker than the right leg Left cutter plastics rolls strength is 4/5 The left shoulder is 5/5 Facial droop is only minimal Right nasal passage NG tube in place. Objective Labs Result Diagrams: 12/04/20 04:54 12/06/20 06:00 Labs: Laboratory Results - last 24 hr 12/06/20 06:00 Sodium 139 Potassium 4.0 Chloride 107 Carbon Dioxide 27 BUN 15 Creatinine 0.56 L Estimated GFR > 60.0 BUN/Creatinine Ratio 26.8 H Glucose 142 H Calcium 8.3 L Total Bilirubin 0.2 AST 29 ALT 18 Alkaline Phosphatase 56 Total Protein 6.2 L Albumin 3.3 L Globulin 2.9 Albumin/Globulin Ratio 1.1 [facility] Medical History Anemia CHF (congestive heart failure) Chronic interstitial lung disease Compression fracture Essential hypertension History of stroke involving cerebellum Lupus Pelvic fracture Surgical History H/O pelvic surgery Family History Father Alcohol abuse Mother Alcohol abuse Brother CVA (cerebral vascular accident) Social History household members: spouse and family Smoking Status: Never smoker alcohol intake: former Assessment & Plan Assessment & Plan narrative: This is a 65 year old male with PMH of gastric cancer, anemia, interstitial lung disease and congestive heart failure (EF 25% new systolic dysfunction noted this admission) who presented with left sided weakness. Admitted with an acute CVA. 1. Acute CVA, acute, present on admission -likely secondary to Gastric Cancer Immunotherapy -Brain MRI - Prominent right frontal (and right posterior cerebellar hemisphere) signal changes suspicious for acute ischemia -CTA without carotid stenosis continue asa and statin therapy. NIH 12 on admission. Unable to swallow currently safely, NG placed, patient has a gastric antral mass along the greater curvature per records. Unknown diagnosis based on records thus far as not stated in his progress note from oncologist. There are multiple liver mets on PET CT. Complete Echo with bubble study showing newly reduced EF of 25% compared to previously known normal EF. No evidence of atrial shunt, no afib on tele thus far. continue PT/OT/speech. continue tele ideally acute rehab, ideally would go with NG tube feeding (per [facility] they may be amenable to a dobhoff tube) and then would recommend outpatient either PEG placement at an institution with additional specialty assistance given patient's oncologic and new cardiac issues or he may potentially regain the ability to swallow in the next few weeks depending on progress. Patient is adamant about continued feeding and wishes to persue PEG. If unable to go to acute rehab with NG tube, re-discussion with surgery needed or possible transfer. 12/06 - D/W Dr. Beltran who was able to place the Dobhoff on Tuesday in [place]. When he arrived back on the floor the tube would not function until pulled back 7 cm. The xray is reviewed and the placement looked like it should have been useable. Will repeat the xray now and may need to be transfered for PEG placement if the Dobhoff is not in the Duodenum. The concern is that the tube could easily be dislodged during stroke rehab in a facility that does not have PEG tube placement capability or a radiologist in-house who could replace the Dobhoff. [facility] inpatient rehab was/is willing to take him if this issue can be taken care of prior to admission. 12/06 - Dr. Barnes spoke with Dr. Figueroa ([facility] oncology) on 12/05 about delaying cancer treatment while in inpatient rehab. He did not think that the cancer treatment would be significantly affected by that kind of a delay. He also mentioned that the CVA could be a result of the Immunotherapy he is receiving with his chemo. 2. Hypertension, - patient mildly hypertensive on admission. - given EF of 25%, started on tae-i and beta ninfa, low dose. - BP controlled on low dose medications. 3. gastric cancer with metastases to liver. - gastric cancer, unknown type based on records, with gastric mass and multiple liver mets on PET CT. - has completed 2 rounds of chemotherapy/immunotherapy per patient (and Dr. Figueroa) which he tolerated well. 4. chronic anemia - seen as an outpatient by heme/onc whom stated mix of anemia of chronic inflammation and iron deficiency anemia. H/h stable thus far here. no signs of active bleeding. 5. Chronic systolic and diastolic heart failure, present on admission - no evidence for volume overload on admission. Prior EF was normal per records, EF this admission showing 25% which is new. Patient has been started on low dose carvedilol and lisinopril. Increase as tolerated during his admission. - continue coreg 3.125 BID, lisinopril 5 mg daily. 6. Interstitial lung disease, chronic - continue home medications, prednisone 10 mg daily and albuterol nebulizers or dered as needed. Code status: Full code as discussed with the patient who identifies Nia Bowden as his surrogate and POA. I confirmed that the patient's advanced care plan is present, code status is determined, or surrogate decision maker is listed on the patient's medical record. I have utilized all available immediate resources to obtain, update, or review of the patient's current medications Quality Stroke Contraindication Not Initiating IV-Tpa: Contraindicated Onset of Symptoms Date: 12/01/20 Onset of Symptoms Time: 04:30 Symptom Onset Unknown: Yes Contraindication Antithromb by Day Two: Contraindicated Rehab Services Assessed: Rehabilitation therapy VTE Deep Vein Thrombosis/Pulmonary Embolism Present on Admission: No
[2020-12-06] MEDS: ENOXAPARIN 40 MG/0.4 ML SYRINGE SUBCUT (09:36)
[2020-12-06] MEDS: ASPIRIN 81 MG CHEW TAB PO (09:36)
[2020-12-06] MEDS: predniSONE 5 MG TABLET 10 MG PO (09:36)
[2020-12-06] MEDS: lisinopriL 5 MG TABLET PO (09:37)
[2020-12-06] MEDS: carvediloL 3.125 MG TABLET PO ×2 (09:37→21:57)
--- NOTE | 2020-12-06 09:41 | ST.IPDYTX ---
Visit Care Team Role Provider Type Az Salazar PA-C Primary Care Provider Non-Staff Specialty: Medical Address: [id number] [place] [address], [id number] Email: Brennan Beltran MD Other Providers Physician Specialty: Radiology Address: [address] [place] [address], [id number] Email: [email or web address] Az Moran MD Emergency Provider Physician Specialty: Emergency Medicine Address: [address] [place] [address], [id number] Email: [email or web address] Admit Provider Physician Attending Provider Specialty: Internal Medicine Address: [address] [place] [address], [id number] Email: [email or web address]ER OPERATOR Dysphagia Treatment [employer]ER OPERATOR Dysphagia Treatment Start: 12/02/20 09:50 Freq: Status: Active Protocol: Document 12/06/20 09:27 [facility] (Rec: 12/06/20 09:41 [facility] [id number]) Dysphagia Treatment Session Time Visit Start Time 08:50 Visit Stop Time 09:20 Total Visit Minutes 30 Visit Information Visit Number 5 Setting Assessment Location Acute Care Visit Type Note Type Treatment Note Next Note Type Next Note Type Treatment Note Patient Information Identification Type Name,ID Wristband Subjective Observations Pt is a very pleasant man in bed in his room. was also present in the room as well. Introduced self and purpose. Pt agreed to treatment session this AM. Pt repositioned himself with nurse support to be upright in bed. Az reported that he had already been practicing his exercises this morning and practices frequently throughout the day. Treatment Liquids Trialed Ice chips Oral Strategies Upright at 90 degrees, [place],Other Treatment Activities Practiced home practice exercises at duration written on paper. Az demonstrated success in showing this [employer] SP[employer]ER OPERATOR how he was doing the exercises and was able to answer questions about how he does them accurately. Az demonstrated each exercise correctly. Az was able to hold his lips closed for 1.5 minutes x4 with no anterior spillage observed. Az is continuing to show an increased ability to isolate lip and jaw movements during exercises as noted by previous reports of his starting point . When completing base of tongue exercise, Az demonstrated increased strength and endurance. Throughout base of tongue exercise, Az benefitted from reminders to keep his lips open and keep pressure with the back of his tongue. He sustained high base of tongue for 1.25 minutes x4. Volitional swallowing was targeted as well. Az was prompted 6 times to swallow with 3 successful attempts. Continued to observe frequent tongue pumping during activities. Az demonstrates improvement in his strength and range of motion each day, with visible gains in therapy activities. Assessment Patient Response to Treatment Fair Rehab Potential Fair Diet Recommendations Recommendations Continue Current Diet Liquids Order Nothing by Mouth Diet Order NPO Medication Recommendations Not Recommended by Mouth Aspiration Precautions Recommended Precautions Upright at 90 Degrees Treatment Plan Placement Recommendation after Discharge Detention Facility, Inpatient Rehab Facility Appropriate for Continued Therapy Yes Therapy Recommendations Target oral motor strength for purposes of speech and swallowing, specifically, volitional swallow and lip closure for secretion management, tongue strength and ROM for posterior lingual propulsion (moving food from the front of his mouth to the back for swallowing). Dysphagia Goals 1. Az will demonstrate a volitional swallow when prompted and provided with pressure from a cold glycerin or toothette on the back of his tongue. 2. Az will maintain lip closure for secretion management independent of clinician support.
--- NOTE | 2020-12-06 11:30 | PT.IPTN ---
Current Diagnoses Cerebral infarction, unspecified (12/02/20) Physical Therapy Treatment Note M2 PT-IP Current Condition Start: 12/02/20 09:02 Freq: NEEDED Status: Active Protocol: Document 12/02/20 11:24 AW (Rec: 12/02/20 12:36 AW [id number]) Physical Therapy Current Condition Current Condition Evaluation Date 12/02/20 Treatment Diagnosis R frontal and cerebellar CVA; impaired mobility and gait Onset Date 12/01/20 Precautions Other Precautions falls M3 PT-IP Subjective Start: 12/02/20 09:02 Freq: NEEDED Status: Active Protocol: Document 12/06/20 11:30 AB (Rec: 12/06/20 12:53 AB [email or web address]) Subjective Physical Therapy Visit Type Type Treatment Note Visit Start Time 11:30 Visit Stop Time 12:15 Total Visit Minutes 45 Number of HEALTH CAREERS INSTRUCTOR Visits 0 Physical Therapy Visit Comments Patient Comments agreeable to do PT M4 PT-IP Mobility and Gait Start: 12/02/20 09:02 Freq: NEEDED Status: Active Protocol: Document 12/06/20 11:30 AB (Rec: 12/06/20 12:53 AB [email or web address]) PT-Bed Mobility Assessment Sit to Supine Sit to Supine Standby Assistance PT-Transfer Assessment Sit to and From Stand Sit to and from Stand Contact Guard Assistance, Minimal Assistance,1 Person Assistance Equipment Transfer Assistive Device None,Gait Belt,Small Based Quad Cane Orthotic/Prosthetic Devices or Brace: Yes Transfers Transfer Destination Bed,Chair Transfer Technique Stand Step Pivot Transfer Ability Level of Assist Contact Guard Assistance, Minimal Assistance,Moderate Assistance,1 Person Assistance Comments Mobility Comments pt just came back from a feeding catheter placement but is agreeable to do PT. sit to stand and transfer using SBQC from w/c to chair CGA to min A. Assessed LE strength: RLE 4+/5 LLE 4 to 4-/5. LUE shoulder PNF joint approximate conducted to improve joint stabilization/stimulation. completed sit to stand using UE initially with min A. educated on techniques and trunk control/ midline positioning as pt tends to lean towards R side for sit to stand. completed sit to stand again CGA and cues. Standing balance/tolerance activity without AD: static/ dynamic standing: increase midline awareness for stability, weight shifting ant /post/side/side, reaching with RUE in all planes. educated pt on sit to stand techniques, standing balance. completed sit <> stand without use of UE. intially requiring 2 attempts mod A. educated on techniques again and completed with CGA to min A. pt repeated x 3. standing squats x 5 min to mod A and cues. completed step transfer without AD to chair min to mod A and cues. completed sit to stand again without use of UE x 3 CGA to min A and cues. completed sit to stand with midway hold x 5 sec x 3 reps min A and cues. transferred back to recliner chair without AD min A and cues. agreed to ambulate. educated pt on techniques, trunk control, weight shifting, LLE stability and quads contraction. completed ambulation without AD mod A and cues x 25 ft. increase L knee flexion in midstance phase of gait but without knee buckling. pt sat back on chair. requested to go back to bed. completed sit to stand CGA and transferred to bed step transfer without AD min A. completed sit to supine SBA. positioned pt in bed. call light and table placed within reach. informed nurse that pt is back in bed. Gait Assessment Gait Gait Assistance Required: Moderate Assistance,1 Person Assist Distance (Feet) 25 Able to Maintain Weight Bearing Status Yes During Gait Assistive Devices Assistive Device None,Gait Belt Gait Deviations General Gait Pattern Antalgic,Decreased Stride Length,Decreased Feet Clearance,Step-to Gait Factors Limiting Gait Function Factors Limiting Gait Function Abnormal Tonal Influences, Decreased Activity Tolerance, Decreased Sensation,Decreased Strength,Poor Balance M5 PT-IP Objective Assessments Start: 12/02/20 09:02 Freq: NEEDED Status: Active Protocol: Document 12/02/20 11:24 AW (Rec: 12/02/20 12:53 AW [id number]) Orientation Orientation/Cognition Level of Alertness Alert Orientation Name,Month,Place,Situation Language Function Ability Garbled Speech Comments Unable to assess safety awareness or memory at this encounter. Speech is garbled but content is appropriate and pt is able to communicate his needs. Gross Range of Motion Lower Extremity ROM Assessment Within Functional Limits Strength Lower Extremity Strength Assessment Bilaterally Impaired Hip R 4/5; L 4-/5 Knee R 4/5; L 4-/5 Ankle R 4+/5; L 4-/5 Comments Strength Comments LLE globally 1/2 grade less than RLE except ankle one whole grade less. Coordination Assessment Assessment Coordination Comments Not tested. Deferred to PM session. Sensation Assessment Sensation Gross Sensation Left UE Impaired,Left LE Impaired Light Touch Absent Proprioception (Position) Impaired Sensation Description Numbness Comments Sensation Comments Pt discerns no light touch on his left side. Deep pressure mildly discernable in distal LLE. Temperature sensation not discernable on left side. Other Assessments Other Other Assessments LUE has some activation with AAROM. Not flaccid on evaluation but with extremely low tone. M6 PT-IP Treatment Start: 12/02/20 09:02 Freq: NEEDED Status: Active Protocol: Document 12/06/20 11:30 AB (Rec: 12/06/20 12:53 AB [id number]) Physical Therapy Treatment Education Education Provided Safety M7 PT-IP Assessment and Plan Start: 12/02/20 09:02 Freq: NEEDED Status: Active Protocol: Document 12/06/20 11:30 AB (Rec: 12/06/20 12:53 AB [id number]) PT Summary Assessment and Plan Potential Rehabilitation Potential Excellent Summary Impairments Pain,ROM,Strength,Balance, Coordination,Sensation,Tone, Bed Mobility,Transfers,Gait, Activity Tolerance Progress Towards Goals Progressing Toward Goals Assessment Summary pt progressing with mobility and is very motivated. able to transfer min A without AD and ambulate mod A without AD. pt will benefit from acute rehab to improve mobility independence. Goals Bed Mobility Goal Independent Transfer Goal Standby Assistance Gait Goal Standby Assistance,Cane Gait Distance 150 Other Goals improve transfer to independent improve ambulation without AD 150 ft SBA Days to Meet Goals 10 Frequency of Treatment Frequency Of Treatment Twice a Day Treatment Plan Physical Therapy Treatment Plan Bed Mobility Training,Transfer Training,Gait Training, Therapeutic Exercise,Balance Retraining,Discharge Planning, Hot or Cold Pack,Neuromuscular Re-ed,Coordination Retraining ,Manual Therapy Other Recommendations and Next Treatment standing balance/tolerance Focus without AD Recommendations To Nursing Amount of Assist Needed 1 Person Assist Discharge Recommendations PT Discharge Recommendations Acute Rehab Transportation Needs at Discharge Wheelchair/Cabulance
--- NOTE | 2020-12-06 11:39 | PC.NURSE ---
Addendum entered by Amilcar Winslow R.N. 12/06/20 15:19: Dobhoff again unable to flush after patient got out of shower. Dr. Barnes notified, order to pull back additional cm (completed), and now taped at 85cm. Flushing without difficulty, and patient tolerated well. Dr. Barnes notified and states it is ok to use now, no additional xray needed. Evening shift RN notified and will restart tube feedings as ordered. Addendum entered by Amilcar Winslow R.N. 12/06/20 14:04: Dobhoff unable to flush, mD notified and came to bedside to evaluate. With MD assistance sveta pulled back 7cm and re taped in place. Xray ordered to confirm placement. Dr. Barnes reviewed xray and states it is ok to use at this time. Patient up showering with O.T. at this time. Will continue to follow. Original Note: Patient was taken to radiology to have dobhoff feeding tube placed. 8F noted to Right nare upon return, previous NG tube dc'd in radiology. Per radiology dobhoff is now ready for use. Patient up to chair upon his return and working with Physical therapy at this time.
--- NOTE | 2020-12-06 12:08 | CM.DPC ---
Addendum entered by JUAN DIEGO Cardoso 12/06/20 14:52: ADD: Return call from Chintan at [facility] stating he confirms they can accept pt and only need updated COVID within 48 hours of discharge and the d/c summary faxed at discharge. Chintan requests pt arrive in afternoon before 1600 if possible but states due to COVID precautions family is not allowed to provide transport and they require Cabulance AND they do not cover the cost. SW updated pt's spouse and she is agreeable with d/c plan and willing to private pay for cabulance as well. SW called [facility] and they cannot transport tomorrow (Sun). SW called [facility] and left detailed msg requesting call back for transport tomorrow. SW attempted to call [facility] to determine if they could provide transport and the clinic is closed on weekends. WILLY spoke to [facility]ILD [employer] YOU[employer] PROGRAM ASSISTANT and OT and confirmed that if no cabulance available on Sun that pt could safely transport via taxi. WILLY requested RN to completed updated COVID swab tonight in anticipation of d/c tomorrow. BF Addendum entered by JUAN DIEGO Cardoso 12/06/20 14:28: ADD: SW met bedside with pt and updated on still waiting for confirmation that he is accepted at [facility] and he confirms this is still his preference. WILLY discussed that per MD, pt may be stable for d/c tomorrow pending tolerating the new tube for feeding. Pt acknowledges understanding. SW discussed that if accepted at Acute Rehab, family would need to provide transport and pt confirms that his spouse and Dtr would be agreeable and able to transport. BF Addendum entered by JUAN DIEGO Cardoso 12/06/20 14:06: ADD: Attempted to call Chintan at [facility] rehab again at 1400 and left another msg but faxed prog note from today as well as note with Dobbhoff placement. WILLY called [facility] number [phone] and spoke to staff in Acute Rehab who confirms Chintan is in their facility today but helping with another role today and will make sure he gets the message. 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 WILLY had received a msg from Chintan at [facility] requesting current med list be refaxed. WILLY faxed requested med list and called Chintan and left msg with update above and to confirm they can accept pt and possibly tomorrow if stable for d/c. Plan: WILLY to follow closely for return call from Chintan at [facility] to confirm d/c plan to their facility for possibly tomorrow, Tuesday. JUAN DIEGO Cardoso
--- NOTE | 2020-12-06 12:51 | DI.RAD.S_ITS ---
PROCEDURE: XR ABDOMEN MIN 2V INDICATIONS: Dobhoff function TECHNIQUE: 2 views of the abdomen were acquired. COMPARISON: [facility], CR, XR CHEST 1V, 12/02/2020, 13:56. FINDINGS: Surgical changes and devices: Weighted enteric feeding tube is slightly coiled in the stomach. The tip is pointed towards the small bowel and centered in the gastric body. Bowel: No pneumoperitoneum. The bowel gas pattern is normal. Enteric contrast throughout the colon. Soft tissues: No masses; visualized solid organ contours appear normal in size. No suspicious abdominal calcifications. Bones: No suspicious bony abnormalities. Severe right hip osteoarthritis. Internal fixation hardware of the right hemipelvis. Lung bases: Airspace opacity overlying loss in the left lung base. Right-sided pleural calcifications. IMPRESSION: Weighted enteric feeding tube is slightly coiled in the stomach. The tip is pointed towards the duodenum and centered in the gastric body. Airspace disease or atelectasis in the left lung base. Dictated by: Orion Solorzano M.D. on 12/06/2020 at 12:57 Approved by: Orion Solorzano M.D. on 12/06/2020 at 13:01
--- NOTE | 2020-12-06 14:19 | OT.IP.TRT ---
Current Diagnoses Cerebral infarction, unspecified (12/02/20) Occupational Therapy Treatment Note M2 OT-IP Current Condition Start: 12/02/20 14:27 Freq: Status: Active Protocol: Document 12/02/20 11:00 [facility] (Rec: 12/02/20 14:49 [facility] [id number]) Occupational Therapy Current Condition Current Condition Evaluation Date 12/02/20 Treatment Diagnosis CVA, decreased mobility and coordination Diagnosis Onset Date 12/02/20 M3 OT- IP Subjective and Pain Start: 12/02/20 14:27 Freq: Status: Active Protocol: Document 12/06/20 14:42 [facility] (Rec: 12/06/20 15:08 [facility] [id number]) OT- Subjective Occupational Therapy Visit Type Type Treatment Note Visit Start Time 13:33 Visit Stop Time 14:19 Total Visit Minutes 46 Occupational Therapy Visit Comments Patient Comments Pt not available in the AM due to getting Dobhuff tube placed , ST, and PT in the room when OT walked by. Patient/Caregiver Goals Pt would like to go home but realizes would be best to go to rehab initially. OT Pain Assessment Pain When Pain Assessed At Rest Pain Present Pain Present Denied Pain M4 OT- IP ADL's Start: 12/02/20 14:27 Freq: Status: Active Protocol: Document 12/06/20 14:42 [facility] (Rec: 12/06/20 15:08 [facility] [id number]) OT [id number] Comments OT Self-Feeding Comments Pt had Dobhuff tube placed today. OT ADL-Dressing General Eval Lower Body Dressing Ability Maximum Assistance Comments OT Dressing Comments Able to assist pt with left hand/arm to help to be able to take his brief down. OT able place his left thumb into the brief and he is able to pull down the brief on his own with his right hand assist on the other side of the brief. Pt able to actively pull out his left arm from the gown and assist to get in back into the gown. Pt mainly needing assist for control on his left wrist and fingers. OT ADL-Bathing General Evaluation Bathing Ability Moderate Assistance Comments OT Bathing Comments Pt needing assist to support his left elbow , and initially open his left hand so able to wash his right arm and leg. Pt after assist to keep his left on the grab bar to support and assist with balance while standing while able to do pericare needs with right hand . M6 OT- IP Functional Cognition Start: 12/02/20 14:27 Freq: Status: Active Protocol: Document 12/06/20 14:42 [facility] (Rec: 12/06/20 15:08 [facility] [id number]) Cognitive Factors Limiting Selfcare Function Cognitive Comments Cognitive Assessment Comments Intact and no deficits noted. M7 OT- IP Mobility and Balance Start: 12/02/20 14:27 Freq: Status: Active Protocol: Document 12/06/20 14:42 [facility] (Rec: 12/06/20 15:08 [facility] [id number]) OT- Bed Mobility Assessment Supine to Sit Supine to Sit Assist Standby Assistance OT-Transfer Assessment Sit to and From Stand Sit to and from Stand Minimal Assistance Transfers Transfer Ability Minimal Assistance,Moderate Assistance Technique Transfer Destination Bed,Shower Stall Transfer Technique Stand Step Pivot Devices Transfer Assistive Devices Gait Belt,Small Based Quad Cane Comments Mobility Comments Pt now able to assist to push up with his left hand closed on the bed to get up and at times still needing YANNICK to help hold his left hand in place so able to bear weight through his left hand. Once up on his feet YANNICK to support his left elbow to help cue and assist to retract his left shoulder. OT- Balance Assessment Sitting Balance and Reactions Static Sitting Balance Ability Normal Dynamic Sitting Balance Ability Good Standing Balance and Reactions Static Standing Balance Ability Fair M8 OT- IP Objective Assessments Start: 12/02/20 14:27 Freq: Status: Active Protocol: Document 12/05/20 15:39 [facility] (Rec: 12/05/20 15:52 [facility] [id number]) OT Gross Range of Motion Upper Extremity Range of Motion Assessment Left Impaired OT Strength Upper Extremity Strength Assessment Left Impaired Shoulder 3 Elbow 3- Forearm 2 Wrist 0 Hand 0 Comments Strength Comments Noted pt's not able to move his left wrist and his left wrist droops/flexes down as he is able to left his left arm up. Able to consult Dr. Knapp to see about getting a left wrist brace for positioning for pt to be worn as needed. Dr. Knapp able to give a verbal for left wrist brace. In addition hospitalist able to order for IV to come out as IV located as his left lower forearm. M9 OT- IP Assessment and Plan Start: 12/02/20 14:27 Freq: Status: Active Protocol: Document 12/06/20 14:42 [facility] (Rec: 12/06/20 15:08 [facility] [id number]) OT Summary Assessment and Plan Potential Rehabilitation Potential Good Analytic Complexity at Evaluation High Summary OT Impairments Range of Motion,Balance, Coordination,Sensation,Tone, Functional Mobility,Self- Feeding,Grooming,Dressing, Toileting,Bathing,Toilet Transfers,Shower Transfers, Activity Tolerance Progress Towards Goals Progressing Toward Goals Assessment Summary NOt able to see pt in AM due to having LEVELMAN, PT and also Dobhuff tube placement. Able to do showering with pt and his with assist able to incorporate his left UE to assist for all dressing, showering, and mobility needs. Pt looking to go to acute rehab tomorrow. Goals Self-Feeding Goal Independent Grooming Goal Independent Dressing Goal Independent Toileting Goal Independent Bathing Goal Independent Toilet Transfer Goal Independent Shower Transfer Goal Independent Days to Meet Goals 24 Frequency of Treatment Frequency Of Treatment Twice a Day Treatment Plan OT Treatment Plan ADL Training,Functional Mobility,Neuromuscular Re- education,Patient/Family Education,Discharge Planning Discharge Recommendations OT Discharge Recommendations Acute Rehab Transportation Needs at Discharge Private Vehicle
--- NOTE | 2020-12-06 15:22 | PT-IP ANOTE ---
pt stated that he just want to rest at this time and is really tired. pt had feeding tube catheter placement today and also just finished with OT.
[2020-12-06] MEDS: ATORVASTATIN 20 MG TABLET 80 MG PO (21:57)
[2020-12-07] VITALS (12 sets, daily range): BP systolic 110–127; BP diastolic 66–74; PULSE 79–101; RESP 15–18; TEMP 36.2–36.6; O2SAT 95–100
[2020-12-07 06:01] LABS: Alanine Aminotransferase 25 IU/L (<50); Albumin 3.4 g/dL (3.5-5.0); Albumin Globulin Ratio 1.2 (1.0-2.8); Alkaline Phosphatase 63 U/L (38-126); Aspartate Aminotransferase 37 IU/L (17-59); BUN Creatinine Ratio 32.2 (6-22); Bilirubin Total 0.3 mg/dL (0.2-1.3); Blood Urea Nitrogen 19 mg/dL (9-20); Calcium 8.4 mg/dL (8.4-10.2); Carbon Dioxide 28 mmol/L (22-32); Chloride 106 mmol/L (98-107); Estimated Glomerular Filt Rate > 60.0 mL/min (>60); Globulin 2.9 g/dL (1.7-4.1); Glucose 116 mg/dL (80-110); HEMOLYSIS < 15 (0-50); Potassium 4.2 mmol/L (3.4-5.1); Sodium 140 mmol/L (137-145); Total Protein 6.3 g/dL (6.3-8.2)
[2020-12-07] MEDS: LEVOTHYROXINE 25 MCG TABLET TUBE (06:54)
[2020-12-07] MEDS: predniSONE 5 MG TABLET 10 MG PO (09:26)
[2020-12-07] MEDS: ASPIRIN 81 MG CHEW TAB PO (09:26)
[2020-12-07] MEDS: ENOXAPARIN 40 MG/0.4 ML SYRINGE SUBCUT (09:26)
[2020-12-07] MEDS: lisinopriL 5 MG TABLET PO (09:27)
[2020-12-07] MEDS: carvediloL 3.125 MG TABLET PO (09:28)
--- NOTE | 2020-12-07 09:30 | PM.DS.1 ---
History of Present Illness History of Present Illness Chief complaint: stroke Narrative: Az Bowden is a very pleasant 65-year-old gentleman who got up in the middle of night to go to the bathroom, fell down and was unable to get. He states that he fell twice once in the bedroom and once in the bathroom and could not use his left arm. He denies chest pain, headaches, nausea or vomiting, abdominal pain, does state he has slow urination which has been getting worse over time, he did have diarrhea yesterday from the chemotherapy treatments he has been taking for stomach cancer, he currently endorses inability to use his left arm and weakness in his left leg. He states that he had a stroke prior to and I am not sure that he was treated here or presented at a different facility. During his last admission for congestive heart failure he was noted to have metastatic lesions in his liver. Further workup identified the primary cancer is coming from his stomach. He states he has completed 2 chemotherapy treatments and that he believes they are working. He sees Dr. Figueroa, oncologist at [facility]. In the ED the head CT and the CTA were negative for an acute process. There was indication of an old right cerebellar hemispheres infarct. The ED NIH score was 12. Patient is afebrile, blood pressure 138/88, heart rate 105, respiratory rate 18, oxygen saturation of 99% on room air, he weighs 72.5 kg with a BMI of 23.6. Patient's WBC is normal, RBC 3.53, hemoglobin 8.5, hematocrit 27.4, platelet count 302, he is lymphopenic, chloride is 109, BUN 7, creatinine 0.51, with a GFR of greater than 60, calcium 7.8, magnesium 2.0, liver enzymes are within normal limits, albumin is 3.1, cholesterol is 121, LDL 42, HDL 53, and TSH is markedly elevated 17.6, and COVID-19 PCR is negative. Discharge Providers Provider Date of admission: 12/02/20 03:05 Discharge Date: 12/07/20 Primary care physician: Az Salazar PA-C Consults: 12/02/20 03:18 Consult to Discharge Planning Routine Comment: Consult to Physical Therapy Evaluate & Treat Comment: Physician Instructions: Evaluate and Treat Consult to Speech Therapy Evaluate & Treat Comment: unable to swallow Physician Instructions: Evaluate and treat 12/02/20 09:28 Consult to Occupational Therapy Evaluate & Treat Comment: DX: CVA Physician Instructions: Evaluate and treat 12/02/20 13:48 Consult to Dietitian, Adult Routine Comment: Reason For Exam: tube feedings 12/05/20 14:52 Consult to Occupational Therapy Evaluate & Treat Comment: Physician Instructions: Left wrist brace on for positioning needs. 12/06/20 09:10 Consult to Interventional Radiology Routine Comment: Consulting Provider: Brennan Beltran Reason For Exam: Dobhoff placement for Feeding Discharge provider: Jill Nguyen MD Summary Hospital Course Discharge Diagnosis: 1. Acute CVA, right frontal, right posterior cerebellar 2. Chronic Systolic Heart Failure, Ejection fraction 22% 3. Chronic interstitial lung disease 4. Lupus 5. Anemia 6. Gastric Cancer with Mets to liver Hospital Course: Patient was admitted to the hospital following a fall. Patient underwent head MRI which confirmed and acute right frontal stroke. Patient had an echo revelaed and EF of 25-30%, grade 3 diastolicyh dysfunction, RV enlargement, mild MR, Mild Biatrial enlargement but no intracardiac shunt. Patient had an NIH score of 12. He failed his swallow evaluation and was aspirating on barium swallow. A dobhoff feeding tube was placed which he tolerated for tube feeds. His initial TSH was elevated at 17, but total T4 was normal likely reflecting euthyroid sick syndrome. The patient was placed on asa, atorvastatin, coreg, and lisinopril. He continues to have severe left arm weakness. He also has left facial droop as well. Patient was evaluated by PT/OT / and Speech. He was felt to be a good candidate for inpatient rehabilitation. Patient will be transferred for acute rehabilitation. They will place a PEG tube subsequently if he remains unsafe for oral feeding. On the day of discharge he has no complaints. Patient is deemed appropriate for discharge to acute rehab. Status at Discharge Cognitive/behavioral status at discharge: oriented Functional status at discharge: uses cane/walker Overall status at discharge: patient is not back to baseline Exam Vital Signs (past 8 hours): - 12/07/20 05:18 12/07/20 08:00 12/07/20 09:27 Temperature 97.3 F L 98 F Pulse Rate 87 86 86 Respiratory Rate 16 15 Blood Pressure 115/74 112/73 112/73 Pulse Oximetry 96 12/07/20 09:28 Temperature Pulse Rate 86 Respiratory Rate Blood Pressure 112/73 Pulse Oximetry Oxygen Delivery Method Room Air Oxygen Flow Rate 0 Narrative Exam Narrative: pleasant male resting comfortably in no distress Resp Other: Lungs: clear to auscultation Cardio Other: RRR Nl Sl S2 GI Other: soft non tender non distended Neuro Other: Awake and alert, Left facial droop, Left arm weak 1/5, left leg 5/5. sensation decreased in left arm Extrem Other: No edema Objective Labs Result Diagrams: 12/04/20 04:54 12/07/20 05:40 Labs: Laboratory Results - last 24 hr 12/07/20 05:40 Sodium 140 Potassium 4.2 Chloride 106 Carbon Dioxide 28 BUN 19 Creatinine 0.59 L Estimated GFR > 60.0 BUN/Creatinine Ratio 32.2 H Glucose 116 H Calcium 8.4 Total Bilirubin 0.3 AST 37 ALT 25 Alkaline Phosphatase 63 Total Protein 6.3 Albumin 3.4 L Globulin 2.9 Albumin/Globulin Ratio 1.2 PFSH Medical History Anemia CHF (congestive heart failure) Chronic interstitial lung disease Compression fracture Essential hypertension History of stroke involving cerebellum Lupus Pelvic fracture Surgical History H/O pelvic surgery Family History Father Alcohol abuse Mother Alcohol abuse Brother CVA (cerebral vascular accident) Social History household members: spouse and family Smoking Status: Never smoker alcohol intake: former Discharge Assessment & Plan Assessment and Plan Assessment: 1. Acute CVA 2. Gastric Cancer with liver mets 3. Interstital lung disease 4. Chronic Systolic Heart Failure 5. History of prior cerebellar stroke Plan of Treatment: To acute inpatient rehabilitation Discharge Plan Discharge Plan Patient Disposition: Xfer Inpatient Rehab Other facility: [facility] Consult as needed: Dental, Hearing, Mental health, Podiatry and Vision Discharge orders & Medications Discharge Orders: Discharge (Order); Ordered 12/07/20 Ordered By: Jill Nguyen Prescriptions: New atorvastatin [Lipitor] 20 mg Tablet 80 mg PO BEDTIME Qty: 30 RF: 0 aspirin 81 mg Tablet,Chewable 81 mg PO DAILY 30 Days Qty: 30 RF: 0 lisinopril 5 mg Tablet 5 mg PO DAILY Qty: 30 RF: 0 carvedilol [Coreg] 3.125 mg Tablet 3.125 mg PO BID Qty: 30 RF: 0 Continued albuterol sulfate 90 mcg/actuation HFA aerosol inhaler 1 puff INHALATION Q4-6H PRN (Reason: shortness of breath or wheezing) Qty: 8.5 RF: 0 Adults Multivitamin 18 mg iron-400 mcg-25 mcg Tablet 1 tab PO DAILY RF: 0 ferrous sulfate 325 mg (65 mg iron) Tablet 325 mg PO DAILY Qty: 30 RF: 0 prednisone 10 mg Tablet 10 mg PO DAILY RF: 0 Medication counseling provided by Pharmacist: No Follow up/Referrals: Az Salazar PA-C [Primary Care Provider] - Discharge Health Status Multidrug resistant organism: No MDRO Diet/Activity/Treatments Diet: Tube Feeding Special Rehabilitation Services Reason for rehabilitation: Therapy following stroke Rehab type: Physical therapy, Occupational therapy and Speech therapy Discharge Data Primary Care Provider: Az Salazar Quality Stroke Contraindication Not Initiating IV-Tpa: Contraindicated Onset of Symptoms Date: 12/01/20 Onset of Symptoms Time: 04:30 Symptom Onset Unknown: Yes Contraindication Antithromb by Day Two: Contraindicated Rehab Services Assessed: Rehabilitation therapy VTE Deep Vein Thrombosis/Pulmonary Embolism Present on Admission: No
--- NOTE | 2020-12-07 11:16 | PT.IPTN ---
Current Diagnoses Cerebral infarction, unspecified (12/02/20) Physical Therapy Treatment Note M2 PT-IP Current Condition Start: 12/02/20 09:02 Freq: NEEDED Status: Active Protocol: Document 12/02/20 11:24 AW (Rec: 12/02/20 12:36 AW [id number]) Physical Therapy Current Condition Current Condition Evaluation Date 12/02/20 Treatment Diagnosis R frontal and cerebellar CVA; impaired mobility and gait Onset Date 12/01/20 Precautions Other Precautions falls M3 PT-IP Subjective Start: 12/02/20 09:02 Freq: NEEDED Status: Active Protocol: Document 12/07/20 11:16 AW (Rec: 12/07/20 12:15 AW [id number]) Subjective Physical Therapy Visit Type Type Treatment Note Visit Start Time 10:55 Visit Stop Time 11:16 Total Visit Minutes 21 Notes [address] tube in place delivering nutrition. Number of PSYCHIATRIC CLINICAL NURSE SPECIALIST Visits 0 Physical Therapy Visit Comments Patient Comments Pt is willing to work with PT Therapy Pain Assessment Pain Present Pain Present Denied Pain M4 PT-IP Mobility and Gait Start: 12/02/20 09:02 Freq: NEEDED Status: Active Protocol: Document 12/07/20 11:16 AW (Rec: 12/07/20 12:15 AW [id number]) PT-Transfer Assessment Sit to and From Stand Sit to and from Stand Contact Guard Assistance,1 Person Assistance Equipment Transfer Assistive Device None,Gait Belt,Small Based Quad Cane Orthotic/Prosthetic Devices or Brace: Yes Transfers Transfer Destination Chair Transfer Technique pt ambulated with SBQC Transfer Ability Level of Assist Contact Guard Assistance, Minimal Assistance,1 Person Assistance,Use of Upper Extremities Comments Mobility Comments Pt was sitting up in chair as PT arrived. He intermittently wiped his mouth and nose to manage secretions. PT donned gait belt with attachment for pt arm support. Pt's spouse wiped pt's nose and Dobhoff tube was dislodged. Notified who arrived to assess. Pt sat on edge of chair and resisted PT perturbation in all planes to work on sitting balance/ trunk activation. Pt then stood CGA and used SBQC to ambulate toward the door CGA. He left the SBQC and ambulated 130 feet without AD CGA-min assist. He responded well to cues for weightshifting and scapular retraction during gait. He returned to the room worked on standing balance including step reactions before transferring back to the chair without AD CGA. Gait Assessment Gait Gait Assistance Required: Contact Guard Assist,Minimum Assistance,1 Person Assist Distance (Feet) 130 Able to Maintain Weight Bearing Status Yes During Gait Assistive Devices Assistive Device None,Gait Belt Orthotic/Prosthetic Devices or Brace: Yes Gait Deviations General Gait Pattern Decreased Stride Length, Decreased Feet Clearance, Lateral Trunk Lean,Step-to Gait Factors Limiting Gait Function Factors Limiting Gait Function Abnormal Tonal Influences, Decreased Activity Tolerance, Decreased Sensation,Decreased Strength,Poor Balance Comments Gait Comments See mobility comments M5 PT-IP Objective Assessments Start: 12/02/20 09:02 Freq: NEEDED Status: Active Protocol: Document 12/02/20 11:24 AW (Rec: 12/02/20 12:53 AW [id number]) Orientation Orientation/Cognition Level of Alertness Alert Orientation Name,Month,Place,Situation Language Function Ability Garbled Speech Comments Unable to assess safety awareness or memory at this encounter. Speech is garbled but content is appropriate and pt is able to communicate his needs. Gross Range of Motion Lower Extremity ROM Assessment Within Functional Limits Strength Lower Extremity Strength Assessment Bilaterally Impaired Hip R 4/5; L 4-/5 Knee R 4/5; L 4-/5 Ankle R 4+/5; L 4-/5 Comments Strength Comments LLE globally 1/2 grade less than RLE except ankle one whole grade less. Coordination Assessment Assessment Coordination Comments Not tested. Deferred to PM session. Sensation Assessment Sensation Gross Sensation Left UE Impaired,Left LE Impaired Light Touch Absent Proprioception (Position) Impaired Sensation Description Numbness Comments Sensation Comments Pt discerns no light touch on his left side. Deep pressure mildly discernable in distal LLE. Temperature sensation not discernable on left side. Other Assessments Other Other Assessments LUE has some activation with AAROM. Not flaccid on evaluation but with extremely low tone. M6 PT-IP Treatment Start: 12/02/20 09:02 Freq: NEEDED Status: Active Protocol: Document 12/07/20 11:16 AW (Rec: 12/07/20 12:15 AW [id number]) Physical Therapy Treatment Education Education Provided Safety M7 PT-IP Assessment and Plan Start: 12/02/20 09:02 Freq: NEEDED Status: Active Protocol: Document 12/07/20 11:16 AW (Rec: 08/29/21 12:15 AW [id number]) PT Summary Assessment and Plan Potential Rehabilitation Potential Excellent Summary Impairments Pain,ROM,Strength,Balance, Coordination,Sensation,Tone, Bed Mobility,Transfers,Gait, Activity Tolerance Progress Towards Goals Progressing Toward Goals Assessment Summary Pt continues to work hard in therapy. His midline awareness is improving though he reverts to right lateral lean in sitting and standing when uncued. Sensation and shoulder strength are also improving. Pt remains an ideal candidate for acute rehab. Goals Bed Mobility Goal Independent Transfer Goal Standby Assistance Gait Goal Standby Assistance,Cane Gait Distance 150 Other Goals improve transfer to independent improve ambulation without AD 150 ft SBA Days to Meet Goals 10 Frequency of Treatment Frequency Of Treatment Twice a Day Treatment Plan Physical Therapy Treatment Plan Bed Mobility Training,Transfer Training,Gait Training, Therapeutic Exercise,Balance Retraining,Discharge Planning, Hot or Cold Pack,Neuromuscular Re-ed,Coordination Retraining ,Manual Therapy Other Recommendations and Next Treatment standing balance/tolerance Focus without AD Precautions Other Precautions falls Recommendations To Nursing Amount of Assist Needed 1 Person Assist Discharge Recommendations PT Discharge Recommendations Acute Rehab Equipment Needed for Home Before defer to rehab setting Discharge
[2020-12-07 11:30] LABS: COVID19 - ADMIT (NP swab/PCR) Negative (Negative)
--- NOTE | 2020-12-07 14:56 | CM.DPNOTE ---
DCP/Continued: Reviewed chart this AM. Received notification from provider that patient medically stable to transfer to acute rehabilitation at [facility]. Placed call to Chintan at [facility] re:acceptance? Chintan confirms patient accepted. Placed call to [facility] and transport scheduled for approximately 2:00pm. RN given number to call report and medical necessity form completed for non-urgent S transport. Received notification from provider at approximately noon that Dobbhoff tube came out? Dr. Nguyen requesting that it be replaced. It is anticipated to be replaced either this pm or in AM. Patient most likely will be stable for discharge once tube replaced. NURSE ORTHOPEDIC updated [facility] and they are agreeable to accept tomorrow 12-08-20. P: [facility] Acute Rehabilitation once medically stable. Patient needs Dobbhoff tube to be replaced for nutrition. JUAN DIEGO Valencia
--- NOTE | 2020-12-07 15:22 | CM.DANOTE ---
DCP/continued: Reviewed notes, patient extubated today. CM team to follow up with d/c planning needs tomorrow 12-08-20. Anticipate that patient will return to [facility] with caregiver. P: Anticipate return to previous level of care when medically stable. JUAN DIEGO Valencia
[2020-12-07] MEDS: ALBUTEROL 2.5 MG/3 ML NEB (ADULT) INH (19:09)
[2020-12-08] VITALS (8 sets, daily range): BP systolic 113–134; BP diastolic 70–92; PULSE 60–100; RESP 16–18; TEMP 36.2–36.6; O2SAT 97–100
--- NOTE | 2020-12-08 02:15 | PC.NURSE ---
Addendum entered by Fransisca Abbott R.N. 12/08/20 02:53: Patient now reports he had a BM yesterday at noon. Original Note: Patient is alert and oriented. Continues to have left facial droop and slurred speech. Has no movement of left hand but is able to lift his left arm. No drift in left leg. NIH = 6. Breath sounds CTA with RA sat of 99%. HRR with telemetry reading of SR. BT present and abdomen is soft; no BM recorded since 12/05. Had not voided on previous shift and bladder scan showing 482cc but patient able to urinate 250cc; will continue to monitor output. Is able to move himself in bed. Gait not assessed at this time but patient reports he is walking with quad cane and 1 assist. Is currently NPO due to swallowing problems and was on tube feed but NG inadvertently pulled out so is awaiting it to be replaced in a.m. Denies pain. Agreeable to having bilateral calf SCD's put on for the night. Fall risk score is high and bed alarm is activated.
[2020-12-08 06:05] LABS: Alanine Aminotransferase 42 IU/L (<50); Albumin 3.4 g/dL (3.5-5.0); Albumin Globulin Ratio 1.2 (1.0-2.8); Alkaline Phosphatase 71 U/L (38-126); Aspartate Aminotransferase 52 IU/L (17-59); BUN Creatinine Ratio 32.8 (6-22); Bilirubin Total 0.5 mg/dL (0.2-1.3); Blood Urea Nitrogen 21 mg/dL (9-20); Calcium 8.7 mg/dL (8.4-10.2); Carbon Dioxide 28 mmol/L (22-32); Chloride 107 mmol/L (98-107); Estimated Glomerular Filt Rate > 60.0 mL/min (>60); Globulin 2.9 g/dL (1.7-4.1); Glucose 101 mg/dL (80-110); HEMOLYSIS < 15 (0-50); Potassium 4.3 mmol/L (3.4-5.1); Sodium 139 mmol/L (137-145); Total Protein 6.3 g/dL (6.3-8.2)
--- NOTE | 2020-12-08 08:00 | PT.IPTN ---
Current Diagnoses Cerebral infarction, unspecified (12/02/20) Physical Therapy Treatment Note M2 PT-IP Current Condition Start: 12/02/20 09:02 Freq: NEEDED Status: Active Protocol: Document 12/02/20 11:24 AW (Rec: 12/02/20 12:36 AW [id number]) Physical Therapy Current Condition Current Condition Evaluation Date 12/02/20 Treatment Diagnosis R frontal and cerebellar CVA; impaired mobility and gait Onset Date 12/01/20 Precautions Other Precautions falls M3 PT-IP Subjective Start: 12/02/20 09:02 Freq: NEEDED Status: Active Protocol: Document 12/08/20 07:37 SP (Rec: 12/08/20 08:15 SP [id number]) Subjective Physical Therapy Visit Type Type Treatment Note Visit Start Time 07:37 Visit Stop Time 08:00 Total Visit Minutes 23 Notes Dobhoff tube not in place, nursing stated will be reinserted some time this am. L wrist immobiliizer donned when arrived. Number of COIN PURSE FRAMER Visits 1 Physical Therapy Visit Comments Patient Comments Pt is willing to work with PT Therapy Pain Assessment Pain Present Pain Present Denied Pain M4 PT-IP Mobility and Gait Start: 12/02/20 09:02 Freq: NEEDED Status: Active Protocol: Document 12/08/20 07:37 SP (Rec: 12/08/20 08:15 SP [id number]) PT-Bed Mobility Assessment Supine to Sit Supine to Sit Standby Assistance,Head of Bed Elevated,Bedrails Scooting Scooting to Edge of Bed Standby Assistance PT-Transfer Assessment Sit to and From Stand Sit to and from Stand Contact Guard Assistance, Minimal Assistance,1 Person Assistance Equipment Transfer Assistive Device None,Gait Belt,Small Based Quad Cane Orthotic/Prosthetic Devices or Brace: Yes Transfers Transfer Destination Chair Transfer Technique pt ambulated without, with SBQC Transfer Ability Level of Assist Contact Guard Assistance, Minimal Assistance,1 Person Assistance Comments Mobility Comments Pt was inclined in bed when COIN PURSE FRAMER arrived. Pt stated accidently sneezed and his tubing came out of his nose and will have it replaced before goes to rehab. Pt intermittently wiped his mouth and nose when needed to manage secretions. Elevated supine>sitting using R bed rail SBA with cues for LUE WB when repositions to allow equal strength self mobility, contact at times forward locomotion for L hand not slide on bed during scoot. Self trunk control unsupported , sit<> stand no UE support arms front>across chest cues for hip hinge forward and even BLE WB, tends to lean more over RLE, Min A> CGA and improved alignment and decreased assist as reps progressed. Step pivot transfer bed> front chair without AD 5%A with cues for even BLE trunk with tall posture/ scap retracted stabilization (L hand support brace donned and supported on sling handle on L therapist assisted L hand placement in standing front chair). Pt progressed distance gait no AD across room to door CG- Min A, into hallway no AD CGA ( therapist carried SBQC if added support needed), provided cues for tall posture and even BLE WB, scap retract / stab postioning CGA- 5%A modifed tandem/ stagger stepping NBOS noted. Pt required increased assist Min- Mod A without AD at 75 ft with increased lean over R, provided SBQC on R and decreased assist to CGA-5%A another 80 ft then required increased support 10%- 25% A using SBQC last 75 ft for total approx 230 ft (masked was donned). Pt stated was tired and can tell needed more help but was pleased about to walk that far with suppport. Pt returned to room chair, step pivot front chair using SBQC CGA, good reaching back w / contact L hand stabilize on chair arm SBA slow descent. COIN PURSE FRAMER provided warm blanket, chair alarm and all needs in reach before left. Gait Assessment Gait Gait Assistance Required: Contact Guard Assist,Minimum Assistance,Moderate Assistance ,1 Person Assist Distance (Feet) 230 Able to Maintain Weight Bearing Status Yes During Gait Assistive Devices Assistive Device None,Gait Belt,Small Based Quad Cane Orthotic/Prosthetic Devices or Brace: Yes Gait Deviations General Gait Pattern Antalgic,Decreased Stride Length,Decreased Feet Clearance,Lateral Trunk Lean, Step-to Gait Factors Limiting Gait Function Factors Limiting Gait Function Abnormal Tonal Influences, Decreased Activity Tolerance, Decreased Sensation,Decreased Strength,Poor Balance Comments Gait Comments See mobility comments Stair Climbing Assessment Comments Stair Climbing Comments Not assessed. PT-Balance Assessment Sitting Balance and Reactions Static Sitting Balance Ability Good Dynamic Sitting Balance Ability Fair Standing Balance and Reactions Static Standing Balance Ability Fair Dynamic Standing Balance Ability Fair Device Used none Functional Assessments Other Functional Tests Performed Sit<> stands x5 from EOB, see mobility for details. M5 PT-IP Objective Assessments Start: 12/02/20 09:02 Freq: NEEDED Status: Active Protocol: Document 12/02/20 11:24 AW (Rec: 12/02/20 12:53 AW [id number]) Orientation Orientation/Cognition Level of Alertness Alert Orientation Name,Month,Place,Situation Language Function Ability Garbled Speech Comments Unable to assess safety awareness or memory at this encounter. Speech is garbled but content is appropriate and pt is able to communicate his needs. Gross Range of Motion Lower Extremity ROM Assessment Within Functional Limits Strength Lower Extremity Strength Assessment Bilaterally Impaired Hip R 4/5; L 4-/5 Knee R 4/5; L 4-/5 Ankle R 4+/5; L 4-/5 Comments Strength Comments LLE globally 1/2 grade less than RLE except ankle one whole grade less. Coordination Assessment Assessment Coordination Comments Not tested. Deferred to PM session. Sensation Assessment Sensation Gross Sensation Left UE Impaired,Left LE Impaired Light Touch Absent Proprioception (Position) Impaired Sensation Description Numbness Comments Sensation Comments Pt discerns no light touch on his left side. Deep pressure mildly discernable in distal LLE. Temperature sensation not discernable on left side. Other Assessments Other Other Assessments LUE has some activation with AAROM. Not flaccid on evaluation but with extremely low tone. M6 PT-IP Treatment Start: 12/02/20 09:02 Freq: NEEDED Status: Active Protocol: Document 12/08/20 07:37 SP (Rec: 12/08/20 08:15 SP [id number]) Physical Therapy Treatment Education Education Provided Safety M7 PT-IP Assessment and Plan Start: 12/02/20 09:02 Freq: NEEDED Status: Active Protocol: Document 12/08/20 07:37 SP (Rec: 12/08/20 08:15 SP [id number]) PT Summary Assessment and Plan Potential Rehabilitation Potential Excellent Summary Impairments Pain,ROM,Strength,Balance, Coordination,Sensation,Tone, Bed Mobility,Transfers,Gait, Activity Tolerance Progress Towards Goals Progressing Toward Goals Assessment Summary Supine>sit mobility SBA using R bed rail, sit<> stand and SPT no AD Min with no UE support, gait in hallway CGA> Mod A no AD initially, using SBQC CGA- Ricco for total 230 ft this tx. Pt self corrects posture an even WB BLE with cues. Pt remains an ideal candidate for acute rehab. Goals Bed Mobility Goal Independent Transfer Goal Standby Assistance Gait Goal Standby Assistance,Cane Gait Distance 150 Other Goals improve transfer to independent improve ambulation without AD 150 ft SBA Days to Meet Goals 10 Frequency of Treatment Frequency Of Treatment Twice a Day Treatment Plan Physical Therapy Treatment Plan Bed Mobility Training,Transfer Training,Gait Training, Therapeutic Exercise,Balance Retraining,Discharge Planning, Hot or Cold Pack,Neuromuscular Re-ed,Coordination Retraining ,Manual Therapy Other Recommendations and Next Treatment standing balance/tolerance Focus without AD Precautions Other Precautions falls Recommendations To Nursing Amount of Assist Needed 1 Person Assist Discharge Recommendations PT Discharge Recommendations Acute Rehab Equipment Needed for Home Before defer to rehab setting Discharge
[2020-12-08] MEDS: ENOXAPARIN 40 MG/0.4 ML SYRINGE SUBCUT (09:25)
--- NOTE | 2020-12-08 10:30 | DI.RAD.S_ITS ---
PROCEDURE: [place] FLUOROSCOPY >1HR COMPARISON: [facility], , [place] FLUOROSCOPY >1HR, 12/06/2020, 11:09. INDICATIONS: FEEDING TUBE PLACEMENT FINDINGS: Fluoroscopic spot films show weighted feeding tube in good shaded into the 3rd portion the duodenum. Contrast noted in the colon as well. IMPRESSION: Weighted feeding tube tip present in the 3rd portion of the duodenum. Approved by: Eduardo Reeves M.D. on 12/08/2020 at 12:06
--- NOTE | 2020-12-08 11:01 | CM.DPNOTE ---
Called [facility] for BLS pickup and spoke to Diana Easley. Pt. will be picked up between 1300 - 1330 to [facility] acute rehab. Fany Irving CM Asst.
--- NOTE | 2020-12-08 11:19 | CM.DPNOTE ---
Faxed order and DC summary to [facility] donald Monson and received fax conf. Fany Irving CM Asst.
--- NOTE | 2020-12-08 12:25 | PC.NURSE ---
Patient back to room 209 after dobhoff placement. Pt tolerated this procedure well. Per Dr. Nguyen tube feed resumed at starting rate of 35 ml/hr. tube feed now increased to 65 ml/hr. Pt tolerating well.
--- NOTE | 2020-12-08 12:28 | ST.IPDYTX ---
Visit Care Team Role Provider Type Az Salazar PA-C Primary Care Provider Non-Staff Specialty: Medical Address: [id number] [place] [address], [id number] Email: Brennan Beltran MD Other Providers Physician Specialty: Radiology Address: [address] [place] [address], [id number] Email: [email or web address] Emergency Provider Physician Specialty: Emergency Medicine Address: [address] [place] [address], [id number] Email: [email or web address] [email or web address] Provider Physician Attending Provider Specialty: Internal Medicine Address: [address] [place] [address], [id number] Email: [email or web address] [facility] Dysphagia Treatment [facility] [facility] Dysphagia Treatment Start: 12/02/20 09:50 Freq: Status: Active Protocol: Document 12/08/20 10:28 JARRETT (Rec: 12/08/20 10:33 ZS [id number]) Dysphagia Treatment Session Time Visit Start Time 09:05 Visit Stop Time 09:25 Total Visit Minutes 20 Visit Information Visit Number 6 Setting Assessment Location Acute Care Visit Type Note Type Treatment Note Next Note Type Next Note Type Treatment Note Patient Information Identification Type Name,ID Wristband Subjective Observations Az was sitting in a chair when clinician arrived. He was alert and attentive while watching TV. No NG tube present, he is scheduled to have it replaced later today. Treatment Oral Strategies Upright at 90 degrees, [place],Other Additional Dysphagia Treatment Use of cold glycerine swab Strategies Treatment Activities Completed brief oral mechanism exam. Az reported increased sensation in left face. Left facial droop present in face at rest. Left weakness with smile and pucker . Difficulty noted with Az' s ability to isolate jaw and lip movement from head movement. Limited ROM of tongue on left, as evidenced by inability to put pressure on his cheek with his tongue. Limitation in this exercise may also be due to limited sensation on left side of face . Practiced home practice exercises for extended time (2 minutes for lip closure and 1 .5 minutes for base of tongue elevation). Az demonstrated increased strength and endurance for both exercises. Throughout base of tongue exercise, Az benefitted from reminders to keep his lips open. He sustained high base of tongue pressure for 1. 5 minutes. Volitional swallowing was targeted as well. Az was prompted 5 times to swallow with 0 successful attempts. Continued to observe frequent tongue pumping during activities. Despite limited success with volitional swallow today, Az demonstrated good strength and coordination in anterior to posterior tongue movement (e.g., productions of /t/ and /k/ to sequence movement for swallowing). Az was able to achieve correct placement for production of /t/ and coordinate tongue movement to move between /t/ and /k/ tongue positions. Az demonstrates improvement in his strength and range of motion each day, with visible gains in therapy activities. Assessment Patient Response to Treatment Fair Rehab Potential Fair Diet Recommendations Recommendations Continue Current Diet Liquids Order Nothing by Mouth Diet Order NPO Medication Recommendations Not Recommended by Mouth Aspiration Precautions Recommended Precautions Upright at 90 Degrees Treatment Plan Placement Recommendation after Discharge Fdc Facility, Inpatient Rehab Facility Appropriate for Continued Therapy Yes Therapy Recommendations Target oral motor strength for purposes of speech and swallowing, specifically, volitional swallow and lip closure for secretion management, tongue strength and ROM for posterior lingual propulsion (moving food from the front of his mouth to the back for swallowing). Dysphagia Goals 1. Az will demonstrate a volitional swallow when prompted and provided with pressure from a cold glycerin or toothette on the back of his tongue. 2. Az will maintain lip closure for secretion management independent of clinician support.
--- NOTE | 2020-12-08 14:39 | CM.DPNOTE ---
[phone] per [place] and received fax confirm. Fany Irving CM Asst.
--- NOTE | 2020-12-08 17:53 | CM.DPC ---
DCP/continued: Reviewed chart. This AM Dr. Nguyen confirmed that replacement dobbhoff tube feed placed. Per RN it has been re-started and patient doing well. COMPENSATION COORDINATOR placed call to Chintan/Gayle at [facility] re: acceptance, both indicate patient okay to come this afternoon. Therefore, COMPENSATION COORDINATOR requested that [facility] set up transport around 1:00pm. Transport arrived and COMPENSATION COORDINATOR received notification that facility will not accept because new tube has not ran for 24hrs? This information was not provided to d/c naval surface fire support planner. COMPENSATION COORDINATOR requested accepting provider speak with Dr. Nguyen re: acceptance and miscommunication with [facility]. Dr. Nguyen confirms that they will not accept until tube has ran consistently overnight or 24hrs. Therefore, Ambulance sent away. Facility made aware of the lack of communication amongst providers at [facility] today and yesterday? Patient accepted without issue yesterday after placement of new tube this AM or last PM. Provider today is different and reports that they will not accept until it has ran the appropriate amount of time. Dr. Nguyen cancelled d/c. P: Pending if [facility] does not accept tomorrow we will need another place. COMPENSATION COORDINATOR requested that clinical be faxed to [facility] for review. P: COMPENSATION COORDINATOR following closely. DESTIN
--- NOTE | 2020-12-08 19:34 | P.PN_ITS ---
Subjective Subjective Interval history: Patient is awaiting replacement of dobhoff feeding tube as it dislodged yesterday. Patient has an acute frontal lobe stroke with persistant dysphagia and inability to eat. He has no specific complaints Exam Vital Signs (past 8 hours): - 12/08/20 12:00 12/08/20 12:10 12/08/20 13:10 Temperature 97.6 F 97.3 F L 97.4 F L Pulse Rate 100 H 60 63 Respiratory Rate 18 18 18 Blood Pressure 134/92 H 128/74 120/70 Pulse Oximetry 99 99 100 12/08/20 15:29 Temperature 97.9 F Pulse Rate 88 Respiratory Rate 18 Blood Pressure 115/81 Pulse Oximetry 99 Oxygen Delivery Method Room Air Oxygen Flow Rate 0 Narrative Exam Narrative: pleasant male in no acute distress HENMT Other: Left facial droop Resp Other: lungs clear to auscultation Cardio Other: RRR nl Sl S2 GI Other: Abd: soft/ non tender/ non distended Neuro Other: Left facial droop. left hand weak 1/5, left leg 4/5, left arm numb Extrem Other: no edema Objective Labs Result Diagrams: 12/04/20 04:54 12/08/20 05:30 Labs: Laboratory Results - last 24 hr 12/08/20 05:30 Sodium 139 Potassium 4.3 Chloride 107 Carbon Dioxide 28 BUN 21 H Creatinine 0.64 L Estimated GFR > 60.0 BUN/Creatinine Ratio 32.8 H Glucose 101 Calcium 8.7 Total Bilirubin 0.5 AST 52 ALT 42 Alkaline Phosphatase 71 Total Protein 6.3 Albumin 3.4 L Globulin 2.9 Albumin/Globulin Ratio 1.2 [facility] Medical History Anemia CHF (congestive heart failure) Chronic interstitial lung disease Compression fracture Essential hypertension History of stroke involving cerebellum Lupus Pelvic fracture Surgical History H/O pelvic surgery Family History Father Alcohol abuse Mother Alcohol abuse Brother CVA (cerebral vascular accident) Social History household members: spouse and family Smoking Status: Never smoker alcohol intake: former Assessment & Plan Assessment & Plan narrative: Acute CVA, acute, present on admission -likely secondary to Gastric Cancer Immunotherapy -Brain MRI - Prominent right frontal (and right posterior cerebellar hemisphere) signal changes suspicious for acute ischemia -CTA without carotid stenosis continue asa and statin therapy. NIH 12 on admission. Unable to swallow currently safely, NG placed, patient has a gastric antral mass along the greater curvature per records. Unknown diagnosis based on records thus far as not stated in his progress note from oncologist. There are multiple liver mets on PET CT. Complete Echo with bubble study showing newly reduced EF of 25% compared to previously known normal EF. No evidence of atrial shunt, no afib on tele thus far. continue PT/OT/speech. continue tele ideally acute rehab, ideally would go with NG tube feeding (per [facility] they may be amenable to a dobhoff tube) and then would recommend outpatient either PEG placement at an institution with additional specialty assistance given patient's oncologic and new cardiac issues or he may potentially regain the ability to swallow in the next few weeks depending on progress. Patient is adamant about continued feeding and wishes to persue PEG. If unable to go to acute rehab with NG tube, re-discussion with surgery needed or possible transfer. 12/06 - D/W Dr. Beltran who was able to place the Dobhoff on Tuesday in [place]. When he arrived back on the floor the tube would not function until pulled back 7 cm. The xray is reviewed and the placement looked like it should have been useable. Will repeat the xray now and may need to be transfered for PEG placement if the Dobhoff is not in the Duodenum. The concern is that the tube could easily be dislodged during stroke rehab in a facility that does not have PEG tube placement capability or a radiologist in-house who could replace the Dobhoff. [facility] inpatient rehab was/is willing to take him if this issue can be taken care of prior to admission. 12/06 - Dr. Barnes spoke with Dr. Figueroa ([facility] oncology) on 12/05 about delaying cancer treatment while in inpatient rehab. He did not think that the cancer treatment would be significantly affected by that kind of a delay. He also mentioned that the CVA could be a result of the Immunotherapy he is receiving with his chemo. Patient unable to have permenant G-tube placed, If needed he will need surgically placed J tube Will replace Dobhoff and once full feeding achieved, transfer to [facility] 2. Hypertension, - patient mildly hypertensive on admission. - given EF of 25%, started on tae-i and beta ninfa, low dose. - BP controlled on low dose medications. 3. gastric cancer with metastases to liver. - gastric cancer, unknown type based on records, with gastric mass and multiple liver mets on PET CT. - has completed 2 rounds of chemotherapy/immunotherapy per patient (and Dr. Figueroa) which he tolerated well. 4. chronic anemia - seen as an outpatient by heme/onc whom stated mix of anemia of chronic inflammation and iron deficiency anemia. H/h stable thus far here. no signs of active bleeding. 5. Chronic systolic and diastolic heart failure, present on admission - no evidence for volume overload on admission. Prior EF was normal per records, EF this admission showing 25% which is new. Patient has been started on low dose carvedilol and lisinopril. Increase as tolerated during his admission. - continue coreg 3.125 BID, lisinopril 5 mg daily. 6. Interstitial lung disease, chronic - continue home medications, prednisone 10 mg daily and albuterol nebulizers ordered as needed. 7. Transfer tomorrow once tube feeds tolerated Quality Stroke Contraindication Not Initiating IV-Tpa: Contraindicated Onset of Symptoms Date: 12/01/20 Onset of Symptoms Time: 04:30 Symptom Onset Unknown: Yes Contraindication Antithromb by Day Two: Contraindicated Rehab Services Assessed: Rehabilitation therapy VTE Deep Vein Thrombosis/Pulmonary Embolism Present on Admission: No
[2020-12-08] MEDS: carvediloL 3.125 MG TABLET PO (21:32)
[2020-12-08] MEDS: ATORVASTATIN 20 MG TABLET 80 MG PO (21:32)
[2020-12-09] VITALS: BP 102/74; PULSE 86; RESP 14; TEMP 36.8; O2SAT 96
[2020-12-09 03:46] VITALS: BP 109/75; PULSE 79; RESP 12; TEMP 36.4; O2SAT 95
[2020-12-09] MEDS: LEVOTHYROXINE 25 MCG TABLET TUBE (05:34)
[2020-12-09 07:29] VITALS: O2SAT 95
[2020-12-09] MEDS: predniSONE 5 MG TABLET 10 MG PO (08:56)
[2020-12-09] MEDS: ASPIRIN 81 MG CHEW TAB PO (08:56)
[2020-12-09] MEDS: carvediloL 3.125 MG TABLET PO (08:56)
[2020-12-09] MEDS: lisinopriL 5 MG TABLET PO (08:56)
[2020-12-09] MEDS: ENOXAPARIN 40 MG/0.4 ML SYRINGE SUBCUT (08:57)
--- NOTE | 2020-12-09 09:00 | PM.DS.1 ---
History of Present Illness History of Present Illness Chief complaint: stroke Narrative: Az Bowden is a very pleasant 65-year-old gentleman who got up in the middle of night to go to the bathroom, fell down and was unable to get. He states that he fell twice once in the bedroom and once in the bathroom and could not use his left arm. He denies chest pain, headaches, nausea or vomiting, abdominal pain, does state he has slow urination which has been getting worse over time, he did have diarrhea yesterday from the chemotherapy treatments he has been taking for stomach cancer, he currently endorses inability to use his left arm and weakness in his left leg. He states that he had a stroke prior to and I am not sure that he was treated here or presented at a different facility. During his last admission for congestive heart failure he was noted to have metastatic lesions in his liver. Further workup identified the primary cancer is coming from his stomach. He states he has completed 2 chemotherapy treatments and that he believes they are working. He sees Dr. Figueroa, oncologist at [facility]. In the ED the head CT and the CTA were negative for an acute process. There was indication of an old right cerebellar hemispheres infarct. The ED NIH score was 12. Patient is afebrile, blood pressure 138/88, heart rate 105, respiratory rate 18, oxygen saturation of 99% on room air, he weighs 72.5 kg with a BMI of 23.6. Patient's WBC is normal, RBC 3.53, hemoglobin 8.5, hematocrit 27.4, platelet count 302, he is lymphopenic, chloride is 109, BUN 7, creatinine 0.51, with a GFR of greater than 60, calcium 7.8, magnesium 2.0, liver enzymes are within normal limits, albumin is 3.1, cholesterol is 121, LDL 42, HDL 53, and TSH is markedly elevated 17.6, and COVID-19 PCR is negative. Discharge Providers Provider Date of admission: 12/02/20 03:05 Discharge Date: 12/09/20 Primary care physician: Az Salazar PA-C Consults: 12/02/20 03:18 Consult to Discharge Planning Routine Comment: Consult to Physical Therapy Evaluate & Treat Comment: Physician Instructions: Evaluate and Treat Consult to Speech Therapy Evaluate & Treat Comment: unable to swallow Physician Instructions: Evaluate and treat 12/02/20 09:28 Consult to Occupational Therapy Evaluate & Treat Comment: DX: CVA Physician Instructions: Evaluate and treat 12/02/20 13:48 Consult to Dietitian, Adult Routine Comment: Reason For Exam: tube feedings 12/05/20 14:52 Consult to Occupational Therapy Evaluate & Treat Comment: Physician Instructions: Left wrist brace on for positioning needs. 12/06/20 09:10 Consult to Interventional Radiology Routine Comment: Consulting Provider: Brennan Beltran Reason For Exam: Dobhoff placement for Feeding Discharge provider: Jill Nguyen MD Summary Hospital Course Discharge Diagnosis: 1. Acute CVA, right frontal, right posterior cerebellar 2. Chronic Systolic Heart Failure, Ejection fraction 22% 3. Chronic interstitial lung disease 4. Lupus 5. Anemia 6. Gastric Cancer with Mets to liver Hospital Course: Patient was admitted to the hospital following a fall. Patient underwent head MRI which confirmed and acute right frontal stroke. Patient had an echo revelaed and EF of 25-30%, grade 3 diastolicyh dysfunction, RV enlargement, mild MR, Mild Biatrial enlargement but no intracardiac shunt. Patient had an NIH score of 12. He failed his swallow evaluation and was aspirating on barium swallow. A dobhoff feeding tube was placed which he tolerated for tube feeds. His initial TSH was elevated at 17, but total T4 was normal likely reflecting euthyroid sick syndrome. The patient was placed on asa, atorvastatin, coreg, and lisinopril. He continues to have severe left arm weakness. He also has left facial droop as well. Patient was evaluated by PT/OT / and Speech. He was felt to be a good candidate for inpatient rehabilitation. Patient will be transferred for acute rehabilitation. They will place a PEG tube subsequently if he remains unsafe for oral feeding. On the day of discharge he has no complaints. Patient is deemed appropriate for discharge to acute rehab. Status at Discharge Cognitive/behavioral status at discharge: oriented Functional status at discharge: uses cane/walker Overall status at discharge: patient is not back to baseline Status at Discharge Cognitive/behavioral status at discharge: oriented Functional status at discharge: uses cane/walker Overall status at discharge: patient is not back to baseline Exam Vital Signs (past 8 hours): - 12/09/20 03:46 12/09/20 07:29 Temperature 97.6 F Pulse Rate 79 Respiratory Rate 12 Blood Pressure 109/75 Pulse Oximetry 95 95 Oxygen Delivery Method Room Air Oxygen Flow Rate 0 Narrative Exam Narrative: pleasant gentleman in no acute distress HENMT Other: left facial droop Resp Other: lungs: clear to auscultation Cardio Other: RRR nl Sl S2 GI Other: Abd: soft/ non tender/ non distended Neuro Other: right facial droop, right arm 1/5, right leg 5/5 Extrem Other: no edema Objective Labs Result Diagrams: 12/04/20 04:54 12/08/20 05:30 [facility] Medical History Anemia CHF (congestive heart failure) Chronic interstitial lung disease Compression fracture Essential hypertension History of stroke involving cerebellum Lupus Pelvic fracture Surgical History H/O pelvic surgery Family History Father Alcohol abuse Mother Alcohol abuse Brother CVA (cerebral vascular accident) Social History household members: spouse and family Smoking Status: Never smoker alcohol intake: former Discharge Assessment & Plan Assessment and Plan Assessment: 1. Acute CVA 2. Gastric Cancer with liver mets 3. Interstital lung disease 4. Chronic Systolic Heart Failure 5. History of prior cerebellar stroke Plan of Treatment: To acute inpatient rehabilitation Discharge Plan Discharge Plan Patient Disposition: Xfer Inpatient Rehab Other facility: [facility] Consult as needed: Dental, Hearing, Mental health, Podiatry and Vision Discharge orders & Medications Discharge Orders: Discharge (Order); Ordered 12/09/20 Ordered By: Jill Nguyen Prescriptions: New atorvastatin [Lipitor] 20 mg Tablet 80 mg PO BEDTIME Qty: 30 RF: 0 aspirin 81 mg Tablet,Chewable 81 mg PO DAILY 30 Days Qty: 30 RF: 0 lisinopril 5 mg Tablet 5 mg PO DAILY Qty: 30 RF: 0 carvedilol [Coreg] 3.125 mg Tablet 3.125 mg PO BID Qty: 30 RF: 0 Continued albuterol sulfate 90 mcg/actuation HFA aerosol inhaler 1 puff INHALATION Q4-6H PRN (Reason: shortness of breath or wheezing) Qty: 8.5 RF: 0 Adults Multivitamin 18 mg iron-400 mcg-25 mcg Tablet 1 tab PO DAILY RF: 0 ferrous sulfate 325 mg (65 mg iron) Tablet 325 mg PO DAILY Qty: 30 RF: 0 prednisone 10 mg Tablet 10 mg PO DAILY RF: 0 Medication counseling provided by Pharmacist: No Follow up/Referrals: Az Salazar PA-C [Primary Care Provider] - Discharge Health Status Multidrug resistant organism: No MDRO Diet/Activity/Treatments Diet: Tube Feeding Special Rehabilitation Services Reason for rehabilitation: Therapy following stroke Rehab type: Physical therapy, Occupational therapy and Speech therapy Discharge Data Primary Care Provider: Az Salazar Quality Stroke Contraindication Not Initiating IV-Tpa: Contraindicated Onset of Symptoms Date: 12/01/20 Onset of Symptoms Time: 04:30 Symptom Onset Unknown: Yes Contraindication Antithromb by Day Two: Contraindicated Rehab Services Assessed: Rehabilitation therapy VTE Deep Vein Thrombosis/Pulmonary Embolism Present on Admission: No
--- NOTE | 2020-12-09 09:41 | PT.IPTN ---
Current Diagnoses Cerebral infarction, unspecified (12/02/20) Physical Therapy Treatment Note M2 PT-IP Current Condition Start: 12/02/20 09:02 Freq: NEEDED Status: Active Protocol: Document 12/02/20 11:24 AW (Rec: 12/02/20 12:36 AW [id number]) Physical Therapy Current Condition Current Condition Evaluation Date 12/02/20 Treatment Diagnosis R frontal and cerebellar CVA; impaired mobility and gait Onset Date 12/01/20 Precautions Other Precautions falls M3 PT-IP Subjective Start: 12/02/20 09:02 Freq: NEEDED Status: Active Protocol: Document 12/09/20 09:24 SP (Rec: 12/09/20 11:37 SP [id number]) Subjective Physical Therapy Visit Type Type Treatment Note Visit Start Time 09:24 Visit Stop Time 09:41 Total Visit Minutes 17 Notes in room when arrived. Nurse unavailable to stop tubing feeding so pt mobilized his IV pole self during gait. Continued caregiver training with , she provided donned gait belt and provided physicial assist required with cuing for safety education on pole positioning and trunk support as needed. Number of LOGISTICS ENGINEERING MANAGER Visits 2 Physical Therapy Visit Comments Patient Comments Pt is willing to work with PT Therapy Pain Assessment Pain Present Pain Present Denied Pain M4 PT-IP Mobility and Gait Start: 12/02/20 09:02 Freq: NEEDED Status: Active Protocol: Document 12/09/20 09:24 SP (Rec: 12/09/20 11:37 SP [id number]) PT-Bed Mobility Assessment Supine to Sit Supine to Sit Standby Assistance,Head of Bed Elevated,Bedrails Scooting Scooting to Edge of Bed Standby Assistance PT-Transfer Assessment Sit to and From Stand Sit to and from Stand Contact Guard Assistance, Minimal Assistance,1 Person Assistance Equipment Transfer Assistive Device None,Gait Belt,Small Based Quad Cane Orthotic/Prosthetic Devices or Brace: Yes Transfers Transfer Destination Chair Transfer Technique pt ambulated without, with SBQC Transfer Ability Level of Assist Contact Guard Assistance, Minimal Assistance,1 Person Assistance Comments Mobility Comments Pt was inclined in bed when arrived. Completed supine> sitting SBA with use of bed rail and cuing for LUE WB on bed for increased strength contact for stabilizing placement (wrist brace donned) . donned gait belt, LOGISTICS ENGINEERING MANAGER assisted w/ education L hand placement placement handle sling/ strap attached to gait belt on L (future tx will have patient perform using RUE). Sit>stand Min A for trunk wt shift forward by without UE support, repeated with reduction to CGA with reps. SPT bed> front chair CGA without AD. Pt proceeded pushing IV pole self around bed and into hallway CGA with occasional cues chest lift tall posture L scap retracted positioning and safety awareness of feet placement near IV pole base, CG-10% A around nursing station and back to room, no stand rests required. SPT in front chair after pt positioned IV pole at side bed no AD CGA, cued slow descent into chair, contact LUE [employer] [facility] [place] secure placement on chair arm CGA. Pt had call light, chair alarm donned and all needs in reach. in room. Gait Assessment Gait Gait Assistance Required: Contact Guard Assist,Minimum Assistance,1 Person Assist Distance (Feet) 230 Able to Maintain Weight Bearing Status Yes During Gait Assistive Devices Assistive Device None,Gait Belt Orthotic/Prosthetic Devices or Brace: Yes Gait Deviations General Gait Pattern Antalgic,Decreased Stride Length,Decreased Feet Clearance,Lateral Trunk Lean, Step-to Gait Factors Limiting Gait Function Factors Limiting Gait Function Abnormal Tonal Influences, Decreased Activity Tolerance, Decreased Sensation,Decreased Strength,Poor Balance Comments Gait Comments Pt tends to lean R and decreased LLE stance time at times during gait self manage IV pole with RUE, cued tall posture and even wt distributed between BLE (like walking with book on his head) facilitating core and hip strengthening, improved posture and trunk positioning last 30 ft, decrease trunk lean. Stair Climbing Assessment Comments Stair Climbing Comments Not assessed. PT-Balance Assessment Sitting Balance and Reactions Static Sitting Balance Ability Good Dynamic Sitting Balance Ability Good Standing Balance and Reactions Static Standing Balance Ability Fair Dynamic Standing Balance Ability Fair Device Used none w/ transfers, IV pole mgt during gait Functional Assessments Other Functional Tests Performed Sit<> stands x5 from EOB, see mobility for details. M5 PT-IP Objective Assessments Start: 12/02/20 09:02 Freq: NEEDED Status: Active Protocol: Document 12/02/20 11:24 AW (Rec: 12/02/20 12:53 AW [id number]) Orientation Orientation/Cognition Level of Alertness Alert Orientation Name,Month,Place,Situation Language Function Ability Garbled Speech Comments Unable to assess safety awareness or memory at this encounter. Speech is garbled but content is appropriate and pt is able to communicate his needs. Gross Range of Motion Lower Extremity ROM Assessment Within Functional Limits Strength Lower Extremity Strength Assessment Bilaterally Impaired Hip R 4/5; L 4-/5 Knee R 4/5; L 4-/5 Ankle R 4+/5; L 4-/5 Comments Strength Comments LLE globally 1/2 grade less than RLE except ankle one whole grade less. Coordination Assessment Assessment Coordination Comments Not tested. Deferred to PM session. Sensation Assessment Sensation Gross Sensation Left UE Impaired,Left LE Impaired Light Touch Absent Proprioception (Position) Impaired Sensation Description Numbness Comments Sensation Comments Pt discerns no light touch on his left side. Deep pressure mildly discernable in distal LLE. Temperature sensation not discernable on left side. Other Assessments Other Other Assessments LUE has some activation with AAROM. Not flaccid on evaluation but with extremely low tone. M6 PT-IP Treatment Start: 12/02/20 09:02 Freq: NEEDED Status: Active Protocol: Document 12/09/20 09:24 SP (Rec: 12/09/20 11:37 SP [id number]) Physical Therapy Treatment Education Education Provided Safety M7 PT-IP Assessment and Plan Start: 12/02/20 09:02 Freq: NEEDED Status: Active Protocol: Document 12/09/20 09:24 SP (Rec: 12/09/20 11:37 SP [id number]) PT Summary Assessment and Plan Potential Rehabilitation Potential Excellent Status of Condition at Evaluation Evolving Summary Impairments Pain,ROM,Strength,Balance, Coordination,Sensation,Tone, Bed Mobility,Transfers,Gait, Activity Tolerance Progress Towards Goals Progressing Toward Goals Assessment Summary bed mobility SBA using bed rail w/ RUE, sit<>stand Min A without UE support , CGA with UE support, gait self managing IV pole CG- Min A. Pt requires cues for trunk midline and even BLE WB stance time for normalizing balance during gait. Pt remains an ideal candidate for acute rehab. Goals Bed Mobility Goal Independent Transfer Goal Standby Assistance Gait Goal Standby Assistance,Cane Gait Distance 150 Other Goals improve transfer to independent improve ambulation without AD 150 ft SBA Days to Meet Goals 10 Frequency of Treatment Frequency Of Treatment Twice a Day Treatment Plan Physical Therapy Treatment Plan Bed Mobility Training,Transfer Training,Gait Training, Therapeutic Exercise,Balance Retraining,Discharge Planning, Hot or Cold Pack,Neuromuscular Re-ed,Coordination Retraining ,Manual Therapy Other Recommendations and Next Treatment standing balance/tolerance Focus without AD Precautions Other Precautions falls Recommendations To Nursing Amount of Assist Needed 1 Person Assist Discharge Recommendations PT Discharge Recommendations Acute Rehab Equipment Needed for Home Before defer to rehab setting Discharge Transportation Needs at Discharge Wheelchair/Cabulance
--- NOTE | 2020-12-09 10:46 | PC.NURSE ---
Assess- Patient is alert and oriented x3, he has some l.sided facial droop and expressive aphagia when speaking. He is not having any memory issues and answers all questions appropriately. Patient is using a quaad cane and one person assist to ambulate. He is tolerating this well. Patient has a feeding tube that goes up through his nose down to his stomach. Patient is getting Jevity 1.2 at 65cc/hr with a flush of 150cc every 6 hours. He is tolerating this well, abdomen is non-tender, and soft. Bowel tones are present in all four quadrants. Per speech therapist Levi, patient is working on swallowing on demand with lots of tongue pumping/ with tongue movement and no swallowing. He still needs to remain npo as swallow is not yet back baseline, we are working on building muscle up, until then he is at risk for aspiration. Patient also has some l.side leg weakness, he is able to lift his leg but still has a limp. He is also able to lift up his l.arm but has no relationship manager in his left hand. He is wearing a brace for this. is in room and attentive to patients needs.
[2020-12-09 11:00] VITALS: BP 115/66; PULSE 94; RESP 16; TEMP 36.4; O2SAT 99
--- NOTE | 2020-12-09 11:01 | CM.DPNOTE ---
Called [facility] for BLS transport to [facility] per [place] at 1100. The soonest they can pick pt. up is 1310. I accepted that time. Fany Irving CM Asst.
--- NOTE | 2020-12-09 11:45 | OT.IP.TRT ---
Current Diagnoses Cerebral infarction, unspecified (12/02/20) Occupational Therapy Treatment Note M2 OT-IP Current Condition Start: 12/02/20 14:27 Freq: Status: Active Protocol: Document 12/02/20 11:00 [facility]3] (Rec: 12/02/20 14:49 [facility]3] [id number]) Occupational Therapy Current Condition Current Condition Evaluation Date 12/02/20 Treatment Diagnosis CVA, decreased mobility and coordination Diagnosis Onset Date 12/02/20 M3 OT- IP Subjective and Pain Start: 12/02/20 14:27 Freq: Status: Active Protocol: Document 12/09/20 11:44 [facility]3] (Rec: 12/09/20 11:53 [facility]3] [id number]) OT- Subjective Occupational Therapy Visit Type Type Treatment Note Visit Start Time 11:25 Visit Stop Time 11:40 Total Visit Minutes 15 Occupational Therapy Visit Comments Patient Comments Pt agreed to see OT and to go to acute rehab this afternoon. Patient/Caregiver Goals Pt would like to go home but realizes would be best to go to rehab initially. OT Pain Assessment Pain When Pain Assessed At Rest Pain Present Pain Present Denied Pain M4 OT- IP ADL's Start: 12/02/20 14:27 Freq: Status: Active Protocol: Document 12/09/20 11:44 [facility]3] (Rec: 12/09/20 11:53 [facility]3] [id number]) OT ADL-Grooming Comments OT Grooming Comments Not performed. OT ADL-Oral Care Comments Oral Care Comments NOt performed. OT ADL-Dressing Comments OT Dressing Comments Pt needing assist to help move his left finger and wrist and then able to use his right hand to jessica/doff the left wrist brace. M8 OT- IP Objective Assessments Start: 12/02/20 14:27 Freq: Status: Active Protocol: Document 12/09/20 11:44 [facility]3] (Rec: 12/09/20 11:53 [facility]3] [id number]) OT Strength Upper Extremity Strength Assessment Left Impaired Shoulder 3 Elbow 3- Forearm 2 Comments Strength Comments Pt able to lift his left arm into shoulder flexion while seated today. Pt also able to help control his left arm down versus prior needing therapist to help lower his arm down as prior did not have the muscle control to prevent his left arm from an uncontrollable descent. M9 OT- IP Assessment and Plan Start: 12/02/20 14:27 Freq: Status: Active Protocol: Document 12/09/20 11:44 [facility]3] (Rec: 12/09/20 11:53 [facility]3] [id number]) OT Summary Assessment and Plan Potential Rehabilitation Potential Good Analytic Complexity at Evaluation High Summary OT Impairments Range of Motion,Balance, Coordination,Sensation,Tone, Functional Mobility,Self- Feeding,Grooming,Dressing, Toileting,Bathing,Toilet Transfers,Shower Transfers, Activity Tolerance Progress Towards Goals Progressing Toward Goals Assessment Summary Pt gaining more strength and control with LUE, however still questionable trace movement at his left wrist and fingers at this time. Pt looking to go to acute rehab today. Discharge Recommendations OT Discharge Recommendations Acute Rehab Transportation Needs at Discharge Private Vehicle
[2020-12-09 12:28] LABS: COVID19 -Nasal RAPID Negative (Negative)
--- NOTE | 2020-12-09 12:39 | ST.IPDYTX ---
Visit Care Team Role Provider Type Az Salazar PA-C Primary Care Provider Non-Staff Specialty: Medical Address: [id number] [place] [address], [id number] Email: Brennan Beltran MD Other Providers Physician Specialty: Radiology Address: [address] [place] [address], [id number] Email: [email or web address] Emergency Provider Physician Specialty: Emergency Medicine Address: [address] [place] [address], [id number] Email: [email or web address] Saleh Admit Provider Physician Attending Provider Specialty: Internal Medicine Address: [address] [place] [address], [address] Email: [email or web address] STONE BREAKER Dysphagia Treatment STONE BREAKER Dysphagia Treatment Start: 12/02/20 09:50 Freq: Status: Active Protocol: Document 12/09/20 12:33 ZS (Rec: 12/09/20 12:39 ZS [id number]) Dysphagia Treatment Session Time Visit Start Time 10:30 Visit Stop Time 10:55 Total Visit Minutes 25 Visit Information Visit Number 7 Setting Assessment Location Acute Care Visit Type Note Type Treatment Note Next Note Type Next Note Type Treatment Note Patient Information Identification Type Name,ID Wristband Subjective Observations Az was sitting in a chair when clinician arrived. He was alert and attentive while watching TV. NG tube was replaced. Treatment Oral Strategies Upright at 90 degrees, Toothette,Other Additional Dysphagia Treatment Use of cold glycerine swab Strategies Treatment Activities Practiced home practice exercises at extended duration (2 minutes for lip closure, 1 .5 minutes for base of tongue elevation). Increased strength and endurance since previous session, though increased reminders for maintaining pressure during base of tongue exercise were needed today. Throughout base of tongue exercise, Az benefitted from reminders to keep his lips open. Attempted volitional swallow with cold glycerin swab x6, with 0 successful swallows. Tongue pumping and laryngeal elevation noted, though no hyolaryngeal excursion noted. Despite limited success with volitional swallow today, Az demonstrated good strength and coordination in anterior to posterior tongue movement (e.g., productions of /t/ and /k/ to sequence movement for swallowing). Az was able to achieve correct placement for production of /t/ and coordinate tongue movement to move between /t/ and /k/ tongue positions. Az demonstrates improvement in his strength and range of motion each day, with visible gains in therapy activities. Assessment Patient Response to Treatment Fair Rehab Potential Fair Diet Recommendations Recommendations Continue Current Diet Liquids Order Nothing by Mouth Diet Order NPO Medication Recommendations Not Recommended by Mouth Aspiration Precautions Recommended Precautions Upright at 90 Degrees Treatment Plan Placement Recommendation after Discharge Penitentiary Facility, Inpatient Rehab Facility Appropriate for Continued Therapy Yes Therapy Recommendations Target oral motor strength for purposes of speech and swallowing, specifically, volitional swallow and lip closure for secretion management, tongue strength and ROM for posterior lingual propulsion (moving food from the front of his mouth to the back for swallowing). Dysphagia Goals 1. Az will demonstrate a volitional swallow when prompted and provided with pressure from a cold glycerin or toothette on the back of his tongue. 2. Az will maintain lip closure for secretion management independent of clinician support.
--- NOTE | 2020-12-09 12:41 | CM.DPC ---
DCP/continued: Received notification from provider patient medically stable for d/c today. Order obtained indicating that there has been no issue with tube feed overnight. Nurse's note faxed to [facility]. In addition COVID test ordered and result was negative prior to d/c. P: [facility]/Fany coordinated transport for today at approximately 1:00pm. Patient and family aware and agreeable. JUAN DIEGO Valencia
--- NOTE | 2020-12-09 13:10 | CM.DPNOTE ---
Faxed covid result to [facility] and received fax conf. Fany Irving CM Asst.
== END 2020-12-09 13:15 | DRG 65 ==
LOC: ED 02:38 → ICU 07:44 → AC 13:09 → ICU 13:13 → AC 12-04 12:39
PROVIDERS: Internal Medicine; Admitting Provider Nurse Practitioner Family; Emergency Provider Emergency Medicine; PCP Physician Assistant; Visit Provider Nurse Practitioner Family
DX: I63.9 Cerebral infarction, unspecified (principal); G81.94 Hemiplegia, unspecified affecting left nondominant side; C16.9 Malignant neoplasm of stomach, unspecified; C78.7 Secondary malignant neoplasm of liver and intrahepatic bile duct; I50.42 Chronic combined systolic (congestive) and diastolic (congestive) heart failure; E46 Unspecified protein-calorie malnutrition; J84.9 Interstitial pulmonary disease, unspecified; T85.9XXA Unspecified complication of internal prosthetic device, implant and graft, initial encounter; I11.0 Hypertensive heart disease with heart failure; R13.10 Dysphagia, unspecified; M32.9 Systemic lupus erythematosus, unspecified; E03.9 Hypothyroidism, unspecified; D50.9 Iron deficiency anemia, unspecified; Z68.24 Body mass index [BMI] 24.0-24.9, adult; Z86.73 Personal history of transient ischemic attack (TIA), and cerebral infarction without residual deficits; Z20.822 Contact with and (suspected) exposure to COVID-19; R29.712 NIHSS score 12
CPT/HCPCS: 36415; 70450; 70496; 70498; 70544; 70551; 71045; 74019; 74230; 76000; 80048; 80053; 80061; 80076; 82550; 82962; 83036; 83735; 84439; 84443; 84484; 85025; 85610; 87635; 87797; 92526; 92610; 92611; 93005; 93010; 93306; 94640; 94762; 96360; 97112; 97116; 97162; 97167; 97530; 97535; 99285; 99291; 99292; C9803; J1650; J7613; Q9967

== ENCOUNTER 2021-01-06 18:26 | Emergency (ER) | payer MEDICARE, OTHER, SELFPAY ==
[2020-12-02 03:45] VITALS: BMI 23.6
[2021-01-06 18:31] VITALS: BP 130/85; PULSE 113; RESP 22; TEMP 37.1; O2SAT 97
--- NOTE | 2021-01-06 19:01 | DI.RAD.S_ITS ---
PROCEDURE: XR KUB INDICATIONS: j tube placement. TECHNIQUE: One view of the abdomen acquired. COMPARISON: None. FINDINGS: Surgical changes and devices: GJ tube tip is seen in the region of proximal jejunum in left abdomen. Fixation hardware in right hip is seen. Bowel: Bowel gas pattern is nonobstructive. Oral contrast opacification of proximal small bowel loops are noted. No contrast extravasation or gross free air. Soft tissues: No suspicious abdominal calcifications. Visualized solid organ contours appear normal in size. Bones: No suspicious bony lesions. IMPRESSION: GJ tube tip is in proximal jejunum. Normal contrast opacification of proximal jejunum without contrast extravasation or gross free air. No evidence of bowel obstruction. Dictated by: Juan Cast M.D. on 01/06/2021 at 19:49 Approved by: Juan Cast M.D. on 01/06/2021 at 19:52
--- NOTE | 2021-01-06 19:02 | ED_ITS ---
HPI - Recheck/Abnormal Lab/Rx General Chief Complaint: Recheck/Abnormal Lab/Rx Stated Complaint: having tube problems, phys wants xray, leaking Time Seen by Provider: 01/06/21 19:01 Source: patient Mode of arrival: Ambulatory Limitations: no limitations History of Present Illness HPI narrative: This is a 65-year-old male who is sent for possible J-tube leakage. Patient states he had 1 placed after having a stroke. He had a nasogastric droop he was sent to rehab facility and while there they felt would be appropriate to have a J-tube placed. Patient had it placed at [facility] in [place]. He does not remember his surgeon's name. He states this was approximately 2 weeks ago. He states he has not had any issues until today when they went to give him his feet and a small amount seem to come out around the edge. Has had some mild leakage that he describes as yellow and clearish. It has not appeared to be stool according to the patient. They stopped his feet today and he has not had any additional so far. Patient denies fevers. He denies any abdominal pain. He has some mild pain at the site which has not improved but has not been significantly worsening. He has not appreciate a lot of redness or warmth to the area. He was seen in outpatient visit follow-up for his J-tube and was told that the leakage that he had been seeing which has been mild and daily and not increasing was normal. Patient denies any additional symptoms or issues at this time. He states the nurse that gave him his feet today contacted physician who told him to come get checked out. Related Data Home Medications Medication Instructions Recorded Confirmed multivit with minerals-iron 18 1 tab PO DAILY 09/27/20 12/02/20 mg-folic ac 400 mcg-vit K 25 mcg tablet (Adults Multivitamin) prednisone 10 mg tablet 10 mg PO DAILY 12/02/20 12/02/20 Previous Rx's Medication Instructions Recorded albuterol sulfate 90 mcg/actuation 1 puff INHALATION Q4-6H PRN #8.5 10/04/18 aerosol inhaler gram ferrous sulfate 325 mg (65 mg 325 mg PO DAILY #30 tab 09/29/20 iron) tablet ondansetron 4 mg disintegrating 4 mg PO QID PRN #14 tab 01/06/21 tablet Allergies Allergy/AdvReac Type Severity Reaction Status Date / Time No Known Drug Allergies Allergy Verified 09/27/20 09:04 Review of Systems Review of Systems ROS Unobtainable: All systems reviewed & are unremarkable except as noted in HPI and below Patient History Medical History Anemia CHF (congestive heart failure) Chronic interstitial lung disease Compression fracture Essential hypertension History of stroke involving cerebellum Lupus Pelvic fracture Surgical History H/O pelvic surgery Family History Father Alcohol abuse Mother Alcohol abuse Brother CVA (cerebral vascular accident) Social History household members: spouse and family Smoking Status: Never smoker alcohol intake: former Smoking Status: Never smoker alcohol intake frequency: holidays/special occasions only Substance Use Type: marijuana Exam Narrative Exam Narrative: GENERAL: Alert and oriented x three, male in mild distress. HEENT: Head normocephalic, atraumatic, EOMI, pupils reactive, face symmetric, moist mucous membranes NECK: Supple, full range of motion CARDIOVASCULAR: Regular rate and rhythm without murmurs, rubs or gallops. RESPIRATORY: Breath sounds equal bilaterally, no wheezes rales or rhonchi. ABDOMEN: Soft, nontender. Normoactive bowel sounds all 4 quadrants. No guarding or rebound, rigidity, no mass. Patient has a Jejeostomy tube inleft lower abdomen. Suture material is not attached to the skin, but is on the tube. The tube does appear to be intact and in place otherwise. There is some very mild rales erythema at the edge of the stoma site. There is some yellow serous drainage but no stool, no purulent drainage or foul odor. Area is nontender to touch. With gentle traction the tube appears to be in place. : No CVA tenderness EXTREMITIES: Normal range of motion. Normal gait. Neurovascularly intact NEUROLOGICAL: Cranial nerves II through XII grossly intact. Moving all e xtremities SKIN: Warm, dry, no petechiae, no rashes or lesions. Initial Vital Signs Initial Vital Signs: Vital Signs Temperature 98.7 F 01/06/21 18:31 Pulse Rate 113 H 01/06/21 18:31 Respiratory Rate 22 01/06/21 18:31 Blood Pressure 130/85 01/06/21 18:31 Pulse Oximetry 97 01/06/21 18:31 Procedures [facility] Procedure Name of Procedure: Secured J-tube. Area and tube was prepped with Betadine. Patient had 27 gauge needle aspirated and then injected 4 cc of lidocaine around the opening of the stoma for good anesthesia. Patient had 3-0 nylon anchoring suture around the J-tube x2 and secured on each side. Traction was applied and tube appears secured. 20 cc of normal saline were flushed with no drainage around the site. Dressing was applied by nursing. Course Orders Ordered: ED Orders 01/06/21 19:01 XR KUB Stat 01/06/21 20:36 CT abdomen pelvis w con Stat 01/06/21 20:48 Complete Blood Count AUTO DIFF Stat Comprehensive Metabolic Panel Stat Discontinued Medications Lidocaine/Sodium Bicarbonate (Lido 1%/Sod Bicarb 8.4% (10ml) 10 Ml Syringe) 10 ml INJ NOW ONE Stop: 01/06/21 22:28 Last Admin: 01/06/21 22:36 Dose: 10 ml Documented by: CAROLINA Ondansetron HCl (Ondansetron 4 Mg Odt Prepack) 1 bottle [facility] Stop: 01/06/21 23:18 Last Admin: 01/06/21 23:21 Dose: 1 bottle Documented by: KIRSTIN Consultations Consultation #1: Dr. Norwood, general surgery at [facility]. Discussed patient's current symptoms. His x-ray findings and known findings when flushing his tube. He requested a CT abdomen pelvis with contrast. I spoke again with Dr. Teague. He is able to locate the patient in the EMR and they did have their tube placed at [facility]. We did review patient's CT findings it does appear that the fenestration/opening maybe close to the skin as the tube itself extends ways into the bowel. There is a small amount of fluid but no obvious abscess collection. And there is no extravasation otherwise appreciated of the Gastrografin. He recommends follow-up in the next 48 hours with the office and phone number was given for the patient to be seen. He also asks that we prepped the area with Betadine and advance his J-tube 1-2 inches and suture into place with 3-0 nylon. Vital Signs Vital signs: Vital Signs - 8 hr 01/06/21 18:31 01/06/21 20:25 01/06/21 23:34 Temperature 98.7 F Pulse Rate 113 H 107 H 105 H Respiratory Rate 22 20 Blood Pressure 130/85 116/86 Pulse Oximetry 97 95 98 MDM - Recheck/Abnormal Lab/Rx Lab Data Result diagrams: 01/06/21 20:48 01/06/21 20:48 Labs: Lab Results 01/06/21 01/06/21 Range/Units 20:48 20:48 WBC 10.4 (4.5-11.0) X10^3/uL RBC 3.74 L (4.5-5.9) X10^6/uL Hgb 10.1 L (13.5-17.5) g/dL Hct 32.3 L (41-53) % MCV 86.4 (80-100) fL MCH 26.9 (26-34) PG MCHC 31.1 (30-36) % RDW 28.3 H (11.6-14.8) % Plt Count 377 (150-400) X10^3/uL Neut % (Auto) 69.8 (50-75) % Lymph % (Auto) 17.6 L (25-40) % Elmore % (Auto) 7.3 (3-14) % Eos % (Auto) 3.7 (2-4) % Baso % (Auto) 1.6 (0-2) % Neut # (Auto) 7200 H (5996-9107) /uL Lymph # (Auto) 1800 (0894-4518) /uL Elmore # (Auto) 800 (0-900) /uL Eos # (Auto) 400 (0-450) /uL Baso # (Auto) 200 H (0-100) /uL RBC Morphology See below Hypochromasia 1+ H Anisocytosis 3+ H Schistocytes 1+ H Sodium 141 (137-145) mmol/L Potassium 4.2 (3.4-5.1) mmol/L Chloride 106 (98-107) mmol/L Carbon Dioxide 32 (22-32) mmol/L BUN 15 (9-20) mg/dL Creatinine 0.70 (0.66-1.25) mg/dL Estimated GFR > 60.0 (>60) mL/min BUN/Creatinine Ratio 21.4 (6-22) Glucose 107 (80-110) mg/dL Calcium 9.0 (8.4-10.2) mg/dL Total Bilirubin 0.4 (0.2-1.3) mg/dL AST 33 (17-59) IU/L ALT 28 (<50) IU/L Alkaline Phosphatase 94 (38-126) U/L Total Protein 6.9 (6.3-8.2) g/dL Albumin 3.6 (3.5-5.0) g/dL Globulin 3.3 (1.7-4.1) g/dL Albumin/Globulin Ratio 1.1 (1.0-2.8) Imaging Data Abdominal x-ray: Radiologist's Impression: Close Abdomen/Pelvis CT (Signed) Juan Cast - 01/06/21 KUB X-Ray (Signed) Juan Cast 01/06/21 Launch?[place] [address] CT Scan Report Signed Patient: Az Bowden MR#: [id number] : 1955 Acct:[id number] Age/Sex: 65 / M Date of Service: 01/06/21 Loc: ED Accession Number: [id number] ?? Procedure: CT abdomen pelvis w con Ordering Provider: Maureen Monsivais D.O. PROCEDURE:? CT ABDOMEN PELVIS W CON ? INDICATIONS:? j tube, leaking with flushes, xray appears no extra ? TECHNIQUE:? After the administration of oral and IV contrast, axial sections were acquired from the lung bases to the pubic symphysis.? Coronal and sagittal reformats were performed.? For radiation dose reduction, the following was used:? automated exposure control, adjustment of mA and/or kV according to patient size. ? COMPARISON:? None. ? FINDINGS:? Image quality:? Excellent.? ? Lung bases:? Emphysematous changes in visualized bilateral lung bases are seen with scattered scarring/atelectasis and suggestion of early interstitial pulmonary fibrosis. Heart:? Heart size is normal, no pericardial effusion. ? ? ABDOMEN: Liver:? 3 well-circumscribed hypodensities are seen in superior portion of right and left hepatic lobes measures up to 1.2 x 0.8 cm in size series 2, images 15 and 17. Liver size is normal.? Gallbladder:? Gallbladder is within normal limits. Biliary ducts:? Unremarkable.? ? Pancreas:? Unremarkable.? ? Spleen:? Unremarkable.? ? Adrenal Glands:? Unremarkable.? ? Kidneys and Ureters:? Unremarkable.? ? ? Stomach and Bowel:? There is a jejunostomy tube.? Diffuse gastric wall thickening is noted.? There is no small bowel wall thickening.? No colonic wall thickening.? Oral contrast is seen throughout the colon without contrast extravasation.? No abscess collection.? Appendix is visualized and is within normal limits.? Peritoneum:? No abnormal intraperitoneal fluid.? No free air.? ? Ventral Wall: ? No hernia.? Mild inflammatory changes surrounding jejunostomy tube in left anterior abdominal wall is seen without discrete drainable fluid collection. Abdominal Nodes:? No retroperitoneal or mesenteric adenopathy by size criteria.? Vessels:? Aorta and inferior vena cava are normal in size.? ? PELVIS: Pelvic Organs:? Unremarkable.? ? Bladder:? Unremarkable.? ? Pelvic Nodes: No enlarged lymph nodes.? Miscellaneous:? Bilateral inguinal hernia are seen containing fat only. ? Bones:? Post ORIF changes in right acetabulum are seen.? No acute osseous abn ormality.? No suspicious bony lesion.? No acute vertebral body compression fracture. ? ? IMPRESSION:? ? 1. Left-sided jejunostomy tube tip is seen within jejunum.? No contrast extravasation is seen.? No bowel obstruction.? No small bowel or colon wall thickening.? Normal appendix.? No free fluid or free air. 2. Diffuse gastric wall thickening which may indicate chronic gastritis. 3. Mild inflammatory changes in left anterior abdominal wall adjacent to jejunostomy tube without discrete drainable abscess collection.? No subcutaneous emphysema. 4.? Well-circumscribed hypodense areas involving upper portion of liver and likely represent hepatic cysts. 5. COPD.? Suggestion of early interstitial pulmonary fibrosis. ? ? Dictated by: Juan Cast M.D. on 01/06/2021 at 21:37 ? ? Approved by: Juan Cast M.D. on 01/06/2021 at 21:42?? MDM Narrative Medical decision making narrative: This is a 65-year-old comes emergency department with drainage from his G-tube around the opening of his site patient states this just started today with they are attempting feeds. He has not had any infectious type symptoms. He had some mild serous drainage which he states is what he has been seeing. Patient had his 2 placed approximately 2 weeks ago by surgery at [facility] for stroke and gastric cancer. Patient had a head go g performed. There does appear to be no extravasation within the bowel or soft tissue but when the Gastrografin was pushed a large amount did come out around the opening of the site. This was discussed with General surgery and they asked for CT abdomen pelvis. This was obtained and shows tip of tube in place and noted that fenestration appears to be close to the surface. J tube was advanced 2 in after prepping as per request from general surgery and secured here in the department. Flushed easily with saline with no additional drainage and patient has follow-up set up for with plan to call for an exact appointment time. Return precautions discussed. All questions answered. Discharge Plan Departure Patient Disposition: Home Clinical Impression: Malfunction of jejunostomy tube Activity Restrictions/Additional Instructions: I spoke with your general surgery team, specifically Dr. Teague. They would like to see you on in person to check your day just any tube and make any additional adjustments. Call for an appointment and time in the morning. The number is [phone]. Your CT imaging was pushed to [facility] in [place] but a disc of your CT images was included today. Take this to your appointment. You may take Zofran 1 sublingually tablet every 6 hours as needed for nausea. Prescription sent to [facility]. Please return if you are having worsening symptoms, persistent drainage, new abdominal pain, fevers, redness, warmth or other new or concerning changes. Prescriptions: New ondansetron 4 mg tablet,disintegrating 4 mg PO QID PRN (Reason: nausea and vomiting) Qty: 14 RF: 0 No Action albuterol sulfate 90 mcg/actuation HFA aerosol inhaler 1 puff INHALATION Q4-6H PRN (Reason: shortness of breath or wheezing) Qty: 8.5 RF: 0 Adults Multivitamin 18 mg iron-400 mcg-25 mcg Tablet 1 tab PO DAILY RF: 0 ferrous sulfate 325 mg (65 mg iron) Tablet 325 mg PO DAILY Qty: 30 RF: 0 prednisone 10 mg Tablet 10 mg PO DAILY RF: 0 Referrals: Az Salazar PA-C [Primary Care Provider] -
[2021-01-06 20:25] VITALS: BP 116/86; PULSE 107; O2SAT 95
--- NOTE | 2021-01-06 20:36 | DI.CT.S_ITS ---
PROCEDURE: CT ABDOMEN PELVIS W CON INDICATIONS: j tube, leaking with flushes, xray appears no extra TECHNIQUE: After the administration of oral and IV contrast, axial sections were acquired from the lung bases to the pubic symphysis. Coronal and sagittal reformats were performed. For radiation dose reduction, the following was used: automated exposure control, adjustment of mA and/or kV according to patient size. COMPARISON: None. FINDINGS: Image quality: Excellent. Lung bases: Emphysematous changes in visualized bilateral lung bases are seen with scattered scarring/atelectasis and suggestion of early interstitial pulmonary fibrosis. Heart: Heart size is normal, no pericardial effusion. ABDOMEN: Liver: 3 well-circumscribed hypodensities are seen in superior portion of right and left hepatic lobes measures up to 1.2 x 0.8 cm in size series 2, images 15 and 17. Liver size is normal. Gallbladder: Gallbladder is within normal limits. Biliary ducts: Unremarkable. Pancreas: Unremarkable. Spleen: Unremarkable. Adrenal Glands: Unremarkable. Kidneys and Ureters: Unremarkable. Stomach and Bowel: There is a jejunostomy tube. Diffuse gastric wall thickening is noted. There is no small bowel wall thickening. No colonic wall thickening. Oral contrast is seen throughout the colon without contrast extravasation. No abscess collection. Appendix is visualized and is within normal limits. Peritoneum: No abnormal intraperitoneal fluid. No free air. Ventral Wall: No hernia. Mild inflammatory changes surrounding jejunostomy tube in left anterior abdominal wall is seen without discrete drainable fluid collection. Abdominal Nodes: No retroperitoneal or mesenteric adenopathy by size criteria. Vessels: Aorta and inferior vena cava are normal in size. PELVIS: Pelvic Organs: Unremarkable. Bladder: Unremarkable. Pelvic Nodes: No enlarged lymph nodes. Miscellaneous: Bilateral inguinal hernia are seen containing fat only. Bones: Post ORIF changes in right acetabulum are seen. No acute osseous abnormality. No suspicious bony lesion. No acute vertebral body compression fracture. IMPRESSION: 1. Left-sided jejunostomy tube tip is seen within jejunum. No contrast extravasation is seen. No bowel obstruction. No small bowel or colon wall thickening. Normal appendix. No free fluid or free air. 2. Diffuse gastric wall thickening which may indicate chronic gastritis. 3. Mild inflammatory changes in left anterior abdominal wall adjacent to jejunostomy tube without discrete drainable abscess collection. No subcutaneous emphysema. 4. Well-circumscribed hypodense areas involving upper portion of liver and likely represent hepatic cysts. 5. COPD. Suggestion of early interstitial pulmonary fibrosis. Dictated by: Juan Cast M.D. on 01/06/2021 at 21:37 Approved by: Juan Cast M.D. on 01/06/2021 at 21:42
[2021-01-06 21:00] LABS: Add Manual Diff / Slide Review NO; Basophils Absolute Auto 200 /uL (0-100); Basophils Percent Auto 1.6 % (0-2); Eosinophils Absolute Auto 400 /uL (0-450); Eosinophils Percent Auto 3.7 % (2-4); Hematocrit 32.3 % (41-53); Hemoglobin 10.1 g/dL (13.5-17.5); Lymphocytes Absolute Auto 1800 /uL (1100-4500); Lymphocytes Percent Auto 17.6 % (25-40); Mean Corpuscular HGB Conc 31.1 % (30-36); Mean Corpuscular Hemoglobin 26.9 PG (26-34); Mean Corpuscular Volume 86.4 fL (80-100); Monocytes Absolute Auto 800 /uL (0-900); Monocytes Percent Auto 7.3 % (3-14); Neutrophils Absolute Auto 7200 /uL (1500-7000); Neutrophils Percent Auto 69.8 % (50-75); Platelet Count 377 X10^3/uL (150-400); Red Blood Cell Count 3.74 X10^6/uL (4.5-5.9); Red Cell Distribution Width 28.3 % (11.6-14.8); White Blood Cell Count 10.4 X10^3/uL (4.5-11.0)
[2021-01-06 21:10] LABS: Alanine Aminotransferase 28 IU/L (<50); Albumin 3.6 g/dL (3.5-5.0); Albumin Globulin Ratio 1.1 (1.0-2.8); Alkaline Phosphatase 94 U/L (38-126); Aspartate Aminotransferase 33 IU/L (17-59); BUN Creatinine Ratio 21.4 (6-22); Bilirubin Total 0.4 mg/dL (0.2-1.3); Blood Urea Nitrogen 15 mg/dL (9-20); Carbon Dioxide 32 mmol/L (22-32); Chloride 106 mmol/L (98-107); Estimated Glomerular Filt Rate > 60.0 mL/min (>60); Globulin 3.3 g/dL (1.7-4.1); Glucose 107 mg/dL (80-110); HEMOLYSIS < 15 (0-50); Potassium 4.2 mmol/L (3.4-5.1); Sodium 141 mmol/L (137-145); Total Protein 6.9 g/dL (6.3-8.2)
[2021-01-06 21:31] LABS: Anisocytosis 3+; Hypochromasia 1+; Schistocytes 1+
[2021-01-06] MEDS: LIDO 1%/SOD BICARB 8.4% (10ML) 10 ML SYRINGE INJ (22:36)
[2021-01-06] MEDS: ONDANSETRON 4 MG ODT PREPACK 1 BOTTLE MISC (23:21)
[2021-01-06 23:34] VITALS: PULSE 105; RESP 20; O2SAT 98
== END 2021-01-06 23:36 | disposition home or self-care (01) ==
PROVIDERS: Emergency Provider Emergency Medicine; PCP Physician Assistant
DX: K94.13 Enterostomy malfunction (principal)
CPT/HCPCS: 36415; 74018; 74177; 80053; 85025; 99284; 99285; Q9967

== ENCOUNTER 2021-01-08 18:53 | Emergency (ER) | payer MEDICARE, OTHER, SELFPAY ==
[2020-12-02 03:45] VITALS: BMI 23.6
[2021-01-08 19:04] VITALS: BP 118/85; PULSE 107; RESP 16; TEMP 36.6; O2SAT 98; BMI 21.4
--- NOTE | 2021-01-08 19:13 | ED.RECABL ---
HPI - Recheck/Abnormal Lab/Rx General Chief Complaint: Recheck/Abnormal Lab/Rx Stated Complaint: J tube is loose Time Seen by Provider: 01/08/21 19:05 Source: patient Mode of arrival: Ambulatory Limitations: no limitations History of Present Illness HPI narrative: 65-year-old male with a G-tube present. Was seen here in the emergency department a couple days ago because of some leakage around the area. Was advanced and sutured into place. He states that he has used it since then without any issues. Today he hit it on a bed rail. He states he did not pull the tube it actually pushed it in. He is not having any discomfort. He wanted to come and have it checked out because of the issues that he had a couple days ago. Related Data Home Medications Medication Instructions Recorded Confirmed multivit with minerals-iron 18 1 tab PO DAILY 09/27/20 12/02/20 mg-folic ac 400 mcg-vit K 25 mcg tablet (Adults Multivitamin) prednisone 10 mg tablet 10 mg PO DAILY 12/02/20 12/02/20 Previous Rx's Medication Instructions Recorded albuterol sulfate 90 mcg/actuation 1 puff INHALATION Q4-6H PRN #8.5 10/04/18 aerosol inhaler gram ferrous sulfate 325 mg (65 mg 325 mg PO DAILY #30 tab 09/29/20 iron) tablet ondansetron 4 mg disintegrating 4 mg PO QID PRN #14 tab 01/06/21 tablet Allergies Allergy/AdvReac Type Severity Reaction Status Date / Time No Known Drug Allergies Allergy Verified 09/27/20 09:04 Review of Systems Gastrointestinal Gastrointestinal: Reports as per HPI and Reports system reviewed and no additional complaints, except as documented Integumentary/Breasts Skin/Breast: Reports system reviewed and no additional complaints, except as documented Hematologic/Lymphatic On Anticoagulants: No Patient History Medical History Anemia CHF (congestive heart failure) Chronic interstitial lung disease Compression fracture Essential hypertension History of stroke involving cerebellum Lupus Pelvic fracture Surgical History H/O pelvic surgery Family History Father Alcohol abuse Mother Alcohol abuse Brother CVA (cerebral vascular accident) Social History household members: spouse and family Smoking Status: Never smoker alcohol intake: former Smoking Status: Never smoker alcohol intake frequency: holidays/special occasions only Substance Use Type: marijuana Exam Initial Vital Signs Initial Vital Signs: Vital Signs Temperature 97.8 F 01/08/21 19:04 Pulse Rate 107 H 01/08/21 19:04 Respiratory Rate 16 01/08/21 19:04 Blood Pressure 118/85 01/08/21 19:04 Pulse Oximetry 98 01/08/21 19:04 HENMT Head: normal to inspection and normocephalic GI Other: Abdomen is soft. No drainage around the J-tube area Skin Other: No redness around the tube insertion. Course Vital Signs Vital signs: Vital Signs - 8 hr 01/08/21 19:04 Temperature 97.8 F Pulse Rate 107 H Respiratory Rate 16 Blood Pressure 118/85 Pulse Oximetry 98 MDM - Recheck/Abnormal Lab/Rx MDM Narrative Medical decision making narrative: I was able to inject approximately 30 cc of sterile water very easily. He had no discomfort. There is no drainage from around the J-tube. I was able to aspirate small amount of gastric contents afterwards. The tube appears to be functioning properly. Patient was given care instructions and return precautions. Expressed understanding and agreement. Discharge Plan Departure Patient Disposition: Home Clinical Impression: Jejunostomy tube present Activity Restrictions/Additional Instructions: Everything seems to be working appropriately with the J-tube. You can use it normally. Keep all of your scheduled medical appointments. Return to the emergency department for any new or worsening symptoms Prescriptions: No Action albuterol sulfate 90 mcg/actuation HFA aerosol inhaler 1 puff INHALATION Q4-6H PRN (Reason: shortness of breath or wheezing) Qty: 8.5 RF: 0 ondansetron 4 mg tablet,disintegrating 4 mg PO QID PRN (Reason: nausea and vomiting) Qty: 14 RF: 0 Adults Multivitamin 18 mg iron-400 mcg-25 mcg Tablet 1 tab PO DAILY RF: 0 ferrous sulfate 325 mg (65 mg iron) Tablet 325 mg PO DAILY Qty: 30 RF: 0 prednisone 10 mg Tablet 10 mg PO DAILY RF: 0 Referrals: Az Salazar PA-C [Primary Care Provider] -
== END 2021-01-08 19:32 | disposition home or self-care (01) ==
PROVIDERS: Emergency Provider Emergency Medicine; PCP Physician Assistant
DX: K94.13 Enterostomy malfunction (principal)
CPT/HCPCS: 99281

== ENCOUNTER 2021-05-10 09:02 | Emergency (ER) | payer MEDICARE, OTHER, SELFPAY ==
[2020-12-02 03:45] VITALS: BMI 23.6
[2021-05-10] VITALS (9 sets, daily range): BP systolic 92–115; BP diastolic 63–78; PULSE 78–92; RESP 18–22; TEMP 36.5; O2SAT 94–99; BMI 20.7
--- NOTE | 2021-05-10 08:35 | DI.CT.S_ITS ---
PROCEDURE: CT ANGIO HEAD AND NECK INDICATIONS: acute stroke symptoms, last known well 7am TECHNIQUE: Pre-contrast 4.5 mm thick sections acquired from the foramen magnum to the vertex. After the administration of intravenous contrast, 1 mm thick sections acquired from the aortic arch through the [place]. Post-contrast 4.5 mm thick sections then re-acquired from the foramen magnum to the vertex. COMPARISON: [facility], CT, CT STROKE, 12/02/2020, 1:07. [facility], CT, CT ANGIO HEAD AND NECK, 12/02/2020, 1:07. FINDINGS: Image quality: Excellent. BRAIN: CSF spaces: Ventricles are normal in size and shape. Basal cisterns are patent. No extra-axial fluid collections. Brain: No midline shift. No intracranial bleeds or masses. Right frontal encephalomalacia and gliosis is new from prior exam. Old right cerebellar wedge-shaped encephalomalacia and gliosis is stable from the prior exam. Skull and face: Calvarium and facial bones appear intact, without suspicious lesions. Orbits appear normal. Sinuses: Sinuses and mastoids are clear. HEAD CT ANGIOGRAPHY: Anterior circulation: Intracranial internal carotid arteries are normal in size and flow. The flow within the paired anterior cerebral arteries is normal and symmetric. The flow within the middle cerebral arteries is normal and symmetric. The anterior communicating artery is seen. No aneurysms are seen. Posterior circulation: Visualized portions of the vertebral arteries demonstrate normal caliber, and join to form a normal appearing basilar artery. Flow within the posterior cerebral arteries is normal and symmetric. No aneurysms are seen. NECK CT ANGIOGRAPHY: Carotid system: The great vessels demonstrate a conventional anatomy as they arise from the aortic arch. The origins of the common carotid arteries appear patent. The common carotid arteries demonstrate normal caliber and courses. The bifurcation regions are both widely patent. The internal carotid arteries demonstrate normal calibers and courses. Posterior circulation: The origins of the vertebral arteries both appear widely patent. The more superior extracranial portions of both vertebral arteries also demonstrate normal courses and calibers. They join to form a normal appearing basilar artery. Soft tissues: Visualized neck soft tissues demonstrate no suspicious abnormalities. Bones: No suspicious bony lesions. Visualized cervical spine appears normally aligned. IMPRESSION: 1. Unremarkable intracranial CT angiogram without large vessel occlusion, aneurysm or vascular malformation 2. Both proximal internal carotid arteries are widely patent without stenosis. 3. Old right frontal and right cerebellar infarcts without intracranial hemorrhage or mass effect. Any quantitative measurements of stenosis were performed using NASCET criteria. Approved by: Eduardo Reeves M.D. on 05/10/2021 at 8:41
--- NOTE | 2021-05-10 09:03 | ED_ITS ---
HPI - General Adult General Chief complaint: Neuro Symptoms/Deficit Stated complaint: Facial droop, slurred speech Time Seen by Provider: 05/10/21 09:07 History of Present Illness HPI narrative: 66-year-old gentleman with a history of stomach cancer currently on chemotherapy with a port in place who suffered a stroke on November 29 with residual left- sided deficits who awoke this morning at 7:00 a.m. was having a conversation with his and shortly thereafter had acute dysarthria, some minor confusion and worsening of his prior left-sided stroke findings. Slightly more left fac ial droop left arm weakness and mild left lower extremity weakness. 911 was called and by the time he arrives in the emergency department his dysarthria has essentially cleared his arm a and leg weakness appeared to be back at his baseline his left facial droop is still slightly worse than his residual. He reports no recent fevers, cough, palpitations no change to chronic pain levels minor nausea without vomiting. No significant diarrhea, dysuria or skin changes to suggest a developing cellulitis or abscess Related Data Home Medications Medication Instructions Recorded Confirmed prednisone 10 mg tablet 10 mg PO DAILY 12/02/20 05/10/21 fentanyl 25 mcg/hr transdermal 1 patch TRANSDERMAL Q72H 05/10/21 05/10/21 patch levothyroxine 75 mcg tablet 75 mcg PO DAILY 05/10/21 05/10/21 loperamide 1 mg/5 mL oral liquid 3 mg PO DAILY 05/10/21 05/10/21 ondansetron 8 mg disintegrating 8 mg PO DAILY 05/10/21 05/10/21 tablet rivaroxaban 20 mg tablet (Xarelto) 20 mg PO QPM 05/10/21 05/10/21 Previous Rx's Medication Instructions Recorded albuterol sulfate 90 mcg/actuation 1 puff INHALATION Q4-6H PRN #8.5 10/04/18 aerosol inhaler gram rivaroxaban 20 mg tablet (Xarelto) 20 mg PO DAILY #30 tab 05/10/21 Allergies Allergy/AdvReac Type Severity Reaction Status Date / Time No Known Drug Allergies Allergy Verified 05/10/21 09:10 Review of Systems Review of Systems Narrative: Remainder of complete review of systems is otherwise unremarkable except for that included in the HPI. Patient History Medical History Anemia CHF (congestive heart failure) Chronic interstitial lung disease Compression fracture Essential hypertension History of stroke involving cerebellum Lupus Pelvic fracture Surgical History H/O pelvic surgery Family History Father Alcohol abuse Mother Alcohol abuse Brother CVA (cerebral vascular accident) Social History household members: spouse and family Smoking Status: Never smoker alcohol intake: former Smoking Status: Never smoker alcohol intake frequency: holidays/special occasions only Substance Use Type: marijuana Exam Initial Vital Signs Initial Vital Signs: Vital Signs Temperature 97.7 F 05/10/21 08:43 Pulse Rate 92 H 05/10/21 08:43 Respiratory Rate 18 05/10/21 08:43 Blood Pressure 115/78 05/10/21 08:43 Pulse Oximetry 94 05/10/21 08:43 General: Frail, chronically ill-appearing gentleman in no acute distress. Able to give a complete and coherent history. HEENT: Moist mucous membranes, normal sclera with reactive pupils, mild left facial droop and mild dysarthria the patient describes as at his baseline Neck: No JVD, supple Respiratory: Lungs are clear to auscultation, no wheezing no rales no rhonchi. Full and symmetrical air movement Cardiac: Regular rate and rhythm no murmurs no bruits Abdomen: Soft, nontender, good bowel tones, feeding tube in place, no flank pain Skin: Warm and dry, no rashes Neurologic: Mild left-sided deficits with the left facial droop mild dysarthria mild left upper extremity weakness with contractures and mild left lower extremity weakness. No new findings. Extremities: No trauma, well perfused Psych: Cooperative, appropriate insight and affect NIH Stroke Scale/Score (NIHSS)? INPUTS: 1A: Level of consciousness ?> 0 = Alert; keenly responsive 1B: Ask month and age ?> 0 = Both questions right 1C: 'Blink eyes' & 'squeeze hands' ?> 0 = Performs both tasks 2: Horizontal extraocular movements ?> 0 = Normal 3: Visual lanier ?> 0 = No visual loss 4: Facial palsy ?> 1 = Minor paralysis (flat nasolabial fold, smile asymmetry) 5A: Left arm motor drift ?> 1 = Drift, but doesn't hit bed 5B: Right arm motor drift ?> 0 = No drift for 10 seconds 6A: Left leg motor drift ?> 1 = Drift, but doesn't hit bed 6B: Right leg motor drift ?> 0 = No drift for 5 seconds 7: Limb Ataxia ?> 1 = Ataxia in 1 Limb 8: Sensation ?> 0 = Normal; no sensory loss 9: Language/aphasia ?> 0 = Normal; no aphasia 10: Dysarthria ?> 1 = Mild-moderate dysarthria: slurring but can be understood 11: Extinction/inattention ?> 0 = No abnormality Total= 5 Course Orders Ordered: ED Orders 05/10/21 08:34 EKG-12 Lead Stat 05/10/21 08:35 CT angio head and neck Stat 05/10/21 08:59 Complete Blood Count AUTO DIFF Stat Comprehensive Metabolic Panel Stat Troponin & CK Cardiac Panel Stat 05/10/21 10:57 Urine Microscopic Stat Sodium Chloride (Normal Saline 0.9%) 1,000 mls @ 150 mls/hr IV CONT NIK Last Infusion: 05/10/21 11:41 Dose: 0 mls/hr Documented by: Admin: 05/10/21 09:14 Dose: 150 mls/hr Documented by: SEBASTIÁN Discontinued Medications Rivaroxaban (Rivaroxaban 10 Mg Tablet) 20 mg PO NOW ONE Stop: 05/10/21 10:59 Last Admin: 05/10/21 11:23 Dose: 20 mg Documented by: SEBASTIÁN Vital Signs Vital signs: Vital Signs - 8 hr 05/10/21 08:43 05/10/21 09:16 05/10/21 09:30 Temperature 97.7 F Pulse Rate 92 H 88 84 Respiratory Rate 18 19 Blood Pressure 115/78 Pulse Oximetry 94 95 99 05/10/21 10:00 05/10/21 10:30 05/10/21 11:00 Temperature Pulse Rate 84 88 87 Respiratory Rate 20 20 22 Blood Pressure Pulse Oximetry 99 98 97 05/10/21 11:05 Temperature Pulse Rate 84 Respiratory Rate 22 Blood Pressure 96/69 Pulse Oximetry 98 Medical Decision Making Lab Data Result diagrams: 05/10/21 08:59 05/10/21 08:59 Labs: Lab Results 05/10/21 05/10/21 05/10/21 Range/Units 08:59 08:59 10:57 WBC 16.6 H (4.5-11.0) X10^3/uL RBC 3.21 L (4.5-5.9) X10^6/uL Hgb 10.8 L (13.5-17.5) g/dL Hct 33.2 L (41-53) % MCV 103.5 H (80-100) fL MCH 33.8 (26-34) PG MCHC 32.7 (30-36) % RDW 22.6 H (11.6-14.8) % Plt Count 393 (150-400) X10^3/uL Neut % (Auto) 70.3 (50-75) % Lymph % (Auto) 23.5 L (25-40) % [place] % (Auto) 5.6 (3-14) % Eos % (Auto) 0.4 L (2-4) % Baso % (Auto) 0.2 (0-2) % Neut # (Auto) 16315 H (5426-6361) /uL Lymph # (Auto) 3900 (3081-5911) /uL [place] # (Auto) 900 (0-900) /uL Eos # (Auto) 100 (0-450) /uL Baso # (Auto) 0 (0-100) /uL RBC Morphology Not Reportable Anisocytosis 2+ H Sodium 141 (137-145) mmol/L Potassium 4.1 (3.4-5.1) mmol/L Chloride 104 (98-107) mmol/L Carbon Dioxide 31 (22-32) mmol/L BUN 14 (9-20) mg/dL Creatinine 0.52 L (0.66-1.25) mg/dL Estimated GFR > 60.0 (>60) mL/min BUN/Creatinine Ratio 26.9 H (6-22) Glucose 99 (80-110) mg/dL Calcium 8.2 L (8.4-10.2) mg/dL Total Bilirubin 0.3 (0.2-1.3) mg/dL AST 36 (17-59) IU/L ALT 25 (<50) IU/L Alkaline Phosphatase 87 (38-126) U/L Total Creatine Kinase < 20 L (55-170) U/L CK-MB (CK-2) TNP CK-MB (CK-2) Rel Index TNP Troponin I < 0.012 (0.01-0.034) ng/mL Total Protein 6.0 L (6.3-8.2) g/dL Albumin 3.2 L (3.5-5.0) g/dL Globulin 2.8 (1.7-4.1) g/dL Albumin/Globulin Ratio 1.1 (1.0-2.8) Urine RBC None seen (0-5/HPF) Urine WBC None seen (0-5/HPF) Urine Bacteria None seen (None) Ur Culture Indicated? Cult not indicated Micro UA Comment Microscopic normal Point of Care Testing Glucose POC 117 Urine Dip Bedside Urine Glucose Negative Bedside Urine Bilirubin - Negative Bedside Urine Ketone - Negative Urine Specific [place] 1.015 Bedside Urine Occult Blood - Negative Bedside Urine pH 7.5 Bedside Urine Protein +/- 15 Bedside Urine Urobilinogen - Negative Bedside Urine Nitrite - Negative Bedside Urine Leukocytes - Negative Esterase Point of care testing: Point of Care Testing Glucose POC 117 Urine Dip Bedside Urine Glucose Negative Bedside Urine Bilirubin - Negative Bedside Urine Ketone - Negative Urine Specific [place] 1.015 Bedside Urine Occult Blood - Negative Bedside Urine pH 7.5 Bedside Urine Protein +/- 15 Bedside Urine Urobilinogen - Negative Bedside Urine Nitrite - Negative Bedside Urine Leukocytes - Negative Esterase Imaging Data CT scan - head: Radiologist's Impression: CT angio head and neck FINDINGS:? Image quality:? Excellent.? ? BRAIN:? CSF spaces:? Ventricles are normal in size and shape.? Basal cisterns are patent.? No extra-axial fluid collections.? ? Brain:? No midline shift.? No intracranial bleeds or masses. ? Right frontal encephalomalacia and gliosis is new from prior exam.? Old right cerebellar wedge-shaped encephalomalacia and gliosis is stable from the prior exam. ? Skull and face:? Calvarium and facial bones appear intact, without suspicious lesions.? Orbits appear normal.? ? Sinuses:? Sinuses and mastoids are clear.? ? HEAD CT ANGIOGRAPHY:? Anterior circulation:? Intracranial internal carotid arteries are normal in size and flow.? The flow within the paired anterior cerebral arteries is normal and symmetric.? The flow within the middle cerebral arteries is normal and symmetric.? The anterior communicating artery is seen.? No aneurysms are seen.? ? Posterior circulation:? Visualized portions of the vertebral arteries demonstrate normal caliber, and join to form a normal appearing basilar artery.? Flow within the posterior cerebral arteries is normal and symmetric.? No aneurysms are seen.? ? NECK CT ANGIOGRAPHY:? Carotid system:? The great vessels demonstrate a conventional anatomy as they arise from the aortic arch.? The origins of the common carotid arteries appear patent.? The common carotid arteries demonstrate normal caliber and courses.? The bifurcation regions are both widely patent.? The internal carotid arteries demonstrate normal calibers and courses.? ? Posterior circulation:? The origins of the vertebral arteries both appear widely patent.? The more superior extracranial portions of both vertebral arteries also demonstrate normal courses and calibers.? They join to form a normal appearing basilar artery.? ? Soft tissues:? Visualized neck soft tissues demonstrate no suspicious abnormalities.? ? Bones:? No suspicious bony lesions.? Visualized cervical spine appears normally aligned.? IMPRESSION:? ? 1. Unremarkable intracranial CT angiogram without large vessel occlusion, aneurysm or vascular malformation ? 2. Both proximal internal carotid arteries are widely patent without stenosis. ? 3. Old right frontal and right cerebellar infarcts without intracranial hemorrhage or mass effect. ? Any quantitative measurements of stenosis were performed using NASCET criteria.? Approved by: Eduardo Reeves M.D. on 05/10/2021 at 8:41? ECG Data Interpretation: Sinus rhythm at a rate of 87 Normal intervals, normal axis No acute ischemic changes MDM Narrative Medical decision making narrative: 66-year-old gentleman with stomach cancer and stroke November of 2020 with left-si ded residual deficits presents with TIA slight exacerbation of left-sided stroke symptoms that have all resolved and he is back to his baseline. He is just finishing a 21 day course of Xarelto for a blood clot behind my aorta as prescribed by his oncologist. Last dose is today. Given his TIA sy mptoms will have him continue 20 mg of Xarelto and follow up with his primary care physician later this week to discuss whether that is an appropriate medication to help with overall risk reduction for him. He did have a full workup with imaging done in the November with no additional recommendations made. He is currently on no antihypertensives with blood pressure typically in the 105-115 systolic range. Cholesterol recently checked in November with total at 121. LDL at 42, HDL at 43 not meeting criteria for lipid medications There is an incidentally noted mild leukocytosis. There is no suggestion of infectious etiology on clinical exam or with other additional workup. Urine is unremarkable. Discussed option of staying in the hospital for repeat stroke workup verses being discharged home with continuation of Xarelto and close follow-up with his primary care physician. Patient and his agree that home seemed much more appropriate at this time. With all symptoms of his TIA resolved will continue his Xarelto new prescription is written and he is safe for home discharge Discharge Plan Departure Patient Disposition: Home Clinical Impression: Brain TIA Instructions: DI for Transient Ischemic Attack Activity Restrictions/Additional Instructions: Thank you for coming in today. Calling 911 as soon as you noticed stroke like symptoms was the 100% correct thing to do Fortunately your symptoms all seemed to have resolved leaving you with the left- sided deficits from your stroke in November. It likely is a good thing that you are on the Xarelto for your abdominal blood c lot. That may have prevented this from being a full stroke. At this point with your low blood pressure and low cholesterol you do not need medications for those. I am going to suggest that we continue the Xarelto at 20 mg a day to you have a chance to review this with her primary care physician. If you have any signs of bleeding, vomiting red blood, black stools or vomiting coffee-ground like material you need to return to the emergency department. Please schedule appointment with your primary care provider to review today's TIA and the continuation of Xarelto. I wish you the best Prescriptions: New Xarelto 20 mg tablet 20 mg PO DAILY Qty: 30 3RF Rx Instructions: must administer with evening meal No Action albuterol sulfate 90 mcg/actuation HFA aerosol inhaler 1 puff INHALATION Q4-6H PRN (Reason: shortness of breath or wheezing) Qty: 8.5 0RF prednisone 10 mg Tablet 10 mg PO DAILY 0RF ondansetron 8 mg Tablet,Disintegrating 8 mg PO DAILY 0RF Xarelto 20 mg Tablet 20 mg PO QPM 0RF Rx Instructions: must administer with evening meal levothyroxine 75 mcg Tablet 75 mcg PO DAILY 0RF loperamide 1 mg/5 mL Liquid 3 mg PO DAILY 0RF Rx Instructions: administer after each loose stool until symptoms controlled; do not exceed 16 mg per 24 hrs fentanyl 25 mcg/hr Patch 72 Hour 1 patch TRANSDERMAL Q72H 0RF Referrals: Az Salazar PA-C [Primary Care Provider] -
[2021-05-10 09:07] LABS: Add Manual Diff / Slide Review NO; Basophils Percent Auto 0.2 % (0-2); Eosinophils Percent Auto 0.4 % (2-4); Hematocrit 33.2 % (41-53); Hemoglobin 10.8 g/dL (13.5-17.5); Lymphocytes Percent Auto 23.5 % (25-40); Mean Corpuscular HGB Conc 32.7 % (30-36); Mean Corpuscular Hemoglobin 33.8 PG (26-34); Mean Corpuscular Volume 103.5 fL (80-100); Monocytes Percent Auto 5.6 % (3-14); Neutrophils Percent Auto 70.3 % (50-75); Platelet Count 393 X10^3/uL (150-400); Red Blood Cell Count 3.21 X10^6/uL (4.5-5.9); Red Cell Distribution Width 22.6 % (11.6-14.8); White Blood Cell Count 16.6 X10^3/uL (4.5-11.0)
[2021-05-10 09:08] LABS: Basophils Absolute Auto 0 /uL (0-100); Eosinophils Absolute Auto 100 /uL (0-450); Lymphocytes Absolute Auto 3900 /uL (1100-4500); Monocytes Absolute Auto 900 /uL (0-900); Neutrophils Absolute Auto 11700 /uL (1500-7000)
[2021-05-10 09:14] LABS: Alanine Aminotransferase 25 IU/L (<50); Albumin 3.2 g/dL (3.5-5.0); Albumin Globulin Ratio 1.1 (1.0-2.8); Alkaline Phosphatase 87 U/L (38-126); Aspartate Aminotransferase 36 IU/L (17-59); BUN Creatinine Ratio 26.9 (6-22); Bilirubin Total 0.3 mg/dL (0.2-1.3); Blood Urea Nitrogen 14 mg/dL (9-20); Calcium 8.2 mg/dL (8.4-10.2); Carbon Dioxide 31 mmol/L (22-32); Chloride 104 mmol/L (98-107); Creatine Kinase < 20 U/L (55-170); Estimated Glomerular Filt Rate > 60.0 mL/min (>60); Globulin 2.8 g/dL (1.7-4.1); Glucose 99 mg/dL (80-110); HEMOLYSIS 19 (0-50); Potassium 4.1 mmol/L (3.4-5.1); Sodium 141 mmol/L (137-145)
[2021-05-10] MEDS: SODIUM CHLORIDE 0.9% 1,000 ML 150 ML IV (09:14)
[2021-05-10 09:19] LABS: Anisocytosis 2+
[2021-05-10 09:26] LABS: Troponin I < 0.012 ng/mL (0.01-0.034)
[2021-05-10] MEDS: RIVAROXABAN 10 MG TABLET 20 MG PO (11:23)
[2021-05-10 11:25] LABS: Bacteria Urine None Seen; Culture Indicated Urine Cult Not Indicated; RBC Urine None Seen (0-5/HPF); Urine Comments Microscopic Normal; WBC Urine None Seen (0-5/HPF)
== END 2021-05-10 11:53 | disposition home or self-care (01) ==
PROVIDERS: Emergency Provider Emergency Medicine; PCP Physician Assistant
DX: G45.9 Transient cerebral ischemic attack, unspecified (principal); I10 Essential (primary) hypertension
CPT/HCPCS: 36415; 70496; 70498; 80053; 81003; 81015; 82550; 82962; 84484; 85025; 93005; 96360; 96361; 99285; 99291; J1642; Q9967

== ENCOUNTER 2021-05-14 21:00 | Emergency (ER) | payer MEDICARE, OTHER, SELFPAY ==
[2020-12-02 03:45] VITALS: BMI 23.6
[2021-05-14] VITALS (8 sets, daily range): BP systolic 103–131; BP diastolic 68–100; PULSE 74–116; RESP 14–20; TEMP 36.6; O2SAT 96–98
--- NOTE | 2021-05-14 21:24 | DI.RAD.S_ITS ---
PROCEDURE: XR CHEST 2V INDICATIONS: shortness of breath TECHNIQUE: 2 views of the chest were acquired. COMPARISON: [facility], CR, XR CHEST 1V, 12/02/2020, 13:56. FINDINGS: Surgical changes and devices: Left Port-A-Cath is present distal tip projecting over the proximal SVC. Lungs and pleura: There is a diffuse appearance of increased pulmonary vascularity. There is slight increased opacity within the right base. Mediastinum: Mediastinal contours are normal. Heart size is enlarged. Bones and chest wall: No suspicious bony abnormalities. Soft tissues appear unremarkable. Old right rib fractures are noted. IMPRESSION: Diffuse increased vascularity most suggestive of edema. Slight increased left basilar opacity possibly representing more focal edema. However, developing airspace disease such as pneumonia cannot be excluded. Dictated by: Inez Torres M.D. on 05/14/2021 at 22:23 Approved by: Inez Torres M.D. on 05/14/2021 at 22:24
[2021-05-14 22:01] LABS: Add Manual Diff / Slide Review NO; Basophils Absolute Auto 0 /uL (0-100); Basophils Percent Auto 0.1 % (0-2); Eosinophils Absolute Auto 0 /uL (0-450); Eosinophils Percent Auto 0.1 % (2-4); Hematocrit 31.6 % (41-53); Hemoglobin 10.5 g/dL (13.5-17.5); Lymphocytes Absolute Auto 400 /uL (1100-4500); Lymphocytes Percent Auto 2.3 % (25-40); Mean Corpuscular HGB Conc 33.2 % (30-36); Mean Corpuscular Hemoglobin 34.4 PG (26-34); Mean Corpuscular Volume 103.6 fL (80-100); Monocytes Absolute Auto 600 /uL (0-900); Monocytes Percent Auto 3.4 % (3-14); Neutrophils Absolute Auto 15500 /uL (1500-7000); Neutrophils Percent Auto 94.1 % (50-75); Platelet Count 315 X10^3/uL (150-400); Red Blood Cell Count 3.05 X10^6/uL (4.5-5.9); Red Cell Distribution Width 21.1 % (11.6-14.8); White Blood Cell Count 16.5 X10^3/uL (4.5-11.0)
[2021-05-14] MEDS: methylPREDNISolone 125 MG/2 ML VIAL IV (22:03)
[2021-05-14 22:23] LABS: Creatine Kinase < 20 U/L (55-170)
[2021-05-14 22:24] LABS: Alanine Aminotransferase 19 IU/L (<50); Albumin 3.2 g/dL (3.5-5.0); Alkaline Phosphatase 84 U/L (38-126); Aspartate Aminotransferase 30 IU/L (17-59); BUN Creatinine Ratio 25.6 (6-22); Bilirubin Total 0.6 mg/dL (0.2-1.3); Blood Urea Nitrogen 11 mg/dL (9-20); Calcium 8.7 mg/dL (8.4-10.2); Carbon Dioxide 29 mmol/L (22-32); Chloride 108 mmol/L (98-107); Estimated Glomerular Filt Rate > 60.0 mL/min (>60); Globulin 3.1 g/dL (1.7-4.1); Glucose 112 mg/dL (80-110); HEMOLYSIS < 15 (0-50); Potassium 3.8 mmol/L (3.4-5.1); Sodium 138 mmol/L (137-145); Total Protein 6.3 g/dL (6.3-8.2)
[2021-05-14 22:25] LABS: Lactate (Lactic Acid) 2.9 mmol/L (0.7-2.1)
[2021-05-14 22:26] LABS: Macrocytosis 1+
--- NOTE | 2021-05-14 22:26 | ED_ITS ---
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 He states that he is on 20 mg of prednisone daily for his pulmonary fibrosis. His prednisone has slowly been weaned down in March he was on 40 mg. He says usually he gets better however over the last 3 days he has had increasing shortness of breath with exertion. He denies fever chills or cough. He has no chest pain or palpitations. He does isn't getting better. He was diagnosed with COVID 2 weeks ago but is vaccinated and boosted says that he actually imp roved and is doing really well. Related Data Home Medications Medication Instructions Recorded Confirmed prednisone 10 mg tablet 10 mg PO DAILY 12/02/20 05/10/21 fentanyl 25 mcg/hr transdermal 1 patch TRANSDERMAL Q72H 05/10/21 05/10/21 patch levothyroxine 75 mcg tablet 75 mcg PO DAILY 05/10/21 05/10/21 loperamide 1 mg/5 mL oral liquid 3 mg PO DAILY 05/10/21 05/10/21 ondansetron 8 mg disintegrating 8 mg PO DAILY 05/10/21 05/10/21 tablet rivaroxaban 20 mg tablet (Xarelto) 20 mg PO QPM 05/10/21 05/10/21 Previous Rx's Medication Instructions Recorded albuterol sulfate 90 mcg/actuation 1 puff INHALATION Q4-6H PRN #8.5 10/04/18 aerosol inhaler gram rivaroxaban 20 mg tablet (Xarelto) 20 mg PO DAILY #30 tab 05/10/21 furosemide 20 mg tablet (Lasix) 20 mg PO DAILY #3 tab 05/15/21 Allergies Allergy/AdvReac Type Severity Reaction Status Date / Time No Known Drug Allergies Allergy Verified 05/10/21 09:10 Review of Systems Review of Systems Narrative: GENERAL: Denies chills, fatigue, malaise, fever, sweats, travel HEENT: Denies sinus pain, ear pain, sore throat, difficulty swallowing, neck pain RESPIRATORY: See HPI CARDIOVASCULAR: Denies chest pain, palpitations, orthopnea, edema GASTROINTESTINAL: Denies nausea, vomiting, abdominal pain, diarrhea, constipation, melena. : Denies dysuria, frequency, incontinence, hematuria, urinary retention, flank pain. MUSCULOSKELETAL: Denies weakness, joint pain, or bony pain SKIN: No rash, no erythema, no pruritus NEUROLOGIC: Denies weakness, dizziness, headache, numbness, change in speech, confusion PSYCHIATRIC: No concerning psychosocial issues. 12 point review of systems is negative except for those stated above and HPI Patient History Medical History Anemia CHF (congestive heart failure) Chronic interstitial lung disease Compression fracture Essential hypertension History of stroke involving cerebellum Lupus Pelvic fracture Surgical History H/O pelvic surgery Family History Father Alcohol abuse Mother Alcohol abuse Brother CVA (cerebral vascular accident) Social History household members: spouse and family Smoking Status: Never smoker alcohol intake: former Smoking Status: Never smoker alcohol intake frequency: holidays/special occasions only Substance Use Type: marijuana Exam Initial Vital Signs Initial Vital Signs: Vital Signs Temperature 98 F 05/14/21 21:05 Pulse Rate 116 H 05/14/21 21:05 Respiratory Rate 20 05/14/21 21:05 Blood Pressure 131/100 H 05/14/21 21:05 Pulse Oximetry 96 05/14/21 21:05 GENERAL: Alert well-appearing 66-year-old male HEENT: Head atraumatic,EOMI, pupils reactive, face symmetric, moist mucous membranes CARDIOVASCULAR: Regular rate and rhythm without murmurs, rubs or gallops. RESPIRATORY: Breath sounds equal bilaterally, no wheezes rales or rhonchi. No conversational dyspnea ABDOMEN: Soft, nontender. Normoactive bowel sounds all 4 quadrants. No guarding or rebound. EXTREMITIES: Normal range of motion, no clubbing or edema. Neurovascularly intact NEUROLOGICAL: Alert and oriented x4.Normal gait and speech. At baseline SKIN: Warm, dry, no laceration, no petechiae, no rashes or lesions. Course Orders Ordered: ED Orders 05/14/21 21:24 XR chest 2V Stat EKG-12 Lead Stat Measure peak expiratory flow ONCE RT Consult Eval and Treat Now 05/14/21 21:49 BNP [NT-proBNP (BNP-Adult 18+)] Stat Complete Blood Count AUTO DIFF Stat Comprehensive Metabolic Panel Stat Lactate (Lactic Acid) Stat Troponin & CK Cardiac Panel Stat 05/14/21 23:15 COVID19 -Nasal swab/Pre-Proc Stat Discontinued Medications Albuterol/Ipratropium (Albuterol/Ipratropium 3 Ml Ampul) 3 ml INH NOW ONE Stop: 05/14/21 23:05 Last Admin: 05/15/21 00:00 Dose: 3 ml Documented by: LAURA Methylprednisolone (Methylprednisolone 125 Mg/2 Ml Vial) 125 mg IV NOW ONE Stop: 05/14/21 21:53 Last Admin: 05/14/21 22:03 Dose: 125 mg Documented by: ELLIOTT Vital Signs Vital signs: Vital Signs - 8 hr 05/14/21 21:49 05/14/21 22:00 05/14/21 22:30 Pulse Rate 101 H 93 H 82 Respiratory Rate 14 16 18 Blood Pressure 105/70 107/74 111/72 Pulse Oximetry 96 96 96 05/14/21 23:00 05/14/21 23:30 05/15/21 00:00 Pulse Rate 79 74 89 Respiratory Rate 19 19 21 Blood Pressure 122/78 103/68 114/72 Pulse Oximetry 98 96 98 05/15/21 00:02 05/15/21 00:30 Pulse Rate 74 80 Respiratory Rate 16 22 Blood Pressure 114/69 Pulse Oximetry 98 97 MDM - URI/Sore Throat Lab Data Result diagrams: 05/14/21 21:49 05/14/21 21:49 Labs: Lab Results 05/14/21 05/14/21 05/14/21 Range/Units 21:49 21:49 21:49 WBC 16.5 H (4.5-11.0) X10^3/uL RBC 3.05 L (4.5-5.9) X10^6/uL Hgb 10.5 L (13.5-17.5) g/dL Hct 31.6 L (41-53) % MCV 103.6 H (80-100) fL MCH 34.4 H (26-34) PG MCHC 33.2 (30-36) % RDW 21.1 H (11.6-14.8) % Plt Count 315 (150-400) X10^3/uL Neut % (Auto) 94.1 H (50-75) % Lymph % (Auto) 2.3 L (25-40) % [place] % (Auto) 3.4 (3-14) % Eos % (Auto) 0.1 L (2-4) % Baso % (Auto) 0.1 (0-2) % Neut # (Auto) 15148 H (9764-5064) /uL Lymph # (Auto) 400 L (6673-8506) /uL [place] # (Auto) 600 (0-900) /uL Eos # (Auto) 0 (0-450) /uL Baso # (Auto) 0 (0-100) /uL RBC Morphology See below Macrocytosis 1+ H Sodium 138 (137-145) mmol/L Potassium 3.8 (3.4-5.1) mmol/L Chloride 108 H (98-107) mmol/L Carbon Dioxide 29 (22-32) mmol/L BUN 11 (9-20) mg/dL Creatinine 0.43 L (0.66-1.25) mg/dL Estimated GFR > 60.0 (>60) mL/min BUN/Creatinine Ratio 25.6 H (6-22) Glucose 112 H (80-110) mg/dL Lactate 2.9 H (0.7-2.1) mmol/L Calcium 8.7 (8.4-10.2) mg/dL Total Bilirubin 0.6 (0.2-1.3) mg/dL AST 30 (17-59) IU/L ALT 19 (<50) IU/L Alkaline Phosphatase 84 (38-126) U/L Total Creatine Kinase (55-170) U/L CK-MB (CK-2) CK-MB (CK-2) Rel Index Troponin I (0.01-0.034) ng/mL NT-Pro-B Natriuret Pep (<125) pg/mL Total Protein 6.3 (6.3-8.2) g/dL Albumin 3.2 L (3.5-5.0) g/dL Globulin 3.1 (1.7-4.1) g/dL Albumin/Globulin Ratio 1.0 (1.0-2.8) SARS-CoV-2 (PCR) (Negative) 05/14/21 05/14/21 Range/Units 21:49 23:15 WBC (4.5-11.0) X10^3/uL RBC (4.5-5.9) X10^6/uL Hgb (13.5-17.5) g/dL Hct (41-53) % MCV (80-100) fL MCH (26-34) PG MCHC (30-36) % RDW (11.6-14.8) % Plt Count (150-400) X10^3/uL Neut % (Auto) (50-75) % Lymph % (Auto) (25-40) % [place] % (Auto) (3-14) % Eos % (Auto) (2-4) % Baso % (Auto) (0-2) % Neut # (Auto) (8583-6761) /uL Lymph # (Auto) (8070-2340) /uL [place] # (Auto) (0-900) /uL Eos # (Auto) (0-450) /uL Baso # (Auto) (0-100) /uL RBC Morphology Macrocytosis Sodium (137-145) mmol/L Potassium (3.4-5.1) mmol/L Chloride (98-107) mmol/L Carbon Dioxide (22-32) mmol/L BUN (9-20) mg/dL Creatinine (0.66-1.25) mg/dL Estimated GFR (>60) mL/min BUN/Creatinine Ratio (6-22) Glucose (80-110) mg/dL Lactate (0.7-2.1) mmol/L Calcium (8.4-10.2) mg/dL Total Bilirubin (0.2-1.3) mg/dL AST (17-59) IU/L ALT (<50) IU/L Alkaline Phosphatase (38-126) U/L Total Creatine Kinase < 20 L (55-170) U/L CK-MB (CK-2) TNP CK-MB (CK-2) Rel Index TNP Troponin I < 0.012 (0.01-0.034) ng/mL NT-Pro-B Natriuret Pep 2980 H (<125) pg/mL Total Protein (6.3-8.2) g/dL Albumin (3.5-5.0) g/dL Globulin (1.7-4.1) g/dL Albumin/Globulin Ratio (1.0-2.8) SARS-CoV-2 (PCR) Negative (Negative) Imaging Data Chest x-ray: Radiologist's Impression: PROCEDURE:? XR CHEST 2V ? INDICATIONS:? shortness of breath ? TECHNIQUE:? 2 views of the chest were acquired.? ? COMPARISON:? [facility], CR, XR CHEST 1V, 12/02/2020, 13:56. ? FINDINGS:? ? Surgical changes and devices:? Left Port-A-Cath is present distal tip projecting over the proximal SVC. ? Lungs and pleura:? There is a diffuse appearance of increased pulmonary v ascularity.? There is slight increased opacity within the right base. ? Mediastinum:? Mediastinal contours are normal.? Heart size is enlarged. ? Bones and chest wall:? No suspicious bony abnormalities.? Soft tissues appear unremarkable.? Old right rib fractures are noted. ? IMPRESSION:? Diffuse increased vascularity most suggestive of edema. Slight increased left basilar opacity possibly representing more focal edema.? However, developing airspace disease such as pneumonia cannot be excluded.? ? Dictated by: Inez Torres M.D. on 05/14/2021 at 22:23 ? ? ECG Data Interpretation: Normal sinus rhythm rate 80 p.r. interval 146 QRS [address] changes- similar to priors MDM Narrative Medical decision making narrative: The patient has no significant respiratory distress. Some mild coarse breath sounds which improved with albuterol. He was found to have congestive heart failure echocardiogram in November did show an EF of 25-30%. He is not currently on Lasix. BNP is actually down from previous but still elevated at 20 in 100. No EKG to look troponin is negative. He is on Xarelto this is unlikely to be pulmonary embolism. He also has chronic ongoing pulmonary fibrosis. Difficult to tell if this is actually congestive heart failure versus exacerbation of pulmonary fibrosis. He is given a dose of Solu-Medrol here in the ED. Also put him on a few days of Lasix and increase his prednisone to see if he has improvement. At this time no need for antibiotics or admission. Discharge Plan Departure Patient Disposition: Home Clinical Impression: Congestive heart failure, Pulmonary fibrosis Instructions: Heart Failure Activity Restrictions/Additional Instructions: *You have been diagnosed with pulmonary fibrosis/congestive heart failure *What to do: Had this time your x-ray does show you have some fluid on your lungs. *Continue to take medications as directed Lasix 20 mg once a day for 3 days--> Sent o [facility] Prednisone 30 mg once a day for 5 days, then go back to your current dose *Follow up with your primary care provider in 2-3 days or call [phone] *Return to ER if you should have increasing shortness of breath, chest pain, fever or any new, worsening or concerning symptoms Prescriptions: New furosemide [Lasix] 20 mg tablet 20 mg PO DAILY Qty: 3 0RF No Action albuterol sulfate 90 mcg/actuation HFA aerosol inhaler 1 puff INHALATION Q4-6H PRN (Reason: shortness of breath or wheezing) Qty: 8.5 0RF prednisone 10 mg Tablet 10 mg PO DAILY 0RF ondansetron 8 mg Tablet,Disintegrating 8 mg PO DAILY 0RF Xarelto 20 mg Tablet 20 mg PO QPM 0RF Rx Instructions: must administer with evening meal levothyroxine 75 mcg Tablet 75 mcg PO DAILY 0RF loperamide 1 mg/5 mL Liquid 3 mg PO DAILY 0RF Rx Instructions: administer after each loose stool until symptoms controlled; do not exceed 16 mg per 24 hrs fentanyl 25 mcg/hr Patch 72 Hour 1 patch TRANSDERMAL Q72H 0RF Xarelto 20 mg tablet 20 mg PO DAILY Qty: 30 3RF Rx Instructions: must administer with evening meal Referrals: Az Salazar PA-C [Primary Care Provider] -
[2021-05-14 22:36] LABS: Troponin I < 0.012 ng/mL (0.01-0.034)
[2021-05-14 23:14] LABS: NT-proBNP (BNP-Adult 18+) 2980 pg/mL (<125)
[2021-05-14 23:54] LABS: Reflexed Lactate in 2 Hours Y
[2021-05-14 23:54] LABS: COVID19 -Nasal RAPID Negative (Negative)
[2021-05-15] VITALS: BP 114/72; PULSE 89; RESP 21; O2SAT 98
[2021-05-15] MEDS: ALBUTEROL/IPRATROPIUM 3 ML AMPUL INH
[2021-05-15 00:02] VITALS: PULSE 74; RESP 16; O2SAT 98
[2021-05-15 00:30] VITALS: BP 114/69; PULSE 80; RESP 22; O2SAT 97
== END 2021-05-15 01:09 | disposition home or self-care (01) ==
PROVIDERS: Emergency Provider Emergency Medicine; PCP Physician Assistant
DX: I11.0 Hypertensive heart disease with heart failure (principal); I50.9 Heart failure, unspecified; J84.10 Pulmonary fibrosis, unspecified; Z79.01 Long term (current) use of anticoagulants; Z20.822 Contact with and (suspected) exposure to COVID-19
CPT/HCPCS: 36415; 71046; 80053; 82550; 83605; 83880; 84484; 85025; 87635; 93005; 94640; 96374; 99284; C9803; J2930

== ENCOUNTER 2021-06-07 00:58 | Emergency (ER) | payer MEDICARE, OTHER, SELFPAY ==
[2020-12-02 03:45] VITALS: BMI 23.6
[2021-06-07 01:03] VITALS: BP 112/76; PULSE 85; RESP 18; TEMP 36.8; O2SAT 100; BMI 19.9
--- NOTE | 2021-06-07 01:05 | ED.SOB ---
HPI - SOB/Dyspnea General Chief Complaint: Shortness of Breath/Dyspnea Stated Complaint: SOB Time Seen by Provider: 06/07/21 01:05 History of Present Illness HPI Narrative: 66-year-old male nonsmoker with history of stage IV stomach cancer, Mets to lungs and liver, and some cancer ?below his aorta ?presents by EMS for evaluation of shortness of breath, nausea and feeling unwell about 1 hour prior to arrival. He had been in his normal state of health and was resting at home watching TV when his symptoms came on. He feels much better her on arrival that at the onset. He receives chemotherapy through a J-tube every other week and is managed by Oncology at [facility] in [place]. He denies any fever but had some chills. He denies nausea, vomiting or diarrhea. He denies any obvious provocation or palliation of his symptoms. He is otherwise well and free of complaint. Related Data Home Medications Medication Instructions Recorded Confirmed prednisone 10 mg tablet 10 mg PO DAILY 12/02/20 05/10/21 fentanyl 25 mcg/hr transdermal 1 patch TRANSDERMAL Q72H 05/10/21 05/10/21 patch levothyroxine 75 mcg tablet 75 mcg PO DAILY 05/10/21 05/10/21 loperamide 1 mg/5 mL oral liquid 3 mg PO DAILY 05/10/21 05/10/21 ondansetron 8 mg disintegrating 8 mg PO DAILY 05/10/21 05/10/21 tablet rivaroxaban 20 mg tablet (Xarelto) 20 mg PO QPM 05/10/21 05/10/21 Previous Rx's Medication Instructions Recorded albuterol sulfate 90 mcg/actuation 1 puff INHALATION Q4-6H PRN #8.5 10/04/18 aerosol inhaler gram rivaroxaban 20 mg tablet (Xarelto) 20 mg PO DAILY #30 tab 05/10/21 furosemide 20 mg tablet (Lasix) 20 mg PO DAILY #3 tab 05/15/21 furosemide 20 mg tablet (Lasix) 20 mg PO DAILY #3 tab 06/07/21 Allergies Allergy/AdvReac Type Severity Reaction Status Date / Time No Known Drug Allergies Allergy Verified 05/10/21 09:10 Review of Systems Review of Systems Narrative: GENERAL: See HPI HEENT: Denies sinus pain, ear pain, sore throat, difficulty swallowing, dizziness. RESPIRATORY: See HPI CARDIOVASCULAR: See HPI GASTROINTESTINAL: Denies nausea, vomiting, abdominal pain, diarrhea, constipation, melena. : Denies dysuria, frequency, incontinence, hematuria, urinary retention. MUSCULOSKELETAL: denies weakness, joint pain, or bony pain SKIN: Denies rash, skin lesions, or other NEUROLOGIC: Denies weakness, headache, numbness, change in speech, confusion, seizures, incoordination. PSYCHIATRIC: No concerning psychosocial issues. 12 point review of systems is negative except for those stated above Patient History Medical History Anemia CHF (congestive heart failure) Chronic interstitial lung disease Compression fracture Essential hypertension History of stroke involving cerebellum Lupus Pelvic fracture Surgical History H/O pelvic surgery Family History Father Alcohol abuse Mother Alcohol abuse Brother CVA (cerebral vascular accident) Social History household members: spouse and family Smoking Status: Never smoker alcohol intake: former Smoking Status: Never smoker alcohol intake frequency: holidays/special occasions only Substance Use Type: marijuana Exam Narrative Exam Narrative: GENERAL: [66] year old patient appears stated age. Chronically ill and in mild distress. Nasal cannula in place, no evidence of respiratory distress HEAD: Atraumatic. Normocephalic. EYES: Pupils equal round and reactive. Extraocular motions intact. No scleral icterus. No injection or drainage. ENT: Nose without bleeding, purulent drainage. Throat without erythema, tonsillar hypertrophy or exudate. Airway patent. NECK: Trachea midline. Non tender CARDIOVASCULAR: Regular rate and rhythm without murmurs, gallops, or rubs. RESPIRATORY: Decreased breath sounds throughout, prolonged expiratory phase GASTROINTESTINAL: Abdomen soft, non-tender, nondistended. EXTREMITIES: No edema or joint tenderness. BACK: Nontender without deformity or crepitance. No flank tenderness. NEURO: AOx3. SKIN: No rash or erythema of visible areas Initial Vital Signs Initial Vital Signs: Vital Signs Temperature 98.3 F 06/07/21 01:03 Pulse Rate 85 06/07/21 01:03 Respiratory Rate 18 06/07/21 01:03 Blood Pressure 112/76 06/07/21 01:03 Pulse Oximetry 100 06/07/21 01:03 Course Orders Ordered: ED Orders 06/07/21 01:09 XR chest 1V Stat EKG-12 Lead Stat 06/07/21 01:15 Complete Blood Count AUTO DIFF Stat Comprehensive Metabolic Panel Stat Lipase Stat NT-proBNP (BNP-Adult 18+) Stat Procalcitonin Stat Prothrombin Time INR Stat Troponin & CK Cardiac Panel Stat 06/07/21 01:38 COVID19 -Nasal swab/Pre-Proc Stat 06/07/21 02:16 CT angio chest PE protocol Stat Discontinued Medications Sodium Chloride (Normal Saline 0.9%) 1,000 mls @ 150 mls/hr IV CONT NIK Last Infusion: 06/07/21 03:30 Dose: 0 mls/hr Documented by: Admin: 06/07/21 01:40 Dose: 150 mls/hr Documented by: TOAN Reevaluation(s) Reevaluation #1: Patient demonstrates improves symptoms almost immediately upon arrival and is essentially at baseline for the duration of his visit Reevaluation #2: Upon completion of CT patient is taken off supplemental oxygen for about 10 or 15 minutes and then ambulates through the department without the use of a walker and feels quite well. He demonstrates no increased work of breathing and has no measured hypoxemia. Vital Signs Vital signs: Vital Signs - 8 hr 06/07/21 01:03 06/07/21 03:44 06/07/21 03:45 Temperature 98.3 F Pulse Rate 85 101 H 101 H Respiratory Rate 18 18 Blood Pressure 112/76 113/83 Pulse Oximetry 100 100 100 06/07/21 04:00 Temperature Pulse Rate 97 H Respiratory Rate Blood Pressure 120/85 Pulse Oximetry 99 MDM - SOB/Dyspnea Lab Data Result diagrams: 06/07/21 01:15 06/07/21 01:15 Labs: Lab Results 06/07/21 06/07/21 06/07/21 Range/Units 01:15 01:15 01:15 WBC 6.4 (4.5-11.0) X10^3/uL RBC 3.27 L (4.5-5.9) X10^6/uL Hgb 11.2 L (13.5-17.5) g/dL Hct 34.3 L (41-53) % MCV 104.7 H (80-100) fL MCH 34.2 H (26-34) PG MCHC 32.7 (30-36) % RDW 16.2 H (11.6-14.8) % Plt Count 196 (150-400) X10^3/uL Neut % (Auto) Not Reportable Lymph % (Auto) Not Reportable Amelia % (Auto) Not Reportable Eos % (Auto) Not Reportable Baso % (Auto) Not Reportable Lymph # (Auto) Not Reportable Amelia # (Auto) Not Reportable Baso # (Auto) Not Reportable Total Counted 100 Seg Neutrophils % 56.0 (38-70) % Band Neutrophils % 31.0 H (3-7) % Lymphocytes % (Manual) 9.0 L (25-45) % Monocytes % (Manual) 4.0 (2-11) % Neutrophils # (Manual) 5568 (5999-7989) /uL RBC Morphology See below Anisocytosis 1+ H Macrocytosis 1+ H PT 15.1 H (10.1-12.7) SECONDS INR 1.4 H (0.9-1.3) Sodium 138 (137-145) mmol/L Potassium 4.0 (3.4-5.1) mmol/L Chloride 105 (98-107) mmol/L Carbon Dioxide 30 (22-32) mmol/L BUN 20 (9-20) mg/dL Creatinine 0.52 L (0.66-1.25) mg/dL Estimated GFR > 60.0 (>60) mL/min BUN/Creatinine Ratio 38.5 H (6-22) Glucose 118 H (80-110) mg/dL Calcium 8.1 L (8.4-10.2) mg/dL Total Bilirubin 0.3 (0.2-1.3) mg/dL AST 44 (17-59) IU/L ALT 71 H (<50) IU/L Alkaline Phosphatase 118 (38-126) U/L Total Creatine Kinase < 20 L (55-170) U/L CK-MB (CK-2) TNP CK-MB (CK-2) Rel Index TNP Troponin I < 0.012 (0.01-0.034) ng/mL NT-Pro-B Natriuret Pep 2290 H (<125) pg/mL Total Protein 6.2 L (6.3-8.2) g/dL Albumin 3.3 L (3.5-5.0) g/dL Globulin 2.9 (1.7-4.1) g/dL Albumin/Globulin Ratio 1.1 (1.0-2.8) Lipase 104 (23-300) U/L Procalcitonin 0.11 (<0.5) ng/mL SARS-CoV-2 (PCR) (Negative) 06/07/21 Range/Units 01:38 WBC (4.5-11.0) X10^3/uL RBC (4.5-5.9) X10^6/uL Hgb (13.5-17.5) g/dL Hct (41-53) % MCV (80-100) fL MCH (26-34) PG MCHC (30-36) % RDW (11.6-14.8) % Plt Count (150-400) X10^3/uL Neut % (Auto) Lymph % (Auto) Amelia % (Auto) Eos % (Auto) Baso % (Auto) Lymph # (Auto) Amelia # (Auto) Baso # (Auto) Total Counted Seg Neutrophils % (38-70) % Band Neutrophils % (3-7) % Lymphocytes % (Manual) (25-45) % Monocytes % (Manual) (2-11) % Neutrophils # (Manual) (8497-2961) /uL RBC Morphology Anisocytosis Macrocytosis PT (10.1-12.7) SECONDS INR (0.9-1.3) Sodium (137-145) mmol/L Potassium (3.4-5.1) mmol/L Chloride (98-107) mmol/L Carbon Dioxide (22-32) mmol/L BUN (9-20) mg/dL Creatinine (0.66-1.25) mg/dL Estimated GFR (>60) mL/min BUN/Creatinine Ratio (6-22) Glucose (80-110) mg/dL Calcium (8.4-10.2) mg/dL Total Bilirubin (0.2-1.3) mg/dL AST (17-59) IU/L ALT (<50) IU/L Alkaline Phosphatase (38-126) U/L Total Creatine Kinase (55-170) U/L CK-MB (CK-2) CK-MB (CK-2) Rel Index Troponin I (0.01-0.034) ng/mL NT-Pro-B Natriuret Pep (<125) pg/mL Total Protein (6.3-8.2) g/dL Albumin (3.5-5.0) g/dL Globulin (1.7-4.1) g/dL Albumin/Globulin Ratio (1.0-2.8) Lipase (23-300) U/L Procalcitonin (<0.5) ng/mL SARS-CoV-2 (PCR) Negative (Negative) MDM Narrative Medical decision making narrative: Patient presents with difficulty catching his breath at home while watching a movie. He is put on a few L of oxygen in route and largely at his baseline for the duration. His exam and vitals remain stable. Labs would suggest the possibility of some pulmonary edema. Though CTA demonstrates ground-glass opacities bilateral bases suggesting the possibility of pneumonia the patient has no fever elevated procalcitonin or other suggestion of infection. He demonstrates significant improvement in symptoms, can not ambulate to the department without signs of hypoxemia or shortness of breath. Return precautions discussed and questions answered to his apparent satisfaction Discharge Plan Departure Patient Disposition: Home Clinical Impression: Acute dyspnea, Pulmonary edema Instructions: DI for Shortness of Breath Activity Restrictions/Additional Instructions: *You have been diagnosed with [shortness of breath, likely due to some extra fluid in your lungs. There is no evidence of heart attack, pneumonia, or blood clot. Your labs and imaging are very reasurring. *What to do: *Please continue to take your regular medications as directed. [x ] New medication prescriptions sent to your pharmacy: [ [facility]] [ ] New medication written as a paper prescription [ ] No new medications given *Please follow up with your primary care provider in 2-3 days, call for an appointment. Let them know you were seen in the Emergency Department and that we ask that you be seen in follow up. We will electronically transmit a record of today's note if your PCP is in our system *If you do not have a primary care provider please contact the [facility] Resource line at [phone]. They will ask some questions about your medical history and help get you set up with a doctor in the community. *Return to Emergency Department if you should have any new, worsening or concerning symptoms, such as [fever greater than 101 F, shaking chills, worsening pain, persistent vomiting or other bothersome symptoms] Prescriptions: New furosemide [Lasix] 20 mg tablet 20 mg PO DAILY Qty: 3 0RF No Action albuterol sulfate 90 mcg/actuation HFA aerosol inhaler 1 puff INHALATION Q4-6H PRN (Reason: shortness of breath or wheezing) Qty: 8.5 0RF prednisone 10 mg Tablet 10 mg PO DAILY 0RF ondansetron 8 mg Tablet,Disintegrating 8 mg PO DAILY 0RF Xarelto 20 mg Tablet 20 mg PO QPM 0RF Rx Instructions: must administer with evening meal levothyroxine 75 mcg Tablet 75 mcg PO DAILY 0RF loperamide 1 mg/5 mL Liquid 3 mg PO DAILY 0RF Rx Instructions: administer after each loose stool until symptoms controlled; do not exceed 16 mg per 24 hrs fentanyl 25 mcg/hr Patch 72 Hour 1 patch TRANSDERMAL Q72H 0RF Xarelto 20 mg tablet 20 mg PO DAILY Qty: 30 3RF Rx Instructions: must administer with evening meal furosemide [Lasix] 20 mg tablet 20 mg PO DAILY Qty: 3 0RF Referrals: Az Salazar PA-C [Primary Care Provider] -
--- NOTE | 2021-06-07 01:09 | DI.RAD.S_ITS ---
PROCEDURE: XR CHEST 1V INDICATIONS: SOB TECHNIQUE: One view of the chest was acquired. COMPARISON: [facility], CT, CT ANGIO CHEST PE PROTOCOL, 09/27/2020, 9:13. [facility], CR, XR CHEST 2V, 05/14/2021, 21:17. FINDINGS: Surgical changes and devices: Left chest Port-A-Cath. Lungs and pleura: Mild chronic interstitial pulmonary fibrosis. No focal pulmonary infiltrates. No pleural effusions or pneumothorax. Mediastinum: Mediastinal contours appear normal. Heart size is normal. Bones and chest wall: No suspicious bony lesions. Overlying soft tissues appear unremarkable. IMPRESSION: Chronic interstitial pulmonary fibrosis. No evidence acute pulmonary process. Dictated by: Vicente Pittman M.D. on 06/07/2021 at 1:37 Approved by: Vicente Pittman M.D. on 06/07/2021 at 1:40
[2021-06-07 01:37] LABS: Hematocrit 34.3 % (41-53); Hemoglobin 11.2 g/dL (13.5-17.5); Mean Corpuscular HGB Conc 32.7 % (30-36); Mean Corpuscular Hemoglobin 34.2 PG (26-34); Mean Corpuscular Volume 104.7 fL (80-100); Platelet Count 196 X10^3/uL (150-400); Red Blood Cell Count 3.27 X10^6/uL (4.5-5.9); Red Cell Distribution Width 16.2 % (11.6-14.8); White Blood Cell Count 6.4 X10^3/uL (4.5-11.0)
[2021-06-07 01:38] LABS: Add Manual Diff / Slide Review YES; INR 1.4 (0.9-1.3); Prothrombin Time 15.1 SECONDS (10.1-12.7)
[2021-06-07] MEDS: SODIUM CHLORIDE 0.9% 1,000 ML 150 ML IV (01:40)
[2021-06-07 01:58] LABS: Carbon Dioxide 30 mmol/L (22-32)
[2021-06-07 02:00] LABS: COVID19 -Nasal RAPID Negative (Negative)
[2021-06-07 02:11] LABS: Alanine Aminotransferase 71 IU/L (<50); Albumin 3.3 g/dL (3.5-5.0); Albumin Globulin Ratio 1.1 (1.0-2.8); Alkaline Phosphatase 118 U/L (38-126); Aspartate Aminotransferase 44 IU/L (17-59); BUN Creatinine Ratio 38.5 (6-22); Bilirubin Total 0.3 mg/dL (0.2-1.3); Blood Urea Nitrogen 20 mg/dL (9-20); Calcium 8.1 mg/dL (8.4-10.2); Chloride 105 mmol/L (98-107); Creatine Kinase < 20 U/L (55-170); Estimated Glomerular Filt Rate > 60.0 mL/min (>60); Globulin 2.9 g/dL (1.7-4.1); Glucose 118 mg/dL (80-110); HEMOLYSIS < 15 (0-50); Lipase 104 U/L (23-300); NT-proBNP (BNP-Adult 18+) 2290 pg/mL (<125); Sodium 138 mmol/L (137-145); Total Protein 6.2 g/dL (6.3-8.2); Troponin I < 0.012 ng/mL (0.01-0.034)
[2021-06-07 02:15] LABS: Procalcitonin 0.11 ng/mL (<0.5)
--- NOTE | 2021-06-07 02:16 | DI.CT.S_ITS ---
PROCEDURE: CT ANGIO CHEST PE PROTOCOL INDICATIONS: sudden SOB, CP, hypoxia, known cancer TECHNIQUE: After the administration of intravenous contrast, 2 mm thick sections acquired from the pulmonary apices to the posterior costophrenic angles. 3-dimensional maximum intensity projection (MIP) coronal and sagittal reformats were then acquired through the thorax. For radiation dose reduction, the following was used: automated exposure control, adjustment of mA and/or kV according to patient size. COMPARISON: [facility], CT, CT ANGIO CHEST PE PROTOCOL, 09/27/2020, 9:13. [facility], CT, CT ANGIO CHEST PE PROTOCOL, 09/26/2020, 15:26. FINDINGS: Image quality: Excellent. Pulmonary arteries: Pulmonary arteries are normal in size, and demonstrate no intraluminal filling defects to suggest central pulmonary embolism. No enlargement of the main pulmonary artery to suggest presence of pulmonary arterial hypertension. Lungs and pleura: Redemonstration of chronic interstitial lung disease with septal thickening, traction bronchiectasis, and honeycombing. Compared to the prior study, there is new diffuse ground-glass opacities identified in the bilateral lower lobes more predominant on the left. No focal consolidations. Moderate pulmonary emphysematous changes are again noted. Redemonstration of calcified pleural plaques along the right hemidiaphragm. No substantial pleural effusion. No pneumothorax. Mediastinum: Heart size is normal, without pericardial effusion. No mediastinal or hilar adenopathy. Previously seen enlarged mediastinal lymph nodes are not appreciated on today's study. Mild atherosclerotic calcifications of the coronary arteries. Thoracic aorta is normal in caliber and enhancement. Esophagus is normal in caliber, with small hiatal hernia. Bones and chest wall: No suspicious bony lesions. Ribs and thoracic spine appear intact throughout. Thyroid gland is unremarkable. No axillary or supraclavicular adenopathy. No acute compression fractures. Mild interval progression of chronic appearing degenerative endplate changes and minimal anterior vertebral body height loss at T7 and T8. Abdomen: Visualized upper abdominal solid organs appear normal in the early arterial phase of enhancement. Previously seen hepatic hypodense lesions are no longer visualized. IMPRESSION: 1. No acute pulmonary emboli identified. No evidence for acute right-sided heart strain. 2. Diffuse patchy ground-glass opacities of the bilateral lower lobes without focal consolidations. Findings are suspected to represent acute on chronic changes with infectious/inflammatory process most likely. Aspiration may have a similar appearance. Recommend short interval follow-up imaging to document return to baseline exam. 3. Redemonstration of moderate pulmonary emphysematous changes and fibrotic changes. 4. Atherosclerosis. 5. Previously seen mediastinal and hilar adenopathy and hepatic hypodense lesions are not visualized on today's exam and consistent with response to treatment. No significant discrepancy with the drop wire hanger radiology preliminary report. Dictated by: Ronan Morley M.D. on 06/07/2021 at 6:43 Approved by: Ronan Morley M.D. on 06/07/2021 at 7:04
[2021-06-07 03:44] VITALS: BP 113/83; PULSE 101; RESP 18; O2SAT 100
[2021-06-07 03:45] VITALS: PULSE 101; O2SAT 100
[2021-06-07 04:00] VITALS: BP 120/85; PULSE 97; O2SAT 99
--- NOTE | 2021-06-07 04:00 | PC.NURSE ---
pt walked to the bathroom with a walker without assistance, states he feels normal denies any SOB or dizziness
[2021-06-07 04:32] LABS: Neutrophils Absolute Manual 5568 /uL (3000-5900); Total Cells Counted 100
[2021-06-07 04:33] LABS: Anisocytosis 1+; Macrocytosis 1+
== END 2021-06-07 04:52 | disposition home or self-care (01) ==
PROVIDERS: Emergency Provider Emergency Medicine; PCP Physician Assistant
DX: R06.00 Dyspnea, unspecified (principal); J81.1 Chronic pulmonary edema; Z20.822 Contact with and (suspected) exposure to COVID-19
CPT/HCPCS: 36415; 71045; 71275; 80053; 82550; 83690; 83880; 84145; 84484; 85007; 85025; 85610; 87635; 93005; 96360; 96361; 99284; 99285; C9803; Q9967

== ENCOUNTER 2021-07-24 22:50 | Inpatient (IN) | payer MEDICARE, OTHER, SELFPAY ==
[2020-12-02 03:45] VITALS: BMI 23.6
[2021-07-24 23:03] VITALS: BP 114/81; PULSE 101; RESP 24; TEMP 36.6; O2SAT 96; BMI 19.9
--- NOTE | 2021-07-24 23:17 | DI.RAD.S_ITS ---
PROCEDURE: XR CHEST 2V INDICATIONS: shortness of breath TECHNIQUE: 2 views of the chest were acquired. COMPARISON: [facility], CT, CT ANGIO CHEST PE PROTOCOL, 06/07/2021, 2:33. [facility], CR, XR CHEST 1V, 06/07/2021, 1:22. FINDINGS: Surgical changes and devices: Tunneled left port device is present. Lungs and pleura: Diffuse interstitial prominence with patchy ill-defined airspace opacities of the right upper lung zone and left lung base. This is more pronounced compared to prior radiograph dated June 07, 2021 Mediastinum: Mediastinal contours are normal. Heart size is normal. Bones and chest wall: No suspicious bony abnormalities. Soft tissues appear unremarkable. IMPRESSION: Patchy ill-defined airspace opacities of the right upper lung zone and left lung base and minimally involving the right lung base. Findings are likely related to development of multifocal airspace disease/pneumonia. Recommend clinical correlation. Dictated by: Ronan Morley M.D. on 07/25/2021 at 0:10 Approved by: Ronan Morley M.D. on 07/25/2021 at 0:13
[2021-07-25] VITALS (26 sets, daily range): BP systolic 101–124; BP diastolic 66–80; PULSE 71–93; RESP 16–22; TEMP 36.4–36.7; O2SAT 95–99; BMI 19.9
[2021-07-25 00:24] LABS: Add Manual Diff / Slide Review NO; Basophils Absolute Auto 100 /uL (0-100); Basophils Percent Auto 0.4 % (0-2); Eosinophils Absolute Auto 0 /uL (0-450); Eosinophils Percent Auto 0.2 % (2-4); Hematocrit 30.7 % (41-53); Hemoglobin 9.9 g/dL (13.5-17.5); Lymphocytes Absolute Auto 800 /uL (1100-4500); Lymphocytes Percent Auto 6.5 % (25-40); Mean Corpuscular HGB Conc 32.4 % (30-36); Mean Corpuscular Hemoglobin 31.3 PG (26-34); Mean Corpuscular Volume 96.6 fL (80-100); Monocytes Absolute Auto 600 /uL (0-900); Monocytes Percent Auto 4.9 % (3-14); Neutrophils Absolute Auto 10600 /uL (1500-7000); Platelet Count 248 X10^3/uL (150-400); Red Blood Cell Count 3.18 X10^6/uL (4.5-5.9); Red Cell Distribution Width 16.8 % (11.6-14.8)
[2021-07-25 00:34] LABS: Lactate (Lactic Acid) 1.5 mmol/L (0.7-2.1)
[2021-07-25 00:35] LABS: Alanine Aminotransferase 15 IU/L (<50); Albumin 3.5 g/dL (3.5-5.0); Albumin Globulin Ratio 1.1 (1.0-2.8); Alkaline Phosphatase 136 U/L (38-126); Aspartate Aminotransferase 26 IU/L (17-59); BUN Creatinine Ratio 26.7 (6-22); Bilirubin Total 0.6 mg/dL (0.2-1.3); Blood Urea Nitrogen 16 mg/dL (9-20); Calcium 8.1 mg/dL (8.4-10.2); Carbon Dioxide 22 mmol/L (22-32); Chloride 108 mmol/L (98-107); Estimated Glomerular Filt Rate > 60 mL/min (>60); Globulin 3.3 g/dL (1.7-4.1); Glucose 112 mg/dL (80-110); HEMOLYSIS < 15 (0-50); Sodium 139 mmol/L (137-145); Total Protein 6.8 g/dL (6.3-8.2)
--- NOTE | 2021-07-25 01:07 | ED.SOB ---
HPI - SOB/Dyspnea General Chief Complaint: Shortness of Breath/Dyspnea Stated Complaint: SOB Time Seen by Provider: 07/24/21 23:58 Source: patient Mode of arrival: Ambulatory Limitations: no limitations History of Present Illness HPI Narrative: 66-year-old male nonsmoker with history of stage IV stomach cancer, Mets to lungs and liver, and some cancer ?below his aorta ?presents for evaluation of episodic shortness of breath. He was seen and evaluated a few days ago by his primary care provider and started on an antibiotic due to concern for pneumonia. He had been having some cough, occasionally productive of yellowish sputum and was seen in the clinic. He has had 2 doses of Levaquin. He denies fever or chills. He denies nausea, vomiting or diarrhea. He states he feels pretty decent right now. Related Data Home Medications Medication Instructions Recorded Confirmed prednisone 10 mg tablet 10 mg PO DAILY 12/02/20 05/10/21 fentanyl 25 mcg/hr transdermal 1 patch TRANSDERMAL Q72H 05/10/21 05/10/21 patch levothyroxine 75 mcg tablet 75 mcg PO DAILY 05/10/21 05/10/21 loperamide 1 mg/5 mL oral liquid 3 mg PO DAILY 05/10/21 05/10/21 ondansetron 8 mg disintegrating 8 mg PO DAILY 05/10/21 05/10/21 tablet rivaroxaban 20 mg tablet (Xarelto) 20 mg PO QPM 05/10/21 05/10/21 Previous Rx's Medication Instructions Recorded albuterol sulfate 90 mcg/actuation 1 puff INHALATION Q4-6H PRN #8.5 10/04/18 aerosol inhaler gram rivaroxaban 20 mg tablet (Xarelto) 20 mg PO DAILY #30 tab 05/10/21 furosemide 20 mg tablet (Lasix) 20 mg PO DAILY #3 tab 05/15/21 furosemide 20 mg tablet (Lasix) 20 mg PO DAILY #3 tab 06/07/21 Allergies Allergy/AdvReac Type Severity Reaction Status Date / Time No Known Drug Allergies Allergy Verified 05/10/21 09:10 Review of Systems Review of Systems Narrative: GENERAL: See HPI HEENT: Denies sinus pain, ear pain, sore throat, difficulty swallowing, dizziness. RESPIRATORY: See HPI CARDIOVASCULAR: Denies chest pain, palpitations, orthopnea, edema, GASTROINTESTINAL: Denies nausea, vomiting, abdominal pain, diarrhea, constipation, melena. : Denies dysuria, frequency, incontinence, hematuria, urinary retention. MUSCULOSKELETAL: denies weakness, joint pain, or bony pain SKIN: Denies rash, skin lesions, or other NEUROLOGIC: Denies weakness, headache, numbness, change in speech, confusion, seizures, incoordination. PSYCHIATRIC: No concerning psychosocial issues. 12 point review of systems is negative except for those stated above Patient History Medical History Anemia CHF (congestive heart failure) Chronic interstitial lung disease Compression fracture Essential hypertension History of stroke involving cerebellum Lupus Pelvic fracture Surgical History H/O pelvic surgery Family History Father Alcohol abuse Mother Alcohol abuse Brother CVA (cerebral vascular accident) Social History household members: spouse and family Smoking Status: Never smoker alcohol intake: former Smoking Status: Never smoker alcohol intake frequency: holidays/special occasions only Substance Use Type: marijuana Exam Narrative Exam Narrative: GENERAL: [66 year old patient appears stated age. Chronic illness, generalized weakness, no obvious significant increased work of breathing HEAD: Atraumatic. Normocephalic. EYES: Pupils equal round and reactive. Extraocular motions intact. No scleral icterus. No injection or drainage. ENT: Nose without bleeding, purulent drainage. Throat without erythema, tonsillar hypertrophy or exudate. Airway patent. NECK: Trachea midline. Non tender CARDIOVASCULAR: Regular rate and rhythm without murmurs, gallops, or rubs. RESPIRATORY: No significant work of breathing, faint crackles in right apex and left base, no use of accessory muscles GASTROINTESTINAL: Abdomen soft, non-tender, nondistended. EXTREMITIES: No edema or joint tenderness. BACK: Nontender without deformity or crepitance. No flank tenderness. NEURO: AOx3. SKIN: No rash or erythema of visible areas Initial Vital Signs Initial Vital Signs: Vital Signs Temperature 97.8 F 07/24/21 23:03 Pulse Rate 101 H 07/24/21 23:03 Respiratory Rate 24 07/24/21 23:03 Blood Pressure 114/81 07/24/21 23:03 Pulse Oximetry 96 07/24/21 23:03 Course Orders Ordered: ED Orders 07/24/21 23:17 XR chest 2V Stat Complete Blood Count AUTO DIFF Stat Comprehensive Metabolic Panel Stat Lactate (Lactic Acid) Stat EKG-12 Lead Stat Measure peak expiratory flow ONCE RT Consult Eval and Treat Now 07/25/21 01:10 BNP [NT-proBNP (BNP-Adult 18+)] Stat Procalcitonin Stat Troponin & CK Cardiac Panel Stat 07/25/21 01:13 COVID19 -Nasal RAPID/Pre-Proc Stat 07/25/21 01:40 Blood Culture Stat Discontinued Medications Piperacillin Sod/Tazobactam (Sod 4.5 gm/ Sodium Chloride) 100 mls @ 200 mls/hr IV NOW ONE Stop: 07/25/21 02:56 Last Admin: 07/25/21 03:06 Dose: 200 mls/hr Documented by: ADAM Consultations Consultation #1: Discussed with hospitalist, happy to accept on his service, patient has been on Levaquin for 2 days, we elect to switch his antibiotic. He will require hospitalization given no improvement, multi lobar pneumonia, chemotherapy, critically elevated procalcitonin. Vital Signs Vital signs: Vital Signs - 8 hr 07/24/21 23:03 07/25/21 00:06 07/25/21 00:18 Temperature 97.8 F Pulse Rate 101 H 91 H 92 H Respiratory Rate 24 16 Blood Pressure 114/81 106/80 Pulse Oximetry 96 95 98 07/25/21 00:30 07/25/21 01:00 07/25/21 01:30 Temperature Pulse Rate 91 H 93 H 86 Respiratory Rate 20 20 20 Blood Pressure 109/79 104/73 120/78 Pulse Oximetry 98 97 99 07/25/21 02:00 Temperature Pulse Rate 80 Respiratory Rate 20 Blood Pressure 105/66 Pulse Oximetry 96 MDM - SOB/Dyspnea Lab Data Result diagrams: 07/25/21 00:10 07/25/21 00:10 Labs: Lab Results 07/25/21 07/25/21 07/25/21 Range/Units 00:10 00:10 00:10 WBC 12.0 H (4.5-11.0) X10^3/uL RBC 3.18 L (4.5-5.9) X10^6/uL Hgb 9.9 L (13.5-17.5) g/dL Hct 30.7 L (41-53) % MCV 96.6 (80-100) fL MCH 31.3 (26-34) PG MCHC 32.4 (30-36) % RDW 16.8 H (11.6-14.8) % Plt Count 248 (150-400) X10^3/uL Neut % (Auto) 88.0 H (50-75) % Lymph % (Auto) 6.5 L (25-40) % [place] % (Auto) 4.9 (3-14) % Eos % (Auto) 0.2 L (2-4) % Baso % (Auto) 0.4 (0-2) % Neut # (Auto) 50781 H (4771-3631) /uL Lymph # (Auto) 800 L (3820-3756) /uL [place] # (Auto) 600 (0-900) /uL Eos # (Auto) 0 (0-450) /uL Baso # (Auto) 100 (0-100) /uL Sodium 139 (137-145) mmol/L Potassium 4.0 (3.4-5.1) mmol/L Chloride 108 H (98-107) mmol/L Carbon Dioxide 22 (22-32) mmol/L BUN 16 (9-20) mg/dL Creatinine 0.60 L (0.66-1.25) mg/dL Estimated GFR > 60 (>60) mL/min BUN/Creatinine Ratio 26.7 H (6-22) Glucose 112 H (80-110) mg/dL Lactate 1.5 (0.7-2.1) mmol/L Calcium 8.1 L (8.4-10.2) mg/dL Total Bilirubin 0.6 (0.2-1.3) mg/dL AST 26 (17-59) IU/L ALT 15 (<50) IU/L Alkaline Phosphatase 136 H (38-126) U/L Total Creatine Kinase (55-170) U/L CK-MB (CK-2) CK-MB (CK-2) Rel Index Troponin I (0.01-0.034) ng/mL NT-Pro-B Natriuret Pep (<125) pg/mL Total Protein 6.8 (6.3-8.2) g/dL Albumin 3.5 (3.5-5.0) g/dL Globulin 3.3 (1.7-4.1) g/dL Albumin/Globulin Ratio 1.1 (1.0-2.8) Procalcitonin (<0.5) ng/mL SARS-CoV-2 (PCR) (Negative) 07/25/21 07/25/21 07/25/21 Range/Units 01:10 01:10 01:13 WBC (4.5-11.0) X10^3/uL RBC (4.5-5.9) X10^6/uL Hgb (13.5-17.5) g/dL Hct (41-53) % MCV (80-100) fL MCH (26-34) PG MCHC (30-36) % RDW (11.6-14.8) % Plt Count (150-400) X10^3/uL Neut % (Auto) (50-75) % Lymph % (Auto) (25-40) % [place] % (Auto) (3-14) % Eos % (Auto) (2-4) % Baso % (Auto) (0-2) % Neut # (Auto) (2215-5284) /uL Lymph # (Auto) (1351-4220) /uL [place] # (Auto) (0-900) /uL Eos # (Auto) (0-450) /uL Baso # (Auto) (0-100) /uL Sodium (137-145) mmol/L Potassium (3.4-5.1) mmol/L Chloride (98-107) mmol/L Carbon Dioxide (22-32) mmol/L BUN (9-20) mg/dL Creatinine (0.66-1.25) mg/dL Estimated GFR (>60) mL/min BUN/Creatinine Ratio (6-22) Glucose (80-110) mg/dL Lactate Cancelled (0.7-2.1) mmol/L Calcium (8.4-10.2) mg/dL Total Bilirubin (0.2-1.3) mg/dL AST (17-59) IU/L ALT (<50) IU/L Alkaline Phosphatase (38-126) U/L Total Creatine Kinase < 20 L (55-170) U/L CK-MB (CK-2) TNP CK-MB (CK-2) Rel Index TNP Troponin I < 0.012 (0.01-0.034) ng/mL NT-Pro-B Natriuret Pep 2990 H (<125) pg/mL Total Protein (6.3-8.2) g/dL Albumin (3.5-5.0) g/dL Globulin (1.7-4.1) g/dL Albumin/Globulin Ratio (1.0-2.8) Procalcitonin 5.47 H (<0.5) ng/mL SARS-CoV-2 (PCR) Negative (Negative) Imaging Data Chest x-ray: Radiologist's Impression: Az Bowden??66??M??1955 ? Allergy/Adv: No Known Drug Allergies Close Chest X-Ray (Signed) Ronan Morley - 07/24/21 Chest CTA (Signed) Ronan Morley - 06/07/21 Chest X-Ray (Signed) Vicente Pittman - 06/07/21 Chest X-Ray (Signed) Inez Torres - 05/14/21 Head/Neck CTA (Signed) Eduardo Reeves - 05/10/21 Abdomen/Pelvis CT (Signed) Juan Cast - 01/06/21 KUB X-Ray (Signed) Juan Cast - 01/06/21 Fluoroscopy (Addendum) Eduardo Reeves - 12/08/20 Abdomen X-Ray (Signed) Orion Solorzano - 12/06/20 Fluoroscopy (Signed) Brennan Beltran - 12/06/20 Chest X-Ray (Signed) Justyna Becerril - 12/02/20 Modified Barium Swallow (Signed) Justyna Becerril - 12/02/20 Echocardiogram Ultrasound (Signed) Paulette Blankenship - 12/02/20 Brain MRI (Signed) Velasquez Caballero - 12/02/20 Telemetry Strips 12/02/20 Telemetry Strips 12/02/20 Head/Neck CTA (Signed) Justyna Becerril - 12/02/[address] (Signed) Justyna Becerril - 12/02/20 Head Magnetic Resonance Angiography (Signed) Velasquez Caabllero - 12/02/20 Chest X-Ray (Signed) Vicente Pittman - 09/28/20 Telemetry Strips 09/27/20 Chest CTA (Signed) Mayur Pittmanderic - 09/27/20 Chest CTA (Signed) Chente Espitia - 09/26/20 Chest X-Ray (Signed) Chintan Ortega - 09/26/20 Chest X-Ray (Signed) Alvarado Nydidiah - 10/22/19 Echocardiogram Ultrasound (Signed) Haylee Vallejo - 07/20/19 Lumbar Spine X-Ray (Signed) Juan Cast - 06/16/19 Chest X-Ray (Signed) Chintan Ortega - 06/13/19 Chest X-Ray (Signed) Juan Cast - 04/20/19 Chest CTA (Signed) Vicente Pittman - 10/04/18 Chest X-Ray (Signed) Inez Torres - 10/04/18 Outside EKG 10/04/18 Launch?Image [address] [address] XRay Report Signed Patient: Az Bowden MR#: [id number] : 1955 Acct:[id number] Age/Sex: 66 / M Date of Service: 07/24/21 Loc: ED Accession Number: [id number] ?? Procedure: XR chest 2V Ordering Provider: Stephen Redd D.O. PROCEDURE:? XR CHEST 2V ? INDICATIONS:? shortness of breath ? TECHNIQUE:? 2 views of the chest were acquired.? ? COMPARISON:? [facility], CT, CT ANGIO CHEST PE PROTOCOL, 06/07/2021, 2:33.? [facility], CR, XR CHEST 1V, 06/07/2021, 1:22. ? FINDINGS:? ? Surgical changes and devices:? Tunneled left port device is present. ? Lungs and pleura:? Diffuse interstitial prominence with patchy ill-defined airspace opacities of the right upper lung zone and left lung base.? This is more pronounced compared to prior radiograph dated June 07, 2021 ? Mediastinum:? Mediastinal contours are normal.? Heart size is normal.? ? Bones and chest wall:? No suspicious bony abnormalities.? Soft tissues appear unremarkable.? ? IMPRESSION:? Patchy ill-defined airspace opacities of the right upper lung zone and left lung base and minimally involving the right lung base.? Findings are likely related to development of multifocal airspace disease/pneumonia.? Recommend clinical correlation.? ? ? Dictated by: Ronan Morley M.D. on 07/25/2021 at 0:10 ? ? Approved by: Ronan Morley M.D. on 07/25/2021 at 0:13 ? Discharge Plan Departure Patient Disposition: Admitted As Inpatient Clinical Impression: Pneumonia, Immunocompromised Prescriptions: No Action albuterol sulfate 90 mcg/actuation HFA aerosol inhaler 1 puff INHALATION Q4-6H PRN (Reason: shortness of breath or wheezing) Qty: 8.5 0RF furosemide [Lasix] 20 mg tablet 20 mg PO DAILY Qty: 3 0RF prednisone 10 mg Tablet 10 mg PO DAILY 0RF ondansetron 8 mg Tablet,Disintegrating 8 mg PO DAILY 0RF Xarelto 20 mg Tablet 20 mg PO QPM 0RF Rx Instructions: must administer with evening meal levothyroxine 75 mcg Tablet 75 mcg PO DAILY 0RF loperamide 1 mg/5 mL Liquid 3 mg PO DAILY 0RF Rx Instructions: administer after each loose stool until symptoms controlled; do not exceed 16 mg per 24 hrs fentanyl 25 mcg/hr Patch 72 Hour 1 patch TRANSDERMAL Q72H 0RF Xarelto 20 mg tablet 20 mg PO DAILY Qty: 30 3RF Rx Instructions: must administer with evening meal furosemide [Lasix] 20 mg tablet 20 mg PO DAILY Qty: 3 0RF Referrals: Az Salazar PA-C [Primary Care Provider] -
[2021-07-25 01:27] LABS: Creatine Kinase < 20 U/L (55-170)
[2021-07-25 01:40] LABS: NT-proBNP (BNP-Adult 18+) 2990 pg/mL (<125); Troponin I < 0.012 ng/mL (0.01-0.034)
[2021-07-25 01:41] LABS: COVID19 -Nasal RAPID Negative (Negative)
[2021-07-25 01:45] LABS: Procalcitonin 5.47 ng/mL (<0.5)
[2021-07-25] MEDS: PIPERACILLIN/TAZO 4.5 GM in SODIUM CHLORIDE 0.9% 100 ML 200 ML IV (03:06)
--- NOTE | 2021-07-25 05:14 | PM.HP.1 ---
History of Present Illness History of Present Illness Date Patient Seen: 07/25/21 Time Patient Seen: 05:00 Chief complaint: SOB Narrative: Mr. Bowden is a 66M with PMH of pulmonary fibrosis on steroids, CVA, lupus, HTN, metastatic gastric cancer on chemotherapy, documented CHFrEF who presents to the hospital with shortness of breath. He apparently has had issues when trying to wean off steroids previously where he becomes short of breath. At maximum he has was on prednisone 40mg daily, but this has been weaned more recently 15mg daily. A few days ago he developed a wet cough and shortness of breath. He recently saw his physician who prescribed him levofloxacin. He took two days of this medication. Today he felt like his shortness of breath worsened, he continued to have a cough. No fevers/chills. No chest pain. No nausea/vomiting/diarrhea. He notes that he thinks he has congestive heart failure, it is unclear if he is currently taking lasix. He has not noted any fluid retention, lower extremity swelling, orthopnea/PND. He does note he received chemo most recently on and he has become short of breath after chemo previously. In the ED workup, vitals were notable for patient afebrile, tachycardic, tachypneic. Labs notable for WBC 12, hgb 9.9, creatinine 0.60. Lactate 1.5. Proca 5.47. COVID negative. Chest xray shows patchy airspace opacities bilaterally. He was ordered for antibiotics and admitted for further treatment. Patient History Medical History Anemia CHF (congestive heart failure) Chronic interstitial lung disease Compression fracture Essential hypertension History of stroke involving cerebellum Lupus Pelvic fracture Surgical History H/O pelvic surgery Family & Social History Family History Father Alcohol abuse Mother Alcohol abuse Brother CVA (cerebral vascular accident) Social History: household members spouse,family Safety & Behavioral: Feels Safe in Current Yes Environment Been Physically Hurt or No Threatened By a Person Tobacco & Substance use: Smoking Status Never smoker alcohol intake former alcohol intake frequency holiday/special occasion Substance Use Type marijuana Meds Home Medications and Allergies Home Medications Medication Instructions Recorded Confirmed Type albuterol sulfate 90 mcg/actuation 1 puff INHALATION Q4-6H PRN #8.5 10/04/18 05/10/21 Rx aerosol inhaler gram prednisone 10 mg tablet 10 mg PO DAILY 12/02/20 05/10/21 History fentanyl 25 mcg/hr transdermal 1 patch TRANSDERMAL Q72H 05/10/21 05/10/21 History patch levothyroxine 75 mcg tablet 75 mcg PO DAILY 05/10/21 05/10/21 History loperamide 1 mg/5 mL oral liquid 3 mg PO DAILY 05/10/21 05/10/21 History ondansetron 8 mg disintegrating 8 mg PO DAILY 05/10/21 05/10/21 History tablet rivaroxaban 20 mg tablet (Xarelto) 20 mg PO DAILY #30 tab 05/10/21 Rx rivaroxaban 20 mg tablet (Xarelto) 20 mg PO QPM 05/10/21 05/10/21 History furosemide 20 mg tablet (Lasix) 20 mg PO DAILY #3 tab 05/15/21 Rx furosemide 20 mg tablet (Lasix) 20 mg PO DAILY #3 tab 06/07/21 Rx Allergies Allergy/AdvReac Type Severity Reaction Status Date / Time No Known Drug Allergies Allergy Verified 05/10/21 09:10 Review of Systems Review of Systems Narrative: 14 systems reviewed and negative aside from what is noted in HPI Exam Vital Signs (past 8 hours): - 07/24/21 23:03 07/25/21 00:06 07/25/21 00:18 Temperature 97.8 F Pulse Rate 101 H 91 H 92 H Respiratory Rate 24 16 Blood Pressure 114/81 106/80 Pulse Oximetry 96 95 98 07/25/21 00:30 07/25/21 01:00 07/25/21 01:30 Temperature Pulse Rate 91 H 93 H 86 Respiratory Rate 20 20 20 Blood Pressure 109/79 104/73 120/78 Pulse Oximetry 98 97 99 07/25/21 02:00 Temperature Pulse Rate 80 Respiratory Rate 20 Blood Pressure 105/66 Pulse Oximetry 96 Oxygen Delivery Method Room Air Narrative Exam Narrative: GEN: no acute distress HEENT: moist mucous membranes, PERRL NECK: trachea midline, no JVD CV: regular rate and rhythm, no murmurs PULM: clear bilaterally, no wheezes, rhonchi, rales ABD: soft, nontender, nondistended, no organomegaly, normal bowel sounds EXT: warm and well perfused with no edema NEURO: awake, alert, oriented, right facial droop, right arm weakness chronic from previous stroke Objective Labs Result Diagrams: 07/25/21 00:10 07/25/21 00:10 Labs: Laboratory Results - last 24 hr 07/25/21 07/25/21 07/25/21 00:10 00:10 00:10 WBC 12.0 H RBC 3.18 L Hgb 9.9 L Hct 30.7 L MCV 96.6 MCH 31.3 MCHC 32.4 RDW 16.8 H Plt Count 248 Neut % (Auto) 88.0 H Lymph % (Auto) 6.5 L [place] % (Auto) 4.9 Eos % (Auto) 0.2 L Baso % (Auto) 0.4 Neut # (Auto) 23067 H Lymph # (Auto) 800 L [place] # (Auto) 600 Eos # (Auto) 0 Baso # (Auto) 100 Sodium 139 Potassium 4.0 Chloride 108 H Carbon Dioxide 22 BUN 16 Creatinine 0.60 L Estimated GFR > 60 BUN/Creatinine Ratio 26.7 H Glucose 112 H Lactate 1.5 Calcium 8.1 L Total Bilirubin 0.6 AST 26 ALT 15 Alkaline Phosphatase 136 H Total Creatine Kinase CK-MB (CK-2) CK-MB (CK-2) Rel Index Troponin I NT-Pro-B Natriuret Pep Total Protein 6.8 Albumin 3.5 Globulin 3.3 Albumin/Globulin Ratio 1.1 Procalcitonin SARS-CoV-2 (PCR) 07/25/21 07/25/21 07/25/21 01:10 01:10 01:13 WBC RBC Hgb Hct MCV MCH MCHC RDW Plt Count Neut % (Auto) Lymph % (Auto) [place] % (Auto) Eos % (Auto) Baso % (Auto) Neut # (Auto) Lymph # (Auto) [place] # (Auto) Eos # (Auto) Baso # (Auto) Sodium Potassium Chloride Carbon Dioxide BUN Creatinine Estimated GFR BUN/Creatinine Ratio Glucose Lactate Cancelled Calcium Total Bilirubin AST ALT Alkaline Phosphatase Total Creatine Kinase < 20 L CK-MB (CK-2) TNP CK-MB (CK-2) Rel Index TNP Troponin I < 0.012 NT-Pro-B Natriuret Pep 2990 H Total Protein Albumin Globulin Albumin/Globulin Ratio Procalcitonin 5.47 H SARS-CoV-2 (PCR) Negative Assessment & Plan Assessment & Plan narrative: 1. Acute respiratory distress secondary to Pneumonia, acute -has taken two days of antibiotics, and has worsened -stop levaquin, ordered IV zosyn, IV azithro -follow up blood cultures -ordered for sputum cultures -has history of CHF, but think this is less likely, order BNP for further eval, no lasix for now 2. Pulmonary fibrosis -continue steroids 15mg currently -may need to increase prednisone dose if continues to be short of breath -continue nebulizers 2. History of CVA with residual weakness -appears not to be on aspirin -reconcile home medications 3. History of aortic thrombosis -continue xarelto 4. Metastatic gastric cancer -will need outpatient follow up CODE: Full Proxy: Nia Bowden, I have utilized all available resources to reconcile the patient's home medications Time Spent With Patient Critical Care time: I spent a total of [] minutes of critical care time on this patient's care today; this time is exclusive of procedural time. Quality MIPS - Admit I confirm the patient?s Advance Care Plan is present, Code status is documented, Surrogate decision maker is in patient?s record [If Yes, STOP here]: Yes
--- NOTE | 2021-07-25 10:34 | PC.NURSE ---
g tube dressing changed. leaking greenish yellow. Pt states that is my cancer coming out.
[2021-07-25 11:25] LABS: Add Manual Diff / Slide Review NO; Basophils Absolute Auto 100 /uL (0-100); Basophils Percent Auto 1.4 % (0-2); Eosinophils Absolute Auto 200 /uL (0-450); Eosinophils Percent Auto 2.3 % (2-4); Hemoglobin 9.2 g/dL (13.5-17.5); Lymphocytes Absolute Auto 1400 /uL (1100-4500); Lymphocytes Percent Auto 18.8 % (25-40); Mean Corpuscular Volume 96.9 fL (80-100); Monocytes Absolute Auto 400 /uL (0-900); Monocytes Percent Auto 5.6 % (3-14); Neutrophils Absolute Auto 5400 /uL (1500-7000); Neutrophils Percent Auto 71.9 % (50-75); Platelet Count 225 X10^3/uL (150-400); Red Blood Cell Count 2.89 X10^6/uL (4.5-5.9); Red Cell Distribution Width 16.9 % (11.6-14.8); White Blood Cell Count 7.5 X10^3/uL (4.5-11.0)
[2021-07-25] MEDS: PIPERACILLIN/TAZO 3.375 GM in SODIUM CHLORIDE 0.9% 100 ML 25 ML IV ×2 (11:28→18:22)
[2021-07-25 11:39] LABS: BUN Creatinine Ratio 25.8 (6-22); Blood Urea Nitrogen 16 mg/dL (9-20); Calcium 8.1 mg/dL (8.4-10.2); Carbon Dioxide 28 mmol/L (22-32); Chloride 110 mmol/L (98-107); Estimated Glomerular Filt Rate > 60 mL/min (>60); Glucose 103 mg/dL (80-110); HEMOLYSIS < 15 (0-50); Potassium 3.9 mmol/L (3.4-5.1); Sodium 140 mmol/L (137-145)
[2021-07-25 11:48] LABS: NT-proBNP (BNP-Adult 18+) 2720 pg/mL (<125)
[2021-07-25] MEDS: RIVAROXABAN 10 MG TABLET 20 MG PO (12:06)
[2021-07-25] MEDS: predniSONE 20 MG TABLET 15 MG PO (12:06)
[2021-07-25] MEDS: AZITHROMYCIN 500 MG in DEXTROSE 5% IN WATER 250 ML IV (12:55)
--- NOTE | 2021-07-25 13:21 | PC.NURSE ---
Admit note: Patient admitted to room 203 from ED, awake, alert, and pleasantly cooperative. Up OOB from gurney to bed with 1PA FWW. Steady gait, generalized weakness. Left facial droop, mumbled speech, and RUE weakness from previous stroke. Uses cane at baseline. PEG tube to LLQ placed on Nov 2020, does not take anything by mouth. Uses Nestle via pump for PEG feedings once a day at home. Received patient from ED on RA, sats 98%, un accessed [place] to left upper chest. High fall risk precautions initiated, call light within reach. Oriented to room, environment, and plan of care. Spouse at bedside (Alda) providing supportive care.
--- NOTE | 2021-07-25 15:14 | CM.DANOTE ---
Patient is a 66 yo male who was admitted on 07/25/21 today for SOB. Pt has [facility] and [facility] for insurance and his PCP is Az Salazar. EMR was reviewed. Per MD, pt has a hx of CVA, Lupus, gastric CA and receiving chemo tx at baseline. Pt SOB after attempting to wean off steroids and admitted for pneumonia and IV-Abx. Pt was last admitted in Nov 2020 last year for CVA and discharged to [facility] with a new dobhoff feeding tube as pt was NPO and Acute rehab could not manage NG tube alf. SW met bedside with pt and explained role and he confirms that he still lives in [place] [place] [facility] with his Nia who is now retired and able to be home to provide assist to pt and he has a local sister in [place] [facility] who comes daily to help feed pt through his now PEG tube that was placed after [facility] last year and sister also helps with meds. Pt states his Dtr is still very supportive and involved and lives in [facility] and visits regularly. Pt denies any HH or other supportive service in place at this time and confirms he has gotten pneumonia 3 other times from my chemo tx and states that he is already feeling better. Pt states his preference is home with family when medically stable and does not anticipate that he will need SNF or HH once medically stable. Plan: SW to follow for possible PT eval towards confirming pt's preference of home with spouse and local supportive family when medically stable and r/o HH and any further identified discharge planning needs. JUAN DIEGO Cardoso Discharge Planning/Care Management Advanced directive, confirm from FAMILY Start: 07/25/21 11:13 Freq: Q24H Status: Active Protocol: Document 07/25/21 11:13 EM (Rec: 07/25/21 11:13 EM [id number]) Advance Directive, confirm on record Time 11:13 Person contacted family Copy received No CM Discharge Assessment Start: 07/25/21 15:09 Freq: Status: Active Protocol: Document 07/25/21 15:09 BF (Rec: 07/25/21 15:13 BF [id number]) Discharge Planning Assessment Assigned Librarian JUAN DIEGO Sesay DPOA/Assigned Designee Name spouse Nia Contact Information [phone] Advance Directives? No Advance Directives on File No History Provided By Patient,Family Member, Significant Other,Medical Record Has Patient been admitted in last 30 No days? Comment last admission in Nov 2020 for CVA Prior Living Arrangements House Household Members spouse Type of transporation used prior to Relies on Others admit Independent with ADL's No Is patient alert and oriented? Yes Needs Assistance With Bathing,Meal Prep,Managing Medications,Home Chores / Shopping Caregiver for Another No Comment Oncologist for chemo at baseline DME Already Rented / Owned Bath Bench,FWW / Walker Patient/Family Preference Home with Home Health Barriers to Discharge No Discharge Plan Home with Home Health Community Services Physical Therapy,Home Health Nurse Transportation Arrangement family to transport pending progress with PT Referrals Initiated None needed Additional Comment r/o HH Whiteboard Updated in Patient Room with Yes name and ext. # of Librarian Review Status In Process Please Provide Date Initial DC 07/25/21 Assessment Was Performed Next Review Type Continued Stay Review
[2021-07-26] VITALS (9 sets, daily range): BP systolic 103–118; BP diastolic 67–75; PULSE 64–75; RESP 16–23; TEMP 36.2–36.8; O2SAT 94–100
[2021-07-26] MEDS: PIPERACILLIN/TAZO 3.375 GM in SODIUM CHLORIDE 0.9% 100 ML 25 ML IV ×2 (03:09→13:00)
[2021-07-26] MEDS: predniSONE 20 MG TABLET 15 MG PO (08:11)
[2021-07-26] MEDS: RIVAROXABAN 10 MG TABLET 20 MG PO (08:11)
--- NOTE | 2021-07-26 08:53 | P.DS_ITS ---
History of Present Illness History of Present Illness Date Patient Seen: 07/26/21 Chief complaint: SOB Narrative: Mr. Bowden is a 66M with PMH of pulmonary fibrosis on steroids, CVA, lupus, HTN, metastatic gastric cancer on chemotherapy, documented CHFrEF who presents to the hospital with shortness of breath. He apparently has had issues when trying to wean off steroids previously where he becomes short of breath. At maximum he has was on prednisone 40mg daily, but this has been weaned more recently 15mg daily. A few days ago he developed a wet cough and shortness of breath. He recently saw his physician who prescribed him levofloxacin. He took two days of this medication. Today he felt like his shortness of breath worsened, he continued to have a cough. No fevers/chills. No chest pain. No nausea/vomiting/diarrhea. He notes that he thinks he has congestive heart failure, it is unclear if he is currently taking lasix. He has not noted any fluid retention, lower extremity swelling, orthopnea/PND. He does note he received chemo most recently on and he has become short of breath after chemo previously. In the ED workup, vitals were notable for patient afebrile, tachycardic, tachypneic. Labs notable for WBC 12, hgb 9.9, creatinine 0.60. Lactate 1.5. Proca 5.47. COVID negative. Chest xray shows patchy airspace opacities bilaterally. He was ordered for antibiotics and admitted for further treatment. Discharge Providers Provider Date of admission: 07/25/21 03:45 Discharge Date: 07/26/21 Primary care physician: Az Salazar PA-C Discharge provider: Jill Nguyen MD Summary Hospital Course Discharge Diagnosis: 1. Acute Respiratory Distress, present on admission now resolved 2. Pneumonia-possible aspiration given prior history 3. Pulmonary Fibrosis 4. History of metastatic gastric cancer 5. History of CVA with residual weakness 6. Histor of aortic thrombosis Hospital Course: 66 y/o male admitted with shortness of breath. Chest xray confirmed patchy ill defined airspace opacities involving the right upper lobe, left lung base and right lung base. Patient remained afebrile, he had no hypoxia. He received IV antibiotics with improvement of his symptoms. This morning he denied shortness of breath, he feels significantly improved. He has no cough. Patient's oxygenation is 98%. We will resume his usual tube feeds with plans to discharge home later today. Status at Discharge Cognitive/behavioral status at discharge: oriented Functional status at discharge: uses cane/walker Overall status at discharge: patient is progressing back to baseline Exam Vital Signs (past 8 hours): - 07/26/21 00:56 07/26/21 03:13 07/26/21 04:42 Temperature 97.7 F Pulse Rate 75 Respiratory Rate 16 Blood Pressure 103/67 Pulse Oximetry 96 100 100 07/26/21 07:55 07/26/21 08:34 Temperature 97.1 F L Pulse Rate 64 Respiratory Rate 16 Blood Pressure 118/75 Pulse Oximetry 97 98 Oxygen Delivery Method Room Air Oxygen Flow Rate 0 Narrative Exam Narrative: pleasant elderly male in no acute distress Resp Other: Lungs: decreased breath sounds on the left, otherwise clear, no rhonchi, crackles or wheezes Cardio Other: RRR Nl Sl S2 GI Other: Abd: soft/ non tender/ non distended Skin Other: multiple ecchymoses on both hands and upper extremities, some skin tears noted Extrem Other: no edema Objective Labs Result Diagrams: 07/25/21 11:18 07/25/21 11:18 Labs: Laboratory Results - last 24 hr 07/25/21 07/25/21 07/25/21 11:18 11:18 11:18 WBC 7.5 RBC 2.89 L Hgb 9.2 L Hct 28.0 L MCV 96.9 MCH 32.0 MCHC 33.0 RDW 16.9 H Plt Count 225 Neut % (Auto) 71.9 Lymph % (Auto) 18.8 L Granite % (Auto) 5.6 Eos % (Auto) 2.3 Baso % (Auto) 1.4 Neut # (Auto) 5400 Lymph # (Auto) 1400 Granite # (Auto) 400 Eos # (Auto) 200 Baso # (Auto) 100 Sodium 140 Potassium 3.9 Chloride 110 H Carbon Dioxide 28 BUN 16 Creatinine 0.62 L Estimated GFR > 60 BUN/Creatinine Ratio 25.8 H Glucose 103 Calcium 8.1 L NT-Pro-B Natriuret Pep 2720 H PFSH Medical History Anemia CHF (congestive heart failure) Chronic interstitial lung disease Compression fracture Essential hypertension History of stroke involving cerebellum Lupus Pelvic fracture Surgical History H/O pelvic surgery Family History Father Alcohol abuse Mother Alcohol abuse Brother CVA (cerebral vascular accident) Social History household members: spouse Smoking Status: Never smoker alcohol intake: former Discharge Assessment & Plan Assessment and Plan Assessment: Acute Respiratory Distress, present on admission now resolved 2. Pneumonia-possible aspiration given prior history 3. Pulmonary Fibrosis 4. History of metastatic gastric cancer 5. History of CVA with residual weakness 6. Histor of aortic thrombosis Plan of Treatment: discharge home Discharge Plan Discharge Plan Patient Disposition: Home Discharge orders & Medications Prescriptions: New prednisone 20 mg Tablet 15 mg PO DAILY Qty: 5 0RF amoxicillin-pot clavulanate 875-125 mg tablet 1 tab PO BID Qty: 10 0RF Continued albuterol sulfate 90 mcg/actuation HFA aerosol inhaler 1 puff INHALATION Q4-6H PRN (Reason: shortness of breath or wheezing) Qty: 8.5 0RF furosemide [Lasix] 20 mg tablet 20 mg PO DAILY Qty: 3 0RF ondansetron 8 mg Tablet,Disintegrating 8 mg PO DAILY 0RF Xarelto 20 mg Tablet 20 mg PO QPM 0RF Rx Instructions: must administer with evening meal levothyroxine 75 mcg Tablet 75 mcg PO DAILY 0RF loperamide 1 mg/5 mL Liquid 3 mg PO DAILY 0RF Rx Instructions: administer after each loose stool until symptoms controlled; do not exceed 16 mg per 24 hrs fentanyl 25 mcg/hr Patch 72 Hour 1 patch TRANSDERMAL Q72H 0RF Xarelto 20 mg tablet 20 mg PO DAILY Qty: 30 3RF Rx Instructions: must administer with evening meal Discontinued prednisone 10 mg Tablet 10 mg PO DAILY 0RF furosemide [Lasix] 20 mg tablet 20 mg PO DAILY Qty: 3 0RF Follow up/Referrals: Az Salazar PA-C [Primary Care Provider] - Discharge Health Status Multidrug resistant organism: No MDRO Diet/Activity/Treatments Diet: Tube Feeding Skin/Wound/Dressing Care Report to your healthcare provider any signs of infection, such as:: chills, fever Discharge Data Primary Care Provider: Az Salazar
[2021-07-26 09:06] LABS: Add Manual Diff / Slide Review NO; Basophils Absolute Auto 0 /uL (0-100); Basophils Percent Auto 0.1 % (0-2); Eosinophils Absolute Auto 200 /uL (0-450); Eosinophils Percent Auto 2.4 % (2-4); Hematocrit 30.5 % (41-53); Hemoglobin 9.9 g/dL (13.5-17.5); Lymphocytes Absolute Auto 1600 /uL (1100-4500); Mean Corpuscular HGB Conc 32.5 % (30-36); Mean Corpuscular Hemoglobin 31.5 PG (26-34); Mean Corpuscular Volume 96.7 fL (80-100); Monocytes Absolute Auto 400 /uL (0-900); Monocytes Percent Auto 6.6 % (3-14); Neutrophils Absolute Auto 4200 /uL (1500-7000); Neutrophils Percent Auto 65.9 % (50-75); Platelet Count 259 X10^3/uL (150-400); Red Blood Cell Count 3.15 X10^6/uL (4.5-5.9); Red Cell Distribution Width 17.3 % (11.6-14.8); White Blood Cell Count 6.4 X10^3/uL (4.5-11.0)
[2021-07-26 09:36] LABS: Procalcitonin 2.71 ng/mL (<0.5)
[2021-07-26 10:03] LABS: BUN Creatinine Ratio 24.3 (6-22); Blood Urea Nitrogen 17 mg/dL (9-20); Calcium 8.1 mg/dL (8.4-10.2); Carbon Dioxide 24 mmol/L (22-32); Chloride 110 mmol/L (98-107); Estimated Glomerular Filt Rate > 60 mL/min (>60); Glucose 87 mg/dL (80-110); HEMOLYSIS < 15 (0-50); Potassium 3.8 mmol/L (3.4-5.1); Sodium 141 mmol/L (137-145)
[2021-07-26] MEDS: AZITHROMYCIN 500 MG in DEXTROSE 5% IN WATER 250 ML IV (11:18)
--- NOTE | 2021-07-26 16:46 | PC.NURSE ---
Patient left in stable condition. VSS. escorted to personal vehicle via WC. waiting at ED entrance. Belongings taken down in lap of patient. Patient ambulated into car w/ no assistance. Patient teaching done with at bedside. All questions addressed. Aware to sampler pickup new rx's at pharm.
--- NOTE | 2021-07-27 08:21 | CM.DPC ---
DCP Discharge home Per MD, pt was potentially stable for d/c home yesterday but wanted RT to assess for home oxygen and pt had still been somewhat tachy. Per RT, assessed pt for home oxygen needs and pt was able to remain stable on room air during ambulation and did not require home O2 at this time. Per RN, pt's spouse arrived and given d/c instructions last night and transported pt home and no concerns and pt ambulated independently to the car. Plan: Patient discharged home with family last night after SW shift and no d/c needs at that time. JUAN DIEGO Cardoso
== END 2021-07-26 16:20 | disposition home or self-care (01) | DRG 178 ==
LOC: ED 07-25 03:41 → AC 07-25 03:46
PROVIDERS: Internal Medicine; Admitting Provider Internal Medicine; Emergency Provider Emergency Medicine; PCP Physician Assistant; Referring Provider Emergency Medicine; Visit Provider Internal Medicine
DX: J69.0 Pneumonitis due to inhalation of food and vomit (principal); C16.9 Malignant neoplasm of stomach, unspecified; C78.7 Secondary malignant neoplasm of liver and intrahepatic bile duct; C77.9 Secondary and unspecified malignant neoplasm of lymph node, unspecified; I50.22 Chronic systolic (congestive) heart failure; D84.9 Immunodeficiency, unspecified; J84.10 Pulmonary fibrosis, unspecified; I11.0 Hypertensive heart disease with heart failure; R06.03 Acute respiratory distress; I69.398 Other sequelae of cerebral infarction; Z79.52 Long term (current) use of systemic steroids; Z20.822 Contact with and (suspected) exposure to COVID-19; Z86.718 Personal history of other venous thrombosis and embolism; Z79.01 Long term (current) use of anticoagulants
CPT/HCPCS: 36415; 71046; 80048; 80053; 82550; 83605; 83880; 84145; 84484; 85025; 87040; 87070; 87205; 87635; 94760; 96365; 99284; C9803; J2543

== ENCOUNTER → 2021-07-27 13:14 | Outpatient (CLI) | payer MEDICARE, OTHER, SELFPAY ==
[2020-12-02 03:45] VITALS: BMI 23.6
[2021-07-25 10:56] VITALS: BMI 19.9
== END ==
PROVIDERS: PCP Physician Assistant; Referring Provider Physician Assistant; Visit Provider Physician Assistant
DX: R00.2 Palpitations (principal)
CPT/HCPCS: 93242

== ENCOUNTER 2021-08-10 04:52 | Inpatient (IN) | payer MEDICARE, OTHER, SELFPAY ==
[2021-07-25 10:56] VITALS: BMI 19.9
[2021-08-10] VITALS (26 sets, daily range): BP systolic 90–142; BP diastolic 60–85; PULSE 72–169; RESP 14–39; TEMP 36.8–39.2; O2SAT 86–100; BMI 24.3
--- NOTE | 2021-08-10 04:58 | DI.RAD.S_ITS ---
PROCEDURE: XR CHEST 1V INDICATIONS: SOB TECHNIQUE: One view of the chest was acquired. COMPARISON: [facility], CT, CT ANGIO CHEST PE PROTOCOL, 08/10/2021, 6:24. [facility], CR, XR CHEST 2V, 07/24/2021, 23:14. FINDINGS: Surgical changes and devices: Left-sided port with the catheter tip at the cavoatrial junction. Lungs and pleura: Right upper lobe airspace opacity is not significantly changed. Mild opacity in the right middle lobe and right lower lobe is also similar. There is mild hazy opacity at the left lung base, new or increased. Emphysematous change. No pleural effusions or pneumothorax. Mediastinum: Mediastinal contours appear unchanged. Heart size is normal. Bones and chest wall: No suspicious bony lesions. Overlying soft tissues appear unremarkable. IMPRESSION: Mild hazy opacity at the left lung base which is new or increased. This could represent atelectasis or pneumonia or pleural effusion. Right upper lobe predominant pneumonia is similar to 07/24/2021. Recommend continued imaging surveillance to resolution. This report is concordant with the overnight preliminary interpretation. Dictated by: Gurinder Gutiérrez M.D. on 08/10/2021 at 7:54 Approved by: Gurinder Gutiérrez M.D. on 08/10/2021 at 7:57
[2021-08-10] MEDS: PIPERACILLIN/TAZO 4.5 GM in SODIUM CHLORIDE 0.9% 100 ML 200 ML IV (05:14)
[2021-08-10 05:18] LABS: Prothrombin Time 11.6 SECONDS (10.1-12.7)
[2021-08-10 05:22] LABS: Add Manual Diff / Slide Review YES; Hematocrit 36.2 % (41-53); Hemoglobin 11.4 g/dL (13.5-17.5); Mean Corpuscular HGB Conc 31.6 % (30-36); Mean Corpuscular Hemoglobin 30.4 PG (26-34); Mean Corpuscular Volume 96.5 fL (80-100); Platelet Count 268 X10^3/uL (150-400); Red Blood Cell Count 3.75 X10^6/uL (4.5-5.9); White Blood Cell Count 19.2 X10^3/uL (4.5-11.0)
[2021-08-10 05:25] LABS: Albumin 4.1 g/dL (3.5-5.0); Albumin Globulin Ratio 1.3 (1.0-2.8); Alkaline Phosphatase 268 U/L (38-126); Aspartate Aminotransferase 40 IU/L (17-59); BUN Creatinine Ratio 31.6 (6-22); Bilirubin Total 0.3 mg/dL (0.2-1.3); Blood Urea Nitrogen 18 mg/dL (9-20); Calcium 8.4 mg/dL (8.4-10.2); Carbon Dioxide 19 mmol/L (22-32); Chloride 107 mmol/L (98-107); Creatine Kinase < 20 U/L (55-170); Estimated Glomerular Filt Rate > 60 mL/min (>60); Globulin 3.1 g/dL (1.7-4.1); Glucose 114 mg/dL (80-110); HEMOLYSIS < 15 (0-50); Potassium 4.1 mmol/L (3.4-5.1); Sodium 142 mmol/L (137-145); Total Protein 7.2 g/dL (6.3-8.2)
--- NOTE | 2021-08-10 05:27 | ED_ITS ---
HPI - SOB/Dyspnea General Chief Complaint: Shortness of Breath/Dyspnea Stated Complaint: pneumonia, SOB Time Seen by Provider: 08/10/21 04:57 Source: patient and EMS Mode of arrival: EMS History of Present Illness HPI Narrative: 66-year-old male with history of pulmonary fibrosis on chronic steroids, prior stroke, hypertension, gastric cancer on chemotherapy, CHF is a full code and presents by EMS for evaluation of a relatively sudden onset and profound shortness of breath. He was admitted a few weeks ago initially with a diagnosis of pneumonia and eventually discharged after being diuresed. He states he was in his normal state of health and then about 1-2 hours prior to his arrival he developed significant shortness of breath. He denies any obvious provocation or palliation. He has had fever and cough and is convinced that he has another episode of pneumonia. On arrival medics found him significantly dyspneic with respirations in the 60s and a pulse ox in the 70s and 80s he was put on a non- rebreather and had some improvement in vitals and also general alertness by his arrival. Related Data Home Medications Medication Instructions Recorded Confirmed ondansetron 8 mg disintegrating 8 mg PO Q8HR PRN 05/10/21 08/10/21 tablet aspirin 81 mg chewable tablet 81 mg PO DAILY 08/10/21 08/10/21 cyanocobalamin (vitamin B-12) 1,000 mcg SUBCUT SEEINSTR 08/10/21 08/10/21 1,000 mcg/mL injection kit lansoprazole 15 mg delayed 15 mg PO PRN 08/10/21 release,disintegrating tablet levothyroxine 88 mcg tablet 88 mcg PO DAILY 08/10/21 08/10/21 loperamide 1 mg/7.5 mL oral liquid 2 mg SEEINSTR PRN 08/10/21 08/10/21 oxycodone 5 mg/5 mL oral solution 5 mg FEEDING TUBE Q12HR PRN 08/10/21 08/10/21 prednisone 5 mg/5 mL oral solution 15 mg FEEDING TUBE DAILY 08/10/21 08/10/21 Previous Rx's Medication Instructions Recorded albuterol sulfate 90 mcg/actuation 1 puff INHALATION Q4-6H PRN #8.5 10/04/18 aerosol inhaler gram furosemide 20 mg tablet (Lasix) 20 mg PO DAILY #3 tab 06/07/21 amoxicillin 875 mg-potassium 1 tab PO BID #10 tab 07/26/21 clavulanate 125 mg tablet Allergies Allergy/AdvReac Type Severity Reaction Status Date / Time No Known Drug Allergies Allergy Verified 05/10/21 09:10 Review of Systems Review of Systems Narrative: GENERAL: See HPI HEENT: Denies sinus pain, ear pain, sore throat, difficulty swallowing, dizziness. RESPIRATORY: See HPI CARDIOVASCULAR: See HPI GASTROINTESTINAL: Denies nausea, vomiting, abdominal pain, diarrhea, consti pation, melena. : Denies dysuria, frequency, incontinence, hematuria, urinary retention. MUSCULOSKELETAL: denies weakness, joint pain, or bony pain SKIN: Denies rash, skin lesions, or other NEUROLOGIC: Denies weakness, headache, numbness, change in speech, confusion, seizures, incoordination. PSYCHIATRIC: No concerning psychosocial issues. 12 point review of systems is negative except for those stated above Patient History Medical History Anemia CHF (congestive heart failure) Chronic interstitial lung disease Compression fracture Essential hypertension History of stroke involving cerebellum Lupus Pelvic fracture Surgical History H/O pelvic surgery Family History Father Alcohol abuse Mother Alcohol abuse Brother CVA (cerebral vascular accident) Social History household members: spouse Smoking Status: Never smoker alcohol intake: former Smoking Status: Never smoker alcohol intake frequency: holidays/special occasions only Substance Use Type: marijuana Exam Narrative Exam Narrative: GENERAL: [66 year old patient appears stated age. Chronically ill and in acute distress, significant increased work of breathing, conversational dyspnea HEAD: Atraumatic. Normocephalic. EYES: Pupils equal round and reactive. Extraocular motions intact. No scleral icterus. No injection or drainage. ENT: Nose without bleeding, purulent drainage. Throat without erythema, tonsillar hypertrophy or exudate. Airway patent. NECK: Trachea midline. Non tender CARDIOVASCULAR: Tachycardic but regular rhythm without murmurs, gallops, or rubs. RESPIRATORY: Significant work of breathing with tachypnea, use of accessory muscles, wet sounding cough from across the room, rales on rhonchi right greater than left GASTROINTESTINAL: Abdomen soft, non-tender, nondistended. EXTREMITIES: No edema or joint tenderness. BACK: Nontender without deformity or crepitance. No flank tenderness. NEURO: AOx3. SKIN: No rash or erythema of visible areas Initial Vital Signs Initial Vital Signs: Vital Signs Pulse Rate 72 08/10/21 04:54 Pulse Oximetry 86 L 08/10/21 04:54 Course Orders Ordered: Acetaminophen (Acetaminophen 325 Mg Tablet) 650 mg PO Q6HR PRN PRN Reason: pain, fever Albuterol/Ipratropium (Albuterol/Ipratropium 3 Ml Ampul) 3 ml INH [id number] [facility] Last Admin: 08/11/21 00:30 Dose: 3 ml Documented by: Admin: 08/10/21 19:30 Dose: 3 ml Documented by: Admin: 08/10/21 14:07 Dose: 3 ml Documented by: Admin: 08/10/21 11:29 Dose: 3 ml Documented by: DEVIN Aspirin (Aspirin 81 Mg Chew Tab) 81 mg PO DAILY [facility] Vancomycin HCl (Vancomycin) 1,250 mg in 250 mls @ 250 mls/hr IV Q8H [facility] Last Admin: 08/11/21 01:13 Dose: 250 mls/hr Documented by: Infusion: 08/10/21 17:36 Dose: 250 mls/hr Documented by: Admin: 08/10/21 16:36 Dose: 250 mls/hr Documented by: MACARIO Meropenem 500 mg/ Sodium (Chloride) 100 mls @ 200 mls/hr IV Q6H [facility] Last Admin: 08/11/21 00:12 Dose: 200 mls/hr Documented by: Infusion: 08/10/21 18:18 Dose: 200 mls/hr Documented by: Admin: 08/10/21 17:48 Dose: 200 mls/hr Documented by: Infusion: 08/10/21 11:55 Dose: 0 mls/hr Documented by: Admin: 08/10/21 11:23 Dose: 200 mls/hr Documented by: MACARIO Azithromycin 500 mg/ Dextrose 250 mls @ 250 mls/hr IV Q24H [facility] Last Infusion: 08/10/21 11:15 Dose: 0 mls/hr Documented by: Admin: 08/10/21 10:12 Dose: 250 mls/hr Documented by: MACARIO Sodium Chloride (Normal Saline 0.9%) 250 mls @ 21 mls/hr IV Q24H PRN PRN Reason: Flush Last Admin: 08/10/21 17:58 Dose: 21 mls/hr Documented by: MACARIO Levothyroxine Sodium (Levothyroxine 88 Mcg Tablet) 88 mcg PO 0600 [facility] Pantoprazole Sodium (Pantoprazole 40 Mg Vial) 40 mg IV DAILY [facility] Last Admin: 08/10/21 09:42 Dose: 40 mg Documented by: MACARIO Prednisone (Prednisone 5 Mg Tablet) 15 mg PO DAILY [facility] Last Admin: 08/10/21 15:02 Dose: 15 mg Documented by: MACARIO Rivaroxaban (Rivaroxaban 10 Mg Tablet) 20 mg PO DAILY [facility] Trimethoprim/Sulfamethoxazole (Trimeth/Sulfa 160/800 (Ds) Tablet) 2 tab PO TID [facility] Last Admin: 08/10/21 20:23 Dose: 2 tab Documented by: ROSARIO Vancomycin HCl (Vancomycin Trough) 1 [place] [facility] [place] [facility] Stop: 08/11/21 07:31 Vancomycin HCl (Vancomycin Peak) 1 [place] [facility] [place] [facility] Stop: 08/11/21 10:01 Discontinued Medications Acetaminophen (Acetaminophen Susp 650 Mg/20.3 Ml Udc) 650 mg PO NOW ONE Stop: 08/10/21 05:55 Last Admin: 08/10/21 06:36 Dose: 650 mg Documented by: ELLIOTT Acetaminophen (Acetaminophen 325 Mg Tablet) 650 mg PO Q6HR PRN PRN Reason: Fever/Mild Pain (1-3) Albuterol/Ipratropium (Albuterol/Ipratropium 3 Ml Ampul) 3 ml INH [id number] [facility] Last Admin: 08/10/21 07:50 Dose: 3 ml Documented by: BERT Diltiazem HCl (Diltiazem 5 Mg/Ml Sdv) 10 mg IV NOW ONE Stop: 08/10/21 05:40 Last Admin: 08/10/21 05:46 Dose: 10 mg Documented by: TOAN Enoxaparin Sodium (Enoxaparin 40 Mg/0.4 Ml Syringe) 40 mg SUBCUT DAILY [facility] Enoxaparin Sodium (Enoxaparin 40 Mg/0.4 Ml Syringe) 40 mg SUBCUT DAILY [facility] Last Admin: 08/10/21 09:42 Dose: 40 mg Documented by: MACARIO Furosemide (Furosemide 40 Mg/4 Ml Vial) 20 mg IV NOW ONE Stop: 08/10/21 05:55 Last Admin: 08/10/21 06:58 Dose: 20 mg Documented by: ELLIOTT Piperacillin Sod/Tazobactam (Sod 4.5 gm/ Sodium Chloride) 100 mls @ 200 mls/hr IV NOW ONE Stop: 08/10/21 04:59 Last Infusion: 08/10/21 05:50 Dose: 0 mls/hr Documented by: Admin: 08/10/21 05:14 Dose: 200 mls/hr Documented by: [email or web address] Sodium Chloride (Normal Saline 0.9%) 2,250 mls @ 750 mls/hr 30 ml/kg infuse over 3 hr (2250 ml) IV NOW ONE Stop: 08/10/21 08:29 Last Infusion: 08/10/21 07:32 Dose: 0 mls/hr Documented by: Admin: 08/10/21 05:38 Dose: 750 mls/hr Documented by: KHARTZ Sodium Chloride (Normal Saline 0.9%) 1,000 mls @ 125 mls/hr IV CONT NIK Last Infusion: 08/10/21 08:30 Dose: 0 mls/hr Documented by: Infusion: 08/10/21 08:25 Dose: 125 mls/hr Documented by: Admin: 08/10/21 07:53 Dose: 125 mls/hr Documented by: MATTEO Piperacillin Sod/Tazobactam (Sod 3.375 gm/ Sodium Chloride) 100 mls @ 25 mls/hr IV Q8H [facility] Vancomycin HCl/Dextrose (Vancomycin) 1,500 mg in 300 mls @ 200 mls/hr IV NOW ONE Stop: 08/10/21 09:03 Last Infusion: 08/10/21 10:01 Dose: 0 mls/hr Documented by: Infusion: 08/10/21 08:24 Dose: 200 mls/hr Documented by: Admin: 08/10/21 07:53 Dose: 200 mls/hr Documented by: MATTEO Sodium Chloride (Normal Saline 0.9%) 500 mls @ 1,000 mls/hr IV BOLUS ONE Stop: 08/10/21 09:09 Last Infusion: 08/10/21 10:14 Dose: 0 mls/hr Documented by: Admin: 08/10/21 09:42 Dose: 1,000 mls/hr Documented by: MACARIO Lidocaine HCl (Lidocaine 2% (Glydo) 6 Ml Gel) 6 ml TOP NOW ONE Stop: 08/10/21 06:45 Last Admin: 08/10/21 06:58 Dose: 6 ml Documented by: ELLIOTT Naloxone HCl (Naloxone 0.4 Mg/Ml Vial) 0.2 mg IV Q2MIN PRN PRN Reason: Opiate Reversal Vancomycin HCl (Vancomycin Per Pharmacy) 1 request MISC NOW ONE Stop: 08/10/21 06:51 Last Admin: 08/10/21 10:45 Dose: Not Given Documented by: MACARIO Vancomycin HCl (Vancomycin Per Pharmacy) 1 request MISC NOW ONE Stop: 08/10/21 08:41 Last Admin: 08/10/21 10:45 Dose: Not Given Documented by: MACARIO Reevaluation(s) Reevaluation #1: Patient demonstrating some improvement after non-rebreather Vital Signs Vital signs: Vital Signs - 8 hr 08/10/21 04:54 08/10/21 04:56 08/10/21 04:59 Temperature 102.6 F H Pulse Rate 72 169 H 162 H Respiratory Rate 39 H Blood Pressure 136/85 142/84 H Pulse Oximetry 86 L 94 100 08/10/21 05:00 08/10/21 05:30 08/10/21 05:33 Temperature Pulse Rate 161 H 163 H 162 H Respiratory Rate 36 H 39 H 33 H Blood Pressure 142/84 H 106/66 Pulse Oximetry 99 95 08/10/21 05:46 Temperature Pulse Rate 146 H Respiratory Rate Blood Pressure 106/66 Pulse Oximetry MDM - SOB/Dyspnea Lab Data Result diagrams: 08/10/21 05:06 08/10/21 05:06 Labs: Lab Results 08/10/21 08/10/21 08/10/21 Range/Units 05:00 05:06 05:06 WBC (4.5-11.0) X10^3/uL RBC (4.5-5.9) X10^6/uL Hgb (13.5-17.5) g/dL Hct (41-53) % MCV (80-100) fL MCH (26-34) PG MCHC (30-36) % RDW (11.6-14.8) % Plt Count (150-400) X10^3/uL Neut % (Auto) Lymph % (Auto) [place] % (Auto) Eos % (Auto) Baso % (Auto) Lymph # (Auto) [place] # (Auto) Baso # (Auto) Total Counted Seg Neutrophils % (38-70) % Band Neutrophils % (3-7) % Lymphocytes % (Manual) (25-45) % Monocytes % (Manual) (2-11) % Neutrophils # (Manual) (0763-7258) /uL Dohle Bodies RBC Morphology Anisocytosis PT 11.6 (10.1-12.7) SECONDS INR 1.0 (0.9-1.3) D-Dimer 645 H (<230) ng/mL ABG pH (7.35-7.45) ABG pCO2 (35-45) mmHg ABG pO2 (80-100) mmHg ABG HCO3 (22-26) mmol/L ABG Total CO2 (21-31) mmol/L ABG O2 Saturation (95-100) % ABG Base Excess (-2-2) mmol/L FiO2 Sodium (137-145) mmol/L Potassium (3.4-5.1) mmol/L Chloride (98-107) mmol/L Carbon Dioxide (22-32) mmol/L BUN (9-20) mg/dL Creatinine (0.66-1.25) mg/dL Estimated GFR (>60) mL/min BUN/Creatinine Ratio (6-22) Glucose (80-110) mg/dL Lactate (0.7-2.1) mmol/L Calcium (8.4-10.2) mg/dL Total Bilirubin (0.2-1.3) mg/dL AST (17-59) IU/L ALT (<50) IU/L Alkaline Phosphatase (38-126) U/L Lactate Dehydrogenase (313-618) U/L Total Creatine Kinase (55-170) U/L CK-MB (CK-2) CK-MB (CK-2) Rel Index Troponin I (0.01-0.034) ng/mL NT-Pro-B Natriuret Pep 1510 H (<125) pg/mL Total Protein (6.3-8.2) g/dL Albumin (3.5-5.0) g/dL Globulin (1.7-4.1) g/dL Albumin/Globulin Ratio (1.0-2.8) Procalcitonin (<0.5) ng/mL Urine Color Urine Appearance Urine pH (4.5-8.0) Ur Specific [place] (1.000-1.035) Urine Protein (Negative) Urine Glucose (UA) (Negative) g/dL Urine Ketones (NEGATIVE) Urine Occult Blood (Negative) Urine Nitrate (Negative) Urine Bilirubin (NEGATIVE) Urine Urobilinogen (0.2) E.U./dL Ur Leukocyte Esterase (NEGATIVE) Urine RBC (0-5/HPF) Urine WBC (0-5/HPF) Ur Squamous Epith Cells (0-5/HPF) Urine Bacteria (None) Hyaline Casts (None) Urine Yeast (None) Ur Culture Indicated? Chlamy pneumoniae PCR Not detected (Not Detect) Adenovirus (PCR) Not detected (Not Detect) B. pertussis DNA (PCR) Not detected (Not Detecte) B.parapertussis DNA PCR Not detected (Not Detecte) Coronavirus OC43 (PCR) Not detected (Not Detect) Coronavirus HKU1 (PCR) Not detected (Not Detect) Coronavirus 229E (PCR) Not detected (Not Detect) SARS-CoV-2 (PCR) Not detected (Not Detecte) Coronavirus NL63 (PCR) Not detected (Not Detect) Human Metapneumovir PCR Not detected (Not Detect) Influenza Type A (PCR) Not detected (Not Detect) Influenza Type B (PCR) Not detected (Not Detect) M. pneumoniae (PCR) Not detected (Not Detect) Parainfluenza 1 (PCR) Not detected (Not Detect) Parainfluenza 2 (PCR) Not detected (Not Detect) Parainfluenza 3 (PCR) Not detected (Not Detect) Parainfluenza 4 (PCR) Not detected (Not Detect) RSV (PCR) Not detected (Not Detect) Entero/Rhino (PCR) Not detected (Not Detect) 08/10/21 08/10/21 08/10/21 Range/Units 05:06 05:06 05:06 WBC 19.2 H (4.5-11.0) X10^3/uL RBC 3.75 L (4.5-5.9) X10^6/uL Hgb 11.4 L (13.5-17.5) g/dL Hct 36.2 L (41-53) % MCV 96.5 (80-100) fL MCH 30.4 (26-34) PG MCHC 31.6 (30-36) % RDW 17.0 H (11.6-14.8) % Plt Count 268 (150-400) X10^3/uL Neut % (Auto) Not Reportable Lymph % (Auto) Not Reportable [place] % (Auto) Not Reportable Eos % (Auto) Not Reportable Baso % (Auto) Not Reportable Lymph # (Auto) Not Reportable [place] # (Auto) Not Reportable Baso # (Auto) Not Reportable Total Counted 100 Seg Neutrophils % 53.0 (38-70) % Band Neutrophils % 15.0 H (3-7) % Lymphocytes % (Manual) 31.0 (25-45) % Monocytes % (Manual) 1.0 L (2-11) % Neutrophils # (Manual) 02046 H (6845-1985) /uL Dohle Bodies 2+ H RBC Morphology See below Anisocytosis 1+ H PT (10.1-12.7) SECONDS INR (0.9-1.3) D-Dimer (<230) ng/mL ABG pH (7.35-7.45) ABG pCO2 (35-45) mmHg ABG pO2 (80-100) mmHg ABG HCO3 (22-26) mmol/L ABG Total CO2 (21-31) mmol/L ABG O2 Saturation (95-100) % ABG Base Excess (-2-2) mmol/L FiO2 Sodium 142 (137-145) mmol/L Potassium 4.1 (3.4-5.1) mmol/L Chloride 107 (98-107) mmol/L Carbon Dioxide 19 L (22-32) mmol/L BUN 18 (9-20) mg/dL Creatinine 0.57 L (0.66-1.25) mg/dL Estimated GFR > 60 (>60) mL/min BUN/Creatinine Ratio 31.6 H (6-22) Glucose 114 H (80-110) mg/dL Lactate 10.8 H* (0.7-2.1) mmol/L Calcium 8.4 (8.4-10.2) mg/dL Total Bilirubin 0.3 (0.2-1.3) mg/dL AST 40 (17-59) IU/L ALT 22 (<50) IU/L Alkaline Phosphatase 268 H (38-126) U/L Lactate Dehydrogenase (313-618) U/L Total Creatine Kinase < 20 L (55-170) U/L CK-MB (CK-2) TNP CK-MB (CK-2) Rel Index TNP Troponin I < 0.012 (0.01-0.034) ng/mL NT-Pro-B Natriuret Pep (<125) pg/mL Total Protein 7.2 (6.3-8.2) g/dL Albumin 4.1 (3.5-5.0) g/dL Globulin 3.1 (1.7-4.1) g/dL Albumin/Globulin Ratio 1.3 (1.0-2.8) Procalcitonin 0.13 (<0.5) ng/mL Urine Color Urine Appearance Urine pH (4.5-8.0) Ur Specific [place] (1.000-1.035) Urine Protein (Negative) Urine Glucose (UA) (Negative) g/dL Urine Ketones (NEGATIVE) Urine Occult Blood (Negative) Urine Nitrate (Negative) Urine Bilirubin (NEGATIVE) Urine Urobilinogen (0.2) E.U./dL Ur Leukocyte Esterase (NEGATIVE) Urine RBC (0-5/HPF) Urine WBC (0-5/HPF) Ur Squamous Epith Cells (0-5/HPF) Urine Bacteria (None) Hyaline Casts (None) Urine Yeast (None) Ur Culture Indicated? Chlamy pneumoniae PCR (Not Detect) Adenovirus (PCR) (Not Detect) B. pertussis DNA (PCR) (Not Detecte) B.parapertussis DNA PCR (Not Detecte) Coronavirus OC43 (PCR) (Not Detect) Coronavirus HKU1 (PCR) (Not Detect) Coronavirus 229E (PCR) (Not Detect) SARS-CoV-2 (PCR) (Not Detecte) Coronavirus NL63 (PCR) (Not Detect) Human Metapneumovir PCR (Not Detect) Influenza Type A (PCR) (Not Detect) Influenza Type B (PCR) (Not Detect) M. pneumoniae (PCR) (Not Detect) Parainfluenza 1 (PCR) (Not Detect) Parainfluenza 2 (PCR) (Not Detect) Parainfluenza 3 (PCR) (Not Detect) Parainfluenza 4 (PCR) (Not Detect) RSV (PCR) (Not Detect) Entero/Rhino (PCR) (Not Detect) 08/10/21 08/10/21 08/10/21 Range/Units 05:06 05:15 05:25 WBC (4.5-11.0) X10^3/uL RBC (4.5-5.9) X10^6/uL Hgb (13.5-17.5) g/dL Hct (41-53) % MCV (80-100) fL MCH (26-34) PG MCHC (30-36) % RDW (11.6-14.8) % Plt Count (150-400) X10^3/uL Neut % (Auto) Lymph % (Auto) [place] % (Auto) Eos % (Auto) Baso % (Auto) Lymph # (Auto) [place] # (Auto) Baso # (Auto) Total Counted Seg Neutrophils % (38-70) % Band Neutrophils % (3-7) % Lymphocytes % (Manual) (25-45) % Monocytes % (Manual) (2-11) % Neutrophils # (Manual) (2005-4436) /uL Dohle Bodies RBC Morphology Anisocytosis PT (10.1-12.7) SECONDS INR (0.9-1.3) D-Dimer (<230) ng/mL ABG pH 7.46 H (7.35-7.45) ABG pCO2 29.0 L (35-45) mmHg ABG pO2 167 H (80-100) mmHg ABG HCO3 21 L (22-26) mmol/L ABG Total CO2 22 (21-31) mmol/L ABG O2 Saturation 100 (95-100) % ABG Base Excess -3.0 L (-2-2) mmol/L FiO2 100 Sodium (137-145) mmol/L Potassium (3.4-5.1) mmol/L Chloride (98-107) mmol/L Carbon Dioxide (22-32) mmol/L BUN (9-20) mg/dL Creatinine (0.66-1.25) mg/dL Estimated GFR (>60) mL/min BUN/Creatinine Ratio (6-22) Glucose (80-110) mg/dL Lactate (0.7-2.1) mmol/L Calcium (8.4-10.2) mg/dL Total Bilirubin (0.2-1.3) mg/dL AST (17-59) IU/L ALT (<50) IU/L Alkaline Phosphatase (38-126) U/L Lactate Dehydrogenase 935 H (313-618) U/L Total Creatine Kinase (55-170) U/L CK-MB (CK-2) CK-MB (CK-2) Rel Index Troponin I (0.01-0.034) ng/mL NT-Pro-B Natriuret Pep (<125) pg/mL Total Protein (6.3-8.2) g/dL Albumin (3.5-5.0) g/dL Globulin (1.7-4.1) g/dL Albumin/Globulin Ratio (1.0-2.8) Procalcitonin (<0.5) ng/mL Urine Color Yellow Urine Appearance Clear Urine pH 7.0 (4.5-8.0) Ur Specific [place] 1.010 (1.000-1.035) Urine Protein Negative (Negative) Urine Glucose (UA) Negative (Negative) g/dL Urine Ketones Negative (NEGATIVE) Urine Occult Blood Negative (Negative) Urine Nitrate Negative (Negative) Urine Bilirubin Negative (NEGATIVE) Urine Urobilinogen 1.0 (0.2) E.U./dL Ur Leukocyte Esterase Trace H (NEGATIVE) Urine RBC None seen (0-5/HPF) Urine WBC None seen (0-5/HPF) Ur Squamous Epith Cells 0-1 /hpf (0-5/HPF) Urine Bacteria Few (2-10) H (None) Hyaline Casts 0-1/lpf (None) Urine Yeast 0-1/hpf (None) Ur Culture Indicated? Specimen cultured Chlamy pneumoniae PCR (Not Detect) Adenovirus (PCR) (Not Detect) B. pertussis DNA (PCR) (Not Detecte) B.parapertussis DNA PCR (Not Detecte) Coronavirus OC43 (PCR) (Not Detect) Coronavirus HKU1 (PCR) (Not Detect) Coronavirus 229E (PCR) (Not Detect) SARS-CoV-2 (PCR) (Not Detecte) Coronavirus NL63 (PCR) (Not Detect) Human Metapneumovir PCR (Not Detect) Influenza Type A (PCR) (Not Detect) Influenza Type B (PCR) (Not Detect) M. pneumoniae (PCR) (Not Detect) Parainfluenza 1 (PCR) (Not Detect) Parainfluenza 2 (PCR) (Not Detect) Parainfluenza 3 (PCR) (Not Detect) Parainfluenza 4 (PCR) (Not Detect) RSV (PCR) (Not Detect) Entero/Rhino (PCR) (Not Detect) ABG Data ABG results: 7.461 CO2 - 29.0 O2 - 167 HCO3 - 20.7 NRB @ 10L/min Primary respiratory alkalosis ECG Data Interpretation: EKG is SVT at 160 and free of any signs of ischemia or ectopy. No ST segmental elevation or depression. No T wave inversions MDM Narrative Medical decision making narrative: 0530 - patient is critically ill and likely has severe sepsis from RML pneumonia, sepsis protocols initiated including fluids at 30mL/kg, cultures, ABX for nosocomial coverage and lactate. His critically elevated HR is likely a consequence of underlying infection, however it is currently proving to make him extremely symptomatic and for this reason he is moved to trauma bay. Pads placed, Cardizem ordered to slow him a bit. He is not a great candidate for cardioversion. 0545 - patient feeling significant improvement. HR in 130s. Respiratory work improved. Discharge Plan Departure Patient Disposition: Admitted As Inpatient Clinical Impression: Pneumonia, Sepsis Admit Date/Time: 08/10/21 06:47 Admit Provider: Tesha Caballero
[2021-08-10 05:28] LABS: D Dimer 645 ng/mL (<230)
[2021-08-10 05:30] LABS: Lactate (Lactic Acid) 10.8 mmol/L (0.7-2.1)
[2021-08-10 05:32] LABS: Alanine Aminotransferase 22 IU/L (<50)
[2021-08-10 05:34] LABS: NT-proBNP (BNP-Adult 18+) 1510 pg/mL (<125)
[2021-08-10 05:37] LABS: Troponin I < 0.012 ng/mL (0.01-0.034)
[2021-08-10] MEDS: SODIUM CHLORIDE 0.9% 2,250 ML 750 ML IV (05:38)
[2021-08-10 05:41] LABS: PO2 ABG 167 mmHg (80-100); pH ABG 7.46 (7.35-7.45)
[2021-08-10 05:42] LABS: Fractionated Inspired Oxygen 100; HCO3 ABG 21 mmol/L (22-26); Oxygen Saturation ABG 100 % (95-100); TCO2 ABG 22 mmol/L (21-31)
[2021-08-10 05:42] LABS: Anisocytosis 1+; Dohle Bodies 2+; Neutrophils Absolute Manual 13056 /uL (3000-5900); Procalcitonin 0.13 ng/mL (<0.5); Total Cells Counted 100
[2021-08-10] MEDS: dilTIAZem 5 MG/ML SDV 10 MG IV (05:46)
[2021-08-10 05:47] LABS: Appearance Urine UA CLEAR; Bilirubin Urine UA NEGATIVE (NEGATIVE); Color Urine UA YELLOW; Glucose Urine UA NEGATIVE (Negative); Ketones Urine UA NEGATIVE (NEGATIVE); Leukocyte Esterase Urine UA TRACE (NEGATIVE); Nitrite Urine UA NEGATIVE (Negative); Occult Blood Urine UA NEGATIVE (Negative); Protein Urine UA NEGATIVE (Negative)
--- NOTE | 2021-08-10 05:54 | DI.CT.S_ITS ---
PROCEDURE: CT ANGIO CHEST PE PROTOCOL INDICATIONS: tachycardia, tachypnea, critical Dimer TECHNIQUE: After the administration of intravenous contrast, 2 mm thick sections acquired from the pulmonary apices to the posterior costophrenic angles. 3-dimensional maximum intensity projection (MIP) coronal and sagittal reformats were then acquired through the thorax. For radiation dose reduction, the following was used: automated exposure control, adjustment of mA and/or kV according to patient size. COMPARISON: [facility], CT, CT ABDOMEN WITH CONTRAST, 10/04/2019, 14:59. [facility], CT, CT ABDOMEN PELVIS W CON, 01/06/2021, 20:49. [facility], CT, CT ANGIO CHEST PE PROTOCOL, 06/07/2021, 2:33. FINDINGS: Image quality: Good. Pulmonary arteries: Pulmonary arteries are normal in size, and demonstrate no intraluminal filling defects to suggest central pulmonary embolism. Lungs and pleura: Mild to moderate emphysematous change. Moderate-size consolidation in the right upper and lower lobes. Trace opacity in the right middle lobe. This opacity is similar to CXR 07/24/2021 but is new compared to 06/07/2021 and is most consistent with pneumonia. Dependent opacity in the left lower lobe. Septal thickening and possible honeycombing at the lower lobes. Trace secretions in the trachea and left mainstem bronchus. No pleural effusions or pneumothorax. Calcified plaque at the right diaphragm is unchanged. Mediastinum: Left-sided port with the catheter tip at the cavoatrial junction. Heart size is normal, without pericardial effusion. Shotty mediastinal and right hilar nodes are more prominent compared to the prior CT. Small fat containing right Bochdalek hernia. Thoracic aorta is normal in caliber and enhancement. No aortic dissection. Esophagus is normal in caliber, without hiatal hernia. Bones and chest wall: No suspicious bony lesions. Several prior right-sided rib fractures. Mild T8 compression fracture. Minimal height loss at T6 and T7. Thyroid gland is unremarkable. No axillary or supraclavicular adenopathy. Abdomen: Subtle hypodense focus in the left lobe of the liver is less conspicuous. No adrenal nodule. No free fluid. IMPRESSION: 1. No central pulmonary embolism. 2. Right upper and lower lobe predominant pneumonia. This is felt to be similar to CXR 07/24/2021. Recommend follow-up to resolution. 3. No pleural effusion. Mild left lower lobe dependent opacity which could represent atelectasis. 4. Mild to moderate emphysematous change and lower lobe interstitial thickening. 5. Hypodense focus in the left lobe of the liver. This could represent a benign cyst or hemangioma. However, not definitely seen on 10/04/2019. Consider further evaluation of the liver with liver MRI or multiphase liver CT especially if there is a history of metastatic disease. This report is concordant with the overnight preliminary interpretation. Dictated by: Gurinder Gutiérrez M.D. on 08/10/2021 at 7:58 Approved by: Gurinder Gutiérrez M.D. on 08/10/2021 at 8:19
[2021-08-10 05:55] LABS: Bacteria Urine Few (2-10); Culture Indicated Urine Specimen Cultured; Hyaline Casts Urine 0-1/LPF; RBC Urine None Seen (0-5/HPF); Squamous Epithelial Cell Urine 0-1 /HPF (0-5/HPF); WBC Urine None Seen (0-5/HPF)
[2021-08-10 06:03] LABS: Adenovirus Not Detected (Not Detect); Coronavirus 229E Not Detected (Not Detect); Coronavirus HKU1 Not Detected (Not Detect); Coronavirus NL 63 Not Detected (Not Detect); Coronavirus OC43 Not Detected (Not Detect); Human Metapneumovirus Not Detected (Not Detect); Human Rhinovirus/Enterovirus Not Detected (Not Detect); Influenza A Not Detected (Not Detect); Influenza B Not Detected (Not Detect); Parainfluenza Virus 1 Not Detected (Not Detect); Parainfluenza Virus 2 Not Detected (Not Detect); Parainfluenza Virus 3 Not Detected (Not Detect); Parainfluenza Virus 4 Not Detected (Not Detect); SARS- CoV-2 Not Detected (Not Detecte)
[2021-08-10 06:04] LABS: B. parapertussis Not Detected (Not Detecte); Bordetella pertussis Not Detected (Not Detecte); Chlamydophila pneumoniae Not Detected (Not Detect); Mycoplasma pneumoniae Not Detected (Not Detect); Respiratory Syncytial Virus Not Detected (Not Detect)
[2021-08-10] MEDS: ACETAMINOPHEN SUSP 650 MG/20.3 ML UDC PO (06:36)
[2021-08-10] MEDS: FUROSEMIDE 40 MG/4 ML VIAL 20 MG IV (06:58)
[2021-08-10] MEDS: LIDOCAINE 2% (GLYDO) 6 ML GEL TOP (06:58)
--- NOTE | 2021-08-10 07:05 | PC.NURSE ---
16fr caude catheter inserted with some difficulty, pt tolerated procedure well, mandy 300ml clear yellow urine
[2021-08-10 07:06] LABS: Reflexed Lactate in 2 Hours Y
--- NOTE | 2021-08-10 07:14 | PC.NURSE ---
Tylenol suspension given per peg tube
[2021-08-10] MEDS: ALBUTEROL/IPRATROPIUM 3 ML AMPUL INH ×4 (07:50→19:30)
[2021-08-10 07:52] LABS: Lactate 2HR (Lactic Acid Rflx) 3.3 mmol/L (0.7-2.1)
[2021-08-10] MEDS: SODIUM CHLORIDE 0.9% 1,000 ML 125 ML IV (07:53)
[2021-08-10] MEDS: VANCOMYCIN 1,500 MG/300 ML PIGGYBACK 200 MG IV (07:53)
[2021-08-10 07:55] LABS: Lactate Dehydrogenase 935 U/L (313-618)
--- NOTE | 2021-08-10 08:58 | PC.NURSE ---
Patient brought up from ER to room 224, oriented to room and call light. Bed alarm activated for safety and patient educated on high-risk fall precautions. Patient states he is feeling improved, currently on RA 93-95% via continuous pulse oximetry monitoring. Denies pain at this time. Able to stand and take a couple steps to bed. Patient reports he has some residual left arm and hand weakness from a previous stroke and normally uses a cane at home for mobility. Vancomycin is infusing at this time (hung by ER). Patient sitting in bed resting comfortably. he states he does not know his home medications but he will ask his to look at the medicine bottles and confirm. Will continue to follow.
[2021-08-10] MEDS: ENOXAPARIN 40 MG/0.4 ML SYRINGE SUBCUT (09:42)
[2021-08-10] MEDS: PANTOPRAZOLE 40 MG VIAL IV (09:42)
[2021-08-10] MEDS: SODIUM CHLORIDE 0.9% 500 ML 1000 ML IV (09:42)
[2021-08-10] MEDS: AZITHROMYCIN 500 MG in DEXTROSE 5% IN WATER 250 ML IV (10:12)
[2021-08-10] MEDS: MEROPENEM 500 MG in SODIUM CHLORIDE 0.9% 100 ML 200 ML IV ×2 (11:23→17:48)
--- NOTE | 2021-08-10 12:02 | DIET.CONS ---
Dietary Consultation Note Admission Date: 08/10/2021 06:47 RD Note: Pt with j-tube secondary to gastric cancer and prior CVA. Pt normally fed overnight with pump. This RD called pts regarding formula type, feeding rate, free water flushes, and if pt consumes anything PO. Plan to start feeding pt via j-tube this evening if indicated by hospitalist. Electronically Signed by: Fatou Siddiqui 08/10/21 12:02 Clinical Dietitian [address] [address]
--- NOTE | 2021-08-10 14:11 | DIET.CONS ---
Addendum entered by Fatou Siddiqui 08/11/21 11:09: Pts spouse Nia unsure of feeding routine at home as pts sister Rebekah Tenorio comes twice daily for meds and EN administration ([phone]) obtained permission from pt and spouse to call sister. Pt uses [facility] [employer] for home EN supplies. Formula: [employer] HN Pt currently feeding 16h overnight starting at 6pm at 91mL/h for total formula volume 1500mL (6 cans) providing 1800kcals (29kcal/kg) and 81g PRO (1.3g/kg) c 60mL free water flushes c all meds and 240mL flushes when starting and stopping feed. It took a while for pt to build up to this volume of feed due to tolerance and dumping and pt doesn't tolerate >91mL/hr rate. Pts sister aware of pts weight loss this year and continually encourages pt to be compliant with full feed. Discussed extending feed a few times per week to include another 250mL formula for weight repletion with goal BMI 21-24 (currently 20). Pt is strictly NPO, does swish and spit some liquids for pleasure. Original Note: Dietary Consultation Note Admission Date: 08/10/2021 06:47 Assessment: 66y M admitted for SOB referred to nutrition for nutrition support as pt has j-tube at baseline. Call to pts spouse not yet returned for home feed routine though pt states he is fed through pump overnight only. Pt BMI 20.0, pt with 13% weight loss over 9mo (non-severe) however, low BMI for age. Pt may not be getting enough enteral formula in nightly feeds to meet needs, consider more concentrated formula or longer feeding period overnight. Ht: 175.26 cm Wt: 61.5 kg BMI: 20.0 Last BM: 08/09/21 (08/10/21 09:47) MNA: 9 Farhat Score: 19 Labs: RBC 3.75 X10^6/uL (4.5-5.9) L 08/10/21 05:06 Hgb 11.4 g/dL (13.5-17.5) L 08/10/21 05:06 Hct 36.2 % (41-53) L 08/10/21 05:06 Creatinine 0.57 mg/dL (0.66-1.25) L 08/10/21 05:06 Lactate 3.3 mmol/L (0.7-2.1) H 08/10/21 07:25 NT-Pro-B Natriuret Pep 1510 pg/mL (<125) H 08/10/21 05:06 Nutrition Diagnosis: inability to safely consume PO nourishments r/t prior CVA, gastric cancer aeb pt with j-tube at baseline. Interventions: 1. Recc continuous enteral nutrition using feeding pump to j-tube. Care to be taken not to push rate too high to avoid dumping syndrome. 2. Free water flushes to be correlated to any IVF. Continuous feed of Jevity 1.2 into j-tube using feeding pump starting at 25mL/h increasing by 10-20mL/h as tolerated until at goal rate of 65mL/h. Recc 150mL free water flushes q4h, frequently checking lines for patency. Feed plus flushes provide 1872kcals (30kcal/kg), 87g PRO (1.4g/kg), 264g CHO, 1239mL feed water, 900mL flushes for total fluids 2159 (35mL/kg) EER: 1872kcal (30kcal/kg), 87g PRO (1.4g/kg) Monitoring/Evaluations: following for tolerance, home plan Electronically Signed by: Fatou Siddiqui 08/10/21 14:11 Clinical Dietitian [address] [address]
[2021-08-10] MEDS: predniSONE 5 MG TABLET 15 MG PO (15:02)
[2021-08-10] MEDS: VANCOMYCIN 1,250 MG/250 ML PIGGYBACK 250 MG IV (16:36)
[2021-08-10] MEDS: SODIUM CHLORIDE 0.9% 250 ML 21 ML IV (17:58)
--- NOTE | 2021-08-10 18:44 | P.HP_ITS ---
History of Present Illness History of Present Illness Date Patient Seen: 08/10/21 Time Patient Seen: 08:00 Chief complaint: pneumonia, SOB Narrative: Mr. Bowden is a 66M with PMH of pulmonary fibrosis on steroids, CVA, lupus, HTN, metastatic gastric cancer to lung and liver on chemotherapy, documented CHFrEF who presents to the hospital with sudden shortness of breath. He has been slowly weaning from his steroids to 15mg daily, from 40mg daily. He last had addison motherapy one week ago, he gets it through port every 2 weeks. He says he gets pneumonia frequently after chemo. Earlier today he developed sudden severe shortness of breath. No cough, fevers, chest pain. No choking episodes. No lower extremity swelling. He was recently hospitalized for a pneumonia possibly aspiration and was discharged with Augmentin In the ED workup was done, he was satting in the 80s. Heart rate initially in the 160s. Respiratory rate in the 30s. He was placed on a nonrebreather. Labs notable for WBC 19.2, 15% bands, hgb 11.4, plts 268. CO2 19, creatinine 0.57. D- dimer 645. BNP 1510. Lactate 10.8. Trop negative. Procal 0.13. He was ordered for 30cc/kg IV fluid. Zosyn. He was given a dose of diltiazem. With treatment he was feeling much improved. Chest xray showed opacity in left lung base and right upper lobe opacity. CTA showed right upper and lower lobe pneumonia. He was admitted for further treatment. Patient History Medical History Anemia CHF (congestive heart failure) Chronic interstitial lung disease Compression fracture Essential hypertension History of stroke involving cerebellum Lupus Pelvic fracture Surgical History H/O pelvic surgery Family & Social History Family History Father Alcohol abuse Mother Alcohol abuse Brother CVA (cerebral vascular accident) Social History: household members spouse Safety & Behavioral: Feels Safe in Current Yes Environment Tobacco & Substance use: Smoking Status Never smoker alcohol intake former alcohol intake frequency holiday/special occasion Substance Use Type marijuana Meds Home Medications and Allergies Home Medications Medication Instructions Recorded Confirmed Type albuterol sulfate 90 mcg/actuation 1 puff INHALATION Q4-6H PRN #8.5 10/04/18 08/10/21 Rx aerosol inhaler gram ondansetron 8 mg disintegrating 8 mg PO Q8HR PRN 05/10/21 08/10/21 History tablet furosemide 20 mg tablet (Lasix) 20 mg PO DAILY #3 tab 06/07/21 08/10/21 Rx amoxicillin 875 mg-potassium 1 tab PO BID #10 tab 07/26/21 08/10/21 Rx clavulanate 125 mg tablet aspirin 81 mg chewable tablet 81 mg PO DAILY 08/10/21 08/10/21 History cyanocobalamin (vitamin B-12) 1,000 mcg SUBCUT SEEINSTR 08/10/21 08/10/21 History 1,000 mcg/mL injection kit lansoprazole 15 mg delayed 15 mg PO PRN 08/10/21 History release,disintegrating tablet levothyroxine 88 mcg tablet 88 mcg PO DAILY 08/10/21 08/10/21 History loperamide 1 mg/7.5 mL oral liquid 2 mg SEEINSTR PRN 08/10/21 08/10/21 History oxycodone 5 mg/5 mL oral solution 5 mg FEEDING TUBE Q12HR PRN 08/10/21 08/10/21 History prednisone 5 mg/5 mL oral solution 15 mg FEEDING TUBE DAILY 08/10/21 08/10/21 History Allergies Allergy/AdvReac Type Severity Reaction Status Date / Time No Known Drug Allergies Allergy Verified 05/10/21 09:10 Review of Systems Review of Systems Narrative: 14 systems reviewed and negative aside from what is noted in HPI Exam Vital Signs (past 8 hours): - 08/10/21 11:29 08/10/21 14:08 08/10/21 16:40 Temperature 99.3 F Pulse Rate 92 H 96 H 92 H Respiratory Rate 18 18 24 Blood Pressure 96/67 Pulse Oximetry 97 98 97 Oxygen Delivery Method Room Air Oxygen Flow Rate 0 Narrative Exam Narrative: GEN: no acute distress HEENT: moist mucous membranes, PERRL NECK: trachea midline, no JVD CV: regular rate and rhythm, no murmurs PULM: coarse breath sounds on the right ABD: soft, nontender, nondistended, no organomegaly, normal bowel sounds EXT: warm and well perfused with no edema NEURO: awake, alert, oriented, right facial droop, right arm weakness chronic from previous stroke Objective Labs Result Diagrams: 08/10/21 05:06 08/10/21 05:06 Labs: Laboratory Results - last 24 hr 08/10/21 08/10/21 08/10/21 05:00 05:06 05:06 WBC RBC Hgb Hct MCV MCH MCHC RDW Plt Count Neut % (Auto) Lymph % (Auto) [place] % (Auto) Eos % (Auto) Baso % (Auto) Lymph # (Auto) [place] # (Auto) Baso # (Auto) Total Counted Seg Neutrophils % Band Neutrophils % Lymphocytes % (Manual) Monocytes % (Manual) Neutrophils # (Manual) Dohle Bodies RBC Morphology Anisocytosis PT 11.6 INR 1.0 D-Dimer 645 H ABG pH ABG pCO2 ABG pO2 ABG HCO3 ABG Total CO2 ABG O2 Saturation ABG Base Excess FiO2 Sodium Potassium Chloride Carbon Dioxide BUN Creatinine Estimated GFR BUN/Creatinine Ratio Glucose Lactate Calcium Total Bilirubin AST ALT Alkaline Phosphatase Lactate Dehydrogenase Total Creatine Kinase CK-MB (CK-2) CK-MB (CK-2) Rel Index Troponin I NT-Pro-B Natriuret Pep 1510 H Total Protein Albumin Globulin Albumin/Globulin Ratio Procalcitonin Urine Color Urine Appearance Urine pH Ur Specific [place] Urine Protein Urine Glucose (UA) Urine Ketones Urine Occult Blood Urine Nitrate Urine Bilirubin Urine Urobilinogen Ur Leukocyte Esterase Urine RBC Urine WBC Ur Squamous Epith Cells Urine Bacteria Hyaline Casts Urine Yeast Ur Culture Indicated? Chlamy pneumoniae PCR Not detected Adenovirus (PCR) Not detected B. pertussis DNA (PCR) Not detected B.parapertussis DNA PCR Not detected Coronavirus OC43 (PCR) Not detected Coronavirus HKU1 (PCR) Not detected Coronavirus 229E (PCR) Not detected SARS-CoV-2 (PCR) Not detected Coronavirus NL63 (PCR) Not detected Human Metapneumovir PCR Not detected Influenza Type A (PCR) Not detected Influenza Type B (PCR) Not detected M. pneumoniae (PCR) Not detected Parainfluenza 1 (PCR) Not detected Parainfluenza 2 (PCR) Not detected Parainfluenza 3 (PCR) Not detected Parainfluenza 4 (PCR) Not detected RSV (PCR) Not detected Entero/Rhino (PCR) Not detected 08/10/21 08/10/21 08/10/21 05:06 05:06 05:06 WBC 19.2 H RBC 3.75 L Hgb 11.4 L Hct 36.2 L MCV 96.5 MCH 30.4 MCHC 31.6 RDW 17.0 H Plt Count 268 Neut % (Auto) Not Reportable Lymph % (Auto) Not Reportable [place] % (Auto) Not Reportable Eos % (Auto) Not Reportable Baso % (Auto) Not Reportable Lymph # (Auto) Not Reportable [place] # (Auto) Not Reportable Baso # (Auto) Not Reportable Total Counted 100 Seg Neutrophils % 53.0 Band Neutrophils % 15.0 H Lymphocytes % (Manual) 31.0 Monocytes % (Manual) 1.0 L Neutrophils # (Manual) 98800 H Dohle Bodies 2+ H RBC Morphology See below Anisocytosis 1+ H PT INR D-Dimer ABG pH ABG pCO2 ABG pO2 ABG HCO3 ABG Total CO2 ABG O2 Saturation ABG Base Excess FiO2 Sodium 142 Potassium 4.1 Chloride 107 Carbon Dioxide 19 L BUN 18 Creatinine 0.57 L Estimated GFR > 60 BUN/Creatinine Ratio 31.6 H Glucose 114 H Lactate 10.8 H* Calcium 8.4 Total Bilirubin 0.3 AST 40 ALT 22 Alkaline Phosphatase 268 H Lactate Dehydrogenase Total Creatine Kinase < 20 L CK-MB (CK-2) TNP CK-MB (CK-2) Rel Index TNP Troponin I < 0.012 NT-Pro-B Natriuret Pep Total Protein 7.2 Albumin 4.1 Globulin 3.1 Albumin/Globulin Ratio 1.3 Procalcitonin 0.13 Urine Color Urine Appearance Urine pH Ur Specific [place] Urine Protein Urine Glucose (UA) Urine Ketones Urine Occult Blood Urine Nitrate Urine Bilirubin Urine Urobilinogen Ur Leukocyte Esterase Urine RBC Urine WBC Ur Squamous Epith Cells Urine Bacteria Hyaline Casts Urine Yeast Ur Culture Indicated? Chlamy pneumoniae PCR Adenovirus (PCR) B. pertussis DNA (PCR) B.parapertussis DNA PCR Coronavirus OC43 (PCR) Coronavirus HKU1 (PCR) Coronavirus 229E (PCR) SARS-CoV-2 (PCR) Coronavirus NL63 (PCR) Human Metapneumovir PCR Influenza Type A (PCR) Influenza Type B (PCR) M. pneumoniae (PCR) Parainfluenza 1 (PCR) Parainfluenza 2 (PCR) Parainfluenza 3 (PCR) Parainfluenza 4 (PCR) RSV (PCR) Entero/Rhino (PCR) 08/10/21 08/10/21 08/10/21 05:06 05:15 05:25 WBC RBC Hgb Hct MCV MCH MCHC RDW Plt Count Neut % (Auto) Lymph % (Auto) [place] % (Auto) Eos % (Auto) Baso % (Auto) Lymph # (Auto) [place] # (Auto) Baso # (Auto) Total Counted Seg Neutrophils % Band Neutrophils % Lymphocytes % (Manual) Monocytes % (Manual) Neutrophils # (Manual) Dohle Bodies RBC Morphology Anisocytosis PT INR D-Dimer ABG pH 7.46 H ABG pCO2 29.0 L ABG pO2 167 H ABG HCO3 21 L ABG Total CO2 22 ABG O2 Saturation 100 ABG Base Excess -3.0 L FiO2 100 Sodium Potassium Chloride Carbon Dioxide BUN Creatinine Estimated GFR BUN/Creatinine Ratio Glucose Lactate Calcium Total Bilirubin AST ALT Alkaline Phosphatase Lactate Dehydrogenase 935 H Total Creatine Kinase CK-MB (CK-2) CK-MB (CK-2) Rel Index Troponin I NT-Pro-B Natriuret Pep Total Protein Albumin Globulin Albumin/Globulin Ratio Procalcitonin Urine Color Yellow Urine Appearance Clear Urine pH 7.0 Ur Specific [place] 1.010 Urine Protein Negative Urine Glucose (UA) Negative Urine Ketones Negative Urine Occult Blood Negative Urine Nitrate Negative Urine Bilirubin Negative Urine Urobilinogen 1.0 Ur Leukocyte Esterase Trace H Urine RBC None seen Urine WBC None seen Ur Squamous Epith Cells 0-1 /hpf Urine Bacteria Few (2-10) H Hyaline Casts 0-1/lpf Urine Yeast 0-1/hpf Ur Culture Indicated? Specimen cultured Chlamy pneumoniae PCR Adenovirus (PCR) B. pertussis DNA (PCR) B.parapertussis DNA PCR Coronavirus OC43 (PCR) Coronavirus HKU1 (PCR) Coronavirus 229E (PCR) SARS-CoV-2 (PCR) Coronavirus NL63 (PCR) Human Metapneumovir PCR Influenza Type A (PCR) Influenza Type B (PCR) M. pneumoniae (PCR) Parainfluenza 1 (PCR) Parainfluenza 2 (PCR) Parainfluenza 3 (PCR) Parainfluenza 4 (PCR) RSV (PCR) Entero/Rhino (PCR) 08/10/21 07:25 WBC RBC Hgb Hct MCV MCH MCHC RDW Plt Count Neut % (Auto) Lymph % (Auto) [place] % (Auto) Eos % (Auto) Baso % (Auto) Lymph # (Auto) [place] # (Auto) Baso # (Auto) Total Counted Seg Neutrophils % Band Neutrophils % Lymphocytes % (Manual) Monocytes % (Manual) Neutrophils # (Manual) Dohle Bodies RBC Morphology Anisocytosis PT INR D-Dimer ABG pH ABG pCO2 ABG pO2 ABG HCO3 ABG Total CO2 ABG O2 Saturation ABG Base Excess FiO2 Sodium Potassium Chloride Carbon Dioxide BUN Creatinine Estimated GFR BUN/Creatinine Ratio Glucose Lactate 3.3 H Calcium Total Bilirubin AST ALT Alkaline Phosphatase Lactate Dehydrogenase Total Creatine Kinase CK-MB (CK-2) CK-MB (CK-2) Rel Index Troponin I NT-Pro-B Natriuret Pep Total Protein Albumin Globulin Albumin/Globulin Ratio Procalcitonin Urine Color Urine Appearance Urine pH Ur Specific [place] Urine Protein Urine Glucose (UA) Urine Ketones Urine Occult Blood Urine Nitrate Urine Bilirubin Urine Urobilinogen Ur Leukocyte Esterase Urine RBC Urine WBC Ur Squamous Epith Cells Urine Bacteria Hyaline Casts Urine Yeast Ur Culture Indicated? Chlamy pneumoniae PCR Adenovirus (PCR) B. pertussis DNA (PCR) B.parapertussis DNA PCR Coronavirus OC43 (PCR) Coronavirus HKU1 (PCR) Coronavirus 229E (PCR) SARS-CoV-2 (PCR) Coronavirus NL63 (PCR) Human Metapneumovir PCR Influenza Type A (PCR) Influenza Type B (PCR) M. pneumoniae (PCR) Parainfluenza 1 (PCR) Parainfluenza 2 (PCR) Parainfluenza 3 (PCR) Parainfluenza 4 (PCR) RSV (PCR) Entero/Rhino (PCR) Assessment & Plan Assessment & Plan narrative: Mr. Bowden is a 66M with H pulmonary fibrosis, CHF, CVA, aortic thrombus, who presents with respiratory failure secondary to pneumonia possibly from aspiration. 1. Acute hypoxemic respiratory failure secondary to Pneumonia with severe sepsis -ordered for vanc/zosyn/azithro -sepsis with respiratory failure for organ dysfunction -greatly improved after IV fluids and antibiotics, lactate significantly downtrending -follow up blood cultures -ordered for sputum cultures -has history of CHF, but think this is less likely, BNP was slightly elevated -has history of CVA, will order speech eval -patient with elevated ldh, given immunosuppression possibly consistent with PCP -check b-glucan if able, order fungal dna -empiric bactrim treatment for now 2. Pulmonary fibrosis -continue steroids 15mg currently -may need to increase prednisone dose if continues to be short of breath -continue nebulizers 2. History of CVA with residual weakness -continue aspirin 3. History of aortic thrombosis -continue xarelto 4. Metastatic gastric cancer -will need outpatient follow up -dietary for tube feeds CODE: Full Proxy: Nia Bowden, I have utilized all available resources to reconcile the patient's home medications Time Spent With Patient Critical Care time: I spent a total of [] minutes of critical care time on this patient's care today; this time is exclusive of procedural time. Quality MIPS - Admit I confirm the patient?s Advance Care Plan is present, Code status is documented, Surrogate decision maker is in patient?s record [If Yes, STOP here]: Yes
[2021-08-10] MEDS: TRIMETH/SULFA 160/800 (DS) TABLET 2 TAB PO (20:23)
[2021-08-11] VITALS (11 sets, daily range): BP systolic 94–116; BP diastolic 62–77; PULSE 90–114; RESP 16–22; TEMP 36.6–37.3; O2SAT 94–98
[2021-08-11] MEDS: MEROPENEM 500 MG in SODIUM CHLORIDE 0.9% 100 ML 200 ML IV ×5 (00:12→23:11)
[2021-08-11] MEDS: ALBUTEROL/IPRATROPIUM 3 ML AMPUL INH ×6 (00:30→22:35)
[2021-08-11] MEDS: VANCOMYCIN 1,250 MG/250 ML PIGGYBACK 250 MG IV (01:13)
[2021-08-11] MEDS: LEVOTHYROXINE 88 MCG TABLET PO (05:39)
[2021-08-11 05:56] LABS: Add Manual Diff / Slide Review NO; Basophils Absolute Auto 0 /uL (0-100); Basophils Percent Auto 0.1 % (0-2); Eosinophils Absolute Auto 300 /uL (0-450); Eosinophils Percent Auto 1.4 % (2-4); Hematocrit 25.5 % (41-53); Hemoglobin 8.4 g/dL (13.5-17.5); Lymphocytes Absolute Auto 600 /uL (1100-4500); Lymphocytes Percent Auto 2.9 % (25-40); Mean Corpuscular HGB Conc 32.8 % (30-36); Mean Corpuscular Hemoglobin 30.8 PG (26-34); Mean Corpuscular Volume 93.9 fL (80-100); Monocytes Absolute Auto 1200 /uL (0-900); Monocytes Percent Auto 5.5 % (3-14); Neutrophils Absolute Auto 19800 /uL (1500-7000); Neutrophils Percent Auto 90.1 % (50-75); Platelet Count 182 X10^3/uL (150-400); Red Blood Cell Count 2.72 X10^6/uL (4.5-5.9); Red Cell Distribution Width 17.3 % (11.6-14.8)
[2021-08-11 06:06] LABS: Alanine Aminotransferase 14 IU/L (<50); Albumin 2.7 g/dL (3.5-5.0); Albumin Globulin Ratio 1.1 (1.0-2.8); Alkaline Phosphatase 135 U/L (38-126); Aspartate Aminotransferase 27 IU/L (17-59); BUN Creatinine Ratio 29.8 (6-22); Bilirubin Total 0.2 mg/dL (0.2-1.3); Bilirubin Unconjugated 0.4 mg/dL (0.0-1.1); Blood Urea Nitrogen 14 mg/dL (9-20); Calcium 7.3 mg/dL (8.4-10.2); Carbon Dioxide 24 mmol/L (22-32); Chloride 110 mmol/L (98-107); Estimated Glomerular Filt Rate > 60 mL/min (>60); Globulin 2.5 g/dL (1.7-4.1); Glucose 123 mg/dL (80-110); HEMOLYSIS < 15 (0-50); Magnesium 2.1 mg/dL (1.6-2.3); Potassium 3.2 mmol/L (3.4-5.1); Sodium 141 mmol/L (137-145); Total Protein 5.2 g/dL (6.3-8.2)
[2021-08-11] MEDS: ALBUTEROL 2.5 MG/3 ML NEB (ADULT) INH (07:49)
[2021-08-11 08:55] LABS: Vancomycin Trough 16.3 ug/mL (10-20)
[2021-08-11] MEDS: VANCOMYCIN TROUGH 1 REQUEST MISC (09:32)
[2021-08-11] MEDS: predniSONE 5 MG TABLET 15 MG PO (09:35)
[2021-08-11] MEDS: ASPIRIN 81 MG CHEW TAB PO (09:38)
[2021-08-11] MEDS: RIVAROXABAN 10 MG TABLET 20 MG PO (09:38)
[2021-08-11] MEDS: SODIUM CHLORIDE 0.9% 250 ML 21 ML IV ×2 (09:39→09:46)
[2021-08-11] MEDS: PANTOPRAZOLE 40 MG VIAL IV (09:39)
[2021-08-11] MEDS: AZITHROMYCIN 500 MG in DEXTROSE 5% IN WATER 250 ML IV (09:46)
[2021-08-11] MEDS: TRIMETH/SULFA 160/800 (DS) TABLET 2 TAB PO ×3 (09:51→20:46)
[2021-08-11] MEDS: VANCOMYCIN 1,250 MG in SODIUM CHLORIDE 0.9% 250 ML IV ×2 (10:12→18:56)
[2021-08-11] MEDS: POTASSIUM CHLORIDE IN WATER 10 MEQ/100 ML PIGGYBACK 100 MEQ IV ×4 (11:39→15:39)
--- NOTE | 2021-08-11 12:17 | ST.IPCSEOM ---
Visit Care Team Role Provider Type Az Salazar PA-C Primary Care Provider Non-Staff Specialty: Medical Address: [address] [place] [address], [id number] Email: Stephen Redd DO Emergency Provider Physician Specialty: Emergency Medicine Address: [address] [place] [address], [facility] Email: [email or web address] Saleh Admit Provider Physician Attending Provider Referring Provider Specialty: Internal Medicine Address: [address] [place] [address], [facility] Email: [email or web address] Past Medical History (Last Reviewed 08/10/21 @ 18:45 by Sunday García MD) Anemia (Medical) CHF (congestive heart failure) (Medical) Chronic interstitial lung disease (Medical) Compression fracture (Medical) Essential hypertension (Medical) H/O pelvic surgery (Medical) History of stroke involving cerebellum (Medical) Lupus (Medical) Pelvic fracture (Medical) Speech-Language Pathology Swallow Evaluation ELECTROENCEPHALOGRAPHIC TECHNOLOGIST Clinical Swallow Evaluation Start: 08/11/21 11:52 Freq: Status: Active Protocol: Document 08/11/21 11:52 JARRETT (Rec: 08/11/21 12:17 JARRETT [id number]) Clinical Swallow Evaluation Session Time Visit Start Time 10:00 Visit Stop Time 10:20 Total Visit Minutes 20 Setting Assessment Location Acute Care Visit Type Note Type Initial evaluation Next Note Type Next Note Type Treatment Note Patient Information Identification Type Name,Wristband History Per H&P: Mr. Bowden is a 66M with PMH of pulmonary fibrosis on steroids, CVA, lupus, HTN, metastatic gastric cancer to lung and liver on chemotherapy , documented CHFrEF who presents to the hospital with sudden shortness of breath. He has been slowly weaning from his steroids to 15mg daily, from 40mg daily. He last had chemotherapy one week ago, he gets it through port every 2 weeks. He says he gets pneumonia frequently after chemo. Earlier today he developed sudden severe shortness of breath. No cough, fevers, chest pain. No choking episodes. No lower extremity swelling. He was recently hospitalized for a pneumonia possibly aspiration and was discharged with Augmentin. Chest xray showed opacity in left lung base and right upper lobe opacity. CTA showed right upper and lower lobe pneumonia. Pt was previously admitted in 11/2020 for a CVA and made NPO. He was provided oral motor exercises and reported he has been trying to see an outpatient speech therapist but there have been lengthy waitlists. Pt is currently on j-tube feedings overnight. He added he had also been working on getting a modified barium swallow as he is interested in eating a PO diet again. Subjective Observations Pt was reclined in bed with at bedside when ELECTROENCEPHALOGRAPHIC TECHNOLOGIST arrived. He presented with slurred speech and a left facial droop. Pt demonstrated cognition WNL asking questions appropriately and recounting events and recommendations related to his swallow and speech. Pt stated he frequently gets pneumonia following chemotherapy treatments. He stated an interest in taking food orally and was agreeable to participate in bedside swallow evaluation. Pt was repositioned to upright position in bed. Reported by Patient Other Symptoms Coughing,Difficulty swallowing liquids,Difficulty swallowing pills,Difficulty swallowing solids,History of aspiration or pneumonia Current Diet Nothing by mouth Baseline Feeding Method Dependent for feeding Objective Assessment Mental Status Alert,Responsive,Cooperative Oral Integrity WFL Dentition Missing teeth Lip Function Moderate impairment Observation of Lips at Rest Left sided weakness/Drooping Pucker Reduced range of motion, Reduced strength,Left sided weakness/drooping Lip Retraction Reduced range of motion,Left sided weakness/Drooping Alternating Pucker/Lip Retraction Reduced range of motion, Incoordination Tongue Function Mild impairment Observations of Tongue at Rest Within normal limits Tongue Protrusion Reduced range of motion, Reduced strength Tongue Lateralization Reduced range of motion, Reduced strength Jaw Function Within normal limits Observations of Jaw at Rest Within normal limits Jaw Opening Within normal limits Jaw Closing Within normal limits Hard/Soft Palate Function Within normal limits Comment Completed oral motor exam. Pt presented with moderate weakness and reduced ROM in tongue and lips. Incoordination observed during pucker and smile task, with visible effort exerted to manage lip movements. Weakness and reduced ROM in lips and tongue likely negatively contribute to slurred speech. Pt has missing dentition, which would negatively impact his ability to chew food. He has a mild-moderate left facial droop, but jaw movement is symmetrical and WNL. Food and Liquid Trials Position During Assessment Upright (90 degrees),In bed Liquids Trialed Thin Administration Type Cup single sip Oral Impairment Moderately impaired Oral Phase Comments Completed single trial of thin liquid through open cup. No anterior loss of bolus. Pt exhibited visible effort on a/ p propulsion of bolus and swallow. He reported swallowing is effortful. Pharyngeal Phase Comments Pt presented with a delayed cough but clear vocal quality following trial of thin liquid . Discontinued PO trials due to history of pneumonia and concerns for silent aspiration . Unable to rule out silent aspiration with bedside swallow evaluation. Due to history of pneumonia, pt is likely silently aspirating and a modified barium swallow study is recommended to rule out silent aspiration. Comment Single trial completed and pt has been NPO since 11/2020, unable to assess endurance at this time. Results Pt exhibited visible effort on a/p propulsion of bolus and swallow. Following trial, he exhibited a delayed cough but clear vocal quality. Unable to rule out silent aspiration with bedside swallow evaluation. Due to history of pneumonia, pt is likely silently aspirating. Recommend modified barium swallow study to rule out silent aspiration , which has been booked for tomorrow (08/12/2021) at 8:30am. Findings Swallowing Function Oropharyngeal phase dysphagia Severity of Swallow Impairment Moderately impaired Contributing Factors to Swallow Reduced oral strength/ Impairment coordination/sensation, Mastication inefficiency, Impaired oral-pharyngeal transport,Impaired airway protection Prognosis Fair Based on Age,History of aspiration/ aspiration pneumonia, Comorbidities,Duration of symptoms/severity Impact on Safety and Functioning Risk for aspiration Recommendations Instrumental Assessment Yes Swallowing Treatment Yes Recommended Solids Nothing by Mouth Recommended Liquids Nothing by Mouth Education Patient/Caregiver Education Described results of evaluation,Patient expressed understanding of evaluation, Patient expressed agreement with goals & treatment plans, Family/caregivers expressed understanding of evaluation, Family/caregivers expressed agreement with goals & treatment plans,Patient requires further education/ training,Family/caregivers require further education/ training Goals Short-term Goals 1. Complete MBSS to inform plan of care and treatment strategies. Long-term Goals 1. The pt will safely tolerate least restrictive diet to meet his nutrition and hydration needs.
[2021-08-11 13:26] LABS: Vancomycin Peak 26.8 ug/mL (20-40)
[2021-08-11] MEDS: VANCOMYCIN PEAK 1 REQUEST MISC (13:59)
--- NOTE | 2021-08-11 14:31 | PM.CARDMON.1 ---
Rejected Items Clerk Report Referral & Results Date Patient Seen: 07/27/21 Requesting provider: Az Salazar Indication: Palpitations Duration of monitoring (days): 7 Diary information: There were no patient events to review Data: Minimum heart rate identified was 51 beats per minute at 05:08 on 08/03/2021 Maximum sinus heart rate was 159 beats per minute at 12:20 on 07/31/2021 Less than 1% of identified beats were ventricular or supraventricular ectopic in origin, which would classify them as rare. There were no pauses of 3.0 seconds or longer or episodes of atrial fibrillation or SVT identified on this study Impression: 7 day cardiac sonographer that does not demonstrate any notable dysrhythmia
--- NOTE | 2021-08-11 15:46 | CM.DANOTE ---
DCP/Assessment: Reviewed chart. Patient is a 66yr old male admitted to [facility] with [facility]. PCP is Dr. Salazar. Primary payor is 1)Medicare 2)[facility]. PRELIMINARY SCHOOL PSYCHOLOGIST made attempt to meet with patient this afternoon. Patient undergoing breathing treatment at time of visit. Spoke with RN/Barbara whom reports that patient has MBS scheduled for tomorrow. Patient undergoing treatment for lung and liver CA. Patient on tube feeds at baseline. At this time unclear if patient has home health? RN reports that spouse/Nia here most of the day. Spouse very involved with managing patient's care needs in the residence. PRELIMINARY SCHOOL PSYCHOLOGIST left vm with spouse re: d/c planning needs. In addition, CM team will follow up with patient in AM when appropriate. P: Anticipate home when stable. CM team to attempt visit and speak with spouse in AM if possible. JUAN DIEGO Valencia Discharge Planning/Care Management CM Discharge Assessment Start: 08/11/21 15:33 Freq: Status: Active Protocol: Document 08/11/21 15:33 KJS (Rec: 08/11/21 15:46 KJS [id number]) Discharge Planning Assessment Assigned Nitrocellulose Operator JUAN DIEGO Valencia Contact Information Nia Kal (spouse) ph# Advance Directives? No Advance Directives on File No History Provided By Medical Record Household Members spouse Independent with ADL's Yes: per nursing Is patient alert and oriented? Yes: per nursing Caregiver for Another No Comment Patient has tube feeds at baseline. Comment Attempted visit this afternoon but patient receiving breathing treatment. Spoke with RN whom reports that patient resides with spouse/ Nia. Per RN, spouse very supportive and educated on patient's current tube feeds. Barriers to Discharge No Discharge Plan Home Transportation Arrangement Family Additional Comment Pending Review Status In Process Next Review Type Continued Stay Review
--- NOTE | 2021-08-11 17:39 | P.PN_ITS ---
Subjective Subjective Date Patient Seen: 08/11/21 Interval history: Mr. Bowden is a 66M with PMH pulmonary fibrosis, CHF, CVA, aortic thrombus, who presents with respiratory failure secondary to pneumonia possibly from aspiration or PCP. He is improving on antibiotic therapy today. He remains dyspnic but is much improved. He is no longer on supplemental O2. WBC did increase slightly to 22 today. Otherwise denies chest pain, abdominal pain, nausea, or vomiting. Exam Vital Signs (past 8 hours): - 08/11/21 10:09 08/11/21 13:53 08/11/21 15:08 Temperature 98.2 F 97.9 F Pulse Rate 102 H 100 H 106 H Respiratory Rate 18 16 18 Blood Pressure 106/72 116/77 Pulse Oximetry 97 98 96 Oxygen Delivery Method Room Air Oxygen Flow Rate 0 Narrative Exam Narrative: GEN: no acute distress HEENT: moist mucous membranes, PERRL NECK: trachea midline, no JVD CV: regular rate and rhythm, no murmurs PULM: CTA b/l, slightly diminished on the R. ABD: soft, nontender, nondistended, no organomegaly, normal bowel sounds EXT: warm and well perfused with no edema NEURO: awake, alert, oriented, right facial droop, right arm weakness chronic from previous stroke Objective Labs Result Diagrams: 08/11/21 05:15 08/11/21 05:15 Labs: Laboratory Results - last 24 hr 08/11/21 08/11/21 08/11/21 05:15 05:15 08:15 WBC 22.0 H RBC 2.72 L Hgb 8.4 L Hct 25.5 L MCV 93.9 MCH 30.8 MCHC 32.8 RDW 17.3 H Plt Count 182 Neut % (Auto) 90.1 H Lymph % (Auto) 2.9 L [place] % (Auto) 5.5 Eos % (Auto) 1.4 L Baso % (Auto) 0.1 Neut # (Auto) 46971 H Lymph # (Auto) 600 L [place] # (Auto) 1200 H Eos # (Auto) 300 Baso # (Auto) 0 Sodium 141 Potassium 3.2 L Chloride 110 H Carbon Dioxide 24 BUN 14 Creatinine 0.47 L Estimated GFR > 60 BUN/Creatinine Ratio 29.8 H Glucose 123 H Calcium 7.3 L Magnesium 2.1 Total Bilirubin 0.2 Conjugated Bilirubin 0.0 Unconjugated Bilirubin 0.4 AST 27 ALT 14 Alkaline Phosphatase 135 H Total Protein 5.2 L Albumin 2.7 L Globulin 2.5 Albumin/Globulin Ratio 1.1 Vancomycin Peak Vancomycin Trough 16.3 08/11/21 12:38 WBC RBC Hgb Hct MCV MCH MCHC RDW Plt Count Neut % (Auto) Lymph % (Auto) [place] % (Auto) Eos % (Auto) Baso % (Auto) Neut # (Auto) Lymph # (Auto) [place] # (Auto) Eos # (Auto) Baso # (Auto) Sodium Potassium Chloride Carbon Dioxide BUN Creatinine Estimated GFR BUN/Creatinine Ratio Glucose Calcium Magnesium Total Bilirubin Conjugated Bilirubin Unconjugated Bilirubin AST ALT Alkaline Phosphatase Total Protein Albumin Globulin Albumin/Globulin Ratio Vancomycin Peak 26.8 [facility]com[facility] Trough [facility] Medical History Anemia CHF (congestive heart failure) Chronic interstitial lung disease Compression fracture Essential hypertension History of stroke involving cerebellum Lupus Pelvic fracture Surgical History H/O pelvic surgery Family History Father Alcohol abuse Mother Alcohol abuse Brother CVA (cerebral vascular accident) Social History household members: spouse Smoking Status: Never smoker alcohol intake: former Assessment & Plan Assessment & Plan narrative: Mr. Bowden is a 66M with PMH pulmonary fibrosis, CHF, CVA, aortic thrombus, who presents with respiratory failure secondary to pneumonia possibly from aspiration or PCP 1. Acute hypoxemic respiratory failure secondary to Pneumonia with severe sepsis -ordered for vanc/lazaro/azithro will continue today pending cultures. -sepsis with respiratory failure for organ dysfunction -greatly improved after IV fluids and antibiotics, lactate significantly downtrending -follow up blood cultures -ordered for sputum cultures -has history of CHF, but think this is less likely, BNP was slightly elevated -has history of CVA, appreciate speech eval. -patient with elevated ldh, given immunosuppression possibly consistent with PCP -check b-glucan if able, order fungal dna -empiric bactrim treatment for now 2. Pulmonary fibrosis -continue steroids 15mg currently -may need to increase prednisone dose if continues to be short of breath -continue nebulizers 2. History of CVA with residual weakness -continue aspirin 3. History of aortic thrombosis -continue xarelto 4. Metastatic gastric cancer -will need outpatient follow up -dietary for tube feeds CODE: Full Proxy: Nia Bowden, I have utilized all available resources to reconcile the patient's home medications Time Spent With Patient Critical Care time: I spent a total of [] minutes of critical care time on this patient's care today; this time is exclusive of procedural time.
[2021-08-12] MEDS: VANCOMYCIN 1,250 MG in SODIUM CHLORIDE 0.9% 250 ML IV ×2 (02:50→09:34)
[2021-08-12 03:20] VITALS: PULSE 79; RESP 16; O2SAT 98
[2021-08-12] MEDS: ALBUTEROL/IPRATROPIUM 3 ML AMPUL INH ×3 (03:20→11:31)
[2021-08-12 05:27] LABS: Add Manual Diff / Slide Review NO; Basophils Absolute Auto 0 /uL (0-100); Basophils Percent Auto 0.2 % (0-2); Eosinophils Absolute Auto 400 /uL (0-450); Eosinophils Percent Auto 2.1 % (2-4); Hematocrit 25.2 % (41-53); Hemoglobin 8.2 g/dL (13.5-17.5); Lymphocytes Absolute Auto 1100 /uL (1100-4500); Lymphocytes Percent Auto 5.9 % (25-40); Mean Corpuscular HGB Conc 32.7 % (30-36); Mean Corpuscular Hemoglobin 30.7 PG (26-34); Mean Corpuscular Volume 93.8 fL (80-100); Monocytes Absolute Auto 900 /uL (0-900); Monocytes Percent Auto 4.8 % (3-14); Neutrophils Absolute Auto 16600 /uL (1500-7000); Platelet Count 191 X10^3/uL (150-400); Red Blood Cell Count 2.68 X10^6/uL (4.5-5.9); Red Cell Distribution Width 17.5 % (11.6-14.8); White Blood Cell Count 19.1 X10^3/uL (4.5-11.0)
[2021-08-12] MEDS: MEROPENEM 500 MG in SODIUM CHLORIDE 0.9% 100 ML 200 ML IV (05:32)
[2021-08-12] MEDS: LEVOTHYROXINE 88 MCG TABLET PO (05:43)
[2021-08-12] MEDS: PANTOPRAZOLE DR 40 MG TABLET PO (05:43)
[2021-08-12 05:46] LABS: Alanine Aminotransferase 13 IU/L (<50); Albumin 2.7 g/dL (3.5-5.0); Alkaline Phosphatase 118 U/L (38-126); Aspartate Aminotransferase 26 IU/L (17-59); BUN Creatinine Ratio 20.4 (6-22); Bilirubin Total 0.2 mg/dL (0.2-1.3); Bilirubin Unconjugated 0.3 mg/dL (0.0-1.1); Blood Urea Nitrogen 11 mg/dL (9-20); Calcium 7.6 mg/dL (8.4-10.2); Carbon Dioxide 24 mmol/L (22-32); Chloride 113 mmol/L (98-107); Estimated Glomerular Filt Rate > 60 mL/min (>60); Globulin 2.7 g/dL (1.7-4.1); Glucose 116 mg/dL (80-110); HEMOLYSIS < 15 (0-50); Magnesium 2.2 mg/dL (1.6-2.3); Potassium 4.1 mmol/L (3.4-5.1); Sodium 139 mmol/L (137-145); Total Protein 5.4 g/dL (6.3-8.2)
[2021-08-12 06:08] VITALS: BP 115/75; PULSE 90; RESP 17; TEMP 37; O2SAT 99
[2021-08-12 07:20] VITALS: PULSE 91; RESP 18; O2SAT 99
[2021-08-12 08:55] VITALS: BP 110/74; PULSE 88; RESP 18; TEMP 36.6; O2SAT 98
[2021-08-12] MEDS: RIVAROXABAN 10 MG TABLET 20 MG PO (09:21)
[2021-08-12] MEDS: ASPIRIN 81 MG CHEW TAB PO (09:21)
[2021-08-12] MEDS: predniSONE 5 MG TABLET 15 MG PO (09:21)
[2021-08-12] MEDS: TRIMETH/SULFA 160/800 (DS) TABLET 2 TAB PO (09:21)
[2021-08-12] MEDS: AZITHROMYCIN 500 MG in DEXTROSE 5% IN WATER 250 ML IV (09:22)
[2021-08-12] MEDS: levoFLOXacin 250 MG TABLET 750 MG PO (09:49)
--- NOTE | 2021-08-12 10:27 | ST.SWALLOW ---
Visit Care Team Role Provider Type Az Salazar PA-C Primary Care Provider Non-Staff Specialty: Medical Address: [address] [place] [address], [id number] Email: Stephen Redd DO Emergency Provider Physician Specialty: Emergency Medicine Address: [address] [place] [address], [id number] Email: [email or web address] Saleh Admit Provider Physician Attending Provider Referring Provider Specialty: Internal Medicine Address: [address] [place] [address], [facility] Email: [email or web address] Modified Barium Swallow Study SENIOR PYTHON DEVELOPER Modified Barium Swallow Study Start: 08/12/21 09:18 Freq: Status: Active Protocol: Document 08/12/21 09:18 ANIRUDH (Rec: 08/12/21 10:21 ANIRUDH [id number]) Modified Barium Swallow Study Total Time Visit Start Time 08:30 Visit Stop Time 09:00 Total Visit Minutes [address] Caio Knapp Reason for Referral Dysphagia Setting Setting Acute Care Patient Information Identification Type Name,ID Card Patient History Mr. Bowden is a 66M with PMH of pulmonary fibrosis on steroids, CVA, lupus, HTN, metastatic gastric cancer to lung and liver on chemotherapy , documented CHFrEFHe. He presented with respiratory failure secondary to pneumonia possibly from aspiration, improving with antibiotic therapy. The pt receives PEG-tube feeding since Nov 2020. He would like to resume oral intake. During bedside swallow eval yesterday, delayed cough was noted with minimal trials of liquids. MBSS was ordered to assess for silent aspiration and to determine baseline and prognosis for therapeutic benefit for return to oral intake. Subjective Observations The pt was brought to in fluoroscopic chair. MBS procedure and purpose were explained to him, and he consented to proceed. Patient Positioning Position View Lateral Imaging Lateral View Textures Administered Trials Presented Thin Liquid via Spoon,Thin Liquid via Cup,[place] Liquid via Spoon,[place] Liquid via Cup,[place] Liquid via Spoon Oral Phase Source: MBSIMP (TM) (C) Bolus Specific Scoring Grid Lip Closure Minimal Impairment Tongue Control During Bolus Hold Moderate Impairment Bolus Prep/Mastication Moderate Impairment Bolus Transport/Lingual Motion Moderate Impairment A/P Lingual Propulsion Delay Yes: Lingual rocking with immediate escape to vallecula Number of Seconds Delayed (seconds) 3-5s Oral Residue Moderate Impairment Residue Clearing Moderate Impairment Nasal Regurgitation No Additional Oral Phase Observations Oral Peripheral Exam: The pt is edentulous with exception of two bilateral lower premolar teeth. Moderate lingual, buccal and labial weakness. Decreased elevation of soft palate visualized during OPE; complete palatopharyngeal seal observed during MBS. Oral Prep & Swallow Phases: Mild impairment of bolus hold allowed escape of contrast to lateral sides of the tongue without contact with floor of mouth. A/P propulsion was delayed with lingual rocking of each bolus. Back of tongue weakness allowed for immediate escape of each bolus to the vallecula prior to swallow trigger, increasing the pt's risk for aspiration. Moderate oral residue was present, requiring 3 swallows per bolus (ranging in size from 1/2 tsp to single cup sip) to clear. Pharyngeal Phase Source: MBSIMP (TM) (C) Bolus Specific Scoring Grid Delayed Initiation of Pharyngeal Swallow Yes Number of Seconds Delayed (seconds) Up to 3 sec Soft Palate Elevation No Impairment (WNL) Tongue Base Strength/Range of Motion Moderate Impairment Residue Along the Tongue Base Yes Clearance of Residue Along Tongue Base Moderate Impairment Laryngeal Elevation Moderate Impairment Anterior Hyoid Movement Moderate Impairment Epiglottic Range of Motion Moderate Impairment Vallecular Residue Yes Clearance of Vallecular Residue Moderate Impairment Pharyngeal Stripping Wave Mild Impairment Posterior Pharyngeal Wall Residue No Upper Esophageal Sphincter Opening No Impairment (WNL) Residue in the Pyriform Sinuses No Pharyngoesophageal Backflow Observed No Additional Pharyngeal Phase Observations No laryngeal penetration or tracheal aspiration observed. A narrow column of contrast was observed between base of tongue and pharyngeal wall. Hyolaryngeal elevation and anterior propulsion is present but reduced, contributing to incomplete epiglottic inversion. Significant pooling in the vallecula was observed, primarily from bolus escape from the oral cavity prior to initial swallow and between swallows. This mostly cleared upon swallow trigger, but the vallecula again filled immediately until all oral residue was cleared, which consistently required 3 swallows per bolus. A/P View Clinical Impressions Dysphagia Type Moderate-Severe Oral and Moderate Pharyngeal Dysphagia Findings The pt presents with moderate- severe oral dysphagia and moderate pharyngeal dysphagia secondary to muscular weakness. Generalized lingual weakness results in poor bolus control in the oral cavity with significant immediate escape of bolus to the vallecula prior to swallow trigger and between the multiple swallows required to clear oral residue. Trials of solids were not administered due to the pt's edentulous status and oral weakness. Pharyngeal dysphagia is characterized by present but reduced hyolaryngeal elevation and protrusion, epiglottic inversion, lingopharyngeal seal, and pharyngeal stripping wave. Laryngeal vestibular closure was complete, and no penetration or aspiration was observed. The pt is a very good candidate for dysphagia therapy targeting strengthening of swallow musculature. Prognosis for returning to oral intake, at least in part, is good, barring complications from comorbidities. Home Health Speech Therapy is strongly recommended. Therapeutic oral trials should be limited in size (1/2 - 1 tsp) and administered by an SENIOR PYTHON DEVELOPER only. Recommend chin tuck to aid in posterior oral containment, 3 swallows per bolus. Rehabilitation Potential Good Patient Appropriate for Therapy Yes Recommendations Diet Liquids Order Nothing by Mouth Diet Order NPO/Alternative Means of Nutrition/Hydration Medication Recommendation Not Recommended by Mouth Aspiration Precautions Recommended Precautions Upright at 90 Degrees,Small Bites/Sips,Chin Tuck,Effortful Swallow,Double Swallow Additional Precautions For therapeutic trials only under SENIOR PYTHON DEVELOPER supervision. Treatment Plan Therapy Recommendations Oral Motor Exercises,Lingual Exercises,Base of Tongue Exercises,Compensatory Strategy Education,Other Additional Therapy Recommendations Strengthening of laryngeal elevation and pharyngeal constriction Short Term Goals 1. The pt will perform exercises to increase strength and coordination of oral and pharyngeal/laryngeal musculature to improve efficiency of swallow and to reduce risk of aspiration with therapeutic trials. 2. The pt will use safe swallow strategies to improve safety with therapeutic trials . Nursing Home Goals 1. The pt will demonstrate independence with swallow exercises and strategies to promote eventual return to oral intake. Placement Recommendation After Discharge Home with Home Health
--- NOTE | 2021-08-12 11:07 | PM.DS.1 ---
History of Present Illness History of Present Illness Date Patient Seen: 08/12/21 Time Patient Seen: 11:07 Chief complaint: pneumonia, SOB Narrative: Per Dr. García, Mr. Bowden is a 66M with PMH of pulmonary fibrosis on steroids, CVA, lupus, HTN, metastatic gastric cancer to lung and liver on chemotherapy, documented CHFrEF who presents to the hospital with sudden shortness of breath. He has been slowly weaning from his steroids to 15mg daily, from 40mg daily. He last had chemotherapy one week ago, he gets it through port every 2 weeks. He says he gets pneumonia frequently after chemo. Earlier today he developed sudden severe shortness of breath. No cough, fevers, chest pain. No choking episodes. No lower extremity swelling. He was recently hospitalized for a pneumonia possibly aspiration and was discharged with Augmentin In the ED workup was done, he was satting in the 80s. Heart rate initially in the 160s. Respiratory rate in the 30s. He was placed on a nonrebreather. Labs notable for WBC 19.2, 15% bands, hgb 11.4, plts 268. CO2 19, creatinine 0.57. D-dimer 645. BNP 1510. Lactate 10.8. Trop negative. Procal 0.13. He was ordered for 30cc/kg IV fluid. Zosyn. He was given a dose of diltiazem. With treatment he was feeling much improved. Chest xray showed opacity in left lung base and right upper lobe opacity. CTA showed right upper and lower lobe pneumonia. He was admitted for further treatment. Discharge Providers Provider Date of admission: 08/10/21 06:47 Discharge Date: 08/12/21 Primary care physician: Az Salazar PA-C Consults: 08/10/21 08:40 Consult to Respiratory Therapy Evaluate & Treat Comment: Physician Instructions: Evaluate and treat 08/10/21 09:49 Consult to Dietitian, Adult Routine Comment: Reason For Exam: tube feedings at home 08/10/21 18:56 Consult to Speech Therapy Evaluate & Treat Comment: aspiration Physician Instructions: Evaluate and treat Discharge provider: Caio Knapp DO Summary Hospital Course Discharge Diagnosis: Please see hospital course by problem list noted below: Hospital Course: Mr. Bowden is a 66M with PMH pulmonary fibrosis, CHF, CVA, aortic thrombus, who presents with respiratory failure secondary to pneumonia possibly from aspiration or PCP 1. Acute hypoxemic respiratory failure secondary to Pneumonia with severe sepsis -patient was empirically treated with vanc/lazaro/azithro for possible hospital acquired pneumonia. -patient greatly improved after IV fluids and antibiotics, with lactate significantly downtrending -cultures are currently without growth. -less likely related to CHF as patient improved without significant diuresis. -has history of CVA, appreciate speech eval. Underwent barium swallow and patient did not have significant aspiration. Recommend outpatient continued speech therapy as he is able to tolerate some diet now. He could potentially no longer need tube feeds in the near future. -patient with elevated ldh, given immunosuppression possibly consistent with PCP -fungal PCR detection remains pending. He will be discharged given significant improvement in symptoms on empiric bactrim treatment for 3 weeks. Depending on PCR results consider continuing prophylaxis with PCP. If results are negative bactrim can likely be discontinued with PCP. -Also discharged home on Levofloxacin for possible bacterial pneumonia other than PCP for 3 additional days. 2. Pulmonary fibrosis -no changes to his chronic inhalers or steroid dose are currently recommended at discharge. 2. History of CVA with residual weakness -continue aspirin -speech therapy showed improvement in swallow. Recommend continued outpatient speech therapy and he may be able to stop his tube feeds soon. 3. History of aortic thrombosis -continue xarelto 4. Metastatic gastric cancer -dietary was consulted for assistance with his tube feeds. Time Spent with Patient Time spent: Greater than 30 minutes Exam Vital Signs (past 8 hours): - 08/12/21 03:20 08/12/21 06:08 08/12/21 07:20 Temperature 98.6 F Pulse Rate 79 90 91 H Respiratory Rate 16 17 18 Blood Pressure 115/75 Pulse Oximetry 98 99 99 08/12/21 08:55 Temperature 98 F Pulse Rate 88 Respiratory Rate 18 Blood Pressure 110/74 Pulse Oximetry 98 Oxygen Delivery Method Room Air Oxygen Flow Rate 0 Narrative Exam Narrative: GEN: no acute distress HEENT: moist mucous membranes, PERRL NECK: trachea midline, no JVD CV: regular rate and rhythm, no murmurs PULM: CTA b/l, slightly diminished on the R. ABD: soft, nontender, nondistended, no organomegaly, normal bowel sounds EXT: warm and well perfused with no edema NEURO: awake, alert, oriented, right facial droop, right arm weakness chronic from previous stroke Objective Labs Result Diagrams: 08/12/21 05:16 08/12/21 05:16 Labs: Laboratory Results - last 24 hr 08/11/21 08/12/21 08/12/21 12:38 05:16 05:16 WBC 19.1 H RBC 2.68 L Hgb 8.2 L Hct 25.2 L MCV 93.8 MCH 30.7 MCHC 32.7 RDW 17.5 H Plt Count 191 Neut % (Auto) 87.0 H Lymph % (Auto) 5.9 L [place] % (Auto) 4.8 Eos % (Auto) 2.1 Baso % (Auto) 0.2 Neut # (Auto) 65794 H Lymph # (Auto) 1100 [place] # (Auto) 900 Eos # (Auto) 400 Baso # (Auto) 0 Sodium 139 Potassium 4.1 Chloride 113 H Carbon Dioxide 24 BUN 11 Creatinine 0.54 L Estimated GFR > 60 BUN/Creatinine Ratio 20.4 Glucose 116 H Calcium 7.6 L Magnesium 2.2 Total Bilirubin 0.2 Conjugated Bilirubin 0.0 Unconjugated Bilirubin 0.3 AST 26 ALT 13 Alkaline Phosphatase 118 Total Protein 5.4 L Albumin 2.7 L Globulin 2.7 Albumin/Globulin Ratio 1.0 Vancomycin Peak 26.8 PFSH Medical History Anemia CHF (congestive heart failure) Chronic interstitial lung disease Compression fracture Essential hypertension History of stroke involving cerebellum Lupus Pelvic fracture Surgical History H/O pelvic surgery Family History Father Alcohol abuse Mother Alcohol abuse Brother CVA (cerebral vascular accident) Social History household members: spouse Smoking Status: Never smoker alcohol intake: former Discharge Plan Discharge Plan Patient Disposition: Home Provider Discharge Comment: You were admitted to the hospital with a pneumonia. This is possibly due to a bacterial called pneumocystis which can be seen in immunocompromised people. You are being treated for this with 3 weeks of an antibiotic. For a routine bacterial pneumonia your also being discharged on oral levofloxacin for a couple of days. You were seen by speech therapy, and can attempt some oral intake as per their recommendations. I would recommend he see your primary care provider for further referrals to continued therapies as an outpatient, including speech therapy. Discharge orders & Medications Prescriptions: New sulfamethoxazole-trimethoprim 800-160 mg Tablet 2 tab PO TID 21 Days Qty: 126 0RF levofloxacin 750 mg tablet 750 mg PO DAILY 3 Days Qty: 3 0RF rivaroxaban 20 mg tablet 20 mg PO DAILY 30 Days Qty: 30 0RF Rx Instructions: must administer with evening meal Continued albuterol sulfate 90 mcg/actuation HFA aerosol inhaler 1 puff INHALATION Q4-6H PRN (Reason: shortness of breath or wheezing) Qty: 8.5 0RF furosemide [Lasix] 20 mg tablet 20 mg PO DAILY Qty: 3 0RF ondansetron 8 mg Tablet,Disintegrating 8 mg PO Q8HR PRN (Reason: Nausea or vomiting) 0RF oxycodone 5 mg/5 mL solution 5 mg feeding tube Q12HR PRN (Reason: pain) 0RF levothyroxine 88 mcg Tablet 88 mcg PO DAILY 0RF prednisone 5 mg/5 mL solution 15 mg feeding tube DAILY 0RF lansoprazole 15 mg tablet,disintegrat, delay rel 15 mg PO DAILY 0RF Label Comments: DISSOLVE ON TOP OF TONGUE 1 TABLET (15 MG TOTAL) BY MOUTH DAILY cyanocobalamin (vitamin B-12) 1,000 mcg/mL Kit 1,000 mcg SUBCUT SEEINSTR 0RF Rx Instructions: every 2 weeks aspirin 81 mg Tablet,Chewable 81 mg PO DAILY 0RF loperamide 1 mg/7.5 mL liquid 2 mg SEEINSTR PRN (Reason: see instructions) 0RF Label Comments: GIVE 15 ML BY G-TUBE NEEDED TWICE A DAY 10 DAYS 4 Discontinued amoxicillin-pot clavulanate 875-125 mg tablet 1 tab PO BID Qty: 10 0RF Follow up/Referrals: Az Salazar PA-C [Primary Care Provider] - Diet/Activity/Treatments Diet: Diet as Tolerated Activity: As tolerated Visit Report/Discharge Packet Instructions: DI for Heart Failure, DI for Pneumonia -- Adult, DI for Respiratory Failure, DI for Hypoxia, Sulfamethoxazole/Trimethoprim (By mouth) Discharge Data Primary Care Provider: Az Salazar
[2021-08-12 11:32] VITALS: PULSE 104; RESP 28; O2SAT 98
--- NOTE | 2021-08-12 11:36 | DI.RAD.S_ITS ---
PROCEDURE: [place] BARIUM SWALLOW W SPEECH INDICATIONS: difficulty swallowing / COMPARISON: TECHNIQUE: Examination was conducted in conjunction with speech pathology per standard protocol. In the lateral projection, filming was performed of the patient swallowing. AP projection filming may also be performed with patient swallowing. COMPARISON: [facility], , [place] BARIUM SWALLOW W SPEECH, 12/02/2020, 11:26. FINDINGS: Function: The oral preparatory phase appears normal, with proper containment. The subsequent oral propulsive phase, pharyngeal phase, and esophageal phase of swallowing also appear normal with all proffered substances. No laryngotracheal penetration or aspiration. No pathologic vallecular pooling. Morphology: No cricopharyngeal bar is identified. No cervical esophageal webs. No Zenker's diverticulum. No strictures. IMPRESSION: No laryngotracheal penetration or aspiration. Dictated by: Joan Alcaraz M.D. on 08/12/2021 at 9:02 Approved by: Joan Alcaraz M.D. on 08/12/2021 at 9:03
--- NOTE | 2021-08-12 12:50 | CM.DPNOTE ---
Faxed referral packet per Iona to [facility] and received fax conf. Called Lizzy from [facility] asking her to look out for this referral. Fany Irving CM Assist.
--- NOTE | 2021-08-12 13:02 | PC.NURSE ---
Pt dressed and discharged home with all belongings via pov with spouse. 2 IVs removed, ambriz removed, and no tele. Discussed discharge instructions with patient and spouse including new medications, medications to continue, and follow up as directed. Provided education to pt and spouse about home health, new medications, CHF, stroke signs and symptoms, hypoxia, respiratory failure, and pneumonia. Pt take out via wheel chair by MOTORBOAT OPERATOR.
--- NOTE | 2021-08-12 17:14 | CM.DPC ---
DCP/continued: Reviewed chart. Received referral from that patient would benefit from home health for therapy specifically ST. Met with patient and spouse/Nia at bedside. Patient reports that he would like to have HH vs. outpatient therapy. Patient reports that he is homebound at baseline. Spouse confirms. Spoke with provider/Dr. Knapp re: above. Dr. Knapp in agreement with home health. Patient and spouse have no preference in HH agencies. [employer] REGISTRAR asked [employer]/Fany to coordinate HH for therapies. [employer] in agreement. F2F completed and orders obtained. P: Home today with HH through [facility]. Brochure provided to patient and spouse. DESTIN
== END 2021-08-12 12:53 | disposition home health service (06) | DRG 871 ==
LOC: ED 05:16 → AC 06:48
PROVIDERS: Internal Medicine; Admitting Provider Nurse Practitioner Family; Emergency Provider Emergency Medicine; PCP Physician Assistant; Referring Provider Nurse Practitioner Family; Visit Provider Nurse Practitioner Family
DX: A41.9 Sepsis, unspecified organism (principal); J96.01 Acute respiratory failure with hypoxia; B59 Pneumocystosis; C16.9 Malignant neoplasm of stomach, unspecified; C78.7 Secondary malignant neoplasm of liver and intrahepatic bile duct; C78.00 Secondary malignant neoplasm of unspecified lung; I50.20 Unspecified systolic (congestive) heart failure; D84.89 Other immunodeficiencies; R65.20 Severe sepsis without septic shock; J84.10 Pulmonary fibrosis, unspecified; I11.0 Hypertensive heart disease with heart failure; R53.1 Weakness; I69.398 Other sequelae of cerebral infarction; Z86.718 Personal history of other venous thrombosis and embolism; Z79.01 Long term (current) use of anticoagulants; Z20.822 Contact with and (suspected) exposure to COVID-19
CPT/HCPCS: 36415; 36600; 71045; 71275; 74230; 80048; 80053; 80076; 80202; 81001; 82550; 82805; 83605; 83615; 83735; 83880; 84145; 84484; 85007; 85025; 85379; 85610; 87040; 87070; 87077; 87086; 87147; 87205; 87633; 87801; 92610; 92611; 93005; 93010; 93244; 94640; 94762; 96361; 96365; 96367; 96375; 99285; C9113; J1650; J1940; J2185; J2543; J7613

== ENCOUNTER 2021-08-15 02:00 | Emergency (ER) | payer MEDICARE, OTHER, SELFPAY ==
[2021-08-15 02:05] VITALS: BP 122/77; PULSE 106; RESP 21; TEMP 37.2; O2SAT 97
--- NOTE | 2021-08-15 02:12 | ED_ITS ---
HPI - General Adult General Chief complaint: Upper Respiratory Symptoms Stated complaint: weakness Time Seen by Provider: 08/15/21 02:06 Source: patient Mode of arrival: EMS Limitations: no limitations History of Present Illness HPI narrative: Patient is a 66-year-old male. Has multiple chronic medical problems to include chronic lung issues and history of metastatic gastric cancer. Is currently undergoing chemotherapy. Has recently been admitted and subsequently discharged from the hospital for diagnosis of pneumonia. He had an appointment with his primary doctor yesterday. He states he did have to use a wheelchair yesterday because he felt very unsteady on his feet. He stated that yesterday there was a discussion with his primary doctor about his current chemotherapy regimen to and quality of life issues. He is brought in by EMS this evening after an event that occurred at home. The patient's states that she heard the patient breathing heavily in the living room where he normally sleeps. She states that he walked into the room. His eyes were ?rolled back in his head ?he was difficult to arouse. They contacted EMS. Patient states he does not remember the event. He states the next thing that he remembers is waking up with individuals around him. He was confused about where he was and he admits he does not remember being admitted to the hospital. At the time of my evaluation although symptoms have resolved. He states that he feels at baseline. He denies chest pain. No shortness of breath. No abdominal pain. No nausea vomiting. No headache. He has no prior history of seizures. No joint pain. Related Data Home Medications Medication Instructions Recorded Confirmed ondansetron 8 mg disintegrating 8 mg PO Q8HR PRN 05/10/21 08/10/21 tablet aspirin 81 mg chewable tablet 81 mg PO DAILY 08/10/21 08/10/21 cyanocobalamin (vitamin B-12) 1,000 mcg SUBCUT SEEINSTR 08/10/21 08/10/21 1,000 mcg/mL injection kit lansoprazole 15 mg delayed 15 mg PO DAILY 08/10/21 08/11/21 release,disintegrating tablet levothyroxine 88 mcg tablet 88 mcg PO DAILY 08/10/21 08/10/21 loperamide 1 mg/7.5 mL oral liquid 2 mg SEEINSTR PRN 08/10/21 08/10/21 oxycodone 5 mg/5 mL oral solution 5 mg FEEDING TUBE Q12HR PRN 08/10/21 08/10/21 prednisone 5 mg/5 mL oral solution 15 mg FEEDING TUBE DAILY 08/10/21 08/10/21 Previous Rx's Medication Instructions Recorded albuterol sulfate 90 mcg/actuation 1 puff INHALATION Q4-6H PRN #8.5 10/04/18 aerosol inhaler gram furosemide 20 mg tablet (Lasix) 20 mg PO DAILY #3 tab 06/07/21 rivaroxaban 20 mg tablet 20 mg PO DAILY 30 Days #30 tab 08/12/21 sulfamethoxazole 800 2 tab PO TID 21 Days #126 tab 08/12/21 mg-trimethoprim 160 mg tablet Allergies Allergy/AdvReac Type Severity Reaction Status Date / Time No Known Drug Allergies Allergy Verified 05/10/21 09:10 Review of Systems Review of Systems ROS Unobtainable: All systems reviewed & are unremarkable except as noted in HPI and below Patient History Medical History Anemia CHF (congestive heart failure) Chronic interstitial lung disease Compression fracture Essential hypertension History of stroke involving cerebellum Lupus Pelvic fracture Surgical History H/O pelvic surgery Family History Father Alcohol abuse Mother Alcohol abuse Brother CVA (cerebral vascular accident) Social History household members: spouse Smoking Status: Never smoker alcohol intake: former Smoking Status: Never smoker alcohol intake frequency: holidays/special occasions only Substance Use Type: marijuana Exam Initial Vital Signs Initial Vital Signs: Vital Signs Temperature 98.9 F 08/15/21 02:05 Pulse Rate 106 H 08/15/21 02:05 Respiratory Rate 21 08/15/21 02:05 Blood Pressure 122/77 08/15/21 02:05 Pulse Oximetry 97 08/15/21 02:05 Const General: No ill appearing HENMT Head: normal to inspection and normocephalic Eyes General: Yes appearance normal, both eyes and all related structures Resp Effort & Inspection: normal respiratory effort Auscultation: clear to auscultation bilaterally Cardio Rate: regular rate Rhythm: regular rhythm GI Inspection: normal to inspection Palpation: soft and No tender Other: G-tube in place left side abdomen Skin General: no rashes or lesions noted Neuro General: patient alert, patient awake, patient oriented x3 and moves all extremities Extrem General: normal to inspection and capillary refill normal Other: Some tenderness to palpation lateral aspect of left hip. Psych Appearance: grossly normal and well kempt Scores GCS [place] coma scale eye opening: Spontaneous [place] coma scale verbal response: Orientated [place] coma scale motor response: Obey commands [place] coma scale total score: 15 Course Orders Ordered: ED Orders 08/15/21 02:13 Complete Blood Count AUTO DIFF Stat Comprehensive Metabolic Panel Stat Lipase Stat 08/15/21 02:19 CT head/brain wo con Stat Prolactin Stat Discontinued Medications Acetaminophen (Acetaminophen 325 Mg Tablet) 650 mg PO NOW ONE Stop: 08/15/21 03:59 Last Admin: 08/15/21 04:16 Dose: 650 mg Documented by: WILMA Vital Signs Vital signs: Vital Signs - 8 hr 08/15/21 02:05 08/15/21 04:09 08/15/21 04:30 Temperature 98.9 F Pulse Rate 106 H 93 H 97 H Respiratory Rate 21 Blood Pressure 122/77 Pulse Oximetry 97 94 96 08/15/21 04:45 Temperature Pulse Rate 101 H Respiratory Rate Blood Pressure 99/74 Pulse Oximetry 96 Medical Decision Making Imaging Data CT scan - head: Radiologist's Impression: Chronic areas of encephalomalacia, unchanged. No new intracranial abnormality MDM Narrative Medical decision making narrative: Patient is not in any respiratory distress. Not hypoxic. Has a relatively unremarkable exam. During his time here he was complaining of left hip pain. He is given Tylenol for this. It appears to be along the outside of his left hip. Patient states he has never had a seizure in the past. Given his presentation of what his describes to include breathing heavily and being unresponsive and then confused afterwards I have some question as whether not he potentially had a seizure. His head CT shows no signs of mass or metastatic disease. No head bleed. I feel that we can hold on further workup for now. Patient was given a walker and he states he feels much more steady on his feet with the walker. We will hold on making any changes to medications for now. Will have him contact his primary provider for follow-up and return to the emergency department for any new or worsening symptoms. Discharge Plan Departure Patient Disposition: Home Clinical Impression: Gastric cancer, Chronic interstitial lung disease Instructions: How to Choose and Use a Walker Activity Restrictions/Additional Instructions: I do recommend that you continue to take all of your medications as directed. Contact your primary doctor for a follow-up. I also recommend you talk with your oncologist. Return to the emergency department for any new or worsening symptoms. Prescriptions: No Action albuterol sulfate 90 mcg/actuation HFA aerosol inhaler 1 puff INHALATION Q4-6H PRN (Reason: shortness of breath or wheezing) Qty: 8.5 0RF furosemide [Lasix] 20 mg tablet 20 mg PO DAILY Qty: 3 0RF ondansetron 8 mg Tablet,Disintegrating 8 mg PO Q8HR PRN (Reason: Nausea or vomiting) 0RF oxycodone 5 mg/5 mL solution 5 mg feeding tube Q12HR PRN (Reason: pain) 0RF levothyroxine 88 mcg Tablet 88 mcg PO DAILY 0RF prednisone 5 mg/5 mL solution 15 mg feeding tube DAILY 0RF lansoprazole 15 mg tablet,disintegrat, delay rel 15 mg PO DAILY 0RF Label Comments: DISSOLVE ON TOP OF TONGUE 1 TABLET (15 MG TOTAL) BY MOUTH DAILY cyanocobalamin (vitamin B-12) 1,000 mcg/mL Kit 1,000 mcg SUBCUT SEEINSTR 0RF Rx Instructions: every 2 weeks aspirin 81 mg Tablet,Chewable 81 mg PO DAILY 0RF loperamide 1 mg/7.5 mL liquid 2 mg SEEINSTR PRN (Reason: see instructions) 0RF Label Comments: GIVE 15 ML BY G-TUBE NEEDED TWICE A DAY 10 DAYS 4 sulfamethoxazole-trimethoprim 800-160 mg Tablet 2 tab PO TID 21 Days Qty: 126 0RF rivaroxaban 20 mg tablet 20 mg PO DAILY 30 Days Qty: 30 0RF Rx Instructions: must administer with evening meal Referrals: Az Salazar PA-C [Primary Care Provider] -
--- NOTE | 2021-08-15 02:19 | DI.CT.S_ITS ---
PROCEDURE: CT HEAD/BRAIN WO CON INDICATIONS: Metastatic gastric CA with possible new onset seizure TECHNIQUE: Noncontrast 4.5 mm thick angled axial sections acquired from the foramen magnum to the vertex, with coronal and sagittal reformats. For radiation dose reduction, the following was used: automated exposure control, adjustment of mA and/or kV according to patient size. COMPARISON: 12/02/2020, 05/10/2021 FINDINGS: Image quality: Excellent. CSF spaces: Mild volume loss. Basal cisterns are patent. Lateral ventricles symmetric. No midline shift. Brain: Compared to 12/02/2020, similar right frontal area of encephalomalacia compared to 05/10/2021. Similar right medial cerebellar encephalomalacia. No acute intracranial hemorrhage. No gross loss of brown-white differentiation at this time. Skull and face: Partially visualized craniofacial structures are intact. Sinuses: Visualized sinuses and mastoids are clear. IMPRESSION: Similar areas of encephalomalacia as described above. No acute intracranial abnormality apparent on CT. Agree with preliminary report. If there is concern for intracranial metastases, MRI would be more sensitive for evaluation. Dictated by: Chris Reed M.D. on 08/15/2021 at 7:35 Approved by: Chris Reed M.D. on 08/15/2021 at 7:41
[2021-08-15 04:09] VITALS: PULSE 93; O2SAT 94
[2021-08-15] MEDS: ACETAMINOPHEN 325 MG TABLET 650 MG PO (04:16)
[2021-08-15 04:30] VITALS: PULSE 97; O2SAT 96
[2021-08-15 04:45] VITALS: BP 99/74; PULSE 101; O2SAT 96
== END 2021-08-15 05:02 | disposition home or self-care (01) ==
PROVIDERS: Emergency Provider Emergency Medicine; PCP Physician Assistant
DX: R40.4 Transient alteration of awareness (principal); C16.9 Malignant neoplasm of stomach, unspecified; M25.552 Pain in left hip
CPT/HCPCS: 70450; 99283; 99284

== ENCOUNTER 2021-08-29 06:27 | Emergency (ER) | payer MEDICARE, OTHER, SELFPAY ==
[2021-08-29] VITALS (29 sets, daily range): BP systolic 93–120; BP diastolic 58–77; PULSE 83–113; RESP 14–33; TEMP 36.8; O2SAT 90–99; BMI 21.9
--- NOTE | 2021-08-29 06:45 | DI.RAD.S_ITS ---
PROCEDURE: XR CHEST 1V INDICATIONS: flu-like symptoms TECHNIQUE: One view of the chest was acquired. COMPARISON: [facility], CR, XR CHEST 1V, 08/10/2021, 5:09. FINDINGS: Heart size, mediastinum and pulmonary vascular normal. Right upper lobe pulmonary infiltrate has improved in the interval. There is obscuration left hemidiaphragm with blunting the left costophrenic angle. Right pleural space is clear. Left-sided Port-A-Cath in place unchanged. IMPRESSION: Improving right upper lobe pulmonary infiltrate with left basilar atelectasis and infiltrate, stable. Approved by: Eduardo Reeves M.D. on 08/29/2021 at 8:21
[2021-08-29 06:51] LABS: Add Manual Diff / Slide Review NO; Basophils Absolute Auto 0 /uL (0-100); Basophils Percent Auto 0.3 % (0-2); Eosinophils Absolute Auto 0 /uL (0-450); Eosinophils Percent Auto 0.2 % (2-4); Hemoglobin 9.7 g/dL (13.5-17.5); Lymphocytes Absolute Auto 700 /uL (1100-4500); Lymphocytes Percent Auto 5.4 % (25-40); Mean Corpuscular HGB Conc 32.3 % (30-36); Mean Corpuscular Hemoglobin 29.7 PG (26-34); Mean Corpuscular Volume 92.1 fL (80-100); Monocytes Absolute Auto 1000 /uL (0-900); Monocytes Percent Auto 7.8 % (3-14); Neutrophils Absolute Auto 11300 /uL (1500-7000); Neutrophils Percent Auto 86.3 % (50-75); Platelet Count 500 X10^3/uL (150-400); Red Blood Cell Count 3.26 X10^6/uL (4.5-5.9); Red Cell Distribution Width 18.5 % (11.6-14.8); White Blood Cell Count 13.1 X10^3/uL (4.5-11.0)
[2021-08-29 06:58] LABS: D Dimer 347 ng/mL (<230)
--- NOTE | 2021-08-29 06:59 | ED_ITS ---
HPI - SOB/Dyspnea General Chief Complaint: Shortness of Breath/Dyspnea Stated Complaint: covid Time Seen by Provider: 08/29/21 06:45 Source: EMS Mode of arrival: EMS Limitations: no limitations History of Present Illness HPI Narrative: Patient is a 66-year-old male with multiple medical problems including pulmonary fibrosis on steroids, CVA, lupus, hypertension, metastatic gastric cancer to lung liver on chemotherapy presents today with shortness of breath. He tested positive for COVID 2 days ago. He said he was at his [employer] and they tested him. He was doing okay until this morning when he got up and tried walking to the bathroom when he said that he was extremely short of breath. He continues to have cough. He denies fever or chills. He has no chest pain. 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 He was admitted August 10 for sepsis and pneumonia through August 12 discharged home on Levaquin for 3 x-ray days. Related Data Home Medications Medication Instructions Recorded Confirmed ondansetron 8 mg disintegrating 8 mg PO Q8HR PRN 05/10/21 08/10/21 tablet aspirin 81 mg chewable tablet 81 mg PO DAILY 08/10/21 08/10/21 cyanocobalamin (vitamin B-12) 1,000 mcg SUBCUT SEEINSTR 08/10/21 08/10/21 1,000 mcg/mL injection kit lansoprazole 15 mg delayed 15 mg PO DAILY 08/10/21 08/11/21 release,disintegrating tablet levothyroxine 88 mcg tablet 88 mcg PO DAILY 08/10/21 08/10/21 loperamide 1 mg/7.5 mL oral liquid 2 mg SEEINSTR PRN 08/10/21 08/10/21 oxycodone 5 mg/5 mL oral solution 5 mg FEEDING TUBE Q12HR PRN 08/10/21 08/10/21 prednisone 5 mg/5 mL oral solution 15 mg FEEDING TUBE DAILY 08/10/21 08/10/21 Previous Rx's Medication Instructions Recorded albuterol sulfate 90 mcg/actuation 1 puff INHALATION Q4-6H PRN #8.5 10/04/18 aerosol inhaler gram furosemide 20 mg tablet (Lasix) 20 mg PO DAILY #3 tab 06/07/21 rivaroxaban 20 mg tablet 20 mg PO DAILY 30 Days #30 tab 08/12/21 sulfamethoxazole 800 2 tab PO TID 21 Days #126 tab 08/12/21 mg-trimethoprim 160 mg tablet Allergies Allergy/AdvReac Type Severity Reaction Status Date / Time No Known Drug Allergies Allergy Verified 05/10/21 09:10 Review of Systems Review of Systems Narrative: GENERAL: Denies chills, fatigue, malaise, fever, sweats, travel HEENT: Denies sinus pain, ear pain, sore throat, difficulty swallowing, neck pain RESPIRATORY: See HPI CARDIOVASCULAR: Denies chest pain, palpitations, orthopnea, edema GASTROINTESTINAL: Denies nausea, vomiting, abdominal pain, diarrhea, constipation, melena. : Denies dysuria, frequency, incontinence, hematuria, urinary retention, flank pain. MUSCULOSKELETAL: Denies weakness, joint pain, or bony pain SKIN: No rash, no erythema, no pruritus NEUROLOGIC: Denies weakness, dizziness, headache, numbness, change in speech, confusion PSYCHIATRIC: No concerning psychosocial issues. 12 point review of systems is negative except for those stated above and HPI Patient History Medical History Anemia CHF (congestive heart failure) Chronic interstitial lung disease Compression fracture Essential hypertension History of stroke involving cerebellum Lupus Pelvic fracture Surgical History H/O pelvic surgery Family History Father Alcohol abuse Mother Alcohol abuse Brother CVA (cerebral vascular accident) Social History household members: spouse Smoking Status: Never smoker alcohol intake: former Smoking Status: Never smoker alcohol intake frequency: holidays/special occasions only Substance Use Type: marijuana Exam Initial Vital Signs Initial Vital Signs: Vital Signs Pulse Rate 104 H 08/29/21 06:32 Respiratory Rate 23 08/29/21 06:32 Blood Pressure 120/77 08/29/21 06:32 Pulse Oximetry 97 08/29/21 06:32 GENERAL: Thin chronically ill 66-year-old male HEENT: Head atraumatic,EOMI, pupils reactive, face symmetric, [moist] mucous membranes CARDIOVASCULAR: Regular rate and rhythm without murmurs, rubs or gallops. RESPIRATORY: Crackles bilaterally no respiratory distress speaks in full sentences ABDOMEN: Soft, nontender. Normoactive bowel sounds all 4 quadrants. No guarding or rebound. EXTREMITIES: Normal range of motion, no clubbing or edema. Neurovascularly intact NEUROLOGICAL: Alert and oriented x4.Normal gait and speech. SKIN: Warm, dry, no laceration, no petechiae, no rashes or lesions. Course Orders Ordered: ED Orders 08/29/21 12:37 CT angio chest PE protocol Stat Discontinued Medications Furosemide (Furosemide 40 Mg/4 Ml Vial) 40 mg IV NOW ONE Stop: 08/29/21 07:16 Last Admin: 08/29/21 07:36 Dose: 40 mg Documented by: BHAVANA Furosemide (Furosemide 40 Mg/4 Ml Vial) 20 mg IV NOW ONE Stop: 08/29/21 16:22 Last Admin: 08/29/21 16:28 Dose: 20 mg Documented by: BHAVANA Metoprolol Tartrate (Metoprolol Tartrate 5 Mg/5 Ml Inj) 2.5 mg IV NOW ONE Stop: 08/29/21 16:25 Last Admin: 08/29/21 16:29 Dose: 2.5 mg Documented by: BHAVANA Vital Signs Vital signs: Vital Signs - 8 hr 08/29/21 11:30 08/29/21 12:00 08/29/21 12:30 Pulse Rate 113 H 98 H 106 H Respiratory Rate 33 H 25 H 27 H Blood Pressure Pulse Oximetry 93 96 90 L 08/29/21 12:46 08/29/21 13:00 08/29/21 13:30 Pulse Rate 100 H 96 H 96 H Respiratory Rate 24 22 24 Blood Pressure 119/74 94/64 99/59 L Pulse Oximetry 94 95 95 08/29/21 14:00 08/29/21 14:30 08/29/21 15:00 Pulse Rate 95 H 94 H 97 H Respiratory Rate 25 H 24 27 H Blood Pressure 96/66 97/66 96/67 Pulse Oximetry 93 94 94 08/29/21 15:30 08/29/21 16:00 08/29/21 16:17 Pulse Rate 99 H 100 H 100 H Respiratory Rate 27 H 21 33 H Blood Pressure 105/73 93/61 109/58 L Pulse Oximetry 96 97 95 08/29/21 16:30 08/29/21 16:32 08/29/21 16:35 Pulse Rate 100 H 104 H 83 Respiratory Rate 29 H 28 H 18 Blood Pressure 102/58 L 106/73 106/73 Pulse Oximetry 96 95 96 MDM - SOB/Dyspnea Lab Data Result diagrams: 08/29/21 06:35 08/29/21 06:35 Labs: Lab Results 08/29/21 08/29/21 08/29/21 Range/Units 06:35 06:35 06:35 WBC 13.1 H (4.5-11.0) X10^3/uL RBC 3.26 L (4.5-5.9) X10^6/uL Hgb 9.7 L (13.5-17.5) g/dL Hct 30.0 L (41-53) % MCV 92.1 (80-100) fL MCH 29.7 (26-34) PG MCHC 32.3 (30-36) % RDW 18.5 H (11.6-14.8) % Plt Count 500 H (150-400) X10^3/uL Neut % (Auto) 86.3 H (50-75) % Lymph % (Auto) 5.4 L (25-40) % Will % (Auto) 7.8 (3-14) % Eos % (Auto) 0.2 L (2-4) % Baso % (Auto) 0.3 (0-2) % Neut # (Auto) 60053 H (5007-4641) /uL Lymph # (Auto) 700 L (1763-8513) /uL Will # (Auto) 1000 H (0-900) /uL Eos # (Auto) 0 (0-450) /uL Baso # (Auto) 0 (0-100) /uL D-Dimer 347 H (<230) ng/mL Sodium 132 L (137-145) mmol/L Potassium 4.5 (3.4-5.1) mmol/L Chloride 100 (98-107) mmol/L Carbon Dioxide 24 (22-32) mmol/L BUN 24 H (9-20) mg/dL Creatinine 0.68 (0.66-1.25) mg/dL Estimated GFR > 60 (>60) mL/min BUN/Creatinine Ratio 35.3 H (6-22) Glucose 97 (80-110) mg/dL Lactate (0.7-2.1) mmol/L Calcium 8.1 L (8.4-10.2) mg/dL Ferritin 43 (18-464) ng/mL Total Bilirubin 0.2 (0.2-1.3) mg/dL AST 30 (17-59) IU/L ALT 21 (<50) IU/L Alkaline Phosphatase 83 (38-126) U/L Total Creatine Kinase < 20 L (55-170) U/L CK-MB (CK-2) TNP CK-MB (CK-2) Rel Index TNP Troponin I < 0.012 (0.01-0.034) ng/mL C-Reactive Protein 1.0 (<1.0) mg/dL NT-Pro-B Natriuret Pep 4840 H (<125) pg/mL Total Protein 6.9 (6.3-8.2) g/dL Albumin 3.6 (3.5-5.0) g/dL Globulin 3.3 (1.7-4.1) g/dL Albumin/Globulin Ratio 1.1 (1.0-2.8) Procalcitonin 0.13 (<0.5) ng/mL SARS-CoV-2 (PCR) (Negative) 08/29/21 08/29/21 08/29/21 Range/Units 07:27 07:40 07:40 WBC (4.5-11.0) X10^3/uL RBC (4.5-5.9) X10^6/uL Hgb (13.5-17.5) g/dL Hct (41-53) % MCV (80-100) fL MCH (26-34) PG MCHC (30-36) % RDW (11.6-14.8) % Plt Count (150-400) X10^3/uL Neut % (Auto) (50-75) % Lymph % (Auto) (25-40) % Will % (Auto) (3-14) % Eos % (Auto) (2-4) % Baso % (Auto) (0-2) % Neut # (Auto) (3635-7421) /uL Lymph # (Auto) (1777-1707) /uL Will # (Auto) (0-900) /uL Eos # (Auto) (0-450) /uL Baso # (Auto) (0-100) /uL D-Dimer (<230) ng/mL Sodium (137-145) mmol/L Potassium (3.4-5.1) mmol/L Chloride (98-107) mmol/L Carbon Dioxide (22-32) mmol/L BUN (9-20) mg/dL Creatinine (0.66-1.25) mg/dL Estimated GFR (>60) mL/min BUN/Creatinine Ratio (6-22) Glucose (80-110) mg/dL Lactate 1.4 (0.7-2.1) mmol/L Calcium (8.4-10.2) mg/dL Ferritin (18-464) ng/mL Total Bilirubin (0.2-1.3) mg/dL AST (17-59) IU/L ALT (<50) IU/L Alkaline Phosphatase (38-126) U/L Total Creatine Kinase < 20 L (55-170) U/L CK-MB (CK-2) TNP CK-MB (CK-2) Rel Index TNP Troponin I < 0.012 (0.01-0.034) ng/mL C-Reactive Protein (<1.0) mg/dL NT-Pro-B Natriuret Pep (<125) pg/mL Total Protein (6.3-8.2) g/dL Albumin (3.5-5.0) g/dL Globulin (1.7-4.1) g/dL Albumin/Globulin Ratio (1.0-2.8) Procalcitonin (<0.5) ng/mL SARS-CoV-2 (PCR) Negative (Negative) Imaging Data Chest x-ray: Radiologist's Impression: Signed Patient: Az Bowden MR#: [id number] : 1955 Acct:[id number] Age/Sex: 66 / M Date of Service: 08/29/21 Loc: ED Accession Number: [id number] ?? Procedure: XR chest 1V Ordering Provider: Stephen Redd D.O. PROCEDURE:? XR CHEST 1V ? INDICATIONS:? flu-like symptoms ? TECHNIQUE:? One view of the chest was acquired.? ? COMPARISON:? [facility], CR, XR CHEST 1V, 08/10/2021, 5:09. ? FINDINGS: Heart size, mediastinum and pulmonary vascular normal.? Right upper lobe pulmonary infiltrate has improved in the interval.? There is obscuration left hemidiaphragm with blunting the left costophrenic angle.? Right pleural space is clear.? Left-sided Port-A-Cath in place unchanged. ? IMPRESSION:? ? Improving right upper lobe pulmonary infiltrate with left basilar atelectasis and infiltrate, stable. ? ? ? Approved by: Eduardo Reeves M.D. on 08/29/2021 at 8:21? CT scan - chest: Radiologist's Impression: Az Bowden MR#: [id number] : 1955 Acct:[id number] Age/Sex: 66 / M Date of Service: 08/29/21 Loc: ED Accession Number: [id number] ?? Procedure: CT angio chest PE protocol Ordering Provider: Janey Russell D.O. PROCEDURE:? CT ANGIO CHEST PE PROTOCOL ? INDICATIONS:? hypoxia ? TECHNIQUE:? Helical axial CT of the chest was obtained after intravenous contrast injection utilizing an angiographic technique and reformatted in multiple planes.? Radiation dose reduction was achieved utilizing automated exposure control and/or parameter adjustment according to patient's size. ? COMPARISON:? [facility], CT, CT ANGIO CHEST PE PROTOCOL, 08/10/2021, 6:24. ? FINDINGS:? Image quality:? Excellent ? Pulmonary arteries:? Pulmonary arteries are normal in size, and demonstrate no intraluminal filling defects to suggest central pulmonary embolism.? ? Lungs and pleura:? Bullous emphysematous changes noted involving the pulmonary parenchyma, stable from the prior.? Ground-glass and fibrotic change noted in the right lower lobe with probable peripheral honeycombing noted in the periphery.? Calcified pleural plaquing noted over the base of the right lung ? Mediastinum:? Heart size is normal, without pericardial effusion.? No mediastinal or hilar adenopathy.? Thoracic aorta is normal in caliber and enhancement.? Esophagus is normal in caliber, without hiatal hernia.? ? Bones and chest wall:? No suspicious bony lesions.? Ribs and thoracic spine appear intact throughout.? Thyroid gland unremarkable.? No axillary or supraclavicular adenopathy.? Left-sided Port-A-Cath in place.? Vertebral body height loss in the midthoracic spine remains unchanged from the prior exam. ? Abdomen: ? A subtle left hepatic subcentimeter hypodensity is again noted.? ? IMPRESSION:? ? 1. No evidence of pulmonary embolism, aortic dissection or aneurysm. ? 2. Chronic emphysematous changes both lungs with peripheral honeycombing at the lung bases and calcified pleural plaquing is stable.? Right lower lobe ground-glass density may be infectious or inflammatory.? Previous infiltrate has resolved. ? 3. Subtle subcentimeter hypodense focus in the left lobe of the liver.? Follow- up hepatic protocol MR or CT recommended? Approved by: Eduardo Reeves M.D. on 08/29/2021 at 13:19? ECG Data Interpretation: [place]em[place] sinus rhythm rate 96 MDM Narrative Medical decision making narrative: Patient actually does not have COVID today. He is found have an elevated BNP with history of congestive heart failure. He is given a dose of Lasix 40 mg he urinated. He is on Lasix 20 mg at. Attempted ambulation trial he got severely dyspneic and short of breath but O2 remained id 94%. He is on Xarelto, D-dimer today is lower than it was previously. Although he was just admitted for pneumonia able do CT for PE. CT Pe is negative. The patient is in bigeminy frequently in the ED. he urinated almost 2 L after the Lasix. Repeat ambulation trial he felt better but still elevated heart rate but not hypoxic necessary early. The patient overall feels better he is noted to be in bigeminy given 2.5 mg of Lopressor. It does seem to help pressure remains stable. Patient Really wants to go home. At this time will treat for CHF exacerbation. Instructed him to increase his Lasix to twice a day for 3 days Discharge Plan Departure Patient Disposition: Home Clinical Impression: CHF (congestive heart failure) Instructions: Heart Failure Activity Restrictions/Additional Instructions: *You have been diagnosed with CHF exacerbation *What to do: Please take it easy. Monitor breathing and oxygen. *Continue to take medications as directed Lasix 20 mg twice a day once in the morning when he 1st wakes up in once in the afternoon around 1:00 p.m. *Follow up with your primary care provider in 2-3 days or call [phone] *Return to ER if you should have monitor oxygen, oxygen is less than 91% return to ED, increased confusion, increased chest pain or palpitations or any new, worsening or concerning symptoms Prescriptions: No Action albuterol sulfate 90 mcg/actuation HFA aerosol inhaler 1 puff INHALATION Q4-6H PRN (Reason: shortness of breath or wheezing) Qty: 8.5 0RF furosemide [Lasix] 20 mg tablet 20 mg PO DAILY Qty: 3 0RF ondansetron 8 mg Tablet,Disintegrating 8 mg PO Q8HR PRN (Reason: Nausea or vomiting) 0RF oxycodone 5 mg/5 mL solution 5 mg feeding tube Q12HR PRN (Reason: pain) 0RF levothyroxine 88 mcg Tablet 88 mcg PO DAILY 0RF prednisone 5 mg/5 mL solution 15 mg feeding tube DAILY 0RF lansoprazole 15 mg tablet,disintegrat, delay rel 15 mg PO DAILY 0RF Label Comments: DISSOLVE ON TOP OF TONGUE 1 TABLET (15 MG TOTAL) BY MOUTH DAILY cyanocobalamin (vitamin B-12) 1,000 mcg/mL Kit 1,000 mcg SUBCUT SEEINSTR 0RF Rx Instructions: every 2 weeks aspirin 81 mg Tablet,Chewable 81 mg PO DAILY 0RF loperamide 1 mg/7.5 mL liquid 2 mg SEEINSTR PRN (Reason: see instructions) 0RF Label Comments: GIVE 15 ML BY G-TUBE NEEDED TWICE A DAY 10 DAYS 4 sulfamethoxazole-trimethoprim 800-160 mg Tablet 2 tab PO TID 21 Days Qty: 126 0RF rivaroxaban 20 mg tablet 20 mg PO DAILY 30 Days Qty: 30 0RF Rx Instructions: must administer with evening meal Referrals: Az Salazar PA-C [Primary Care Provider] -
[2021-08-29 07:02] LABS: Alanine Aminotransferase 21 IU/L (<50); Albumin 3.6 g/dL (3.5-5.0); Albumin Globulin Ratio 1.1 (1.0-2.8); Alkaline Phosphatase 83 U/L (38-126); Aspartate Aminotransferase 30 IU/L (17-59); BUN Creatinine Ratio 35.3 (6-22); Bilirubin Total 0.2 mg/dL (0.2-1.3); Blood Urea Nitrogen 24 mg/dL (9-20); Calcium 8.1 mg/dL (8.4-10.2); Carbon Dioxide 24 mmol/L (22-32); Chloride 100 mmol/L (98-107); Creatine Kinase < 20 U/L (55-170); Estimated Glomerular Filt Rate > 60 mL/min (>60); Globulin 3.3 g/dL (1.7-4.1); Glucose 97 mg/dL (80-110); HEMOLYSIS 17 (0-50); Potassium 4.5 mmol/L (3.4-5.1); Sodium 132 mmol/L (137-145); Total Protein 6.9 g/dL (6.3-8.2)
[2021-08-29 07:12] LABS: NT-proBNP (BNP-Adult 18+) 4840 pg/mL (<125); Troponin I < 0.012 ng/mL (0.01-0.034)
[2021-08-29 07:17] LABS: Procalcitonin 0.13 ng/mL (<0.5)
[2021-08-29 07:35] LABS: Ferritin 43 ng/mL (18-464)
[2021-08-29] MEDS: FUROSEMIDE 40 MG/4 ML VIAL IV (07:36)
[2021-08-29 07:50] LABS: COVID19 -Nasal RAPID Negative (Negative)
[2021-08-29 08:08] LABS: Creatine Kinase < 20 U/L (55-170); Lactate (Lactic Acid) 1.4 mmol/L (0.7-2.1)
[2021-08-29 08:21] LABS: Troponin I < 0.012 ng/mL (0.01-0.034)
--- NOTE | 2021-08-29 09:25 | PC.NURSE ---
patient ambulated 5 ft and became tachypneac at 28 RPM with an 02 sat of 94% on RA.
--- NOTE | 2021-08-29 12:37 | DI.CT.S_ITS ---
PROCEDURE: CT ANGIO CHEST PE PROTOCOL INDICATIONS: hypoxia TECHNIQUE: Helical axial CT of the chest was obtained after intravenous contrast injection utilizing an angiographic technique and reformatted in multiple planes. Radiation dose reduction was achieved utilizing automated exposure control and/or parameter adjustment according to patient's size. COMPARISON: [facility], CT, CT ANGIO CHEST PE PROTOCOL, 08/10/2021, 6:24. FINDINGS: Image quality: Excellent Pulmonary arteries: Pulmonary arteries are normal in size, and demonstrate no intraluminal filling defects to suggest central pulmonary embolism. Lungs and pleura: Bullous emphysematous changes noted involving the pulmonary parenchyma, stable from the prior. Ground-glass and fibrotic change noted in the right lower lobe with probable peripheral honeycombing noted in the periphery. Calcified pleural plaquing noted over the base of the right lung Mediastinum: Heart size is normal, without pericardial effusion. No mediastinal or hilar adenopathy. Thoracic aorta is normal in caliber and enhancement. Esophagus is normal in caliber, without hiatal hernia. Bones and chest wall: No suspicious bony lesions. Ribs and thoracic spine appear intact throughout. Thyroid gland unremarkable. No axillary or supraclavicular adenopathy. Left-sided Port-A-Cath in place. Vertebral body height loss in the midthoracic spine remains unchanged from the prior exam. Abdomen: A subtle left hepatic subcentimeter hypodensity is again noted. IMPRESSION: 1. No evidence of pulmonary embolism, aortic dissection or aneurysm. 2. Chronic emphysematous changes both lungs with peripheral honeycombing at the lung bases and calcified pleural plaquing is stable. Right lower lobe ground-glass density may be infectious or inflammatory. Previous infiltrate has resolved. 3. Subtle subcentimeter hypodense focus in the left lobe of the liver. Follow-up hepatic protocol MR or CT recommended Approved by: Eduardo Reeves M.D. on 08/29/2021 at 13:19
[2021-08-29] MEDS: FUROSEMIDE 40 MG/4 ML VIAL 20 MG IV (16:28)
[2021-08-29] MEDS: METOPROLOL TARTRATE 5 MG/5 ML INJ 2.5 MG IV (16:29)
== END 2021-08-29 17:51 | disposition home or self-care (01) ==
PROVIDERS: Emergency Medicine; Emergency Provider Emergency Medicine; PCP Physician Assistant
DX: I50.9 Heart failure, unspecified (principal); R06.02 Shortness of breath; R79.89 Other specified abnormal findings of blood chemistry; Z79.01 Long term (current) use of anticoagulants; Z20.822 Contact with and (suspected) exposure to COVID-19
CPT/HCPCS: 36415; 71045; 71275; 80053; 82550; 82728; 83605; 83880; 84145; 84484; 85025; 85379; 86140; 87040; 87635; 93005; 93010; 96374; 96375; 96376; 99284; C9803; J1940

== ENCOUNTER 2021-09-09 08:33 | Emergency (ER) | payer MEDICARE, OTHER, SELFPAY ==
[2021-09-09 08:33] VITALS: BP 112/79; PULSE 100; RESP 18; TEMP 36.2; O2SAT 97; BMI 19.8
--- NOTE | 2021-09-09 08:44 | ED_ITS ---
HPI - Recheck/Abnormal Lab/Rx General Chief Complaint: Recheck/Abnormal Lab/Rx Stated Complaint: Feeding tube came out Time Seen by Provider: 09/09/21 08:44 Source: patient Mode of arrival: Ambulatory Limitations: no limitations History of Present Illness HPI narrative: This is a 66-year-old male with a PEG tube in place after prior stroke. Patient is unable to swallow so did his feeds through his PEG tube. It developed 2 days ago. He his replaced it. He has given himself 2 feeds through without issue. He has not had any increased pain, no redness, no drainage that is new or different. Patient went to his primary care who wished to have the placement checked. Patient denies fevers or chills. No nausea or vomiting. No chest pain or shortness of breath. No belly pain. He has had normal bowel movement. He has not had any difficulty giving his feeds. No issues with urination. He follows with primary care at the [facility]. Related Data Home Medications Medication Instructions Recorded Confirmed ondansetron 8 mg disintegrating 8 mg PO Q8HR PRN 05/10/21 08/10/21 tablet aspirin 81 mg chewable tablet 81 mg PO DAILY 08/10/21 08/10/21 cyanocobalamin (vitamin B-12) 1,000 mcg SUBCUT SEEINSTR 08/10/21 08/10/21 1,000 mcg/mL injection kit lansoprazole 15 mg delayed 15 mg PO DAILY 08/10/21 08/11/21 release,disintegrating tablet levothyroxine 88 mcg tablet 88 mcg PO DAILY 08/10/21 08/10/21 loperamide 1 mg/7.5 mL oral liquid 2 mg SEEINSTR PRN 08/10/21 08/10/21 oxycodone 5 mg/5 mL oral solution 5 mg FEEDING TUBE Q12HR PRN 08/10/21 08/10/21 prednisone 5 mg/5 mL oral solution 15 mg FEEDING TUBE DAILY 08/10/21 08/10/21 Previous Rx's Medication Instructions Recorded albuterol sulfate 90 mcg/actuation 1 puff INHALATION Q4-6H PRN #8.5 10/04/18 aerosol inhaler gram furosemide 20 mg tablet (Lasix) 20 mg PO DAILY #3 tab 06/07/21 rivaroxaban 20 mg tablet 20 mg PO DAILY 30 Days #30 tab 08/12/21 Allergies Allergy/AdvReac Type Severity Reaction Status Date / Time No Known Drug Allergies Allergy Verified 05/10/21 09:10 Review of Systems Review of Systems ROS Unobtainable: All systems reviewed & are unremarkable except as noted in HPI and below Patient History Medical History Anemia CHF (congestive heart failure) Chronic interstitial lung disease Compression fracture Essential hypertension History of stroke involving cerebellum Lupus Pelvic fracture Surgical History H/O pelvic surgery Family History Father Alcohol abuse Mother Alcohol abuse Brother CVA (cerebral vascular accident) Social History household members: spouse Smoking Status: Never smoker alcohol intake: former Smoking Status: Never smoker alcohol intake frequency: holidays/special occasions only Substance Use Type: marijuana Exam Narrative Exam Narrative: GENERAL: Alert and oriented x three, male in mild distress. HEENT: Head normocephalic, atraumatic, EOMI, pupils reactive, face symmetric, moist mucous membranes NECK: Supple, full range of motion CARDIOVASCULAR: Regular rate and rhythm without murmurs, rubs or gallops. RESPIRATORY: Breath sounds equal bilaterally, no wheezes rales or rhonchi. ABDOMEN: Soft, nontender. Normoactive bowel sounds all 4 quadrants. No guarding or rebound, rigidity, no mass. Patient has PEG tube placed on the left mid abdomen lateral to the umbilicus. Area appears clean dry and intact. Peg tube appears to be in place. There is a small amount of gastric contents within the tube. There is no discharge surrounding the site, no erythema or other skin changes. : No CVA tenderness EXTREMITIES: Normal range of motion, no clubbing or edema. Neurovascularly intact NEUROLOGICAL: Cranial nerves II through XII grossly intact. Moving all extremities SKIN: Warm, dry, no petechiae, no rashes or lesions. Initial Vital Signs Initial Vital Signs: Vital Signs Temperature 97.1 F L 09/09/21 08:33 Pulse Rate 100 H 09/09/21 08:33 Respiratory Rate 18 09/09/21 08:33 Blood Pressure 112/79 09/09/21 08:33 Pulse Oximetry 97 09/09/21 08:33 Course Orders Ordered: ED Orders 09/09/21 08:52 XR abdomen 1V Stat Vital Signs Vital signs: Vital Signs - 8 hr 09/09/21 08:33 09/09/21 08:47 Temperature 97.1 F L Pulse Rate 100 H 92 H Respiratory Rate 18 18 Blood Pressure 112/79 112/79 Pulse Oximetry 97 97 MDM - Recheck/Abnormal Lab/Rx Imaging Data Abdominal x-ray: Radiologist's Impression: [address] [address] XRay Report Signed Patient: Az Bowden MR#: [id number] : 1955 Acct:[id number] Age/Sex: 66 / M Date of Service: 09/09/21 Loc: ED Accession Number: [id number] ?? Procedure: XR abdomen 1V Ordering Provider: Maureen Monsivais D.O. PROCEDURE:? XR ABDOMEN 1V ? INDICATIONS:? peg tube placement ? TECHNIQUE:? One view of the abdomen acquired.? ? COMPARISON:? [facility], CT, CT ABDOMEN PELVIS W CON, 01/06/2021, 20:49.? [facility], CT, CT ANGIO CHEST PE PROTOCOL, 08/29/2021, 12:34.? [facility], CR, XR ABDOMEN MIN 2V, 12/06/2020, 12:54. ? FINDINGS:? ? Surgical changes and devices:? There is a left upper jejunostomy tube seen.? The injected contrast can be seen lumen extraluminal contrast seen right acetabular plate and screw fixation can be seen. ? Bowel:? Bowel gas pattern is normal.? ? Soft tissues:? No suspicious abdominal calcifications.? Visualized solid organ contours appear normal in size.? ? Bones:? No suspicious bony lesions.? ? ? IMPRESSION:? Intraluminal placement jejunostomy tube confirmed. ? ? Dictated by: Uriel Silver M.D. on 09/09/2021 at 8:13 ? ? Approved by: Uriel Silver M.D. on 09/09/2021 at 8:15?? MDM Narrative Medical decision making narrative: This is a 66-year-old male who states his feeding tube has slipped out. He and his replaced at home 2 days ago they have been using without issue it appears intact with no complications appreciated. Patient was sent by primary care's they were concerned about placement. Imaging was performed with Gastrografin and patient pick tube appears confirmed in place. Return precautions discussed all questions answered. Discharge Plan Departure Patient Disposition: Home Clinical Impression: S/P percutaneous endoscopic gastrostomy (PEG) tube placement Activity Restrictions/Additional Instructions: Your feeding tube does appear to be in place on imaging with gastrograffin confirming placement. You may continue to use your feeding tube as you normally do. If you are having fevers, pain, difficulty using or 2, signs of blockages if it falls out is not easily replace or your having any other complications please return to the emergency department. Prescriptions: No Action albuterol sulfate 90 mcg/actuation HFA aerosol inhaler 1 puff INHALATION Q4-6H PRN (Reason: shortness of breath or wheezing) Qty: 8.5 0RF furosemide [Lasix] 20 mg tablet 20 mg PO DAILY Qty: 3 0RF ondansetron 8 mg Tablet,Disintegrating 8 mg PO Q8HR PRN (Reason: Nausea or vomiting) 0RF oxycodone 5 mg/5 mL solution 5 mg feeding tube Q12HR PRN (Reason: pain) 0RF levothyroxine 88 mcg Tablet 88 mcg PO DAILY 0RF prednisone 5 mg/5 mL solution 15 mg feeding tube DAILY 0RF lansoprazole 15 mg tablet,disintegrat, delay rel 15 mg PO DAILY 0RF Label Comments: DISSOLVE ON TOP OF TONGUE 1 TABLET (15 MG TOTAL) BY MOUTH DAILY cyanocobalamin (vitamin B-12) 1,000 mcg/mL Kit 1,000 mcg SUBCUT SEEINSTR 0RF Rx Instructions: every 2 weeks aspirin 81 mg Tablet,Chewable 81 mg PO DAILY 0RF loperamide 1 mg/7.5 mL liquid 2 mg SEEINSTR PRN (Reason: see instructions) 0RF Label Comments: GIVE 15 ML BY G-TUBE NEEDED TWICE A DAY 10 DAYS 4 rivaroxaban 20 mg tablet 20 mg PO DAILY 30 Days Qty: 30 0RF Rx Instructions: must administer with evening meal Referrals: Az Salazar PA-C [Primary Care Provider] -
[2021-09-09 08:47] VITALS: BP 112/79; PULSE 92; RESP 18; O2SAT 97
--- NOTE | 2021-09-09 08:52 | DI.RAD.S_ITS ---
PROCEDURE: XR ABDOMEN 1V INDICATIONS: peg tube placement TECHNIQUE: One view of the abdomen acquired. COMPARISON: [facility], CT, CT ABDOMEN PELVIS W CON, 01/06/2021, 20:49. [facility], CT, CT ANGIO CHEST PE PROTOCOL, 08/29/2021, 12:34. [facility], CR, XR ABDOMEN MIN 2V, 12/06/2020, 12:54. FINDINGS: Surgical changes and devices: There is a left upper jejunostomy tube seen. The injected contrast can be seen lumen extraluminal contrast seen right acetabular plate and screw fixation can be seen. Bowel: Bowel gas pattern is normal. Soft tissues: No suspicious abdominal calcifications. Visualized solid organ contours appear normal in size. Bones: No suspicious bony lesions. IMPRESSION: Intraluminal placement jejunostomy tube confirmed. Dictated by: Uriel Silver M.D. on 09/09/2021 at 8:13 Approved by: Uriel Silver M.D. on 09/09/2021 at 8:15
[2021-09-09 09:00] VITALS: BP 110/81; PULSE 92; O2SAT 97
[2021-09-09 09:30] VITALS: BP 112/74; PULSE 88; O2SAT 97
== END 2021-09-09 10:04 | disposition home or self-care (01) ==
PROVIDERS: Emergency Provider Emergency Medicine; PCP Physician Assistant
DX: T85.528A Displacement of other gastrointestinal prosthetic devices, implants and grafts, initial encounter (principal); I69.391 Dysphagia following cerebral infarction
CPT/HCPCS: 43762; 74018; 99283

== ENCOUNTER 2021-10-18 16:53 | Emergency (ER) | payer MEDICARE, OTHER, SELFPAY ==
[2021-10-18] VITALS (8 sets, daily range): BP systolic 101–136; BP diastolic 68–80; PULSE 93–112; RESP 20–29; TEMP 37.3; O2SAT 91–98; BMI 19.9
--- NOTE | 2021-10-18 17:27 | DI.RAD.S_ITS ---
PROCEDURE: XR CHEST 1V INDICATIONS: shortness of breath TECHNIQUE: One view of the chest was acquired. COMPARISON: [facility], CR, XR CHEST 1V, 08/29/2021, 7:09. FINDINGS: Surgical changes and devices: None. Lungs and pleura: Interstitial opacities in the mid lungs and lung bases stable compared to prior exam. No pleural effusions or pneumothorax. Mediastinum: Mediastinal contours appear normal. Heart size is normal. Bones and chest wall: No suspicious bony lesions. Overlying soft tissues appear unremarkable. IMPRESSION: Stable bilateral lung interstitial opacities which could represent pulmonary edema or atypical pneumonia. Dictated by: Justyna Becerril MD, PhD on 10/18/2021 at 18:03 Approved by: Justyna Becerril MD, PhD on 10/18/2021 at 18:04
[2021-10-18 18:09] LABS: COVID19 -Nasal RAPID Negative (Negative)
[2021-10-18 18:36] LABS: Appearance Urine UA CLEAR; Bilirubin Urine UA NEGATIVE (NEGATIVE); Color Urine UA YELLOW; Glucose Urine UA NEGATIVE (Negative); Ketones Urine UA NEGATIVE (NEGATIVE); Leukocyte Esterase Urine UA NEGATIVE (NEGATIVE); Nitrite Urine UA NEGATIVE (Negative); Occult Blood Urine UA NEGATIVE (Negative); Protein Urine UA 1+ (Negative); pH Urine UA 7.5 (4.5-8.0)
[2021-10-18 18:37] LABS: Add Manual Diff / Slide Review NO; Basophils Absolute Auto 0 /uL (0-100); Basophils Percent Auto 0.4 % (0-2); Eosinophils Absolute Auto 0 /uL (0-450); Hematocrit 28.4 % (41-53); Hemoglobin 9.1 g/dL (13.5-17.5); Lymphocytes Absolute Auto 300 /uL (1100-4500); Lymphocytes Percent Auto 2.9 % (25-40); Mean Corpuscular HGB Conc 32.1 % (30-36); Mean Corpuscular Hemoglobin 27.4 PG (26-34); Mean Corpuscular Volume 85.4 fL (80-100); Monocytes Absolute Auto 200 /uL (0-900); Monocytes Percent Auto 1.6 % (3-14); Neutrophils Absolute Auto 10400 /uL (1500-7000); Neutrophils Percent Auto 95.1 % (50-75); Platelet Count 467 X10^3/uL (150-400); Red Blood Cell Count 3.33 X10^6/uL (4.5-5.9); Red Cell Distribution Width 16.8 % (11.6-14.8); White Blood Cell Count 10.9 X10^3/uL (4.5-11.0)
[2021-10-18 18:45] LABS: Creatine Kinase 23 U/L (55-170)
[2021-10-18 18:46] LABS: Lactate (Lactic Acid) 1.8 mmol/L (0.7-2.1)
[2021-10-18 18:58] LABS: NT-proBNP (BNP-Adult 18+) 1510 pg/mL (<125); Troponin I < 0.012 ng/mL (0.01-0.034)
[2021-10-18 18:59] LABS: Alanine Aminotransferase 17 IU/L (<50); Albumin 3.9 g/dL (3.5-5.0); Albumin Globulin Ratio 1.1 (1.0-2.8); Alkaline Phosphatase 100 U/L (38-126); Aspartate Aminotransferase 30 IU/L (17-59); BUN Creatinine Ratio 16.7 (6-22); Bilirubin Total 0.6 mg/dL (0.2-1.3); Blood Urea Nitrogen 10 mg/dL (9-20); Calcium 8.8 mg/dL (8.4-10.2); Carbon Dioxide 31 mmol/L (22-32); Chloride 102 mmol/L (98-107); Estimated Glomerular Filt Rate > 60 mL/min (>60); Globulin 3.4 g/dL (1.7-4.1); Glucose 123 mg/dL (80-110); HEMOLYSIS < 15 (0-50); Potassium 4.1 mmol/L (3.4-5.1); Sodium 139 mmol/L (137-145); Total Protein 7.3 g/dL (6.3-8.2)
[2021-10-18 18:59] LABS: Bacteria Urine Occasional (0-1); Culture Indicated Urine Cult Not Indicated; RBC Urine None Seen (0-5/HPF); Squamous Epithelial Cell Urine 0-1 /HPF (0-5/HPF); WBC Urine 0-1/HPF (0-5/HPF)
--- NOTE | 2021-10-18 19:05 | PC.NURSE ---
Pt states it's been a few months since my last chemo tx. Uncertain if I will continue with CA tx. States the power port has not been accessed in a few mos. 20g IV placed R-AC
--- NOTE | 2021-10-18 19:31 | ED.GENADULT ---
HPI - General Adult General Chief complaint: Shortness of Breath/Dyspnea Stated complaint: SOA/ Weakness Time Seen by Provider: 10/18/21 17:28 Source: patient and EMS Mode of arrival: EMS History of Present Illness HPI narrative: Patient is a 66-year-old male. I evaluated him here in the emergency department approximately 6 weeks ago for very similar symptoms that brought him to the emergency department today. He does have a history of gastric cancer. Is currently undergoing chemotherapy. This evening he was lying in bed watching a baseball game when he states that he suddenly started having shaking of his left hand. He yelled out who his stating that he thought something was wrong in the next thing that he realized there were individual standing over top of him. This is very similar symptoms to what happened to him approximately 6 weeks ago. At that time when I evaluated him there was some concern about potential seizure-like activity. The patient has never had seizures in the past. Today the patient's states that she went into the room and found that he was unresponsive. He was having problems breathing. There was no loss of bowel or bladder control. His states he was very tense all over his body. She thought that the entire event lasted approximately 5 minutes. She stated that he was confused afterwards. She contacted EMS. Initially the patient was reluctant to come in to be evaluated but then thought that maybe he should. Here in the emergency department he states he is just sore all over otherwise no specific complaints. He is currently on antibiotics for treatment of pneumonia. Related Data Home Medications Medication Instructions Recorded Confirmed ondansetron 8 mg disintegrating 8 mg PO Q8HR PRN Nausea or vomiting 05/10/21 08/10/21 tablet aspirin 81 mg chewable tablet 81 mg PO DAILY 08/10/21 08/10/21 cyanocobalamin (vitamin B-12) 1,000 mcg SUBCUT SEEINSTR 08/10/21 08/10/21 1,000 mcg/mL injection kit lansoprazole 15 mg delayed 15 mg PO DAILY 08/10/21 08/11/21 release,disintegrating tablet levothyroxine 88 mcg tablet 88 mcg PO DAILY 08/10/21 08/10/21 loperamide 1 mg/7.5 mL oral liquid 2 mg SEEINSTR PRN see instructions 08/10/21 08/10/21 oxycodone 5 mg/5 mL oral solution 5 mg feeding tube Q12HR PRN pain 08/10/21 08/10/21 prednisone 5 mg/5 mL oral solution 15 mg feeding tube DAILY 08/10/21 08/10/21 Previous Rx's Medication Instructions Recorded albuterol sulfate 90 mcg/actuation 1 puff inhalation Q4-6H PRN 10/04/18 aerosol inhaler shortness of breath or wheezing #8.5 grams furosemide 20 mg tablet (Lasix) 20 mg PO DAILY #3 tabs 06/07/21 levetiracetam 500 mg tablet 500 mg PO BID #60 tabs 10/18/21 (Keppra) Allergies Allergy/AdvReac Type Severity Reaction Status Date / Time No Known Drug Allergies Allergy Verified 05/10/21 09:10 Review of Systems Review of Systems ROS Unobtainable: All systems reviewed & are unremarkable except as noted in HPI and below Patient History Medical History Anemia CHF (congestive heart failure) Chronic interstitial lung disease Compression fracture Essential hypertension History of stroke involving cerebellum Lupus Pelvic fracture Surgical History H/O pelvic surgery Family History Father Alcohol abuse Mother Alcohol abuse Brother CVA (cerebral vascular accident) Social History household members: spouse Smoking Status: Never smoker alcohol intake: former Smoking Status: Never smoker alcohol intake frequency: holidays/special occasions only Substance Use Type: marijuana Exam Initial Vital Signs Initial Vital Signs: Vital Signs Pulse Rate 107 H 10/18/21 16:57 Blood Pressure 136/77 10/18/21 16:57 Pulse Oximetry 91 10/18/21 16:57 Oxygen Delivery Method 10/18/21 16:57 Const General: cooperative and comfortable HENMT Head: normal to inspection and normocephalic Mouth: oral mucosae normal Resp Effort & Inspection: normal respiratory effort Auscultation: clear to auscultation bilaterally Cardio Rate: regular rate Rhythm: regular rhythm Skin General: no rashes or lesions noted Neuro General: patient alert, patient awake, patient oriented x3 and moves all extremities Cognition: normal cognition Speech: speech normal Extrem General: normal to inspection and capillary refill normal Psych Appearance: grossly normal and well kempt Course Orders Ordered: ED Orders 10/18/21 17:27 XR chest 1V Stat EKG-12 Lead Stat Measure peak expiratory flow ONCE RT Consult Eval and Treat Now 10/18/21 17:35 COVID19 -Nasal RAPID/Pre-Proc Stat 10/18/21 18:24 BNP [NT-proBNP (BNP-Adult 18+)] Stat Complete Blood Count AUTO DIFF Stat Comprehensive Metabolic Panel Stat Lactate (Lactic Acid) Stat Troponin & CK Cardiac Panel Stat 10/18/21 18:25 Urinalysis and Microscopic Stat Discontinued Medications Levetiracetam (Levetiracetam 250 Mg Tablet) 1,000 mg PO NOW ONE Stop: 10/18/21 19:32 Last Admin: 10/18/21 20:04 Dose: 1,000 mg Documented By: VALERY Vital Signs Vital signs: Vital Signs - 8 hr 10/18/21 18:55 10/18/21 19:00 10/18/21 19:01 Pulse Rate 93 H 96 H 110 H Respiratory Rate 22 21 22 Blood Pressure Pulse Oximetry 98 98 97 10/18/21 19:01 10/18/21 19:30 10/18/21 19:30 Pulse Rate 95 H Respiratory Rate 29 H Blood Pressure 101/69 117/75 Pulse Oximetry 98 10/18/21 20:00 10/18/21 20:00 Pulse Rate 95 H Respiratory Rate 21 Blood Pressure 101/68 Pulse Oximetry 97 Medical Decision Making Lab Data Lab results reviewed: Yes I reviewed the patient's lab results. Result diagrams: 10/18/21 18:24 10/18/21 18:24 Labs: Lab Results 10/18/21 10/18/21 10/18/21 Range/Units 17:35 18:24 18:24 WBC 10.9 (4.5-11.0) X10^3/uL RBC 3.33 L (4.5-5.9) X10^6/uL Hgb 9.1 L (13.5-17.5) g/dL Hct 28.4 L (41-53) % MCV 85.4 (80-100) fL MCH 27.4 (26-34) PG MCHC 32.1 (30-36) % RDW 16.8 H (11.6-14.8) % Plt Count 467 H (150-400) X10^3/uL Neut % (Auto) 95.1 H (50-75) % Lymph % (Auto) 2.9 L (25-40) % [place] % (Auto) 1.6 L (3-14) % Eos % (Auto) 0.0 L (2-4) % Baso % (Auto) 0.4 (0-2) % Neut # (Auto) 56506 H (6456-4106) /uL Lymph # (Auto) 300 L (0468-7753) /uL [place] # (Auto) 200 (0-900) /uL Eos # (Auto) 0 (0-450) /uL Baso # (Auto) 0 (0-100) /uL Sodium 139 (137-145) mmol/L Potassium 4.1 (3.4-5.1) mmol/L Chloride 102 (98-107) mmol/L Carbon Dioxide 31 (22-32) mmol/L BUN 10 (9-20) mg/dL Creatinine 0.60 L (0.66-1.25) mg/dL Estimated GFR > 60 (>60) mL/min BUN/Creatinine Ratio 16.7 (6-22) Glucose 123 H (80-110) mg/dL Lactate (0.7-2.1) mmol/L Calcium 8.8 (8.4-10.2) mg/dL Total Bilirubin 0.6 (0.2-1.3) mg/dL AST 30 (17-59) IU/L ALT 17 (<50) IU/L Alkaline Phosphatase 100 (38-126) U/L Total Creatine Kinase (55-170) U/L CK-MB (CK-2) CK-MB (CK-2) Rel Index Troponin I (0.01-0.034) ng/mL NT-Pro-B Natriuret Pep (<125) pg/mL Total Protein 7.3 (6.3-8.2) g/dL Albumin 3.9 (3.5-5.0) g/dL Globulin 3.4 (1.7-4.1) g/dL Albumin/Globulin Ratio 1.1 (1.0-2.8) Urine Color Urine Appearance Urine pH (4.5-8.0) Ur Specific [place] (1.000-1.035) Urine Protein (Negative) Urine Glucose (UA) (Negative) g/dL Urine Ketones (NEGATIVE) Urine Occult Blood (Negative) Urine Nitrate (Negative) Urine Bilirubin (NEGATIVE) Urine Urobilinogen (0.2) E.U./dL Ur Leukocyte Esterase (NEGATIVE) Urine RBC (0-5/HPF) Urine WBC (0-5/HPF) Ur Squamous Epith Cells (0-5/HPF) Urine Bacteria (None) Ur Culture Indicated? SARS-CoV-2 (PCR) Negative (Negative) 10/18/21 10/18/21 10/18/21 Range/Units 18:24 18:24 18:25 WBC (4.5-11.0) X10^3/uL RBC (4.5-5.9) X10^6/uL Hgb (13.5-17.5) g/dL Hct (41-53) % MCV (80-100) fL MCH (26-34) PG MCHC (30-36) % RDW (11.6-14.8) % Plt Count (150-400) X10^3/uL Neut % (Auto) (50-75) % Lymph % (Auto) (25-40) % [place] % (Auto) (3-14) % Eos % (Auto) (2-4) % Baso % (Auto) (0-2) % Neut # (Auto) (6374-1180) /uL Lymph # (Auto) (3243-9484) /uL [place] # (Auto) (0-900) /uL Eos # (Auto) (0-450) /uL Baso # (Auto) (0-100) /uL Sodium (137-145) mmol/L Potassium (3.4-5.1) mmol/L Chloride (98-107) mmol/L Carbon Dioxide (22-32) mmol/L BUN (9-20) mg/dL Creatinine (0.66-1.25) mg/dL Estimated GFR (>60) mL/min BUN/Creatinine Ratio (6-22) Glucose (80-110) mg/dL Lactate 1.8 (0.7-2.1) mmol/L Calcium (8.4-10.2) mg/dL Total Bilirubin (0.2-1.3) mg/dL AST (17-59) IU/L ALT (<50) IU/L Alkaline Phosphatase (38-126) U/L Total Creatine Kinase 23 L (55-170) U/L CK-MB (CK-2) TNP CK-MB (CK-2) Rel Index TNP Troponin I < 0.012 (0.01-0.034) ng/mL NT-Pro-B Natriuret Pep 1510 H (<125) pg/mL Total Protein (6.3-8.2) g/dL Albumin (3.5-5.0) g/dL Globulin (1.7-4.1) g/dL Albumin/Globulin Ratio (1.0-2.8) Urine Color Yellow Urine Appearance Clear Urine pH 7.5 (4.5-8.0) Ur Specific [place] 1.010 (1.000-1.035) Urine Protein 1+ H (Negative) Urine Glucose (UA) Negative (Negative) g/dL Urine Ketones Negative (NEGATIVE) Urine Occult Blood Negative (Negative) Urine Nitrate Negative (Negative) Urine Bilirubin Negative (NEGATIVE) Urine Urobilinogen 1.0 (0.2) E.U./dL Ur Leukocyte Esterase Negative (NEGATIVE) Urine RBC None seen (0-5/HPF) Urine WBC 0-1/hpf (0-5/HPF) Ur Squamous Epith Cells 0-1 /hpf (0-5/HPF) Urine Bacteria Occasional (0-1) (None) Ur Culture Indicated? Cult not indicated SARS-CoV-2 (PCR) (Negative) Imaging Data Chest x-ray: Radiologist's Impression: [address] [address] XRay Report Signed Patient: Az Bowden MR#: [id number] : 1955 Acct:[id number] Age/Sex: 66 / M Date of Service: 10/18/21 Loc: ED Accession Number: [id number] ?? Procedure: XR chest 1V Ordering Provider: Maureen Monsivais D.O. PROCEDURE:? XR CHEST 1V ? INDICATIONS:? shortness of breath ? TECHNIQUE:? One view of the chest was acquired.? ? COMPARISON:? [facility], CR, XR CHEST 1V, 08/29/2021, 7:09. ? FINDINGS:? ? Surgical changes and devices:? None.? ? Lungs and pleura:? Interstitial opacities in the mid lungs and lung bases stable compared to prior exam.? No pleural effusions or pneumothorax.? ? Mediastinum:? Mediastinal contours appear normal.? Heart size is normal.? ? Bones and chest wall:? No suspicious bony lesions.? Overlying soft tissues appear unremarkable.? ? IMPRESSION:? Stable bilateral lung interstitial opacities which could represent pulmonary edema or atypical pneumonia.? ? ? Dictated by: Justyna Becerril MD, PhD on 10/18/2021 at 18:03 ? ? Approved by: Justyna Becerril MD, PhD on 10/18/2021 at 18:04?? ECG Data Attestation: I personally reviewed and interpreted this ECG as follows: Interpretation: Sinus tachycardia Ventricular rate 108 Normal axis QRS Normal QTC No ST T wave changes MDM Narrative Medical decision making narrative: Patient initially was tachycardic but this improved without incident. He was alert oriented x3. Is not hypoxic. Not febrile. Lungs are clear. Chest x-ray concerning for pneumonia but he is currently on antibiotics for this. I once again have concern that this was seizure-like activity given his presentation. He had a head CT performed within the past 6 weeks we will hold on that for now. Had a discussion with him regarding starting antiseizure medications or waiting until he sees his primary doctor and a neurologist. After this discussion the plan will be is to start him on Keppra. He was given a dose here in the ER and will send home with a prescription for this. He was informed that he does need to follow-up with his primary doctor and he realizes that he potentially could have further seizure-like activity despite being on this medication. He expressed understanding. He states he feels back to normal. Will discharge home with return precautions. He expressed understanding and agreement. Discharge Plan Departure Patient Disposition: Home Clinical Impression: Seizure-like activity Instructions: DI for Seizure (Not Epilepsy/Seizure Disorder) Activity Restrictions/Additional Instructions: Your presentation today is somewhat concerning for seizure activity. Like we discussed unfortunately we can not definitively diagnose this based on labs and what we can do out of the emergency department. After a discussion we will start you on a anti seizure medication. Tomorrow I recommend you contact your primary doctor to discuss further evaluation and potentially a referral to see Neurology. Continue the rest of your medications as directed. Return to the emergency department for any new or worsening symptoms. Prescriptions: New levetiracetam [Keppra] 500 mg tablet 500 mg PO BID Qty: 60 0RF No Action albuterol sulfate 90 mcg/actuation HFA aerosol inhaler 1 puff INHALATION Q4-6H PRN (Reason: shortness of breath or wheezing) Qty: 8.5 0RF furosemide [Lasix] 20 mg tablet 20 mg PO DAILY Qty: 3 0RF ondansetron 8 mg Tablet,Disintegrating 8 mg PO Q8HR PRN (Reason: Nausea or vomiting) oxycodone 5 mg/5 mL solution 5 mg feeding tube Q12HR PRN (Reason: pain) levothyroxine 88 mcg Tablet 88 mcg PO DAILY prednisone 5 mg/5 mL solution 15 mg feeding tube DAILY lansoprazole 15 mg tablet,disintegrat, delay rel 15 mg PO DAILY Label Comments: DISSOLVE ON TOP OF TONGUE 1 TABLET (15 MG TOTAL) BY MOUTH DAILY cyanocobalamin (vitamin B-12) 1,000 mcg/mL Kit 1,000 mcg SUBCUT SEEINSTR Rx Instructions: every 2 weeks aspirin 81 mg Tablet,Chewable 81 mg PO DAILY loperamide 1 mg/7.5 mL liquid 2 mg SEEINSTR PRN (Reason: see instructions) Label Comments: GIVE 15 ML BY G-TUBE NEEDED TWICE A DAY 10 DAYS 4 Referrals: Az Salazar PA-C [Primary Care Provider] - Visit Report Forms: Patient Portal/API
[2021-10-18] MEDS: levETIRAcetam 250 MG TABLET 1000 MG PO (20:04)
== END 2021-10-18 20:17 | disposition home or self-care (01) ==
PROVIDERS: Emergency Medicine; Emergency Provider Emergency Medicine; PCP Physician Assistant
DX: R56.9 Unspecified convulsions (principal); R06.02 Shortness of breath; R00.0 Tachycardia, unspecified; Z20.822 Contact with and (suspected) exposure to COVID-19
CPT/HCPCS: 36415; 71045; 80053; 81001; 82550; 83605; 83880; 84484; 85025; 87635; 93005; 93010; 99284; C9803

== ENCOUNTER 2021-11-26 14:45 | Emergency (ER) | payer MEDICARE, OTHER, SELFPAY ==
[2021-11-26] VITALS (8 sets, daily range): BP systolic 110–147; BP diastolic 66–83; PULSE 83–108; RESP 11–27; TEMP 36.6; O2SAT 94–98; BMI 20.2
[2021-11-26 15:01] LABS: Add Manual Diff / Slide Review NO; Basophils Absolute Auto 0 /uL (0-100); Basophils Percent Auto 0.5 % (0-2); Eosinophils Absolute Auto 0 /uL (0-450); Eosinophils Percent Auto 0.4 % (2-4); Hematocrit 26.1 % (41-53); Hemoglobin 8.3 g/dL (13.5-17.5); Lymphocytes Absolute Auto 400 /uL (1100-4500); Lymphocytes Percent Auto 9.8 % (25-40); Mean Corpuscular HGB Conc 31.9 % (30-36); Mean Corpuscular Volume 84.5 fL (80-100); Monocytes Absolute Auto 100 /uL (0-900); Monocytes Percent Auto 2.1 % (3-14); Neutrophils Absolute Auto 3600 /uL (1500-7000); Neutrophils Percent Auto 87.2 % (50-75); Platelet Count 419 X10^3/uL (150-400); Red Blood Cell Count 3.09 X10^6/uL (4.5-5.9); Red Cell Distribution Width 17.4 % (11.6-14.8); White Blood Cell Count 4.2 X10^3/uL (4.5-11.0)
[2021-11-26] MEDS: levETIRAcetam 1,000 MG in SODIUM CHLORIDE 0.9% 100 ML 440 MG IV (15:07)
[2021-11-26] MEDS: SODIUM CHLORIDE 0.9% 1,000 ML 1000 ML IV (15:08)
[2021-11-26 15:31] LABS: Albumin 3.4 g/dL (3.5-5.0); Albumin Globulin Ratio 1.2 (1.0-2.8); Alkaline Phosphatase 75 U/L (38-126); Aspartate Aminotransferase 33 IU/L (17-59); BUN Creatinine Ratio 21.7 (6-22); Bilirubin Total 0.5 mg/dL (0.2-1.3); Blood Urea Nitrogen 10 mg/dL (9-20); Calcium 7.9 mg/dL (8.4-10.2); Carbon Dioxide 22 mmol/L (22-32); Chloride 108 mmol/L (98-107); Estimated Glomerular Filt Rate > 60 mL/min (>60); Globulin 2.9 g/dL (1.7-4.1); Glucose 150 mg/dL (80-110); HEMOLYSIS < 15 (0-50); Potassium 4.3 mmol/L (3.4-5.1); Sodium 140 mmol/L (137-145); Total Protein 6.3 g/dL (6.3-8.2)
--- NOTE | 2021-11-26 15:42 | ED_ITS ---
HPI - Seizure <Herber AlexandreRITIKA - Last Filed: 11/26/21 16:24> General Chief Complaint: Seizure Stated Complaint: seizure Time Seen by Provider: 11/26/21 14:53 History of Present Illness HPI Narrative: 66-year-old male, with history of stage IV stomach cancer, presents to the emergency department via EMS following a seizure earlier today. Patient states that his seizures typically start with uncontrollable left hand shaking. Patient reported that he completed his chemotherapy and returned home, and then approximately 90 minutes later had his seizure. Patient states that he typically takes his Keppra around 1200 but his was not aware that he had returned from his chemotherapy. Patient his been on chemotherapy for the last 18 months and did not start having seizures until he had been on chemotherapy for approximately 6 months. Patient denies any history of seizures prior to chemotherapy. Patient reports that he feels back to normal and his concurs. Related Data Home Medications Medication Instructions Recorded Confirmed ondansetron 8 mg disintegrating 8 mg PO Q8HR PRN Nausea or vomiting 05/10/21 08/10/21 tablet aspirin 81 mg chewable tablet 81 mg PO DAILY 08/10/21 08/10/21 cyanocobalamin (vitamin B-12) 1,000 mcg SUBCUT SEEINSTR 08/10/21 08/10/21 1,000 mcg/mL injection kit lansoprazole 15 mg delayed 15 mg PO DAILY 08/10/21 08/11/21 release,disintegrating tablet levothyroxine 88 mcg tablet 88 mcg PO DAILY 08/10/21 08/10/21 loperamide 1 mg/7.5 mL oral liquid 2 mg SEEINSTR PRN see instructions 08/10/21 08/10/21 oxycodone 5 mg/5 mL oral solution 5 mg feeding tube Q12HR PRN pain 08/10/21 08/10/21 prednisone 5 mg/5 mL oral solution 15 mg feeding tube DAILY 08/10/21 08/10/21 Previous Rx's Medication Instructions Recorded albuterol sulfate 90 mcg/actuation 1 puff inhalation Q4-6H PRN 10/04/18 aerosol inhaler shortness of breath or wheezing #8.5 grams furosemide 20 mg tablet (Lasix) 20 mg PO DAILY #3 tabs 06/07/21 levetiracetam 500 mg tablet 500 mg PO BID #60 tabs 10/18/21 (Nickie) Allergies Allergy/AdvReac Type Severity Reaction Status Date / Time No Known Drug Allergies Allergy Verified 11/26/21 15:42 Review of Systems <RITIKA Morales - Last Filed: 11/26/21 16:24> Review of Systems Narrative: Narrative: GENERAL: Denies chills, fatigue, fever, sweats. See HPI HEENT: Denies sinus pain, ear pain, sore throat, difficulty swallowing, dizziness. RESPIRATORY: Denies dyspnea, wheezing, sputum. Endorses periodic cough. CARDIOVASCULAR: Denies chest pain, palpitations, edema. GASTROINTESTINAL: Denies nausea, vomiting, diarrhea, constipation. Endorses generalized abdominal pain especially where his Peg-tube inserts. : Denies dysuria, frequency, incontinence, hematuria, urinary retention, flank pain. MSK: Denies weakness, joint pain, or bony pain. SKIN: Denies rash, skin lesions, or pruritis. NEUROLOGIC: Denies weakness, dizziness, headache, numbness, confusion. PSYCHIATRIC: No concerning psychosocial issues. Patient History <RITIKA Morales - Last Filed: 11/26/21 16:24> Medical History Anemia CHF (congestive heart failure) Chronic interstitial lung disease Compression fracture Essential hypertension History of stroke involving cerebellum Lupus Pelvic fracture Surgical History H/O pelvic surgery Family History Father Alcohol abuse Mother Alcohol abuse Brother CVA (cerebral vascular accident) Social History household members: spouse Smoking Status: Never smoker alcohol intake: former Smoking Status: Never smoker alcohol intake frequency: holidays/special occasions only Substance Use Type: marijuana Exam <RITIKA Morales - Last Filed: 11/26/21 16:24> Narrative Exam Narrative: Exam Narrative: GENERAL: This is a well-nourished, well-developed patient, in no acute distress HEAD: Atraumatic. Normocephalic. EYES: Pupils equal round and reactive. Extraocular motions intact. No scleral icterus, injection or drainage. CARDIOVASCULAR: Regular rate and rhythm without murmurs, peripheral pulses intact, cap refill <2 sec. RESPIRATORY: Breath sounds equal and clear bilaterally. No wheezes, rales, or rhonchi. Occasional cough. No increased respiratory effort. No accessory muscle use. GASTROINTESTINAL: Abdomen soft, tender around the Peg-tube insertion point, nondistended without guarding or rebound. No suprapubic pain. MSK: Moves all extremities. Normal range of motion, no clubbing or edema. Neurovascularly intact. NEURO: A&O x 3. Patient and endorse normal mental status. SKIN: Warm, dry, no rashes or lesions noted. Initial Vital Signs Initial Vital Signs: Vital Signs Pulse Rate 105 H 11/26/21 14:49 Blood Pressure 147/83 H 11/26/21 14:49 Pulse Oximetry 96 11/26/21 14:49 Reviewed <Janey Russell DO - Last Filed: 11/27/21 09:11> Initial Vital Signs Initial Vital Signs: Vital Signs Pulse Rate 105 H 11/26/21 14:49 Blood Pressure 147/83 H 11/26/21 14:49 Pulse Oximetry 96 11/26/21 14:49 Course <RITIKA Morales - Last Filed: 11/26/21 16:24> Orders Ordered: Discontinued Medications Sodium Chloride (Normal Saline 0.9%) 1,000 mls @ 1,000 mls/hr IV BOLUS ONE Stop: 11/26/21 15:54 Last Infusion: 11/26/21 15:51 Dose: 0 mls/hr Documented By: Admin: 11/26/21 15:08 Dose: 1,000 mls/hr Documented By: SB Levetiracetam 1,000 mg/ Sodium (Chloride) 110 mls @ 440 mls/hr IV NOW ONE Stop: 11/26/21 15:02 Last Infusion: 11/26/21 15:35 Dose: 0 mls/hr Documented By: Admin: 11/26/21 15:07 Dose: 440 mls/hr Documented By: SB Vital Signs Vital signs: Vital Signs - 8 hr 11/26/21 14:55 11/26/21 14:49 11/26/21 14:49 Temperature 97.8 F Pulse Rate 108 H 105 H Respiratory Rate 16 Blood Pressure 147/83 H 147/83 H Pulse Oximetry 94 96 Oxygen Delivery Method Room Air 08/18/22 15:00 11/26/21 15:00 11/26/21 15:08 Temperature Pulse Rate 98 H Respiratory Rate 22 Blood Pressure 133/67 113/69 Pulse Oximetry 97 Oxygen Delivery Method 11/26/21 15:08 11/26/21 15:30 11/26/21 15:30 Temperature Pulse Rate 91 H 89 Respiratory Rate 11 L 12 Blood Pressure 117/66 Pulse Oximetry 98 96 Oxygen Delivery Method <Janey Russell DO - Last Filed: 11/27/21 09:11> Orders Ordered: Discontinued Medications Sodium Chloride (Normal Saline 0.9%) 1,000 mls @ 1,000 mls/hr IV BOLUS ONE Stop: 11/26/21 15:54 Last Infusion: 11/26/21 15:51 Dose: 0 mls/hr Documented By: Admin: 11/26/21 15:08 Dose: 1,000 mls/hr Documented By: DELISA Levetiracetam 1,000 mg/ Sodium (Chloride) 110 mls @ 440 mls/hr IV NOW ONE Stop: 11/26/21 15:02 Last Infusion: 11/26/21 15:35 Dose: 0 mls/hr Documented By: Admin: 11/26/21 15:07 Dose: 440 mls/hr Documented By: DELISA Vital Signs Vital signs: Vital Signs - 8 hr 11/26/21 14:55 11/26/21 14:49 11/26/21 14:49 Temperature 97.8 F Pulse Rate 108 H 105 H Respiratory Rate 16 Blood Pressure 147/83 H 147/83 H Pulse Oximetry 94 96 Oxygen Delivery Method Room Air 11/26/21 15:00 11/26/21 15:00 11/26/21 15:08 Temperature Pulse Rate 98 H Respiratory Rate 22 Blood Pressure 133/67 113/69 Pulse Oximetry 97 Oxygen Delivery Method 11/26/21 15:08 11/26/21 15:30 11/26/21 15:30 Temperature Pulse Rate 91 H 89 Respiratory Rate 11 L 12 Blood Pressure 117/66 Pulse Oximetry 98 96 Oxygen Delivery Method MDM - Seizure <RITIKA Morales - Last Filed: 11/26/21 16:24> Differential Diagnosis Differential diagnosis: Likely generalized seizure Lab Data Result diagrams: 11/26/21 14:52 11/26/21 14:52 Labs: Lab Results 11/26/21 11/26/21 Range/Units 14:52 14:52 WBC 4.2 L (4.5-11.0) X10^3/uL RBC 3.09 L (4.5-5.9) X10^6/uL Hgb 8.3 L (13.5-17.5) g/dL Hct 26.1 L (41-53) % MCV 84.5 (80-100) fL MCH 27.0 (26-34) PG MCHC 31.9 (30-36) % RDW 17.4 H (11.6-14.8) % Plt Count 419 H (150-400) X10^3/uL Neut % (Auto) 87.2 H (50-75) % Lymph % (Auto) 9.8 L (25-40) % Dent % (Auto) 2.1 L (3-14) % Eos % (Auto) 0.4 L (2-4) % Baso % (Auto) 0.5 (0-2) % Neut # (Auto) 3600 (8746-7687) /uL Lymph # (Auto) 400 L (8410-0322) /uL Dent # (Auto) 100 (0-900) /uL Eos # (Auto) 0 (0-450) /uL Baso # (Auto) 0 (0-100) /uL Sodium 140 (137-145) mmol/L Potassium 4.3 (3.4-5.1) mmol/L Chloride 108 H (98-107) mmol/L Carbon Dioxide 22 (22-32) mmol/L BUN 10 (9-20) mg/dL Creatinine 0.46 L (0.66-1.25) mg/dL Estimated GFR > 60 (>60) mL/min BUN/Creatinine Ratio 21.7 (6-22) Glucose 150 H (80-110) mg/dL Calcium 7.9 L (8.4-10.2) mg/dL Total Bilirubin 0.5 (0.2-1.3) mg/dL AST 33 (17-59) IU/L ALT 28 (<50) IU/L Alkaline Phosphatase 75 (38-126) U/L Total Protein 6.3 (6.3-8.2) g/dL Albumin 3.4 L (3.5-5.0) g/dL Globulin 2.9 (1.7-4.1) g/dL Albumin/Globulin Ratio 1.2 (1.0-2.8) Prolactin 46.9 H (3.7-17.9) ng/mL Imaging Data CT scan - head: Radiologist's Impression: [address] [address] [address] Scan Report Signed Patient: Az Bowden MR#: [id number] : 1955 Acct:[id number] Age/Sex: 66 / M Date of Service: 11/26/21 Loc: ED Accession Number: [id number] ?? Procedure: CT head/brain wo con Ordering Provider: Janey Russell D.O. PROCEDURE:? CT HEAD/BRAIN WO CON ? INDICATIONS:? seizure.? History of gastric cancer. ? TECHNIQUE:? Noncontrast 4.5 mm thick angled axial sections acquired from the foramen magnum to the vertex, with coronal and sagittal reformats.? For radiation dose reduction, the following was used:? automated exposure control, adjustment of mA and/or kV according to patient size.? ? COMPARISON:? [facility], MR, MR HEAD/BRAIN WO CON, 12/02/2020, 8:19.? [facility], CT, CT HEAD/BRAIN WO CON, 08/15/2021, 2:32. ? FINDINGS:? Image quality:? Excellent.? ? CSF spaces:? Basal cisterns are patent.? No extra-axial fluid collections.? The ventricles are symmetric in size and shape.? ? Brain:? There is an old right frontoparietal infarct with encephalomalacia, unchanged.? No intracranial bleeds or masses.? There is mild cerebral volume loss for age, with resultant ventricular and sulcal prominence.? There are moderate periventricular and deep white matter chronic small vessel ischemic changes.? There is intracranial internal carotid artery atherosclerosis.? ? Skull and face:? Calvarium and visualized facial bones appear intact, without suspicious lesions.? ? Sinuses:? Visualized sinuses and mastoids are clear.? ? IMPRESSION:? ? 1. No acute intracranial abnormalities. ? 2. Old right frontoparietal infarct appears unchanged. ? 3. Cerebral volume loss and chronic microvascular ischemic changes. ? ? Dictated by: Zafar Beltran M.D. on 11/26/2021 at 16:02 ? ? Approved by: Zafar Beltran M.D. on 11/26/2021 at 16:06 ? [facility] Narrative Medical decision making narrative: 66-year-old male with history of stage IV stomach cancer that is currently on chemotherapy. Today's seizure occurred approximately 90 minutes after he completed his chemotherapy. Seizures did not occur until 6 months after starting chemotherapy. Head CT obtained and was normal for patient. Labs were consistent with a seizure and previous values. Patient and spouse feel like he is okay to go home and continue taking his medications as prescribed. Discussed plan of care and return precautions with patient and spouse, who were agreeable with course of action. <Janey Russell, DO - Last Filed: 11/27/21 09:11> Lab Data Labs: Lab Results 11/26/21 11/26/21 Range/Units 14:52 14:52 WBC 4.2 L (4.5-11.0) X10^3/uL RBC 3.09 L (4.5-5.9) X10^6/uL Hgb 8.3 L (13.5-17.5) g/dL Hct 26.1 L (41-53) % MCV 84.5 (80-100) fL MCH 27.0 (26-34) PG MCHC 31.9 (30-36) % RDW 17.4 H (11.6-14.8) % Plt Count 419 H (150-400) X10^3/uL Neut % (Auto) 87.2 H (50-75) % Lymph % (Auto) 9.8 L (25-40) % Dent % (Auto) 2.1 L (3-14) % Eos % (Auto) 0.4 L (2-4) % Baso % (Auto) 0.5 (0-2) % Neut # (Auto) 3600 (9933-9663) /uL Lymph # (Auto) 400 L (8189-3382) /uL Dent # (Auto) 100 (0-900) /uL Eos # (Auto) 0 (0-450) /uL Baso # (Auto) 0 (0-100) /uL Sodium 140 (137-145) mmol/L Potassium 4.3 (3.4-5.1) mmol/L Chloride 108 H (98-107) mmol/L Carbon Dioxide 22 (22-32) mmol/L BUN 10 (9-20) mg/dL Creatinine 0.46 L (0.66-1.25) mg/dL Estimated GFR > 60 (>60) mL/min BUN/Creatinine Ratio 21.7 (6-22) Glucose 150 H (80-110) mg/dL Calcium 7.9 L (8.4-10.2) mg/dL Total Bilirubin 0.5 (0.2-1.3) mg/dL AST 33 (17-59) IU/L ALT 28 (<50) IU/L Alkaline Phosphatase 75 (38-126) U/L Total Protein 6.3 (6.3-8.2) g/dL Albumin 3.4 L (3.5-5.0) g/dL Globulin 2.9 (1.7-4.1) g/dL Albumin/Globulin Ratio 1.2 (1.0-2.8) Prolactin 46.9 H (3.7-17.9) ng/mL Discharge Plan Departure Patient Disposition: Home Clinical Impression: Generalized seizure Instructions: DI for Seizure (Not Epilepsy/Seizure Disorder) Activity Restrictions/Additional Instructions: *You have been diagnosed with a seizure disorder. As we discussed, your head CT reveals no changes. Your labs are all consistent with previous and expected lab values. My assessment was encouraging and you and your have both reported feeling well nothing go home. If at any point you develop worsening symptoms that include seizure activity, intolerable pain, chest pain, difficulty breathing, etc. please return to the emergency department immediately. Otherwise, please follow-up with your family doctor and oncologist as needed. *What to do: *Please continue to take your regular medications as directed. [ ] New medication prescriptions sent to your pharmacy: [ ] [ ] New medication written as a paper prescription [ x] No new medications given *Please follow up with your primary care provider in 2-3 days, call for an appointment. Let them know you were seen in the Emergency Department and that we ask that you be seen in follow up. We will electronically transmit a record of today's note if your PCP is in our system *If you do not have a primary care provider please contact the [facility] Resource line at [phone]. They will ask some questions about your medical history and help get you set up with a doctor in the community. ? Return to ER if you should have any new, worsening or concerning symptoms, such as worsening pain, severe headache, confusion, chest pain, difficulty breathing, fever greater than 101 F, shaking chills, persistent vomiting to the point that you cannot drink fluids, or other new or worsening symptoms. Prescriptions: No Action albuterol sulfate 90 mcg/actuation HFA aerosol inhaler 1 puff INHALATION Q4-6H PRN (Reason: shortness of breath or wheezing) Qty: 8.5 0RF furosemide [Lasix] 20 mg tablet 20 mg PO DAILY Qty: 3 0RF levetiracetam [Keppra] 500 mg tablet 500 mg PO BID Qty: 60 0RF ondansetron 8 mg Tablet,Disintegrating 8 mg PO Q8HR PRN (Reason: Nausea or vomiting) oxycodone 5 mg/5 mL solution 5 mg feeding tube Q12HR PRN (Reason: pain) levothyroxine 88 mcg Tablet 88 mcg PO DAILY prednisone 5 mg/5 mL solution 15 mg feeding tube DAILY lansoprazole 15 mg tablet,disintegrat, delay rel 15 mg PO DAILY Label Comments: DISSOLVE ON TOP OF TONGUE 1 TABLET (15 MG TOTAL) BY MOUTH DAILY cyanocobalamin (vitamin B-12) 1,000 mcg/mL Kit 1,000 mcg SUBCUT SEEINSTR Rx Instructions: every 2 weeks aspirin 81 mg Tablet,Chewable 81 mg PO DAILY loperamide 1 mg/7.5 mL liquid 2 mg SEEINSTR PRN (Reason: see instructions) Label Comments: GIVE 15 ML BY G-TUBE NEEDED TWICE A DAY 10 DAYS 4 Referrals: Az Salazar PA-C [Primary Care Provider] - Visit Report Forms: Patient Portal/API <Janey Russell DO - Last Filed: 11/27/21 09:11> Cosign ED Attending Shellieature Attestation: I was immediately available in the department for consultation. Documentation has been reviewed. I agree with assessment and plan.
[2021-11-26 15:46] LABS: Alanine Aminotransferase 28 IU/L (<50)
--- NOTE | 2021-11-26 15:46 | DI.CT.S_ITS ---
PROCEDURE: CT HEAD/BRAIN WO CON INDICATIONS: seizure. History of gastric cancer. TECHNIQUE: Noncontrast 4.5 mm thick angled axial sections acquired from the foramen magnum to the vertex, with coronal and sagittal reformats. For radiation dose reduction, the following was used: automated exposure control, adjustment of mA and/or kV according to patient size. COMPARISON: [facility], MR, MR HEAD/BRAIN WO CON, 12/02/2020, 8:19. [facility], CT, CT HEAD/BRAIN WO CON, 08/15/2021, 2:32. FINDINGS: Image quality: Excellent. CSF spaces: Basal cisterns are patent. No extra-axial fluid collections. The ventricles are symmetric in size and shape. Brain: There is an old right frontoparietal infarct with encephalomalacia, unchanged. No intracranial bleeds or masses. There is mild cerebral volume loss for age, with resultant ventricular and sulcal prominence. There are moderate periventricular and deep white matter chronic small vessel ischemic changes. There is intracranial internal carotid artery atherosclerosis. Skull and face: Calvarium and visualized facial bones appear intact, without suspicious lesions. Sinuses: Visualized sinuses and mastoids are clear. IMPRESSION: 1. No acute intracranial abnormalities. 2. Old right frontoparietal infarct appears unchanged. 3. Cerebral volume loss and chronic microvascular ischemic changes. Dictated by: Zafar Beltran M.D. on 11/26/2021 at 16:02 Approved by: Zafar Beltran M.D. on 11/26/2021 at 16:06
[2021-11-26 15:47] LABS: Prolactin 46.9 ng/mL (3.7-17.9)
--- NOTE | 2021-11-26 15:47 | PC.NURSE ---
Pt reports hx of seizures in last year with new medication of Keppra in last two weeks that he takes daily at noon. Pt reports stage 4 stomach cancer with chemo today. Pt was at home in bed when seizure occurred and lasted about 4 minutes. Was witnessed by . Hx of stroke in November with left sided defects.
== END 2021-11-26 16:38 | disposition home or self-care (01) ==
PROVIDERS: Emergency Provider Emergency Medicine; PCP Physician Assistant
DX: R56.9 Unspecified convulsions (principal); C16.9 Malignant neoplasm of stomach, unspecified
CPT/HCPCS: 36415; 70450; 80053; 84146; 85025; 96365; 99284; J1953

== ENCOUNTER → 2022-01-14 14:54 | Outpatient (CLI) | payer MEDICARE, OTHER, SELFPAY ==
--- NOTE | 2022-01-14 14:59 | DI.RAD.S_ITS ---
PROCEDURE: XR CHEST 2V INDICATIONS: Pneumonia, unspecified organism TECHNIQUE: 2 views of the chest were acquired. COMPARISON: Merged With [facility], CR, XR CHEST 2V, 07/24/2021, 23:14. Merged With [facility], CT, CT ANGIO CHEST PE PROTOCOL, 08/29/2021, 12:34. Merged With [facility], CR, XR CHEST 1V, 10/18/2021, 17:54. Merged With [facility], CR, XR CHEST 1V, 08/29/2021, 7:09. FINDINGS: Surgical changes and devices: Tip of the left chest port catheter projects near the superior cavoatrial junction. Lungs and pleura: No pleural effusion or pneumothorax. Bilateral interstitial opacities are present as before. No lobar consolidation identified. Mediastinum: Mediastinal contours are normal. Heart size is normal. Bones and chest wall: No suspicious bony abnormalities. Soft tissues appear unremarkable. IMPRESSION: Similar bilateral interstitial opacities, likely related to emphysema/interstitial disease/cystic change however underlying edema or viral/atypical infection are difficult to exclude. No lobar consolidation visualized. Dictated by: Mateo Heath M.D. on 01/14/2022 at 16:45 Approved by: Mateo Heath M.D. on 01/14/2022 at 16:50
== END ==
PROVIDERS: PCP Physician Assistant; Referring Provider Family Medicine; Visit Provider Family Medicine
DX: J18.9 Pneumonia, unspecified organism (principal)
CPT/HCPCS: 71046

== ENCOUNTER 2022-03-04 12:03 | Emergency (ER) | payer MEDICARE, OTHER, SELFPAY ==
[2022-03-04] VITALS (29 sets, daily range): BP systolic 86–109; BP diastolic 59–71; PULSE 86–178; RESP 18–28; TEMP 37.2; O2SAT 92–100
--- NOTE | 2022-03-04 12:16 | ED.SEIZURE ---
HPI - Seizure General Chief Complaint: Seizure Stated Complaint: seizures x 3, ran out of meds Time Seen by Provider: 03/04/22 12:13 Source: family and EMS Mode of arrival: EMS Limitations: altered mental status History of Present Illness HPI Narrative: Patient is a 67-year-old male. Known history of stomach cancer. Has also had seizure-like activity in the past. Has a prescription for Keppra. Has been off of his Keppra for at least 24 hours if not a little longer. A new prescription is waiting for them but they could not pick it up until tomorrow. EMS was called because the patient had what appeared to be a focal seizure in his left arm. He is had seizure-like activity in the past. This symptom resolved but then came back again. EMS was called. With EMS he had what was described as a full generalized tonic-clonic seizure. He was given Valium prior to arrival. Upon arrival the patient is arousable. He states he is very tired but otherwise no other specific complaints. Related Data Home Medications Medication Instructions Recorded Confirmed ondansetron 8 mg disintegrating 8 mg PO Q8HR PRN Nausea or vomiting 05/10/21 08/10/21 tablet aspirin 81 mg chewable tablet 81 mg PO DAILY 08/10/21 08/10/21 cyanocobalamin (vitamin B-12) 1,000 mcg SUBCUT SEEINSTR 08/10/21 08/10/21 1,000 mcg/mL injection kit lansoprazole 15 mg delayed 15 mg PO DAILY 08/10/21 08/11/21 release,disintegrating tablet levothyroxine 88 mcg tablet 88 mcg PO DAILY 08/10/21 08/10/21 loperamide 1 mg/7.5 mL oral liquid 2 mg SEEINSTR PRN see instructions 08/10/21 08/10/21 oxycodone 5 mg/5 mL oral solution 5 mg feeding tube Q12HR PRN pain 08/10/21 08/10/21 prednisone 5 mg/5 mL oral solution 15 mg feeding tube DAILY 08/10/21 08/10/21 Previous Rx's Medication Instructions Recorded albuterol sulfate 90 mcg/actuation 1 puff inhalation Q4-6H PRN 10/04/18 aerosol inhaler shortness of breath or wheezing #8.5 grams furosemide 20 mg tablet (Lasix) 20 mg PO DAILY #3 tabs 06/07/21 levetiracetam 500 mg tablet 500 mg PO BID #60 tabs 10/18/21 (Keppra) Allergies Allergy/AdvReac Type Severity Reaction Status Date / Time No Known Drug Allergies Allergy Verified 11/26/21 15:42 Review of Systems Review of Systems ROS Unobtainable: All systems reviewed & are unremarkable except as noted in HPI and below Patient History Medical History Anemia CHF (congestive heart failure) Chronic interstitial lung disease Compression fracture Essential hypertension History of stroke involving cerebellum Lupus Pelvic fracture Surgical History H/O pelvic surgery Family History Father Alcohol abuse Mother Alcohol abuse Brother CVA (cerebral vascular accident) Social History household members: spouse Smoking Status: Never smoker alcohol intake: former Smoking Status: Never smoker alcohol intake frequency: holidays/special occasions only Substance Use Type: marijuana Exam Initial Vital Signs Initial Vital Signs: Vital Signs Temperature 98.9 F 03/04/22 12:05 Pulse Rate 109 H 03/04/22 12:05 Respiratory Rate 18 03/04/22 12:05 Blood Pressure 91/67 03/04/22 12:05 Pulse Oximetry 93 03/04/22 12:05 Oxygen Delivery Method 03/04/22 12:05 Const General: cooperative and comfortable HENIA Head: normal to inspection and normocephalic Eyes General: Yes appearance normal, both eyes and all related structures Resp Effort & Inspection: normal respiratory effort Auscultation: clear to auscultation bilaterally Cardio Rate: regular rate Rhythm: regular rhythm GI Inspection: normal to inspection Other: G-tube in place left side abdomen Skin General: no rashes or lesions noted Neuro General: patient alert, patient awake and patient oriented x3 Other: Patient can move his right upper extremity and bilateral lower extremities. He has a rhythmic shaking activity to his left arm from his shoulders to his hand. He is awake during this time. He can not move his left hand. This is per report from his at bedside consistent with his focal seizure activity. Extrem Other: No gross deformities Psych Appearance: grossly normal and well kempt Course Orders Ordered: ED Orders 03/04/22 12:14 Complete Blood Count AUTO DIFF Stat Comprehensive Metabolic Panel Stat Ethanol (ETOH) Stat Lipase Stat Thyroid Stimulating Hormone Stat 03/04/22 12:21 COVID19 -Nasal RAPID/Pre-Proc Stat Sodium Chloride (Normal Saline 0.9%) 1,000 mls @ 125 mls/hr IV CONT NIK Last Infusion: 03/04/22 15:05 Dose: 0 mls/hr Documented By: Admin: 03/04/22 12:20 Dose: 125 mls/hr Documented By: PAGE Discontinued Medications Levetiracetam 1,000 mg/ Sodium (Chloride) 110 mls @ 440 mls/hr IV NOW ONE Stop: 03/04/22 12:14 Last Infusion: 03/04/22 12:35 Dose: 0 mls/hr Documented By: Admin: 03/04/22 12:20 Dose: 440 mls/hr Documented By: PAGE Lorazepam (Lorazepam 2 Mg/Ml Inj) 1 mg IV NOW ONE Stop: 03/04/22 12:50 Last Admin: 03/04/22 12:53 Dose: 1 mg Documented By: AT Vital Signs Vital signs: Vital Signs - 8 hr 03/04/22 12:05 03/04/22 12:09 03/04/22 12:10 Temperature 98.9 F Pulse Rate 109 H 110 H Respiratory Rate 18 26 H Blood Pressure 91/67 96/70 Pulse Oximetry 93 93 Oxygen Delivery Method Room Air 03/04/22 12:10 03/04/22 12:15 03/04/22 12:15 Temperature Pulse Rate 112 H 110 H Respiratory Rate 26 H 26 H Blood Pressure 94/65 Pulse Oximetry 93 92 Oxygen Delivery Method Room Air 03/04/22 12:20 03/04/22 12:20 03/04/22 12:25 Temperature Pulse Rate 122 H Respiratory Rate 26 H Blood Pressure 88/66 L 94/66 Pulse Oximetry 95 Oxygen Delivery Method Room Air 03/04/22 12:25 03/04/22 12:30 03/04/22 12:30 Temperature Pulse Rate 129 H 107 H Respiratory Rate 26 H 28 H Blood Pressure 91/62 Pulse Oximetry 92 95 Oxygen Delivery Method Room Air Room Air 03/04/22 12:35 03/04/22 12:35 03/04/22 12:40 Temperature Pulse Rate 104 H Respiratory Rate 26 H Blood Pressure 90/64 90/61 Pulse Oximetry 95 Oxygen Delivery Method 03/04/22 12:40 03/04/22 12:45 03/04/22 12:45 Temperature Pulse Rate 103 H 102 H Respiratory Rate 26 H 24 Blood Pressure 95/59 L Pulse Oximetry 94 95 Oxygen Delivery Method Room Air 03/04/22 12:50 03/04/22 12:50 03/04/22 12:55 Temperature Pulse Rate 104 H Respiratory Rate 26 H Blood Pressure 94/61 94/67 Pulse Oximetry 94 Oxygen Delivery Method 03/04/22 12:55 03/04/22 13:00 03/04/22 13:00 Temperature Pulse Rate 178 H 127 H Respiratory Rate 25 H 22 Blood Pressure 86/62 L Pulse Oximetry 94 96 Oxygen Delivery Method Room Air 03/04/22 13:05 03/04/22 13:05 03/04/22 13:10 Temperature Pulse Rate 97 H Respiratory Rate 22 Blood Pressure 89/60 L 90/61 Pulse Oximetry 95 Oxygen Delivery Method 03/04/22 13:10 03/04/22 13:15 03/04/22 13:15 Temperature Pulse Rate 96 H 98 H Respiratory Rate 23 26 H Blood Pressure 109/67 Pulse Oximetry 96 96 Oxygen Delivery Method 03/04/22 13:20 03/04/22 13:20 03/04/22 13:25 Temperature Pulse Rate 95 H 92 H Respiratory Rate 25 H 24 Blood Pressure 96/63 Pulse Oximetry 98 97 Oxygen Delivery Method 03/04/22 13:25 03/04/22 13:30 03/04/22 13:30 Temperature Pulse Rate 96 H Respiratory Rate 24 Blood Pressure 96/63 109/67 Pulse Oximetry 98 Oxygen Delivery Method 03/04/22 13:35 03/04/22 13:35 03/04/22 13:40 Temperature Pulse Rate 93 H 91 H Respiratory Rate 24 23 Blood Pressure 103/66 Pulse Oximetry 97 97 Oxygen Delivery Method 03/04/22 13:40 03/04/22 13:45 03/04/22 13:45 Temperature Pulse Rate 93 H Respiratory Rate 22 Blood Pressure 99/65 101/67 Pulse Oximetry 98 Oxygen Delivery Method 03/04/22 13:50 03/04/22 13:50 03/04/22 13:55 Temperature Pulse Rate 90 89 Respiratory Rate 23 23 Blood Pressure 98/66 Pulse Oximetry 97 98 Oxygen Delivery Method 03/04/22 13:55 03/04/22 14:00 03/04/22 14:00 Temperature Pulse Rate 88 Respiratory Rate 23 Blood Pressure 105/67 106/66 Pulse Oximetry 99 Oxygen Delivery Method 03/04/22 14:05 03/04/22 14:05 03/04/22 14:10 Temperature Pulse Rate 91 H 89 Respiratory Rate 22 24 Blood Pressure 106/71 Pulse Oximetry 99 98 Oxygen Delivery Method 03/04/22 14:10 03/04/22 14:15 03/04/22 14:15 Temperature Pulse Rate 88 Respiratory Rate 22 Blood Pressure 104/71 107/66 Pulse Oximetry 100 Oxygen Delivery Method 03/04/22 14:20 03/04/22 14:20 Temperature Pulse Rate 86 Respiratory Rate 22 Blood Pressure 100/66 Pulse Oximetry 99 Oxygen Delivery Method MDM - Seizure Lab Data Result diagrams: 03/04/22 12:14 03/04/22 12:14 Labs: Lab Results 03/04/22 03/04/22 03/04/22 Range/Units 12:14 12:14 12:14 WBC 7.8 (4.5-11.0) X10^3/uL RBC 3.45 L (4.5-5.9) X10^6/uL Hgb 9.0 L (13.5-17.5) g/dL Hct 28.9 L (41-53) % MCV 83.8 (80-100) fL MCH 26.0 (26-34) PG MCHC 31.1 (30-36) % RDW 18.6 H (11.6-14.8) % Plt Count 491 H (150-400) X10^3/uL Neut % (Auto) 63.8 (50-75) % Lymph % (Auto) 26.3 (25-40) % Luce % (Auto) 4.7 (3-14) % Eos % (Auto) 4.2 H (2-4) % Baso % (Auto) 1.0 (0-2) % Neut # (Auto) 5000 (6851-9714) /uL Lymph # (Auto) 2100 (8981-3171) /uL Luce # (Auto) 400 (0-900) /uL Eos # (Auto) 300 (0-450) /uL Baso # (Auto) 100 (0-100) /uL Sodium 139 (137-145) mmol/L Potassium 3.8 (3.4-5.1) mmol/L Chloride 103 (98-107) mmol/L Carbon Dioxide 18 L (22-32) mmol/L BUN 14 (9-20) mg/dL Creatinine 0.46 L (0.66-1.25) mg/dL Estimated GFR > 60 (>60) mL/min BUN/Creatinine Ratio 30.4 H (6-22) Glucose 119 H (80-110) mg/dL Calcium 8.2 L (8.4-10.2) mg/dL Total Bilirubin 0.3 (0.2-1.3) mg/dL AST 38 (17-59) IU/L ALT 39 (<50) IU/L Alkaline Phosphatase 75 (38-126) U/L Total Protein 6.6 (6.3-8.2) g/dL Albumin 3.4 L (3.5-5.0) g/dL Globulin 3.2 (1.7-4.1) g/dL Albumin/Globulin Ratio 1.1 (1.0-2.8) Lipase 64 (23-300) U/L TSH 5.67 H (0.47-4.68) uIU/mL Ethyl Alcohol < 10 ( - 10) mg/dL SARS-CoV-2 (PCR) (Negative) 03/04/22 Range/Units 12:21 WBC (4.5-11.0) X10^3/uL RBC (4.5-5.9) X10^6/uL Hgb (13.5-17.5) g/dL Hct (41-53) % MCV (80-100) fL MCH (26-34) PG MCHC (30-36) % RDW (11.6-14.8) % Plt Count (150-400) X10^3/uL Neut % (Auto) (50-75) % Lymph % (Auto) (25-40) % Luce % (Auto) (3-14) % Eos % (Auto) (2-4) % Baso % (Auto) (0-2) % Neut # (Auto) (4717-4332) /uL Lymph # (Auto) (9864-7234) /uL Luce # (Auto) (0-900) /uL Eos # (Auto) (0-450) /uL Baso # (Auto) (0-100) /uL Sodium (137-145) mmol/L Potassium (3.4-5.1) mmol/L Chloride (98-107) mmol/L Carbon Dioxide (22-32) mmol/L BUN (9-20) mg/dL Creatinine (0.66-1.25) mg/dL Estimated GFR (>60) mL/min BUN/Creatinine Ratio (6-22) Glucose (80-110) mg/dL Calcium (8.4-10.2) mg/dL Total Bilirubin (0.2-1.3) mg/dL AST (17-59) IU/L ALT (<50) IU/L Alkaline Phosphatase (38-126) U/L Total Protein (6.3-8.2) g/dL Albumin (3.5-5.0) g/dL Globulin (1.7-4.1) g/dL Albumin/Globulin Ratio (1.0-2.8) Lipase (23-300) U/L TSH (0.47-4.68) uIU/mL Ethyl Alcohol ( - 10) mg/dL SARS-CoV-2 (PCR) Negative (Negative) MDM Narrative Medical decision making narrative: He has rhythmic shaking activity to his left upper extremity which per report from the patient's is consistent with his seizure activity. He was given Keppra. This did not improve any of the shaking. He then was given Ativan. The shaking completely stopped. He was awake during this time. He had no generalized tonic-clonic seizures here in the ER. No signs of trauma. After period of observation the patient states that he feels ?great? he ambulated around the emergency department. He states that he was somewhat lightheaded but otherwise felt okay. No vomiting. No headache. Low suspicion for CVA/TIA. I feel that we can hold on any radiologic studies for now. Most likely seizure activity today because he skipped at least 1 if not 2 doses of his Keppra. He is scheduled to pickling solution maker his Keppra tomorrow. Patient is comfortable going home. He was given return precautions. He expressed understanding and agreement. Discharge Plan Departure Patient Disposition: Home Clinical Impression: Seizure-like activity Instructions: DI for Seizure Disorder -- Adult Activity Restrictions/Additional Instructions: I do recommend that you continue to take all of your medications as directed. Be sure to pickling solution maker your Keppra tomorrow and start taking it. Return to the emergency department for any new or worsening symptoms. Prescriptions: No Action albuterol sulfate 90 mcg/actuation HFA aerosol inhaler 1 puff INHALATION Q4-6H PRN (Reason: shortness of breath or wheezing) Qty: 8.5 0RF furosemide [Lasix] 20 mg tablet 20 mg PO DAILY Qty: 3 0RF levetiracetam [Keppra] 500 mg tablet 500 mg PO BID Qty: 60 0RF ondansetron 8 mg Tablet,Disintegrating 8 mg PO Q8HR PRN (Reason: Nausea or vomiting) oxycodone 5 mg/5 mL solution 5 mg feeding tube Q12HR PRN (Reason: pain) levothyroxine 88 mcg Tablet 88 mcg PO DAILY prednisone 5 mg/5 mL solution 15 mg feeding tube DAILY lansoprazole 15 mg tablet,disintegrat, delay rel 15 mg PO DAILY Label Comments: DISSOLVE ON TOP OF TONGUE 1 TABLET (15 MG TOTAL) BY MOUTH DAILY cyanocobalamin (vitamin B-12) 1,000 mcg/mL Kit 1,000 mcg SUBCUT SEEINSTR Rx Instructions: every 2 weeks aspirin 81 mg Tablet,Chewable 81 mg PO DAILY loperamide 1 mg/7.5 mL liquid 2 mg SEEINSTR PRN (Reason: see instructions) Label Comments: GIVE 15 ML BY G-TUBE NEEDED TWICE A DAY 10 DAYS 4 Referrals: Az Salazar PA-C [Primary Care Provider] -
[2022-03-04] MEDS: levETIRAcetam 1,000 MG in SODIUM CHLORIDE 0.9% 100 ML 440 MG IV (12:20)
[2022-03-04] MEDS: SODIUM CHLORIDE 0.9% 1,000 ML 125 ML IV (12:20)
[2022-03-04 12:24] LABS: Add Manual Diff / Slide Review NO; Basophils Absolute Auto 100 /uL (0-100); Eosinophils Absolute Auto 300 /uL (0-450); Eosinophils Percent Auto 4.2 % (2-4); Hematocrit 28.9 % (41-53); Lymphocytes Absolute Auto 2100 /uL (1100-4500); Lymphocytes Percent Auto 26.3 % (25-40); Mean Corpuscular HGB Conc 31.1 % (30-36); Mean Corpuscular Volume 83.8 fL (80-100); Monocytes Absolute Auto 400 /uL (0-900); Monocytes Percent Auto 4.7 % (3-14); Neutrophils Absolute Auto 5000 /uL (1500-7000); Neutrophils Percent Auto 63.8 % (50-75); Platelet Count 491 X10^3/uL (150-400); Red Blood Cell Count 3.45 X10^6/uL (4.5-5.9); Red Cell Distribution Width 18.6 % (11.6-14.8); White Blood Cell Count 7.8 X10^3/uL (4.5-11.0)
[2022-03-04 12:38] LABS: COVID19 -Nasal RAPID Negative (Negative)
[2022-03-04 12:39] LABS: Albumin 3.4 g/dL (3.5-5.0); Albumin Globulin Ratio 1.1 (1.0-2.8); Alkaline Phosphatase 75 U/L (38-126); Aspartate Aminotransferase 38 IU/L (17-59); BUN Creatinine Ratio 30.4 (6-22); Bilirubin Total 0.3 mg/dL (0.2-1.3); Blood Urea Nitrogen 14 mg/dL (9-20); Calcium 8.2 mg/dL (8.4-10.2); Carbon Dioxide 18 mmol/L (22-32); Chloride 103 mmol/L (98-107); Estimated Glomerular Filt Rate > 60 mL/min (>60); Ethanol (ETOH) < 10 mg/dL; Globulin 3.2 g/dL (1.7-4.1); Glucose 119 mg/dL (80-110); Lipase 64 U/L (23-300); Potassium 3.8 mmol/L (3.4-5.1); Sodium 139 mmol/L (137-145); Total Protein 6.6 g/dL (6.3-8.2)
[2022-03-04 12:45] LABS: Alanine Aminotransferase 39 IU/L (<50); HEMOLYSIS 34 (0-50)
[2022-03-04] MEDS: LORazepam 2 MG/ML INJ 1 MG IV (12:53)
[2022-03-04 13:10] LABS: Thyroid Stimulating Hormone 5.67 uIU/mL (0.47-4.68)
== END 2022-03-04 15:27 | disposition home or self-care (01) ==
PROVIDERS: Emergency Provider Emergency Medicine; PCP Physician Assistant
DX: R56.9 Unspecified convulsions (principal); Z20.822 Contact with and (suspected) exposure to COVID-19
CPT/HCPCS: 36415; 80053; 80320; 83690; 84443; 85025; 87635; 96361; 96374; 96375; 99284; C9803; J1953; J2060